=== PATIENT | male | born 1955 | race Caucasian/White ===

== ENCOUNTER 2018-03-13 19:36 | Inpatient (IN) | payer BC ==
--- OUTSIDE RECORDS SUMMARY | 2018-03-13 19:39 | XMS REPORT | Clinical Summary ---
:1955 Author Organization [facility] Address [address] [place] [address] Phone Care Team Providers Name Role Phone Unavailable Primary Care Provider Unavailable Allergies No Known Allergies Current Medications Prescription Sig. Disp. Refills Start Date End Date Status allopurinol Take 100 mg by 05/02/2013 Active (ZYLOPRIM) 100 MG mouth 2 (two) tablet times daily. blood-glucose meter Glucometer;Ttest 400 each 3 05/10/2017 Active kit strips to use 4 8 a day # 400 refills x 3; Lancets to use 4 a day # 400 refills x 3. insulin lispro To use via 45 mL 3 05/10/2017 Active (HUMALOG KWIKPEN) sliding scale 100 unit/mL InPn from 10 to 25 units three times a day. insulin pen needles Use as directed. 500 each 3 05/10/2017 Active (BD ULTRA-FINE Dispense as AMBROSE) 4 mm x 32 G written, do not substitute. Brand medically necessary.to use 5 a day. acetaminophen-codei Take 1 tablet by 30 tablet 1 05/11/2017 Active ne (TYLENOL #3) mouth every 4 300-30 mg per (four) hours as tablet needed. Max Daily Amount: 6 tablets atorvastatin Take 1 tablet 30 tablet 1 05/11/2017 Active (LIPITOR) 80 MG (80 mg total) by 8 tablet mouth nightly. aspirin 325 MG Take 1 tablet 30 tablet 0 06/12/2017 Active tablet (325 mg total) 8 by mouth daily. insulin detemir To use 45 units 45 mL 3 06/28/2017 Active (LEVEMIR FLEXTOUCH) in am and 35 100 unit/mL (3 mL) units in pm. InPn injection amiodarone Take 1 tablet 60 tablet 0 06/28/2017 Active (PACERONE) 200 MG (200 mg total) 8 tablet by mouth daily. metoprolol Take 1 tablet 30 tablet 1 06/28/2017 Active (TOPROL-XL) 25 MG (25 mg total) by 8 24 hr tablet mouth nightly. bumetanide (BUMEX) Take 1 tablet (1 30 tablet 1 06/28/2017 Active 1 MG tablet mg total) by 8 mouth daily. potassium chloride Take 1 tablet 30 tablet 1 06/28/2017 Active SA (K-DUR,KLOR-CON) (10 mEq total) 8 10 MEQ tablet by mouth daily. insulin detemir To use 60 units 45 mL 3 05/10/2017 Discontinued (LEVEMIR FLEXTOUCH) twice a day. 7 100 unit/mL (3 mL) InPn injection amiodarone Take 1 tablet 30 tablet 1 05/12/2017 Discontinued (PACERONE) 200 MG (200 mg total) 7 tablet by mouth daily. aspirin 81 MG EC Take 1 tablet 0 05/12/2017 Discontinued tablet (81 mg total) by 7 mouth daily. carvedilol (COREG) Take 1 tablet 60 tablet 1 05/11/2017 Discontinued 3.125 MG tablet (3.125 mg total) 7 by mouth 2 (two) times daily. losartan (COZAAR) Take 1 tablet 30 tablet 1 05/12/2017 Discontinued 25 MG tablet (25 mg total) by 7 mouth daily. Continue current Per Parenteral 1 each 0 06/11/2017 Discontinued parenteral nutrition 7 nutrition IV formulation. infusion amiodarone Take 1 tablet 60 tablet 0 06/11/2017 Discontinued (PACERONE) 200 MG (200 mg total) 7 tablet by mouth 2 (two) times daily. clotrimazole-betame Apply topically 45 g 0 06/11/2017 Discontinued thasone (LOTRISONE) 3 (three) times 7 1-0.05 % cream daily. medium chain Take 15 mLs by 946 mL 0 06/11/2017 Discontinued triglycerides (MCT mouth 3 (three) 7 OIL) 7.7 kcal/mL times daily. oil potassium chloride Take 1 tablet 60 tablet 0 06/11/2017 Discontinued SA (K-DUR,KLOR-CON) (20 mEq total) 7 20 MEQ tablet by mouth 2 (two) times daily. bumetanide (BUMEX) Take 1 tablet (2 60 tablet 0 06/11/2017 Discontinued 2 MG tablet mg total) by 7 mouth 2 (two) times daily. 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 Acute pulmonary insufficiency following thoracic surgery ([facility]) 05/28/2017 Pericardial tamponade 05/24/2017 Pericardial effusion 05/23/2017 Chronic gout 05/04/2017 Type 2 diabetes mellitus without complication ([facility]) 05/04/2017 CAD (coronary artery disease) 05/03/2017 SRIRAM (obstructive sleep apnea) 05/03/2017 NSVT (nonsustained ventricular tachycardia) ([facility]) 05/02/2017 Encounters Date Type Specialty Care Team Description 06/17/2017 - Hospital Encounter Cardiology Radha Mccormick 06/28/2017 MD Va Negro Alyssa Hyunna, MD 05/27/2017 Ancillary Orders Lab Noris Villanueva MD 05/27/2017 Anesthesia Event Xavier Deal MD 05/27/2017 Procedure Pass 05/27/2017 Noris Dillon THORACOSCOPY MD Karan (VATS),DECORTICATION 05/24/2017 Anesthesia Event Giancarlo Kingsley AA 05/24/2017 Procedure Pass 05/24/2017 Noris Dillon CREATION,PERICARDIAL MD Karan WINDOW 05/22/2017 - Hospital Encounter Cardiology Radha Mccormick Pericardial effusion 06/11/2017 MD Parker Negro Jamuna V., MD 05/05/2017 Orders Only General Internal Medicine 05/04/2017 Procedure Pass 05/04/2017 Noris Dillon,AORTO MD Karan CORONARY APARNA/SVG 05/03/2017 Anesthesia Event Giancarlo Kingsley AA 05/03/2017 Orders Only Zac Mercedes MD 05/02/2017 - Hospital Encounter Cardiology Radha Mccormick NSVT (nonsustained 05/11/2017 MD Sruthi ventricular Ruby, tachycardia) ([facility]) MD Samson (Primary Dx);Coronary artery disease involving [place] coronary artery of [place] shoshone heart with unstable angina pectoris ([facility]);SRIRAM (obstructive sleep apnea) 05/02/2017 Procedure Pass 05/02/2017 Surgery Radha Mccormick CATH & PCI MD Sruthi 05/02/2017 Orders Only General Internal Medicine after 03/12/2017 Social History Tobacco Use Types Packs/Day Years Used Date Former Smoker Cigarettes 1 25 Quit: 05/02/2002 Smokeless Tobacco: Never Used Alcohol Use Drinks/Week oz/Week Comments No Sex Assigned at Date Recorded Not on file Last Filed Vital Signs Vital Sign Reading Time Taken Blood Pressure 116/66 06/28/2017 11:57 AM [facility] Pulse 62 06/28/2017 11:57 AM [facility] Temperature 35.6 C (96.1 F) 06/28/2017 11:57 AM [facility] Respiratory Rate 20 06/28/2017 11:57 AM [facility] Oxygen Saturation 97% 06/28/2017 11:57 AM [facility] Inhaled Oxygen Concentration - - Weight 127.5 kg (281 lb) 06/28/2017 4:07 AM [facility] Height 180.3 cm (5' 11") 06/18/2017 2:00 PM [facility] Body Mass Index 39.19 06/28/2017 4:07 AM [facility]IL[facility] Plan of Treatment Not on file Implants Implanted Type Area Sausage Maker Device Expiration Model / Identifier Date Serial / Lot Sut Surg Stl 7 18g 18in Mls Mp M655g - [id number] Pass Christian/Arthroscop N/A: J &J :ETHICON 01/29/2022 [id number] / Implanted: Qty: 6 on 05/04/2017 by Noris Villanueva MD y Sternum / [id number] [id number] - Sx Cardiovascular N/A: SYNTHES: SYNTHE 03/01/2022 [id number] / Implanted: Qty: 2 on 05/04/2017 by Noris Villanueva MD Sternum S [facility] X / [id number] Procedures Procedure Name Priority Date/Time Associated Diagnosis Comments THORACOSCOPY 05/27/2017 9:00 AM CAD (VATS),DECORTICATION CDT CREATION,PERICARDIAL 05/24/2017 8:00 AM PERICARDIAL EFFUSION WINDOW CDT ENDOSCOPIC HARVEST,VEIN 05/04/2017 7:30 AM CAOD CDT BYPASS,AORTO CORONARY 05/04/2017 7:30 AM CAOD APARNA/SVG CDT R CATH 05/02/2017 2:20 PM CAD CDT L CATH & PCI 05/02/2017 2:20 PM CAD CDT after 03/12/2017 Results EKG-SCANNED (08/05/2017 1:10 PM)Only the most recent of3 resultswithin the time period is included.RHYTHM STRIP - SCAN (06/30/2017 8:54 AM)Only the most recent of8 resultswithin the time period is included.POC-Glucose meter (2016 7:02 AM)Only the most recent of207 resultswithin the time period is included. Component Value Ref Range POC-Glucose Meter 133 (H)Comment: TESTED AT [address] 70 - 110 mg/[place] [address] Specimen Performing Laboratory Blood [address] [address] CBC (Hemogram only) (06/28/2017 4:43 AM)Only the most recent of5 resultswithin the time period is included. Component Value Ref Range WBC 5.2 3.5 - 10.5 K/L RBC 4.15 (L) 4.63 - 6.08 M/L Hemoglobin 10.8 (L) 13.7 - 17.5 GM/DL Hematocrit 34.2 (L) 40.1 - 51.0 % MCV 82.4 79.0 - 92.2 fL MCH 26.0 25.7 - 32.2 pg MCHC 31.6 (L) 32.3 - 36.5 GM/DL RDW 14.2 11.6 - 14.4 % Platelets 182 150 - 450 K/CU MM MPV 11.0 9.4 - 12.4 fL nRBC 0 0 - 0 /100 WBC Specimen Performing Laboratory Blood [address] [address] Phosphorus (06/28/2017 4:43 AM)Only the most recent of22 resultswithin the time period is included. Component Value Ref Range Phosphorus 4.5 2.3 - 4.7 mg/dL Specimen Performing Laboratory Blood [facility] [address] Magnesium (06/28/2017 4:43 AM)Only the most recent of46 resultswithin the time period is included. Component Value Ref Range Magnesium 1.7 1.6 - 2.6 mg/dL Specimen Performing Laboratory Blood [address] [address] Basic Metabolic Panel (06/28/2017 4:43 AM)Only the most recent of44 resultswithin the time period is included. Component Value Ref Range Sodium 140 136 - 145 meq/L Potassium 4.3 3.5 - 5.1 meq/L Chloride 108 (H) 98 - 107 meq/L CO2 22 22 - 29 meq/L BUN 13 7 - 21 mg/dL Creatinine 0.69 0.57 - 1.25 mg/dL Glucose 123 (H) 70 - 105 mg/dL Calcium 8.1 (L) 8.4 - 10.2 mg/dL EGFR 117Comment: ESTIMATED GFR IS NOT ACCURATE mL/min/1.73 sq m CREATININE CLEARANCE IN PREDICTING GLOMERULAR FILTRATION RATE. ESTIMATED GFR IS NOT APPLICABLE FOR DIALYSIS PATIENTS. Specimen Performing Laboratory Blood [address] [address] ECHOCARDIOGRAM REPORT - SCAN (06/25/2017 12:20 PM)Only the most recent of5 resultswithin the time period is included.CT chest without IV contrast (2016 11:48 AM)Only the most recent of4 resultswithin the time period is included. Specimen Performing Laboratory [place] Narrative FINAL REPORT CT of the Chest dated 06/25/2017 COMPARISON: June 18, 2017 CLINICAL INFORMATION: Pericarditis Comment:Axial images of the chest were obtained from thoracic inlet to the upper abdomen without intravenous contrast. This exam was performed according to our departmental dose-optimization program, which includes automated exposure control, adjustment of the mA and/or kV according to patient size and/or use of interactive reconstruction technique. Heart is in the upper limits of normal in size. There is pericardial thickening. Aberrant right subclavian artery is noted. There is prior sternotomy and bypass surgery. Great vessels are unremarkable. No adenopathy in the mediastinum or perihilar region. Calcified granulomas are seen in the paratracheal and prevascular mediastinum and right perihilar region.Trachea and mainstem bronchi are patent. There is minimal irregular pleural thickening versus trace pleural effusion in the left hemithorax. Subsegmental atelectasis is seen in the left lung base. The rest of the lungs are clear. Visualized upper abdomen demonstrates no focal lesion. Impression: 1. Pericardial thickening. 2. Trace left pleural effusion and left lower lobe subsegmental atelectasis 3. Aberrant subclavian artery. Signed: Nona Chauhan MD Report Verified Date/Time:06/25/2017 12:30:00 Reading Location: [facility] B1 C013Y CT Body Reading Room Procedure Note Interface, External Ris In - 06/25/2017 12:32 PM [facility] FINAL REPORT CT of the Chest dated 06/25/2017 COMPARISON: June 18, 2017 CLINICAL INFORMATION: Pericarditis Comment: Axial images of the chest were obtained from thoracic inlet to the upper abdomen without intravenous contrast. This exam was performed according to our departmental dose-optimization program, which includes automated exposure control, adjustment of the mA and/or kV according to patient size and/or use of interactive reconstruction technique. Heart is in the upper limits of normal in size. There is pericardial thickening. Aberrant right subclavian artery is noted. There is prior sternotomy and bypass surgery. Great vessels are unremarkable. No adenopathy in the mediastinum or perihilar region. Calcified granulomas are seen in the paratracheal and prevascular mediastinum and right perihilar region. Trachea and mainstem bronchi are patent. There is minimal irregular pleural thickening versus trace pleural effusion in the left hemithorax. Subsegmental atelectasis is seen in the left lung base. The rest of the lungs are clear. Visualized upper abdomen demonstrates no focal lesion. Impression: 1. Pericardial thickening. 2. Trace left pleural effusion and left lower lobe subsegmental atelectasis 3. Aberrant subclavian artery. Signed: Nona Chauhan MD Report Verified Date/Time: 06/25/2017 12:30:00 Reading Location: [facility] B1 C013Y CT Body Reading Room Limited 2D Echocardiogram (06/25/2017 8:59 AM) Component Value Ref Range Ejection Fraction Specimen Performing Laboratory [facility] Narrative Transthoracic Echocardiography Report (TTE) Demographics Patient Name PIPO NIETO Date of Study 06/25/2017 EDGARD [id number] GenderMale Visit Number [id number] Race Unknown [id number] Number [id number] Number Date of Birth1955 Referring Physician Kayla Penn S Age62 year(s) Division Manager Darin Farmer [facility] IrenetIzolazara [place]cala InterpretingLito Andrew MD Physician Procedure Type of Study TTE procedure:LIMITED 2D ECHOCARDIOGRAM (Routine) Indications:Suspected Pericardial conditions. Clinical History NSVT, CAD HGB 11.5 HCT 36.0 % ACB 10.3.2017 Contrast Medium: Definity. Height: 71 inches Weight: 122.92 kg (271 lbs) BSA: 2.4 m^2 BMI: 37.8 kg/m^2 HR: 74 bpm BP: 122/63 mmHg Summary Limited study 2D only ( no Doppler) to evaluate for pericardial effusion (CAB done on 05-04-17). 1. Normal LV size. LV systolic function is mildly depressed. LVEF is 45%. 2. Diastology: Unable to comment due to limited study. 3. Moderate RV enlargement. Depressed RV function 4. Mild TR. 5. Trace pericardial effusion seen. No evidence of hemodynamic compromise. Previous Study When compared with the previous study, the LVEF is mildly reduced. Signature Findings Left Ventricle Mild concentric LV hypertrophy. The left ventricle is chamber size (by vol index) is normal (male - LVED vol - 34-74ml/m2). All of the LV segments have low normal contractility . Global LV systolic function is mildly reduced. LVEF by Ernandez's method of disk l (45-49%) The LVEF was measured using Ernandez's bi-plane method of disk . LV endocardium is adequately visualized with IV ultrasound enhancing agent. Left AtriumLA size is normal . Right VentricleModerate RV enlargement. Mildly reduced RV function. Right Atrium RA cavity size is mildly enlarged . Aortic Valve Mild AoV cusp thickening. Mitral Valve Mild MV leaflet thickening. Tricuspid ValveMild TV leaflet thickening. Mild tricuspid regurgitation. Pulmonic Valve Normal PV structure. AortaAortic root size (SInus of Valsalva diameter) is normal . PericardiumTrace pericardial effusion is visualized. There is no evidence of hemodynamic compromise. IVC/SVC/PA/PV/PleuralThe estimated RA pressure by IVC dynamics 5-10mmHg . Chambers/Structures Left Atrium LA Volume: 61.42 ml LA Vol. Index: 26 ml/m^2 Left Ventricle LV Septum Diastolic: 1.19 cm LV PW Diastolic: 1.22 cm LVEDV Ernandez's:154.01 ml LVESV Ernandez's:82.05 ml LVEF Ernandez's: 45 % LVEDVI: 64 ml/m^2 LVESVI: 34 ml/m^2 Right Atrium RA Length (AP4): 5.22 cm RA Vol. (Sngl Plane): 67.49 ml Aorta Ao Root S of Aurora.: 3.53 cm Doppler/Quantitative Measurements Tricuspid Valve TR Velocity: 2.62 m/s TR Gradient: 27.52 mmHg Procedure Note Interface, External Ris In - 06/25/2017 11:54 AM [facility] Transthoracic Echocardiography Report (TTE) Demographics Patient Name PIPO NIETO Date of Study 06/25/2017 EDGARD Gender Male Visit Number [id number] Race Unknown Room Number 1114 Number Date of 1955 Referring Physician Kayla Vieira Age 62 year(s) Division Manager Darin Farmer RDCS Clinical Informatics Educator He [place] Interpreting Lito Andrew MD Physician Procedure Type of Study TTE procedure:LIMITED 2D ECHOCARDIOGRAM (Routine) Indications:Suspected Pericardial conditions. Clinical History NSVT, CAD HGB 11.5 HCT 36.0 % ACB 10.3.2017 Contrast Medium: Definity. Height: 71 inches Weight: 122.92 kg (271 lbs) BSA: 2.4 m^2 BMI: 37.8 kg/m^2 HR: 74 bpm BP: 122/63 mmHg Summary Limited study 2D only ( no Doppler) to evaluate for pericardial effusion (CAB done on 05-04-17). 1. Normal LV size. LV systolic function is mildly depressed. LVEF is 45%. 2. Diastology: Unable to comment due to limited study. 3. Moderate RV enlargement. Depressed RV function 4. Mild TR. 5. Trace pericardial effusion seen. No evidence of hemodynamic compromise. Previous Study When compared with the previous study, the LVEF is mildly reduced. Signature Findings Left Ventricle Mild concentric LV hypertrophy. The left ventricle is chamber size (by vol index) is normal (male - LVED vol - 34-74ml/m2). All of the LV segments have low normal contractility . Global LV systolic function is mildly reduced. LVEF by Ernandez's method of disk l (45-49%) The LVEF was measured using Ernandez's bi-plane method of disk . LV endocardium is adequately visualized with IV ultrasound enhancing agent. Left Atrium LA size is normal . Right Ventricle Moderate RV enlargement. Mildly reduced RV function. Right Atrium RA cavity size is mildly enlarged . Aortic Valve Mild AoV cusp thickening. Mitral Valve Mild MV leaflet thickening. Tricuspid Valve Mild TV leaflet thickening. Mild tricuspid regurgitation. Pulmonic Valve Normal PV structure. Aorta Aortic root size (SInus of Valsalva diameter) is normal . Pericardium Trace pericardial effusion is visualized. There is no evidence of hemodynamic compromise. IVC/SVC/PA/PV/Pleural The estimated RA pressure by IVC dynamics 5-10mmHg . Chambers/Structures Left Atrium LA Volume: 61.42 ml LA Vol. Index: 26 ml/m^2 Left Ventricle LV Septum Diastolic: 1.19 cm LV PW Diastolic: 1.22 cm LVEDV Ernandez's:154.01 ml LVESV Ernandez's:82.05 ml LVEF Ernandez's: 45 % LVEDVI: 64 ml/m^2 LVESVI: 34 ml/m^2 Right Atrium RA Length (AP4): 5.22 cm RA Vol. (Sngl Plane): 67.49 ml Aorta Ao Root S of Aurora.: 3.53 cm Doppler/Quantitative Measurements Tricuspid Valve TR Velocity: 2.62 m/s TR Gradient: 27.52 mmHg Calcium, Ionized (06/24/2017 6:27 AM)Only the most recent of11 resultswithin the time period is included. Component Value Ref Range Calcium, Ion 1.04 (L) 1.12 - 1.27 mmol/L pH, Blood 7.41 Specimen Performing Laboratory Blood [facility] [address] [address] CBC with platelet count + automated diff (06/24/2017 6:27 AM)Only the most recent of21 resultswithin the time period is included. Component Value Ref Range WBC 7.2 3.5 - 10.5 K/L RBC 4.39 (L) 4.63 - 6.08 M/L Hemoglobin 11.5 (L) 13.7 - 17.5 GM/DL Hematocrit 36.0 (L) 40.1 - 51.0 % MCV 82.0 79.0 - 92.2 fL MCH 26.2 25.7 - 32.2 pg MCHC 31.9 (L) 32.3 - 36.5 GM/DL RDW 14.2 11.6 - 14.4 % Platelets 140 (L) 150 - 450 K/CU MM MPV 11.5 9.4 - 12.4 fL nRBC 0 0 - 0 /100 WBC % Neutros 72 % % Lymphs 11 % % Monos 6 % % Eos 11 % % Baso 1 % # Neutros 5.14 1.78 - 5.38 K/L # Lymphs 0.78 (L) 1.32 - 3.57 K/L # Monos 0.42 0.30 - 0.82 K/L # Eos 0.79 (H) 0.04 - 0.54 K/L # Baso 0.05 0.01 - 0.08 K/L Immature Granulocytes-Relative 0 0 - 1 % Specimen Performing Laboratory Blood [address] [address] CBC with platelet count + automated diff (06/24/2017 6:27 AM)Only the most recent of21 resultswithin the time period is included. Specimen Performing Laboratory Blood Narrative The following orders were created for panel order CBC with platelet count + automated diff. Procedure Abnormality Status --------- ------ CBC with platelet count ...[[id number]]AbnormalFinal result Please view results for these tests on the individual orders. Triglycerides (06/23/2017 11:01 AM)Only the most recent of3 resultswithin the time period is included. 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 Physician intra-service time was 185 minutes. Flowers Salesperson:Jim North MD. Print Shop Manager:Celi Approach: Bilateral inguinal lymph nodes, cisterna chyli Estimated blood loss:< 5 cc. Specimen: None. Fluoroscopy Time: 12.2 min. Reference Air Kerma (Ka, r): 1071 mGy. Dose modulation, iterative reconstruction, and/or weight based adjustment of the mA/kV was utilized to reduce the radiation dose to as low as reasonably achievable. Technique: Informed written consent was obtained. Discussion of risks, benefits, and alternatives were made with the patient. The patient expressed understanding and agreed to proceed.A universal timeout was performed prior to starting the procedure.All elements maximal sterile barrier technique was utilized for this procedure, including utilization of sterile scrub solution for skin prep, a large sterile sheet to cover the areas of the patient that were not prepped, and hand hygiene, mask, head covering, and sterile gown for performing radiologist and scrub technologist. Ultrasound guidance was 1st used to access a right inguinal lymph node. A 22-gauge spinal needle was advanced into the right inguinal lymph node and the tip was positioned at the cortical hilar junction of the lymph node. Ultrasound guidance was used to access a left inguinal lymph node in the same manner. Approximately 10 mL of Lipiodol contrast was administered through each of the spinal needles into the inguinal lymph nodes to perform abdominal and thoracic lymph angiography. Spot serial fluoroscopic radiographs of the abdomen and chest were then obtained over approximately the next 90 minutes. Once the cisterna chyli was opacified the patient's abdomen was prepped and draped in the usual sterile fashion. A 25 cm 22-gauge Chiba needle was advanced from a right anterior abdominal subcutaneous approach towards the cisterna chyli under biplane fluoroscopic control. Given the patient's body habitus the needle was not successfully able to be advanced into the cisterna Lili for thoracic duct embolization under fluoroscopic guidance. The decision was then made to perform the procedure under CT guidance. The patient was taken to the CT suite and placed in the prone position and a limited noncontrast CT of the upper abdomen and chest was performed which demonstrated a safe access site to the thoracic duct from a right posterior paraspinal approach. A 22-gauge Chiba needle was advanced into the thoracic duct. Once the needle tip was within the thoracic duct a fat a microwire was advanced through the needle and into the duct. Only approximately 3 cm of the wire could be advanced into the duct before resistance was met. The decision was then made to forego thoracic duct embolization as it would be nearly impossible to track a catheter over the microwire. The cisterna chyli was then macerated with repeated punctures with the 22-gauge Chiba needle. The needle was then removed and hemostasis was achieved with manual compression. The puncture sites were dressed with sterile gauze and Tegaderm. The patient tolerated the procedure well without evidence of immediate complication. Impression: Technically successful and uncomplicated cholangiogram and cisterna chyli maceration. 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 Vital signs were monitored throughout the procedure by a nurse, and remained stable. Physician intra-service time was 185 minutes. Flowers Salesperson: Jim North MD. Print Shop Manager: Celi Approach: Bilateral inguinal lymph nodes, cisterna chyli Estimated blood loss: < 5 cc. Specimen: None. Fluoroscopy Time: 12.2 min. Reference Air Kerma (Ka, r): 1071 mGy. Dose modulation, iterative reconstruction, and/or weight based adjustment of the mA/kV was utilized to reduce the radiation dose to as low as reasonably achievable. Technique: Informed written consent was obtained. Discussion of risks, benefits, and alternatives were made with the patient. The patient expressed understanding and agreed to proceed. A universal timeout was performed prior to starting the procedure. All elements maximal sterile barrier technique was utilized for this procedure, including utilization of sterile scrub solution for skin prep, a large sterile sheet to cover the areas of the patient that were not prepped, and hand hygiene, mask, head covering, and sterile gown for performing radiologist and scrub technologist. Ultrasound guidance was 1st used to access a right inguinal lymph node. A 22-gauge spinal needle was advanced into the right inguinal lymph node and the tip was positioned at the cortical hilar junction of the lymph node. Ultrasound guidance was used to access a left inguinal lymph node in the same manner. Approximately 10 mL of Lipiodol contrast was administered through each of the spinal needles into the inguinal lymph nodes to perform abdominal and thoracic lymph angiography. Spot serial fluoroscopic radiographs of the abdomen and chest were then obtained over approximately the next 90 minutes. Once the cisterna chyli was opacified the patient's abdomen was prepped and draped in the usual sterile fashion. A 25 cm 22-gauge Chiba needle was advanced from a right anterior abdominal subcutaneous approach towards the cisterna chyli under biplane fluoroscopic control. Given the patient's body habitus the needle was not successfully able to be advanced into the cisterna Lili for thoracic duct embolization under fluoroscopic guidance. The decision was then made to perform the procedure under CT guidance. The patient was taken to the CT suite and placed in the prone position and a limited noncontrast CT of the upper abdomen and chest was performed which demonstrated a safe access site to the thoracic duct from a right posterior paraspinal approach. A 22-gauge Chiba needle was advanced into the thoracic duct. Once the needle tip was within the thoracic duct a fat a microwire was advanced through the needle and into the duct. Only approximately 3 cm of the wire could be advanced into the duct before resistance was met. The decision was then made to forego thoracic duct embolization as it would be nearly impossible to track a catheter over the microwire. The cisterna chyli was then macerated with repeated punctures with the 22-gauge Chiba needle. The needle was then removed and hemostasis was achieved with manual compression. The puncture sites were dressed with sterile gauze and Tegaderm. The patient tolerated the procedure well without evidence of immediate complication. Impression: Technically successful and uncomplicated cholangiogram and cisterna chyli maceration. Signed: Jim North MD Report Verified Date/Time: 07/07/2017 15:48:26 Reading Location: [address] Radiology Reading Room /aPTT (06/21/2017 1:30 PM)Only the most recent of4 resultswithin the time period is included. Component Value Ref Range Protime 17.2 (H) 11.7 - 14.7 seconds INR 1.4 <=5.9 PTT 37.4 (H) 22.5 - 36.0 seconds Specimen Performing Laboratory Blood - Arm, Left [address] [address] Narrative RECOMMENDED COUMADIN/WARFARIN INR THERAPY RANGES STANDARD DOSE: 2.0 - 3.0 Includes: PROPHYLAXIS for venous thrombosis, systemic embolization; TREATMENT for venous thrombosis and/or pulmonary embolus. HIGH RISK: Target INR is 2.5-3.5 for patients with mechanical heart valves. Prothrombin time/INR (06/21/2017 1:30 PM)Only the most recent of6 resultswithin the time period is included. Component Value Ref Range Protime 17.2 (H) 11.7 - 14.7 seconds INR 1.4 <=5.9 Specimen Performing Laboratory Blood - Arm, [address] [address] Narrative RECOMMENDED COUMADIN/WARFARIN INR THERAPY RANGES STANDARD DOSE: 2.0 - 3.0 Includes: PROPHYLAXIS for venous thrombosis, systemic embolization; TREATMENT for venous thrombosis and/or pulmonary embolus. HIGH RISK: Target INR is 2.5-3.5 for patients with mechanical heart valves. Fibrinogen (06/21/2017 1:30 PM)Only the most recent of3 resultswithin the time period is included. Component Value Ref Range Fibrinogen 421 225 - 434 mg/dl Specimen Performing Laboratory Blood - Arm, [address] [address] XR chest 1 view portable / bedside (06/20/2017 6:17 AM)Only the most recent of28 resultswithin the time period is included. Specimen Performing Laboratory GE RIS Narrative FINAL REPORT CLINICAL HISTORY: pl effusion TECHNIQUE: 1 view of the chest. COMPARISON: 06/09/2017 IMPRESSION: The left PICC line is unchanged. There are no infiltrates or significant effusions. The cardiomediastinal silhouette is magnified by technique with sternotomy wires. Signed: Meagan Santacruz MD Report Verified Date/Time:06/20/2017 08:12:30 Reading Location: [address] Neuro Reading Room Procedure Note Interface, External Ris In - 06/20/2017 8:14 AM [facility] FINAL REPORT CLINICAL HISTORY: pl effusion TECHNIQUE: 1 view of the chest. COMPARISON: 06/09/2017 IMPRESSION: The left PICC line is unchanged. There are no infiltrates or significant effusions. The cardiomediastinal silhouette is magnified by technique with sternotomy wires. Signed: Meagan Santacruz MD Report Verified Date/Time: 06/20/2017 08:12:30 Reading Location: [facility] C013V Neuro Reading Room Clostridium difficile Toxin PCR (06/19/2017 4:33 PM) Component Value Ref Range C.Diff Toxin, PCR Not Detected Not Detected Specimen Performing Laboratory Stool [facility] [address] This qualitative real-time polymerase chain reaction assay detects the tcdB gene, encoded on the C.difficile pathogenicity locus (PaLoc).The product of tcdB , toxin B, is a cytotoxin essential for causing C.difficile-associated disease (CDAD) and is found in virtually all toxigenic C.difficile. This assay is performed for patients suspected of having either community- acquired or nosocomial CDAD.Accordingly, only symptomatic patients should be tested and formed stools will be rejected unless ileus is present (i.e., specified when ordering).Patients may be colonized with toxigenic C.difficile strains not causing active disease; therefore, clinical correlation is needed when deciding how to manage patients with a positive test result. The assay has not been validated as a test of cure as amplifiable nucleic acid may persist after effective treatment; therefore, follow-up testing of a positive result is not recommended. 2D Echo W/Doppler(CW/PW/Color) (06/18/2017 2:28 PM)Only the most recent of4 resultswithin the time period is included. Component Value Ref Range Ejection Fraction Specimen Performing Laboratory [facility] Narrative Transthoracic Echocardiography Report (TTE) Demographics Patient Name PIPO NIETO Date of Study 06/18/2017 EDGARD [id number] GenderMale Visit Number [id number] Race Unknown [id number] Number [id number] Number Date of Birth1955 Referring Physician Jace Mejia Age62 year(s) Division Manager Ambreen Paulino [facility] AnalysJanny Najera,Christopher Mcfarland MD [facility] Physician Procedure Type of Study TTE procedure:2DECHO W DOPPLER(CW/PW/COLOR) (Routine) Indications:Suspected Pericardial conditions. Clinical History HX:CAD;SRIRAM HGB 13.5 HCT 43.3 % Contrast Medium: Definity. Height: 71 inches Weight: 122.92 kg (271 lbs) BSA: 2.4 m^2 BMI: 37.8 kg/m^2 HR: 63 bpm BP: 118/69 mmHg Summary LV endocardium is adequately visualized with IV ultrasound enhancing agent. The left ventricle is chamber size (by vol index) is normal (male - LVED vol - 34-74ml/m2). No evidence of LV hypertrophy. The following segment(s) appear hypokinetic: apex . The other segments contract normally. Global LV systolic function normal . LVEF by Ernandez's method of disk assessment is normal (55-60%) . The LVEF was measured using Ernandez's bi-plane method of disk . Grade 1 diastolic dysfunction (impaired relaxation and low-normal LA pressure). RV chamber size appears normal by limited views . Global RV systolic function is normal . Unable to estimate peak systolic PA pressure; inadequate TR velocity signal. The estimated RA pressure by IVC dynamics 0-5mmHg . No pericardial effusion is visualized Previous Study In comparison with the prior exam 05/23/2017 the following changes are noted: LV EF is normal and there is no pericardial effusion. Signature Findings Technical Quality: Technically adequate exam. Rhythm/BPRegular sinus rhythm during the exam. Left Ventricle LV endocardium is adequately visualized with IV ultrasound enhancing agent. The left ventricle is chamber size (by vol index) is normal (male - LVED vol - 34-74ml/m2). No evidence of LV hypertrophy. The following segment(s) appear hypokinetic: apex . The other segments contract normally. Global LV systolic function normal . LVEF by Ernandez's method of disk assessment is normal ( 55-60%) . The LVEF was measured using Ernandez's bi -plane method of disk . Grade 1 diastolic dysfunction (impaired relaxation and low-normal LA pressure). Left AtriumLA is adequately visualized. LA size is normal (16-34 ml/m2 ) . Right VentricleRV chamber size appears normal by limited views . Global RV systolic function is normal . Right Atrium RA cavity size is normal . The RA is well visualized. Aortic Valve Mild AoV cusp thickening. No evidence of aortic regurgitation. Mitral Valve Mild MV leaflet thickening. No evidence of mitral regurgitation. Tricuspid ValveTV structure is normal. A trace of tricuspid regurgitation. Unable to estimate peak systolic PA pressure; inadequate TR velocity signal. Pulmonic Valve Normal PV structure and function by limited views and Doppler. AortaAortic root size (SInus of Valsalva diameter) is normal . PericardiumNo pericardial effusion is visualized. IVC/SVC/PA/PV/PleuralThe inferior vena cava is adequately visualized. The inferior vena cava size is normal . The estimated RA pressure by IVC dynamics 0-5mmHg . Chambers/Structures Left Atrium LA Volume: 57.26 ml LA Area: 21.04 cm^ 2 LA Vol. Index: 24 ml/m^2 Left Ventricle LVIDd: 5.4 cm LV Septum Diastolic: 1 cm LV PW Diastolic: 1.17 cm LVEDV Ernandez's:166.75 ml LVESV Ernandez's:66.69 ml LVEF Ernandez's: 60 %LVEDVI: 69 ml/m^2 LVESVI: 28 ml/m^2 LVOT Diameter: 2.57 cm Aorta Ao Root S of Aurora.: 3.23 cm Doppler/Quantitative Measurements Mitral Valve MV Peak E-Wave: 0.66 m/sMV Peak A-Wave: 0.67 m/s E/ A Ratio: 0.98 Peak Gradient: 1.73 mmHg Deceleration Time: 190 msec MV Bill. Peak: Tissue Doppler E' Lateral Velocity: 0.17 m/s A' Lateral Velocity: 0.11 m/s E/ E': 3.89 Aortic Valve Peak Velocity: 1.53 m/sMean Velocity: 1.03 m/s Peak Gradient: 9.31 mmHg Mean Gradient: 4.88 mmHg AV Area (continuity): 3.28 cm^2 AV VTI: 26.98 cm AV DVI: 0.63 LVOT Peak Velocity: 0.9 m/sPeak Gradient: 3.27 mmHg Mean Velocity: 0.57 m/s Mean Gradient: 1.62 mmHg LVOT Diameter: 2.57 cmLVOT VTI: 17.05 cm LVOT Area: 5.19 cm^2LVOT SV:88.4 ml LVOT CO: 5.57 l/min LVOT CI: 2.32 l/min/m^2 Procedure Note Interface, External Ris In - 06/18/2017 4:48 PM [facility] Transthoracic Echocardiography Report (TTE) Demographics Patient Name PIPO NIETO Date of Study 06/18/2017 EDGARD Gender Male Visit Number [id number] Race Unknown Room Number 1114 Number Date of 1955 Referring Physician Jace Mejia Age 62 year(s) Division Manager Ambreen Paulino [facility] Clinical Informatics Educator Loyda Najera, Interpreting Xavier Mcfarland MD [facility] Physician Procedure Type of Study TTE procedure:2DECHO W DOPPLER(CW/PW/COLOR) (Routine) Indications:Suspected Pericardial conditions. Clinical History HX:CAD;SRIRAM HGB 13.5 HCT 43.3 % Contrast Medium: Definity. Height: 71 inches Weight: 122.92 kg (271 lbs) BSA: 2.4 m^2 BMI: 37.8 kg/m^2 HR: 63 bpm BP: 118/69 mmHg Summary LV endocardium is adequately visualized with IV ultrasound enhancing agent. The left ventricle is chamber size (by vol index) is normal (male - LVED vol - 34-74ml/m2). No evidence of LV hypertrophy. The following segment(s) appear hypokinetic: apex . The other segments contract normally. Global LV systolic function normal . LVEF by Ernandez's method of disk assessment is normal (55-60%) . The LVEF was measured using Ernandez's bi-plane method of disk . Grade 1 diastolic dysfunction (impaired relaxation and low-normal LA pressure). RV chamber size appears normal by limited views . Global RV systolic function is normal . Unable to estimate peak systolic PA pressure; inadequate TR velocity signal. The estimated RA pressure by IVC dynamics 0-5mmHg . No pericardial effusion is visualized Previous Study In comparison with the prior exam 05/23/2017 the following changes are noted: LV EF is normal and there is no pericardial effusion. Signature Findings Technical Quality: Technically adequate exam. Rhythm/BP Regular sinus rhythm during the exam. Left Ventricle LV endocardium is adequately visualized with IV ultrasound enhancing agent. The left ventricle is chamber size (by vol index) is normal (male - LVED vol - 34-74ml/m2). No evidence of LV hypertrophy. The following segment(s) appear hypokinetic: apex . The other segments contract normally. Global LV systolic function normal . LVEF by Ernandez's method of disk assessment is normal (55-60%) . The LVEF was measured using Ernandez's bi-plane method of disk . Grade 1 diastolic dysfunction (impaired relaxation and low-normal LA pressure). Left Atrium LA is adequately visualized. LA size is normal (16-34 ml/m2) . Right Ventricle RV chamber size appears normal by limited views . Global RV systolic function is normal . Right Atrium RA cavity size is normal . The RA is well visualized. Aortic Valve Mild AoV cusp thickening. No evidence of aortic regurgitation. Mitral Valve Mild MV leaflet thickening. No evidence of mitral regurgitation. Tricuspid Valve TV structure is normal. A trace of tricuspid regurgitation. Unable to estimate peak systolic PA pressure; inadequate TR velocity signal. Pulmonic Valve Normal PV structure and function by limited views and Doppler. Aorta Aortic root size (SInus of Valsalva diameter) is normal . Pericardium No pericardial effusion is visualized. IVC/SVC/PA/PV/Pleural The inferior vena cava is adequately visualized. The inferior vena cava size is normal . The estimated RA pressure by IVC dynamics 0-5mmHg . Chambers/Structures Left Atrium LA Volume: 57.26 ml LA Area: 21.04 cm^2 LA Vol. Index: 24 ml/m^2 Left Ventricle LVIDd: 5.4 cm LV Septum Diastolic: 1 cm LV PW Diastolic: 1.17 cm LVEDV Ernandez's:166.75 ml LVESV Ernandez's:66.69 ml LVEF Ernandez's: 60 % LVEDVI: 69 ml/m^2 LVESVI: 28 ml/m^2 LVOT Diameter: 2.57 cm Aorta Ao Root S of Aurora.: 3.23 cm Doppler/Quantitative Measurements Mitral Valve MV Peak E-Wave: 0.66 m/s MV Peak A-Wave: 0.67 m/s E/A Ratio: 0.98 Peak Gradient: 1.73 mmHg Deceleration Time: 190 msec MV Bill. Peak: Tissue Doppler E' Lateral Velocity: 0.17 m/s A' Lateral Velocity: 0.11 m/s E/E': 3.89 Aortic Valve Peak Velocity: 1.53 m/s Mean Velocity: 1.03 m/s Peak Gradient: 9.31 mmHg Mean Gradient: 4.88 mmHg AV Area (continuity): 3.28 cm^2 AV VTI: 26.98 cm AV DVI: 0.63 LVOT Peak Velocity: 0.9 m/s Peak Gradient: 3.27 mmHg Mean Velocity: 0.57 m/s Mean Gradient: 1.62 mmHg LVOT Diameter: 2.57 cm LVOT VTI: 17.05 cm LVOT Area: 5.19 cm^2 LVOT SV:88.4 ml LVOT CO: 5.57 l/min LVOT CI: 2.32 l/min/m^2 Comprehensive metabolic panel (06/18/2017 6:13 AM) Component Value Ref Range Protein, Total 6.6 6.0 - 8.3 gm/dL Albumin 3.3 (L) 3.5 - 5.0 g/dL Alkaline Phosphatase 70 40 - 150 U/L Total Bilirubin 0.5 0.2 - 1.2 mg/dL Sodium 138 136 - 145 meq/L Potassium 3.6 3.5 - 5.1 meq/L Chloride 107 98 - 107 meq/L CO2 21 (L) 22 - 29 meq/L BUN 26 (H) 7 - 21 mg/dL Creatinine 0.97 0.57 - 1.25 mg/dL Glucose 118 (H) 70 - 105 mg/dL Calcium 8.7 8.4 - 10.2 mg/dL AST 46 (H) 5 - 34 U/L ALT 38 6 - 55 U/L EGFR 79Comment: ESTIMATED GFR IS NOT ACCURATE mL/min/1.73 sq m CREATININE CLEARANCE IN PREDICTING GLOMERULAR FILTRATION RATE. ESTIMATED GFR IS NOT APPLICABLE FOR DIALYSIS PATIENTS. Specimen Performing Laboratory Blood [facility] [address] [address] UROLOGY REPORT - SCAN (06/14/2017 11:01 AM)CT chest with IV contrast (2016 5:04 PM) Specimen Performing Laboratory [place] Narrative FINAL REPORT CT of the chest, with contrast, 06/10/2017. History: History of pleural effusion. Comparison: 05/26/2017. Technique: Multidetector CT scanning of the chest was performed from the level of the thoracic inlet to the upper abdomen after intravenous administrationof non-ionic contrast.This exam was performed according to our departmental dose-optimization program which includes automated exposure control, adjustment of the mA and/or kV according to patient size and/or use of iterative reconstruction technique. Discussion: The atria, ventricles, aorta, and pulmonary vessels are normal in size. 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 There is no evidence of axillary or mediastinal adenopathy. A 2.1 cm hypodense lesion is present posteriorly within the left lobe of the thyroid. Median sternotomy wires and mediastinal surgical clips are again noted. Anterior mediastinal fluid, likely postsurgical, is unchanged. Left upper extremity PICC terminates near the cavoatrial junction. A pericardial drain is seen coursing inferior to the heart. No significant pericardial fluid is seen posteriorly. Linear opacities are present at the lung bases. There is no evidence of consolidation or pleural effusion. Median sternotomy wires and recent median sternotomy are present. Mild degenerative changes are present within the thoracic spine. Limited evaluation of the upper abdomen shows normal adrenal glands. IMPRESSION: Interval resolution of bilateral pleural effusions and bibasilar atelectasis. Postoperative changes are again noted. Left thyroid nodule may be further evaluated with ultrasound. Signed: Costa Perez MD Report Verified Date/Time:06/10/2017 17:41:51 Reading Location: [facility] C013 Consult Reading Room Procedure Note Interface, External Ris In - 06/10/2017 5:44 PM [facility]ILDR[facility] FINAL REPORT CT of the chest, with contrast, 06/10/2017. History: History of pleural effusion. Comparison: 05/26/2017. Technique: Multidetector CT scanning of the chest was performed from the level of the thoracic inlet to the upper abdomen after intravenous administration of non-ionic contrast. This exam was performed according to our departmental dose-optimization program which includes automated exposure control, adjustment of the mA and/or kV according to patient size and/or use of iterative reconstruction technique. Discussion: The atria, ventricles, aorta, and pulmonary vessels are normal in size. 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 There is no evidence of axillary or mediastinal adenopathy. A 2.1 cm hypodense lesion is present posteriorly within the left lobe of the thyroid. Median sternotomy wires and mediastinal surgical clips are again noted. Anterior mediastinal fluid, likely postsurgical, is unchanged. Left upper extremity PICC terminates near the cavoatrial junction. A pericardial drain is seen coursing inferior to the heart. No significant pericardial fluid is seen posteriorly. Linear opacities are present at the lung bases. There is no evidence of consolidation or pleural effusion. Median sternotomy wires and recent median sternotomy are present. Mild degenerative changes are present within the thoracic spine. Limited evaluation of the upper abdomen shows normal adrenal glands. IMPRESSION: Interval resolution of bilateral pleural effusions and bibasilar atelectasis. Postoperative changes are again noted. Left thyroid nodule may be further evaluated with ultrasound. Signed: Costa Perez MD Report Verified Date/Time: 06/10/2017 17:41:51 Reading Location: [facility] B1 C013W Consult Reading Room Hepatic function panel (06/09/2017 5:26 AM)Only the most recent of2 resultswithin the time period is included. Component Value Ref Range Protein, Total 6.6 6.0 - 8.3 gm/dL Albumin 3.3 (L) 3.5 - 5.0 g/dL Total Bilirubin 0.7 0.2 - 1.2 mg/dL Bilirubin, Direct 0.3 0.1 - 0.5 mg/dL Alkaline Phosphatase 57 40 - 150 U/L AST 25 5 - 34 U/L ALT 12 6 - 55 U/L Specimen Performing Laboratory Blood [address] [address] Urinalysis w/Microscopic (06/04/2017 11:41 AM) Component Value Ref Range Color, UA Yellow Clarity, UA Clear Specific Donnellson, UA 1.012 1.001 - 1.035 pH, UA 6.5 5.0 - 8.0 Protein, UA Negative Negative Glucose, UA Negative Negative Ketones, UA Negative Negative Bilirubin, UA Negative Negative Blood, UA Negative Negative Nitrite, UA Negative Negative Leukocytes, UA Large (A) Negative Urobilinogen, UA 2.0 (H) 0.2 - 1.0 mg/dL RBC, UA <1 /HPF WBC, UA 9 /HPF Bacteria, UA Moderate Mucus Rare Squam Epithel, UA 1 /HPF Hyaline Casts, UA 2 /LPF Specimen Source Urine, Clean Catch Specimen Performing Laboratory Urine - Urine, Clean Catch [address] [address] Urine culture (06/04/2017 11:41 AM) Component Value Ref Range Result Result 80-89,000 col/mL Serratia marcescens (A) Specimen Performing Laboratory Urine - Urine, Clean Catch [address] [address] Narrative >100,000 col/mL skin steff Organism Antibiotic Method Susceptibility Serratia marcescens Amikacin <=2: Susceptible Serratia marcescens Aztreonam <=1: Susceptible Serratia marcescens Cefepime <=1: Susceptible Serratia marcescens Cefoxitin 16: Resistant Serratia marcescens Ceftazidime <=1: Susceptible Serratia marcescens Ceftriaxone <=1: Susceptible Serratia marcescens Ertapenem <=0.5: Susceptible Serratia marcescens Gentamicin <=1: Susceptible Serratia marcescens Levofloxacin <=0.12: Susceptible Serratia marcescens Meropenem <=0.25: Susceptible Serratia marcescens Nitrofurantoin 128: Resistant Serratia marcescens Tetracycline 4: Susceptible Serratia marcescens Tobramycin <=1: Susceptible Serratia marcescens Trimethoprim + Sulfamethoxazole <=20: Susceptible Albumin (06/04/2017 4:21 AM)Only the most recent of4 resultswithin the time period is included. Component Value Ref Range Albumin 3.2 (L) 3.5 - 5.0 g/dL Specimen Performing Laboratory Blood [address] [address] Lipid panel (06/02/2017 5:46 AM) Component Value Ref Range Triglycerides 106 mg/dL Cholesterol 103 mg/dL HDL 29 mg/dL LDL Calculated 53 mg/dL Specimen Performing Laboratory Blood - Central Venous Line [address] [address] Narrative Triglyceride Reference Range: Low Risk <150 [id number] High Risk 200-499 Very High Risk>=500 Cholesterol Reference Range: Low Risk <200 [id number] High Risk>240 HDL Cholesterol Reference Range: Low Risk >=60 High Risk <40 LDL Cholesterol Reference Range: Optimal<100 Near [id number] Very High >=190 TRANSFUSION SERVICE REPORT - SCAN (05/28/2017 5:43 PM)Only the most recent of5 resultswithin the time period is included.Oxygen saturation, measured (2016 3:43 AM)Only the most recent of6 resultswithin the time period is included. Component Value Ref Range O2 Saturation (Measured) 74.3 % Specimen Performing Laboratory Blood [address] [address] Lactic acid, arterial, whole blood (05/28/2017 3:43 AM)Only the most recent of7 resultswithin the time period is included. Component Value Ref Range Lactate, Art 0.7 0.5 - 2.2 mmol/L Specimen Performing Laboratory Blood, Arterial [address] [address] Narrative Effective 12/04/2015: Units/Reference Range Change New: 0.5-2.2 mmol/LPrevious: 5-20 mg/dL Blood gas, arterial (05/27/2017 4:59 PM)Only the most recent of14 resultswithin the time period is included. Component Value Ref Range pH, Arterial 7.44 7.35 - 7.45 pCO2, Arterial 33 (L) 35 - 45 mmHg pO2, Arterial 127 (H) 80 - 90 mmHg O2 Sat, Arterial 98.7 (H) 96.0 - 97.0 % HCO3, Arterial 22 21 - 29 mmol/L Base Excess, Arterial -1.7 -2.0 - 3.0 mmol/L Patient Temperature 37.0 C FIO2 60.0 % Specimen Performing Laboratory Blood - Line, Arterial [address] [address] Narrative PRN if O2 saturation less than 90% PRN 30 minutes after each ventilator change Body fluid culture + gram stain (05/27/2017 2:00 PM)Only the most recent of2 resultswithin the time period is included. Component Value Ref Range Result No growth Gram Stain Result 1+ WBCs Gram Stain Result No organisms seen Specimen Performing Laboratory Body Fluid - Pleural, Left [address] [address] Potassium-Stat Lab (05/27/2017 1:49 PM)Only the most recent of10 resultswithin the time period is included. Component Value Ref Range Potassium 3.5 (L) 3.6 - 5.5 meq/L Specimen Performing Laboratory Blood, Arterial - Line, Arterial [address] [address] Sodium Na-Stat Lab (05/27/2017 1:49 PM)Only the most recent of8 resultswithin the time period is included. Component Value Ref Range Sodium 135 135 - 148 meq/L Specimen Performing Laboratory Blood, Arterial - Line, Arterial [address] [address] Glucose-Stat Lab (05/27/2017 1:49 PM)Only the most recent of11 resultswithin the time period is included. Component Value Ref Range Glucose 88 70 - 110 mg/dL Specimen Performing Laboratory Blood, Arterial - Line, Arterial [address] [address] HGB/HCT (H&H)-Stat Lab (05/27/2017 1:49 PM)Only the most recent of8 resultswithin the time period is included. Component Value Ref Range Hemoglobin 13.1 13.0 - 16.8 g/dL Hematocrit 39.0 (L) 40.0 - 50.0 % Specimen Performing Laboratory Blood, Arterial - Line, Arterial [address] [address] AFB culture + smear (05/27/2017 1:09 PM)Only the most recent of2 resultswithin the time period is included. Component Value Ref Range Result No acid-fast bacilli isolated in 42 days AFB Smear No acid fast bacilli seen Specimen Performing Laboratory Body Fluid - Pleural, Left [address] [address] Anaerobic culture (05/27/2017 1:09 PM)Only the most recent of2 resultswithin the time period is included. Component Value Ref Range Result No anaerobes isolated Specimen Performing Laboratory Body Fluid - Pleural, Left [address] [address] Mycoplasma culture (05/27/2017 1:09 PM) Component Value Ref Range SOURCE-BODY SITE PLEURAL Status FINAL Cult-Mycoplasma NOT ISOLATEDComment: REFERENCE RANGE: NOT ISOLATED Specimen Performing Laboratory Body Fluid - Pleural, Left [facility] [id number] [place] [address] Narrative Performing Lab *[facility] [address] [place] [id number] H Kayley Cyr MD Legionella culture (05/27/2017 1:09 PM) Component Value Ref Range Result No Legionella species isolated Specimen Performing Laboratory Body Fluid - Pleural, Left [address] [address] Fungus culture + smear (05/27/2017 1:09 PM)Only the most recent of2 resultswithin the time period is included. Component Value Ref Range Result No fungus isolated in 28 days Fungus Smear No fungi seen Specimen Performing Laboratory Body Fluid - Pleural, Left [address] [address] Triglycerides, body fluid (05/27/2017 1:09 PM)Only the most recent of2 resultswithin the time period is included. Component Value Ref Range Triglycerides, Fluid 344 mg/dL Specimen Performing Laboratory Body Fluid - Pleural, [place] [address] Narrative Reference Range:No Normals Assay performance has not been validated for this type of specimen. Platelet Aggregation: Function Screen (05/27/2017 8:22 AM)Only the most recent of2 resultswithin the time period is included. Component Value Ref Range Weak ADP 86 60 - 91 % Plt. Function Screen Interpretation 60-100% indicates normal platelet function Pathologist: Dory Melchor MD (electronic signature) Platelets 371 150 - 450 K/CU MM Specimen Performing [place] [address] Narrative for patients on clopidogrel in past two weeks Type and screen, automated (05/27/2017 8:22 AM)Only the most recent of4 resultswithin the time period is included. Component Value Ref Range ABO/RH AUTOMATED (BEAKER) A POSITIVE Ab Scrn NEGATIVE Specimen [place] [address] US thoracentesis (05/26/2017 3:30 PM) Specimen Performing Laboratory GE [facility] Narrative FINAL REPORT Thoracentesis: Performing M.D.: Rebecca Hu M.D. Print Shop Manager: angel Preprocedure diagnosis: pleural effusion Postprocedure Diagnosis: same Specimen removed: As requested Estimated Blood Loss: less than 10 cc Complications: No complications Modality: sonography Conscious Sedation: none Anesthesia:Two percent Lidocaine injected subcutaneously at the insertion site. Graft or Implants: none Approach: Left posterior intercostal space Technique:After informed written consent was obtained, the patient was prepped and draped in the usual sterile manner.Access was obtained using sonographic guidance.The fluid pocket was identified and images were sent to PACS.The leftposterior intercostal space was selectively catheterized.A small bore catheter was advanced into the pleural space.The patient tolerated the procedure well.A chest radiograph is pending to exclude a pneumothorax. Impression: Successful, uncomplicated ultrasound guided thoracentesis of a left pleuraleffusion.100 cc of cloudy yellow fluid was removed.A chest CT is pending.The referring surgeon was notified. Signed: Rebecca Hu MD Report Verified Date/Time:05/26/2017 17:30:24 Reading Location: [address] Ultrasound Reading Room Procedure Note Interface, External Ris In - 05/26/2017 5:32 PM CDT FINAL REPORT Thoracentesis: Performing M.D.: Rebecca Hu M.D. Print Shop Manager: none Preprocedure diagnosis: pleural effusion Postprocedure Diagnosis: same Specimen removed: As requested Estimated Blood Loss: less than 10 cc Complications: No complications Modality: sonography Conscious Sedation: none Anesthesia: Two percent Lidocaine injected subcutaneously at the insertion site. Graft or Implants: none Approach: Left posterior intercostal space Technique: After informed written consent was obtained, the patient was prepped and draped in the usual sterile manner. Access was obtained using sonographic guidance. The fluid pocket was identified and images were sent to PACS. The left posterior intercostal space was selectively catheterized. A small bore catheter was advanced into the pleural space. The patient tolerated the procedure well. A chest radiograph is pending to exclude a pneumothorax. Impression: Successful, uncomplicated ultrasound guided thoracentesis of a left pleural effusion. 100 cc of cloudy yellow fluid was removed. A chest CT is pending. The referring surgeon was notified. Signed: Rebecca Hu MD Report Verified Date/Time: 05/26/2017 17:30:24 Reading Location: [place] [id number] Ultrasound Reading Room Glucose, body fluid (05/26/2017 3:30 PM) Component Value Ref Range Glucose, Body Fluid 191 (H) 70 - 110 mg/dL Specimen Performing Laboratory Body Fluid - Pleural, [place] [address] Narrative Absence of reference range indicates that normals have not been defined. Assay performance has not been validated for this type of specimen. Body fluid cell count with differential (05/26/2017 3:30 PM) Component Value Ref Range Appearance Turbid (A) Clear Color [place] (A) Colorless, Straw RBCs [address] (H) <=1 /cu mm Adjusted WBC Count 1051 (H) <=5 /cu mm Lining Cells 126 (H) <=1 /cu mm % Segs 10 % % Lymphs 83 % % Monos 6 % % Eos 1 % % Baso 0 % Container Body Fluid EDTA Tube Specimen Performing Laboratory Body Fluid - Pleural, [address] [address] Protein, body fluid (05/26/2017 3:30 PM) Component Value Ref Range Protein, Fluid 4.0 Light's criteria identifies effusions if one or more are present: Pleural to serum protein ratio of more than 0.5; Pleural to Serum LDH of more than 0.6; Pleural LDH of more than two third of upper serum reference limit g/dL Specimen Performing Laboratory Body Fluid - Pleural, [address] [address] Narrative Absence of reference range indicates that normals have not been defined. Assay performance has not been validated for this type of specimen. Lactate dehydrogenase (LDH), body fluid (05/26/2017 3:30 PM) Component Value Ref Range LDH, Fluid 174 Light's criteria identifies effusions if one or more are present: Pleural to serum protein ratio of more than 0.5; Pleural to serum LDH ratio of more than 0.6; Pleural LDH more than two third of upper serum reference limit U/L Specimen Performing Laboratory Body Fluid - Pleural, [address] [address] Narrative Absence of reference range indicates that normals have not been defined. Assay performance has not been validated for this type of specimen. Amylase, body fluid (05/26/2017 3:30 PM) Component Value Ref Range Amylase, Fluid 14 (L) 30 - 110 U/L Specimen Performing Laboratory Body Fluid - Pleural, [address] [address] Narrative Absence of reference range indicates that normals have not been defined. Assay performance has not been validated for this type of specimen. US chest (05/25/2017 10:45 AM) Specimen Performing Laboratory [place] Narrative FINAL REPORT INDICATION: Left pleural effusion Limited left chest ultrasound. IMPRESSION: Ultrasound examination of the left chest was performed in preparation for left thoracentesis. However, only a small amount of fluid is seen in the left pleural space, not amenable for safe placement of a chest tube. Signed: Yung Rivera MD Report Verified Date/Time:05/27/2017 12:22:11 Reading Location: [facility] B1 C013X Ortho Consult Reading Room Procedure Note Interface, External Ris In - 05/27/2017 12:24 PM CDT FINAL REPORT INDICATION: Left pleural effusion Limited left chest ultrasound. IMPRESSION: Ultrasound examination of the left chest was performed in preparation for left thoracentesis. However, only a small amount of fluid is seen in the left pleural space, not amenable for safe placement of a chest tube. Signed: Yung Rivera MD Report Verified Date/Time: 05/27/2017 12:22:11 Reading Location: [facility] B1 C013X Ortho Consult Reading Room Potassium (05/25/2017 8:49 AM)Only the most recent of2 resultswithin the time period is included. Component Value Ref Range Potassium 3.9 3.5 - 5.1 meq/L Specimen Performing Laboratory Blood - Line, Arterial [address] [address] Narrative Check Serum Potassium level 2 hours after oral potassium replacement completed or 30 min after intravenous potassium replacement. Lactate dehydrogenase (LDH) (05/25/2017 8:48 AM) Component Value Ref Range LDH 219 125 - 220 U/L Specimen Performing Laboratory Blood - Line, Arterial [address] [address] C-Reactive Protein (05/24/2017 7:57 PM) Component Value Ref Range CRP 1.10 (H) 0.00 - 0.50 mg/dL Specimen Performing Laboratory Blood [address] [address] Sedimentation rate (05/24/2017 7:57 PM) Component Value Ref Range Sed Rate 38 (H) 0 - 20 mm/HR Specimen Performing Laboratory [address] [address] May use line for infusions (05/24/2017 7:30 PM) Davin Gil V. 05/24/20171:00 PM PICC Line Insertion Procedure Note Procedure: Insertion of #5 Fr55 cm PICC on the left basilic vein Indications:Poor Access Procedure Details Informed consent was obtained for the procedure, including sedation.Risks of lung perforation, hemorrhage, and adverse drug reaction were discussed. Maximum sterile technique was used including antiseptics, cap, gloves, gown, hand hygiene, mask and sheet. #5 Fr 55 cmPICC inserted to the L Basilic vein per hospital protocol. Blood return:yes Findings: Catheter inserted to 54 cm, with 1 cm. Exposed. There were no changes to vital signs. Catheter was flushed with 30 cc NS. Patient did tolerate procedure well. Recommendations: CXR ordered to verify placement and confirmed positioning with no immediate complications. Dr Pollard was scrubbed in and assisted with the procedure. Davin Vega MD BCM Fellow, Critical Care Medicine 05/24/2017 1:00 PM Prepare RBC (05/24/2017 1:08 PM) Component Value Ref Range CROSSMATCH COMPATIBLE Unit ABO A Pos UNIT NUMBER [id number] Status RETURNED FROM ISSUE Blood Bank Product RED BLOOD CELLS PRODUCT CODE N7213N60 CROSSMATCH COMPATIBLE Unit ABO A Pos UNIT NUMBER [id number] Status RETURNED FROM ISSUE Blood Bank Product RED BLOOD CELLS PRODUCT CODE T5751U19 Specimen Performing Laboratory [facility] [place] [facility] LABS (ABG,NA,K,H&H,GLUCOSE) (05/24/2017 10:42 AM)Only the most recent of6 resultswithin the time period is included. Specimen Performing Laboratory Blood, Arterial Narrative The following orders were created for panel order [facility] CRITICAL LABS (ABG,NA,K,H&H,GLUCOSE). Procedure Abnormality Status --------- ------ Blood gas, arterial[[id number]]AbnormalFinal result Sodium Na-Stat Lab[[id number]] NormalFinal result Potassium-Stat Lab[[id number]] AbnormalFinal result Glucose-Stat Lab[[id number]] NormalFinal result HGB/HCT (H&H)-Stat Lab[[id number]] Abnormal Final result Please view results for these tests on the individual orders. aPTT (05/24/2017 10:02 AM)Only the most recent of5 resultswithin the time period is included. Component Value Ref Range PTT 33.1 22.5 - 36.0 seconds Specimen Performing Laboratory Blood [address] [address] Cytology (05/24/2017 8:54 AM) Component Value Ref Range Cytology See Separate Report Specimen Performing Laboratory Body Fluid - Pericardial [address] [address] Cytology (05/24/2017 8:54 AM) Component Value Ref Range Case Report Medical Cytology Report Case: [id number] Authorizing Provider:Noris Villanueva MDCollected: 05/24/2017 0854 Ordering Location: [facility] CV Recovery Room 2 Received: 05/25/201721 Pathologist: Janel Garcia MD Specimen:Pericardial DIAGNOSIS PERICARDIAL FLUID (CYTOSPINS): - NO MALIGNANT CELLS IDENTIFIED (SEE COMMENT) Signing Pathologist Direct Phone Line: [phone] COMMENT Cytospins show scattered mesothelial cells with reactive changes, macrophages in a background of many small mature lymphocytes. No diagnostic features of epithelial malignancy are identified. Clinical correlation is recommended. CPT Code(s) 14889 CLINICAL DATA Pericardial effusion SPECIMEN SOURCE PERICARDIAL FLUID GROSS DESCRIPTION 750 mls bloody; 4 cytospins Collected: [id number] Received: [id number] STATEMENT OF ADEQUACY Satisfactory Technical component was performed at [facility], Department of Pathology, [address] [place] [address], Professional component was performed [facility], at Department of Pathology, [address] [place] [address], Specimen Performing Laboratory Body Fluid - Pericardial [address] [address] ANESTHESIA TR (05/24/2017 8:51 AM)Only the most recent of2 resultswithin the time period is included. Narrative Xavier Deal MD 05/24/20178:51 AM TR Date: 05/24/2017 8:37 AM Sex: Male Location: OR Requesting Physician: NORIS VILLANUEVA Examiner: XAVIER DEAL Indication: pericardial effusionIntubatedSedated Patient screened for esoph disease: Yes Insertion: easy Probe Type: multiplane Modalities: 2D, CFM, CWD and PWD Inotrope: none Aorta Size Dissection Plaque Thick Plaque Mobile Ascending Ao normal NoNo Ao Arch normal NoNo Descending Ao normal NoNo Valves Annulus Stenosis Area (cm3) Gradient Regurgitation Leaflet Morphology Leaflet Motion Not Visualized Aortic valve normal none none normal normal Mitral valve normal none trivial (1+) normal normal Tricuspid normal none trivial (1+) normal normal Interatrial Septum: Morphology: normal ASD: Shunt: Interventricular Septum: Morphology: normal Defect: Shunt: Ventricles Cavity size Dimension Hypertrophy Thrombus Global FXN EF Right ventricle normal Left ventricle normal Pre Intervention Summary: 62 yo male with pericardial effusion here for window LV: LVEF mildy reduced globally, large circumferential pericardial effusion visualized, abnormal IVS motion seen during diastole LA: normal chamber size, KAITLIN velocity .40cm/s AV: trileaflet morphology and motion, no stenosis or AI seen MV: normal morphology, mild MR seen IAS: No evidence of PFO with CFD RV: normal function and chamber size, no RV collapse RA: normal chamber size Ao: no dissection or aneurysm Left pleural effusion noted Post Intervention Summary:S/p pericardial window LV: pericardial effusion removed with some residual effusion in lateral area (surgeon informed), no new RWMA, EF improved to 45-50% by qualitative analysis. There is a moderate LEFT pleural effusion present. All other aspects unchanged Findings discussed with surgeon Procedure Note Xavier Deal MD - 05/24/2017 8:37 AM CDT Formatting of this note may be different from the original. TR Date: 05/24/2017 8:37 AM Sex: Male Location: OR Requesting Physician: NORIS VILLANUEVA Examiner: XAVIER DEAL Indication: pericardial effusion Intubated Sedated Patient screened for esoph disease: Yes Insertion: easy Probe Type: multiplane Modalities: 2D, CFM, CWD and PWD Inotrope: none Aorta Size Dissection Plaque Thick Plaque Mobile Ascending Ao normal No No Ao Arch normal No No Descending Ao normal No No Valves Annulus Stenosis Area (cm3) Gradient Regurgitation Leaflet Morphology Leaflet Motion Not Visualized Aortic valve normal none none normal normal Mitral valve normal none trivial (1+) normal normal Tricuspid normal none trivial (1+) normal normal Interatrial Septum: Morphology: normal ASD: Shunt: Interventricular Septum: Morphology: normal Defect: Shunt: Ventricles Cavity size Dimension Hypertrophy Thrombus Global FXN EF Right ventricle normal Left ventricle normal Pre Intervention Summary: 62 yo male with pericardial effusion here for window LV: LVEF mildy reduced globally, large circumferential pericardial effusion visualized, abnormal IVS motion seen during diastole LA: normal chamber size, KAITLIN velocity .40cm/s AV: trileaflet morphology and motion, no stenosis or AI seen MV: normal morphology, mild MR seen IAS: No evidence of PFO with CFD RV: normal function and chamber size, no RV collapse RA: normal chamber size Ao: no dissection or aneurysm Left pleural effusion noted Post Intervention Summary: S/p pericardial window LV: pericardial effusion removed with some residual effusion in lateral area ( surgeon informed), no new RWMA, EF improved to 45-50% by qualitative analysis. There is a moderate LEFT pleural effusion present. All other aspects unchanged Findings discussed with surgeon Surgically obtained culture + gram stain (05/24/2017 8:47 AM) Component Value Ref Range Result No growth Gram Stain Result No WBCs Gram Stain Result No organisms seen Specimen Performing Laboratory Other - Pericardial [address] [address] B-type Natriuretic Factor (BNP) (05/22/2017 11:56 PM)Only the most recent of2 resultswithin the time period is included. Component Value Ref Range BNP 177 (H) 0 - 100 pg/mL Specimen Performing Laboratory Blood - Arm, Right [address] [address] ECG 12 lead (05/22/2017 11:43 PM)Only the most recent of3 resultswithin the time period is included. Specimen Performing Laboratory GE [facility]USE Narrative Ventricular Rate 88 BPM Atrial Rate 78 BPM P-R Interval 172 ms QRS Duration 156 ms Q-T Interval 512 ms QTC Calculation(Bazett) 619 ms P [place] 23 degrees R [place] 18 degrees T [place] 84 degrees Sinus rhythm with frequent and consecutive Premature ventricular complexes Right bundle branch block Abnormal ECG When compared with ECG of 05-MAY-2017 15:59, Significant changes have occurred Confirmed by MD COMBS MAJID ([id number]) on 05/23/2017 11:33:53 AM Procedure Note Interface, External Ris In - 05/23/2017 11:34 AM CDT Ventricular Rate 88 BPM Atrial Rate 78 BPM P-R Interval 172 ms QRS Duration 156 ms Q-T Interval 512 ms QTC Calculation(Bazett) 619 ms P [place] 23 degrees R [place] 18 degrees T [place] 84 degrees Sinus rhythm with frequent and consecutive Premature ventricular complexes Right bundle branch block Abnormal ECG When compared with ECG of 05-MAY-2017 15:59, Significant changes have occurred Confirmed by MD COMBS MAJID ([id number]) on 05/23/2017 11:33:53 AM VASCULAR DIAGRAM -SCAN (05/14/2017 11:02 AM)Only the most recent of2 resultswithin the time period is included.Lidocaine level (05/06/2017 5:26 AM) Component Value Ref Range Lidocaine Lvl 2.3 1.5 - 5.0 ug/mL Specimen Performing Laboratory [facility] LABORATORY [address] [place] [address] Hemoglobin and hematocrit (05/04/2017 5:34 PM) Component Value Ref Range Hemoglobin 15.2 13.7 - 17.5 GM/DL Hematocrit 45.0 40.1 - 51.0 % Specimen Performing Laboratory [address] [address] Thromboelastograph (TEG) (05/04/2017 10:09 AM) Component Value Ref Range TEG Activated Clotting Time 5.8 4.0 - 7.0 minutes TEG Fibrinogen Activity 67.5 61.0 - 73.0 degrees TEG Platelet Aggregation 48.4 (L) 55.0 - 65.0 MM TEG-H Activated Clotting Time 6.0 4.0 - 7.0 minutes TEG-H Fibrinogen Activity 61.5 61.0 - 73.0 degrees TEG-H Platelet Aggregation 39.6 (L) 55.0 - 65.0 MM Specimen Performing Laboratory [address] [address] POC ACTIVATED CLOTTING TIME (05/04/2017 10:09 AM)Only the most recent of3 resultswithin the time period is included. Component Value Ref Range Activated Clotting Time 109Comment: TESTED AT [address] [place] [id number] Specimen Performing Laboratory [address] [address] Platelet count (05/04/2017 10:09 AM) Component Value Ref Range Platelets 146 (L) 150 - 450 K/CU MM Specimen Performing Laboratory [address] [address] CARDIAC CATH REPORT - SCAN (05/03/2017 11:31 PM)Hemoglobin A1c (05/03/2017 2: 49 AM) Component Value Ref Range Hemoglobin A1C 16.9 (H) 4.3 - 6.1 % Specimen Performing Laboratory Blood [address] [address] Troponin I (05/02/2017 9:21 AM)Only the most recent of2 resultswithin the time period is included. Component Value Ref Range Troponin I 0.01 0.00 - 0.03 ng/mL Specimen Performing Laboratory [address] [address] Narrative Troponin I (TnI) levels must be interpreted in the context of the presenting symptoms and the clinical findings. Elevated TnI levels indicate myocardial damage, but are not specific for ischemic heart disease. Elevated TnI levels are seen in patients with other cardiac conditions (including myocarditis and congestive heart failure), and slight TnI elevations occur in patients with other conditions, including sepsis, renal failure, acidosis, acute neurological disease, and persistent tachyarrhythmia. Creatine Kinase (CK), Total and MB (05/02/2017 9:21 AM)Only the most recent of2 resultswithin the time period is included. Component Value Ref Range Total CK 61 29 - 200 U/L CK-MB 1.5 0.0 - 6.6 ng/mL MB Relative Index 2.5 % Specimen Performing Laboratory [address] [address] Narrative CK-MB Reference Range: <6.7Normal 6.7-10.0Borderline >10.0 Abnormal TSH/Free T4 If Indicated (05/02/2017 4:26 AM) Component Value Ref Range TSH 3.13 0.35 - 4.94 uIU/mL Specimen Performing Laboratory [address] [address] after 03/12/2017
--- OUTSIDE RECORDS SUMMARY | 2018-03-13 19:44 | XMS REPORT ---
:1955 Author Organization [facility] Address [address] [place] [address] Care Team Providers Name Role Phone KHARI NIEVES Unavailable Unavailable Problems This patient has no known problems. Allergies, Adverse Reactions, Alerts This patient has no known allergies or adverse reactions. Medications This patient has no known medications. 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 Vital signs were monitored throughout the procedure by a nurse, and remained stable. Physician intra-service time was 185 minutes. Concession Manager: Jim North MD. Solid Waste Collection Worker: Celi Approach: Bilateral inguinal lymph nodes, cisterna chyli Estimated blood loss: < 5 cc. Specimen: None. Fluoroscopy Time: 12.2 min.Reference Air Kerma (Ka, r): 1071mGy. Dose modulation , iterative reconstruction, and/or weight based adjustment of the mA/kV was utilized to reduce the radiation dose to as low as reasonably achievable. Technique: Informed written consent was obtained. Discussion of risks, benefits , and alternatives were made with the patient. [...] thoracic duct from a right posterior paraspinal approach.A 22-gauge Chiba needle was advanced into the [...] with repeated punctures with the 22-gauge Chiba needle.The needle was then removed and hemostasis was achieved with manual compression. The puncture sites were dressed with sterile gauze and Tegaderm. The patient tolerated the procedure well without evidence of immediate complication. Impression: Technically successful and uncomplicated cholangiogram and cisterna chyli maceration. 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 Vital signs were monitored throughout the procedure by a nurse, and remained stable. Physician intra-service time was 185 minutes. Concession Manager: Jim North MD. Solid Waste Collection Worker: Celi Approach: Bilateral inguinal lymph nodes, cisterna chyli Estimated blood loss: < 5 cc. Specimen: None. Fluoroscopy Time: 12.2 min.Reference Air Kerma (Ka, r): 1071mGy. Dose modulation, iterative reconstruction, and/or weight based [...] thoracic duct from a right posterior paraspinal approach.A 22-gauge Chiba needle was advanced into the [...] with repeated punctures with the 22-gauge Chiba needle.The needle was then removed and hemostasis was achieved with manual compression. The puncture sites were dressed with sterile gauze and Tegaderm. The patient tolerated the procedure well without evidence of immediate complication. Impression: Technically successful and uncomplicated cholangiogram and cisterna chyli maceration. Signed: Jim North MDReport Verified Date/Time: 2016 15:48:26 Reading Location: [address] Radiology Reading Room AFB CULTURE + [id number] 10:48:00 Test Item Value Reference Range Comments CULTURE (BEAKER) (test No acid-fast bacilli isolated ruaj=4866) in 42 days AFB SMEAR (BEAKER) (test No acid fast bacilli seen wufn=557) [id number] 07:58:00 Test Item Value Reference Range Comments PHOSPHORUS (BEAKER) (test lqlm=781) 4.5 mg/dL 2.3-4.7 [id number] 07:58:00 Test Item Value Reference Range Comments MAGNESIUM (BEAKER) (test jwua=634) 1.7 mg/dL 1.6-2.6 BASIC METABOLIC [id number] 07:58:00 Test Item Value Reference Range Comments SODIUM (BEAKER) (test 140 meq/L 136-145 bken=622) POTASSIUM (BEAKER) (test 4.3 meq/L 3.5-5.1 zjlh=582) CHLORIDE (BEAKER) (test 108 meq/L 98-107 ejla=862) CO2 (BEAKER) (test 22 meq/L 22-29 rixu=592) BLOOD UREA NITROGEN 13 mg/dL 7-21 (BEAKER) (test tbzi=884) CREATININE (BEAKER) (test 0.69 mg/dL 0.57-1.25 irte=917) GLUCOSE RANDOM (BEAKER) 123 mg/dL 70-105 (test wruw=882) CALCIUM (BEAKER) (test 8.1 mg/dL 8.4-10.2 lvsm=716) EGFR (BEAKER) (test 117 mL/min/1.73 sq m ESTIMATED GFR IS NOT pzde=2052) ACCURATE CREATININE CLEARANCE IN PREDICTING GLOMERULAR FILTRATION RATE. ESTIMATED GFR IS NOT APPLICABLE FOR DIALYSIS PATIENTS. POCT-GLUCOSE [id number] 07:45:00 Test Item Value Reference Range Comments POC-GLUCOSE METER (BEAKER) 133 mg/dL 70-110 TESTED AT [facility] [address] [facility] (test jqkl=4752) [facility] [address] CBC (HEMOGRAM ONLY)2017-06-28 06:06:00 Test Item Value Reference Range Comments WHITE BLOOD CELL COUNT (BEAKER) (test kbmi=645) 5.2 K/ L 3.5-10.5 RED BLOOD CELL COUNT (BEAKER) (test zbly=804) 4.15 M/ L 4.63-6.08 HEMOGLOBIN (BEAKER) (test fogc=150) 10.8 GM/DL 13.7-17.5 HEMATOCRIT (BEAKER) (test pxvo=212) 34.2 % 40.1-51.0 MEAN CORPUSCULAR VOLUME (BEAKER) (test ceev=605) 82.4 fL 79.0-92.2 MEAN CORPUSCULAR HEMOGLOBIN (BEAKER) (test 26.0 pg 25.7-32.2 ofwg=209) MEAN CORPUSCULAR HEMOGLOBIN CONC (BEAKER) (test 31.6 GM/DL 32.3-36.5 iyqz=761) RED CELL DISTRIBUTION WIDTH (BEAKER) (test 14.2 % 11.6-14.4 cfnr=763) PLATELET COUNT (BEAKER) (test olzk=933) 182 K/CU MM 150-450 MEAN PLATELET VOLUME (BEAKER) (test elao=358) 11.0 fL 9.4-12.4 NUCLEATED RED BLOOD CELLS (BEAKER) (test 0 /100 WBC 0-0 alfz=188) POCT-GLUCOSE [id number] 04:14:00 Test Item Value Reference Range Comments POC-GLUCOSE METER (BEAKER) 134 mg/dL 70-110 TESTED AT [address] (test szsz=0978) [facility] [address] POCT-GLUCOSE [id number] 00:16:00 Test Item Value Reference Range Comments POC-GLUCOSE METER (BEAKER) 168 mg/dL 70-110 TESTED AT [address] (test zouu=3390) [facility] [address] POCT-GLUCOSE [id number] 21:16:00 Test Item Value Reference Range Comments POC-GLUCOSE METER (BEAKER) 192 mg/dL 70-110 TESTED AT [address] (test inki=1781) [place] [id number] POCT-GLUCOSE [id number] 17:46:00 Test Item Value Reference Range Comments POC-GLUCOSE METER (BEAKER) 152 mg/dL 70-110 TESTED AT [address] (test ygur=7066) [place] [id number] POCT-GLUCOSE [id number] 12:08:00 Test Item Value Reference Range Comments POC-GLUCOSE METER (BEAKER) 146 mg/dL 70-110 TESTED AT [address] (test sgsw=3391) [place] [address] POCT-GLUCOSE [id number] 08:58:00 Test Item Value Reference Range Comments POC-GLUCOSE METER (BEAKER) 91 mg/dL 70-110 TESTED AT [address] (test ekno=5186) [facility] [address] [id number] 07:10:00 Test Item Value Reference Range Comments PHOSPHORUS (BEAKER) (test ukhm=103) 5.4 mg/dL 2.3-4.7 [id number] 07:10:00 Test Item Value Reference Range Comments MAGNESIUM (BEAKER) (test tqlz=307) 1.7 mg/dL 1.6-2.6 BASIC METABOLIC [id number] 07:10:00 Test Item Value Reference Range Comments SODIUM (BEAKER) (test 136 meq/L 136-145 hvwm=372) POTASSIUM (BEAKER) (test 3.5 meq/L 3.5-5.1 kdwj=195) CHLORIDE (BEAKER) (test 105 meq/L 98-107 bmxh=361) CO2 (BEAKER) (test 22 meq/L 22-29 qssn=890) BLOOD UREA NITROGEN 15 mg/dL 7-21 (BEAKER) (test gzyw=020) CREATININE (BEAKER) (test 0.71 mg/dL 0.57-1.25 csgt=188) GLUCOSE RANDOM (BEAKER) 77 mg/dL 70-105 (test wmgt=522) CALCIUM (BEAKER) (test 8.1 mg/dL 8.4-10.2 brrn=469) EGFR (BEAKER) (test 113 mL/min/1.73 sq m ESTIMATED GFR IS NOT jciu=7608) ACCURATE CREATININE CLEARANCE IN PREDICTING GLOMERULAR FILTRATION RATE. ESTIMATED GFR IS NOT APPLICABLE FOR DIALYSIS PATIENTS. POCT-GLUCOSE [id number] 21:26:00 Test Item Value Reference Range Comments POC-GLUCOSE METER (BEAKER) 139 mg/dL 70-110 TESTED AT [address] (test dhmx=5322) [facility] [address] POCT-GLUCOSE [id number] 16:47:00 Test Item Value Reference Range Comments POC-GLUCOSE METER (BEAKER) 105 mg/dL 70-110 TESTED AT [address] (test fbbw=5385) [facility] [address] POCT-GLUCOSE [id number] 12:35:00 Test Item Value Reference Range Comments POC-GLUCOSE METER (BEAKER) 99 mg/dL 70-110 TESTED AT [address] (test ydfb=0795) [place] [address] POCT-GLUCOSE [id number] 09:16:00 Test Item Value Reference Range Comments POC-GLUCOSE METER (BEAKER) 120 mg/dL 70-110 TESTED AT [address] (test psqf=9266) [place] [address] [id number] 07:55:00 Test Item Value Reference Range Comments PHOSPHORUS (BEAKER) (test syrv=650) 4.5 mg/dL 2.3-4.7 [id number] 07:55:00 Test Item Value Reference Range Comments MAGNESIUM (BEAKER) (test oleq=897) 1.6 mg/dL 1.6-2.6 BASIC METABOLIC [id number] 07:55:00 Test Item Value Reference Range Comments SODIUM (BEAKER) (test 135 meq/L 136-145 lnri=692) POTASSIUM (BEAKER) (test 3.6 meq/L 3.5-5.1 clgw=284) CHLORIDE (BEAKER) (test 103 meq/L 98-107 frfd=421) CO2 (BEAKER) (test 26 meq/L 22-29 esef=777) BLOOD UREA NITROGEN 15 mg/dL 7-21 (BEAKER) (test acsc=379) CREATININE (BEAKER) (test 0.71 mg/dL 0.57-1.25 uwoj=118) GLUCOSE RANDOM (BEAKER) 116 mg/dL 70-105 (test vlmt=337) CALCIUM (BEAKER) (test 8.2 mg/dL 8.4-10.2 biee=867) EGFR (BEAKER) (test 113 mL/min/1.73 sq m ESTIMATED GFR IS NOT kwep=6142) ACCURATE CREATININE CLEARANCE IN PREDICTING GLOMERULAR FILTRATION RATE. ESTIMATED GFR IS NOT APPLICABLE FOR DIALYSIS PATIENTS. POCT-GLUCOSE [id number] 20:20:00 Test Item Value Reference Range Comments POC-GLUCOSE METER (BEAKER) 166 mg/dL 70-110 TESTED AT [address] (test dasz=9980) [place] [address] POCT-GLUCOSE [id number] 17:58:00 Test Item Value Reference Range Comments POC-GLUCOSE METER (BEAKER) 156 mg/dL 70-110 TESTED AT [address] (test atrz=4423) [place] [address] POCT-GLUCOSE [id number] 14:33:00 Test Item Value Reference Range Comments POC-GLUCOSE METER (BEAKER) 153 mg/dL 70-110 TESTED AT [address] (test hpxc=2103) [place] [address] CT, CHEST, WITHOUT [id number] 12:30:00FINAL REPORT CT of the Chest dated 06/25/2017 [...] use of interactive reconstruction technique. Heart is inthe upper limits of normal in size. There [...] demonstrates no focal lesion. Impression: 1. Pericardial thickening.2. Trace left pleural effusion and left lower lobe subsegmental atelectasis3. Aberrant subclavian artery. Signed: Nona Chauhan Verified Date/Time: 06/25/2017 12:30:00 Reading Location: [facility] C013Y CT Body Reading Room POCT-GLUCOSE [id number] 08:01:00 Test Item Value Reference Range Comments POC-GLUCOSE METER (BEAKER) 188 mg/dL 70-110 TESTED AT [facility] [address] [facility] (test sbzn=5626) [facility] [address] [id number] 07:26:00 Test Item Value Reference Range Comments PHOSPHORUS (BEAKER) (test crng=971) 2.7 mg/dL 2.3-4.7 [id number] 07:26:00 Test Item Value Reference Range Comments MAGNESIUM (BEAKER) (test qtel=674) 1.5 mg/dL 1.6-2.6 BASIC METABOLIC [id number] 07:26:00 Test Item Value Reference Range Comments SODIUM (BEAKER) (test 136 meq/L 136-145 bbqq=808) POTASSIUM (BEAKER) (test 3.8 meq/L 3.5-5.1 arfz=590) CHLORIDE (BEAKER) (test 104 meq/L 98-107 tyvy=064) CO2 (BEAKER) (test 26 meq/L 22-29 ovmm=888) BLOOD UREA NITROGEN 17 mg/dL 7-21 (BEAKER) (test eiyo=548) CREATININE (BEAKER) (test 0.67 mg/dL 0.57-1.25 dpjk=396) GLUCOSE RANDOM (BEAKER) 166 mg/dL 70-105 (test faqc=082) CALCIUM (BEAKER) (test 8.0 mg/dL 8.4-10.2 bqwo=768) EGFR (BEAKER) (test 121 mL/min/1.73 sq m ESTIMATED GFR IS NOT wqzv=5446) ACCURATE CREATININE CLEARANCE IN PREDICTING GLOMERULAR FILTRATION RATE. ESTIMATED GFR IS NOT APPLICABLE FOR DIALYSIS PATIENTS. POCT-GLUCOSE [id number] 05:10:00 Test Item Value Reference Range Comments POC-GLUCOSE METER (BEAKER) 181 mg/dL 70-110 TESTED AT [address] (test sqgo=6867) [place] [address] POCT-GLUCOSE [id number] 21:27:00 Test Item Value Reference Range Comments POC-GLUCOSE METER (BEAKER) 99 mg/dL 70-110 TESTED AT [address] (test wadj=9317) [place] [address] POCT-GLUCOSE [id number] 16:37:00 Test Item Value Reference Range Comments POC-GLUCOSE METER (BEAKER) 117 mg/dL 70-110 TESTED AT [address] (test mkfo=2780) [place] [address] POCT-GLUCOSE [id number] 12:47:00 Test Item Value Reference Range Comments POC-GLUCOSE METER (BEAKER) 175 mg/dL 70-110 TESTED AT [address] (test rlno=3089) [place] [address] POCT-GLUCOSE [id number] 12:24:00 Test Item Value Reference Range Comments POC-GLUCOSE METER (BEAKER) 156 mg/dL 70-110 TESTED AT [address] (test oacw=0459) [place] [address] POCT-GLUCOSE [id number] 09:10:00 Test Item Value Reference Range Comments POC-GLUCOSE METER (BEAKER) 213 mg/dL 70-110 TESTED AT [facility] [address] [facility] (test qprj=4396) [place] [address] [id number] 07:24:00 Test Item Value Reference Range Comments PHOSPHORUS (BEAKER) (test kfnl=253) 2.6 mg/dL 2.3-4.7 [id number] 07:24:00 Test Item Value Reference Range Comments MAGNESIUM (BEAKER) (test tapc=421) 1.6 mg/dL 1.6-2.6 BASIC METABOLIC [id number] 07:24:00 Test Item Value Reference Range Comments SODIUM (BEAKER) (test 137 meq/L 136-145 pquh=652) POTASSIUM (BEAKER) (test 3.7 meq/L 3.5-5.1 gklv=932) CHLORIDE (BEAKER) (test 105 meq/L 98-107 ilcb=745) CO2 (BEAKER) (test 28 meq/L 22-29 kzmv=573) BLOOD UREA NITROGEN 16 mg/dL 7-21 (BEAKER) (test tffy=864) CREATININE (BEAKER) (test 0.64 mg/dL 0.57-1.25 ruhj=297) GLUCOSE RANDOM (BEAKER) 168 mg/dL 70-105 (test ttic=556) CALCIUM (BEAKER) (test 8.2 mg/dL 8.4-10.2 elfe=335) EGFR (BEAKER) (test 128 mL/min/1.73 sq m ESTIMATED GFR IS NOT ogoo=0109) ACCURATE CREATININE CLEARANCE IN PREDICTING GLOMERULAR FILTRATION RATE. ESTIMATED GFR IS NOT APPLICABLE FOR DIALYSIS PATIENTS. CALCIUM, [id number] 07:12:00 Test Item Value Reference Range Comments CALCIUM IONIZED (BEAKER) (test stkx=140) 1.04 mmol/L 1.12-1.27 PH, BLOOD (BEAKER) (test cfla=7600) 7.41 CBC W/PLT COUNT & AUTO [id number] 07:12:00 Test Item Value Reference Range Comments WHITE BLOOD CELL COUNT (BEAKER) (test niqj=503) 7.2 K/ L 3.5-10.5 RED BLOOD CELL COUNT (BEAKER) (test tqwh=016) 4.39 M/ L 4.63-6.08 HEMOGLOBIN (BEAKER) (test ttet=271) 11.5 GM/DL 13.7-17.5 HEMATOCRIT (BEAKER) (test nsip=736) 36.0 % 40.1-51.0 MEAN CORPUSCULAR VOLUME (BEAKER) (test fibn=325) 82.0 fL 79.0-92.2 MEAN CORPUSCULAR HEMOGLOBIN (BEAKER) (test 26.2 pg 25.7-32.2 tukk=550) MEAN CORPUSCULAR HEMOGLOBIN CONC (BEAKER) (test 31.9 GM/DL 32.3-36.5 slwh=471) RED CELL DISTRIBUTION WIDTH (BEAKER) (test 14.2 % 11.6-14.4 oilf=832) PLATELET COUNT (BEAKER) (test djte=998) 140 K/CU MM 150-450 MEAN PLATELET VOLUME (BEAKER) (test ttma=449) 11.5 fL 9.4-12.4 NUCLEATED RED BLOOD CELLS (BEAKER) (test 0 /100 WBC 0-0 qxhz=576) NEUTROPHILS RELATIVE PERCENT (BEAKER) (test 72 % ipit=509) LYMPHOCYTES RELATIVE PERCENT (BEAKER) (test 11 % clxe=666) MONOCYTES RELATIVE PERCENT (BEAKER) (test 6 % viby=077) EOSINOPHILS RELATIVE PERCENT (BEAKER) (test 11 % zqkv=139) BASOPHILS RELATIVE PERCENT (BEAKER) (test 1 % mogi=996) NEUTROPHILS ABSOLUTE COUNT (BEAKER) (test 5.14 K/ L 1.78-5.38 bvpb=653) LYMPHOCYTES ABSOLUTE COUNT (BEAKER) (test 0.78 K/ L 1.32-3.57 brpy=918) MONOCYTES ABSOLUTE COUNT (BEAKER) (test 0.42 K/ L 0.30-0.82 gohu=316) EOSINOPHILS ABSOLUTE COUNT (BEAKER) (test 0.79 K/ L 0.04-0.54 qttg=615) BASOPHILS ABSOLUTE COUNT (BEAKER) (test 0.05 K/ L 0.01-0.08 etug=178) IMMATURE GRANULOCYTES-RELATIVE PERCENT (BEAKER) 0 % 0-1 (test cmwu=5727) POCT-GLUCOSE [id number] 03:06:00 Test Item Value Reference Range Comments POC-GLUCOSE METER (BEAKER) 129 mg/dL 70-110 TESTED AT [address] (test dtbu=8145) [place] [address] POCT-GLUCOSE [id number] 21:32:00 Test Item Value Reference Range Comments POC-GLUCOSE METER (BEAKER) 126 mg/dL 70-110 TESTED AT [address] (test qjld=5099) [place] [address] FUNGUS CULTURE + [id number] 18:17:00 Test Item Value Reference Range Comments CULTURE (BEAKER) (test No fungus isolated in 28 days gyoq=8620) FUNGUS SMEAR (BEAKER) (test No fungi seen rwug=1660) FUNGUS CULTURE + [id number] 17:52:00 Test Item Value Reference Range Comments CULTURE (BEAKER) (test No fungus isolated in 28 days skmm=9330) FUNGUS SMEAR (BEAKER) (test No fungi seen pfrv=9034) POCT-GLUCOSE [id number] 17:19:00 Test Item Value Reference Range Comments POC-GLUCOSE METER (BEAKER) 129 mg/dL 70-110 TESTED AT [address] (test hyvh=6015) [place] [address] POCT-GLUCOSE [id number] 12:34:00 Test Item Value Reference Range Comments POC-GLUCOSE METER (BEAKER) 142 mg/dL 70-110 TESTED AT [address] (test uwfk=9294) [place] [address] [id number] 12:07:00 Test Item Value Reference Range Comments TRIGLYCERIDES (BEAKER) (test onxd=542) 61 mg/dL TRIGLYCERIDE REFERENCE RANGELow Risk <150Borderline Risk 150-199High Risk 200-499Very High Risk>=500Please draw weekly while on [id number] 12:07:00 Test Item Value Reference Range Comments MAGNESIUM (BEAKER) (test pwcb=598) 1.8 mg/dL 1.6-2.6 Please draw weekly while on [id number] 12:07:00 Test Item Value Reference Range Comments PHOSPHORUS (BEAKER) (test kbzr=744) 2.5 mg/dL 2.3-4.7 Please draw weekly while on TPNBASIC METABOLIC [id number] 12:07:00 Test Item Value Reference Range Comments SODIUM (BEAKER) (test 137 meq/L 136-145 qfpa=027) POTASSIUM (BEAKER) (test 4.0 meq/L 3.5-5.1 rxqj=464) CHLORIDE (BEAKER) (test 104 meq/L 98-107 nlja=226) CO2 (BEAKER) (test 25 meq/L 22-29 tiub=400) BLOOD UREA NITROGEN 19 mg/dL 7-21 (BEAKER) (test eayu=002) CREATININE (BEAKER) (test 0.76 mg/dL 0.57-1.25 zzyx=317) GLUCOSE RANDOM (BEAKER) 181 mg/dL 70-105 (test iqmu=121) CALCIUM (BEAKER) (test 8.6 mg/dL 8.4-10.2 iqfx=720) EGFR (BEAKER) (test 105 mL/min/1.73 sq m ESTIMATED GFR IS NOT hyhh=1116) ACCURATE CREATININE CLEARANCE IN PREDICTING GLOMERULAR FILTRATION RATE. ESTIMATED GFR IS NOT APPLICABLE FOR DIALYSIS PATIENTS. Please draw weekly while on TPNPOCT-GLUCOSE [id number] 06:00:00 Test Item Value Reference Range Comments POC-GLUCOSE METER (BEAKER) 144 mg/dL 70-110 TESTED AT [address] (test kgbr=4198) [facility] [address] POCT-GLUCOSE [id number] 22:54:00 Test Item Value Reference Range Comments POC-GLUCOSE METER (BEAKER) 101 mg/dL 70-110 TESTED AT [address] (test ekoc=0237) [facility] [address] POCT-GLUCOSE [id number] 16:54:00 Test Item Value Reference Range Comments POC-GLUCOSE METER (BEAKER) 193 mg/dL 70-110 TESTED AT [address] (test bsrt=4864) [facility] [address] POCT-GLUCOSE [id number] 08:09:00 Test Item Value Reference Range Comments POC-GLUCOSE METER (BEAKER) 148 mg/dL 70-110 TESTED AT [address] (test qiuw=2974) [facility] [address] POCT-GLUCOSE [id number] 07:38:00 Test Item Value Reference Range Comments POC-GLUCOSE METER (BEAKER) 153 mg/dL 70-110 TESTED AT [address] (test duyb=3780) [facility] [address] [id number] 06:24:00 Test Item Value Reference Range Comments PHOSPHORUS (BEAKER) (test ekxs=366) 3.2 mg/dL 2.3-4.7 [id number] 06:24:00 Test Item Value Reference Range Comments MAGNESIUM (BEAKER) (test rdoj=536) 1.7 mg/dL 1.6-2.6 BASIC METABOLIC [id number] 06:24:00 Test Item Value Reference Range Comments SODIUM (BEAKER) (test 138 meq/L 136-145 ihth=978) POTASSIUM (BEAKER) (test 3.5 meq/L 3.5-5.1 lqcm=049) CHLORIDE (BEAKER) (test 107 meq/L 98-107 uqfe=790) CO2 (BEAKER) (test 24 meq/L 22-29 scfe=145) BLOOD UREA NITROGEN 22 mg/dL 7-21 (BEAKER) (test zbth=730) CREATININE (BEAKER) (test 0.71 mg/dL 0.57-1.25 opgv=720) GLUCOSE RANDOM (BEAKER) 134 mg/dL 70-105 (test ohpw=074) CALCIUM (BEAKER) (test 8.3 mg/dL 8.4-10.2 rksh=631) EGFR (BEAKER) (test 113 mL/min/1.73 sq m ESTIMATED GFR IS NOT htta=2800) ACCURATE CREATININE CLEARANCE IN PREDICTING GLOMERULAR FILTRATION RATE. ESTIMATED GFR IS NOT APPLICABLE FOR DIALYSIS PATIENTS. CBC W/PLT COUNT & AUTO [id number] 05:52:00 Test Item Value Reference Range Comments WHITE BLOOD CELL COUNT 7.1 K/ L 3.5-10.5 (BEAKER) (test wspc=036) RED BLOOD CELL COUNT (BEAKER) 4.55 M/ L 4.63-6.08 (test siar=473) HEMOGLOBIN (BEAKER) (test 12.0 GM/DL 13.7-17.5 jmag=528) HEMATOCRIT (BEAKER) (test 37.1 % 40.1-51.0 nteh=031) MEAN CORPUSCULAR VOLUME 81.5 fL 79.0-92.2 Discordant from previous (BEAKER) (test nvbe=799) results. Clinical correlation suggested. MEAN CORPUSCULAR HEMOGLOBIN 26.4 pg 25.7-32.2 (BEAKER) (test ouad=695) MEAN CORPUSCULAR HEMOGLOBIN 32.3 GM/DL 32.3-36.5 CONC (BEAKER) (test zwaz=093) RED CELL DISTRIBUTION WIDTH 14.4 % 11.6-14.4 (BEAKER) (test yueg=658) PLATELET COUNT (BEAKER) (test 184 K/CU MM 150-450 jnjh=762) MEAN PLATELET VOLUME (BEAKER) 11.4 fL 9.4-12.4 (test vzsq=518) NUCLEATED RED BLOOD CELLS 0 /100 WBC 0-0 (BEAKER) (test tfvj=844) NEUTROPHILS RELATIVE PERCENT 64 % (BEAKER) (test laei=732) LYMPHOCYTES RELATIVE PERCENT 22 % (BEAKER) (test zeez=689) MONOCYTES RELATIVE PERCENT 8 % (BEAKER) (test nzaw=765) EOSINOPHILS RELATIVE PERCENT 6 % (BEAKER) (test mfus=997) BASOPHILS RELATIVE PERCENT 1 % (BEAKER) (test vsqo=549) NEUTROPHILS ABSOLUTE COUNT 4.50 K/ L 1.78-5.38 (BEAKER) (test xlrv=442) LYMPHOCYTES ABSOLUTE COUNT 1.55 K/ L 1.32-3.57 (BEAKER) (test bkhf=417) MONOCYTES ABSOLUTE COUNT 0.53 K/ L 0.30-0.82 (BEAKER) (test wwtr=700) EOSINOPHILS ABSOLUTE COUNT 0.44 K/ L 0.04-0.54 (BEAKER) (test wuqm=495) BASOPHILS ABSOLUTE COUNT 0.05 K/ L 0.01-0.08 (BEAKER) (test farv=164) IMMATURE 0 % 0-1 GRANULOCYTES-RELATIVE PERCENT (BEAKER) (test ierd=6786) POCT-GLUCOSE [id number] 00:32:00 Test Item Value Reference Range Comments POC-GLUCOSE METER (BEAKER) 132 mg/dL 70-110 TESTED AT [address] (test vida=9223) [facility] [id number] POCT-GLUCOSE [id number] 20:43:00 Test Item Value Reference Range Comments POC-GLUCOSE METER (BEAKER) 128 mg/dL 70-110 TESTED AT [address] (test copj=7631) [facility] [address] POCT-GLUCOSE [id number] 16:57:00 Test Item Value Reference Range Comments POC-GLUCOSE METER (BEAKER) 162 mg/dL 70-110 TESTED AT [facility] [address] (test ylua=4299) [facility] [address] [id number] 14:05:00 Test Item Value Reference Range Comments FIBRINOGEN LEVEL (BEAKER) (test gndi=198) 421 mg/dl 225-434 [id number] 14:05:00 Test Item Value Reference Range Comments PROTIME (BEAKER) (test ilwl=140) 17.2 seconds 11.7-14.7 INR (BEAKER) (test pznc=384) 1.4 <=5.9 PARTIAL THROMBOPLASTIN TIME (BEAKER) (test 37.4 seconds 22.5-36.0 yzof=037) RECOMMENDED COUMADIN/WARFARIN INR THERAPY RANGESSTANDARD DOSE: 2.0 - 3.0 Includes: PROPHYLAXIS forvenous thrombosis, systemic embolization; TREATMENT for venous thrombosis and/or pulmonary embolus.HIGH RISK: Target INR is 2.5-3.5 for patients with mechanical heart valves.PROTHROMBIN [id number] 14:04: 00 Test Item Value Reference Range Comments PROTIME (BEAKER) (test wlik=427) 17.2 seconds 11.7-14.7 INR (BEAKER) (test wvzg=859) 1.4 <=5.9 RECOMMENDED COUMADIN/WARFARIN INR THERAPY RANGESSTANDARD DOSE: 2.0 - 3.0 Includes: PROPHYLAXIS forvenous thrombosis, systemic embolization; TREATMENT for venous thrombosis and/or pulmonary embolus.HIGH RISK: Target INR is 2.5-3.5 for patients with mechanical heart valves.CBC (HEMOGRAM ONLY)2017-06-21 14:00:00 Test Item Value Reference Range Comments WHITE BLOOD CELL COUNT (BEAKER) (test lqsn=316) 8.6 K/ L 3.5-10.5 RED BLOOD CELL COUNT (BEAKER) (test qdda=686) 4.47 M/ L 4.63-6.08 HEMOGLOBIN (BEAKER) (test kcku=247) 11.9 GM/DL 13.7-17.5 HEMATOCRIT (BEAKER) (test lkps=549) 38.2 % 40.1-51.0 MEAN CORPUSCULAR VOLUME (BEAKER) (test myhx=788) 85.5 fL 79.0-92.2 MEAN CORPUSCULAR HEMOGLOBIN (BEAKER) (test 26.6 pg 25.7-32.2 xfbg=359) MEAN CORPUSCULAR HEMOGLOBIN CONC (BEAKER) (test 31.2 GM/DL 32.3-36.5 ahbt=006) RED CELL DISTRIBUTION WIDTH (BEAKER) (test 14.5 % 11.6-14.4 iyxr=125) PLATELET COUNT (BEAKER) (test aozk=898) 196 K/CU MM 150-450 MEAN PLATELET VOLUME (BEAKER) (test pfol=181) 11.7 fL 9.4-12.4 NUCLEATED RED BLOOD CELLS (BEAKER) (test 0 /100 WBC 0-0 khon=950) POCT-GLUCOSE [id number] 12:37:00 Test Item Value Reference Range Comments POC-GLUCOSE METER (BEAKER) 191 mg/dL 70-110 TESTED AT [address] (test tcxx=4489) [place] [address] CLOSTRIDIUM DIFFICILE TOXIN [id number] 11:35:00 Test Item Value Reference Range Comments CLOSTRIDIUM DIFFICILE TOXIN, PCR (BEAKER) (test Not Detected Not Detected ebkp=6529) This qualitative real-time polymerase chain reaction assay detects the tcdB gene , encoded on the C.difficile pathogenicity locus (PaLoc). The product of tcdB, toxin B, is a cytotoxin essential for causing C.difficile-associated disease ( CDAD) and is found in virtually all toxigenic C.difficile.This assay is performed for patients suspected of having either community-acquired or nosocomial CDAD. Accordingly, only symptomatic patients should be tested and formed stools will be rejected unless ileus is present (i.e., specified when ordering). Patients may be colonized with toxigenic C.difficile strains not causing active disease; therefore, clinical correlation is needed when deciding how to manage patients with a positive test result.The assay has not been validated as a test of cure as amplifiable nucleic acid may persist after effective treatment; therefore, follow-up testing of a positive result is not recommended.POCT-GLUCOSE [id number] 08:51:00 Test Item Value Reference Range Comments POC-GLUCOSE METER (BEAKER) 159 mg/dL 70-110 TESTED AT [address] (test iuic=1562) [place] [address] [id number] 07:19:00 Test Item Value Reference Range Comments PHOSPHORUS (BEAKER) (test lomj=951) 3.4 mg/dL 2.3-4.7 [id number] 07:19:00 Test Item Value Reference Range Comments MAGNESIUM (BEAKER) (test uipm=439) 1.8 mg/dL 1.6-2.6 BASIC METABOLIC [id number] 07:19:00 Test Item Value Reference Range Comments SODIUM (BEAKER) (test 137 meq/L 136-145 rltv=560) POTASSIUM (BEAKER) (test 3.6 meq/L 3.5-5.1 zqgq=291) CHLORIDE (BEAKER) (test 106 meq/L 98-107 ixtx=815) CO2 (BEAKER) (test 22 meq/L 22-29 rxjy=962) BLOOD UREA NITROGEN 25 mg/dL 7-21 (BEAKER) (test jati=385) CREATININE (BEAKER) (test 0.73 mg/dL 0.57-1.25 rdon=752) GLUCOSE RANDOM (BEAKER) 168 mg/dL 70-105 (test jlax=527) CALCIUM (BEAKER) (test 8.2 mg/dL 8.4-10.2 mftv=431) EGFR (BEAKER) (test 110 mL/min/1.73 sq m ESTIMATED GFR IS NOT coss=7897) ACCURATE CREATININE CLEARANCE IN PREDICTING GLOMERULAR FILTRATION RATE. ESTIMATED GFR IS NOT APPLICABLE FOR DIALYSIS PATIENTS. POCT-GLUCOSE [id number] 04:59:00 Test Item Value Reference Range Comments POC-GLUCOSE METER (BEAKER) 175 mg/dL 70-110 TESTED AT [address] (test dyov=4565) [facility] [address] POCT-GLUCOSE [id number] 00:21:00 Test Item Value Reference Range Comments POC-GLUCOSE METER (BEAKER) 108 mg/dL 70-110 TESTED AT [address] (test wzpm=1414) [facility] [address] POCT-GLUCOSE [id number] 21:56:00 Test Item Value Reference Range Comments POC-GLUCOSE METER (BEAKER) 74 mg/dL 70-110 TESTED AT [address] (test mogp=9764) [place] [id number] POCT-GLUCOSE [id number] 17:33:00 Test Item Value Reference Range Comments POC-GLUCOSE METER (BEAKER) 81 mg/dL 70-110 TESTED AT [address] (test czny=6287) [facility] [address] POCT-GLUCOSE [id number] 11:45:00 Test Item Value Reference Range Comments POC-GLUCOSE METER (BEAKER) 193 mg/dL 70-110 TESTED AT [address] (test vtem=0997) [facility] [address] POCT-GLUCOSE [id number] 08:58:00 Test Item Value Reference Range Comments POC-GLUCOSE METER (BEAKER) 164 mg/dL 70-110 TESTED AT [address] (test vvon=6120) [place] [id number] POCT-GLUCOSE [id number] 08:42:00 Test Item Value Reference Range Comments POC-GLUCOSE METER (BEAKER) 191 mg/dL 70-110 TESTED AT [address] (test felj=8001) [place] [address] RAD, CHEST, 1 VIEW, NON [id number] 08:12:00Reason for exam:->pl effusionShould this be performed at the bedside?->YesFINAL REPORT CLINICAL HISTORY: pl effusion TECHNIQUE: 1 view of the chest. COMPARISON: 06/09/2017 IMPRESSION: The left PICC line is unchanged. There are no infiltrates or significant effusions. The cardiomediastinal silhouette is magnified by technique with sternotomy wires. Signed: Meagan Santacruz MDReport Verified Date/Time: 06/20/2017 08:12:30 Reading Location: [facility] C013V Neuro Reading Room [id number] 07:25:00 Test Item Value Reference Range Comments PHOSPHORUS (BEAKER) (test uoaw=053) 3.5 mg/dL 2.3-4.7 [id number] 07:25:00 Test Item Value Reference Range Comments MAGNESIUM (BEAKER) (test pele=061) 1.7 mg/dL 1.6-2.6 BASIC METABOLIC [id number] 07:25:00 Test Item Value Reference Range Comments SODIUM (BEAKER) (test 139 meq/L 136-145 juzg=301) POTASSIUM (BEAKER) (test 3.3 meq/L 3.5-5.1 remr=176) CHLORIDE (BEAKER) (test 106 meq/L 98-107 rrsw=211) CO2 (BEAKER) (test 26 meq/L 22-29 lkyi=265) BLOOD UREA NITROGEN 26 mg/dL 7-21 (BEAKER) (test kvmu=033) CREATININE (BEAKER) (test 0.79 mg/dL 0.57-1.25 smaw=619) GLUCOSE RANDOM (BEAKER) 195 mg/dL 70-105 (test zlfd=185) CALCIUM (BEAKER) (test 8.4 mg/dL 8.4-10.2 ijic=362) EGFR (BEAKER) (test 100 mL/min/1.73 sq m ESTIMATED GFR IS NOT iwue=7862) ACCURATE CREATININE CLEARANCE IN PREDICTING GLOMERULAR FILTRATION RATE. ESTIMATED GFR IS NOT APPLICABLE FOR DIALYSIS PATIENTS. POCT-GLUCOSE [id number] 23:25:00 Test Item Value Reference Range Comments POC-GLUCOSE METER (BEAKER) 101 mg/dL 70-110 TESTED AT [address] (test rhpt=9723) [place] [address] POCT-GLUCOSE [id number] 16:33:00 Test Item Value Reference Range Comments POC-GLUCOSE METER (BEAKER) 133 mg/dL 70-110 TESTED AT [address] (test pjkg=1445) [place] [address] POCT-GLUCOSE [id number] 12:30:00 Test Item Value Reference Range Comments POC-GLUCOSE METER (BEAKER) 178 mg/dL 70-110 TESTED AT [address] (test dbul=7908) [place] [address] POCT-GLUCOSE [id number] 08:55:00 Test Item Value Reference Range Comments POC-GLUCOSE METER (BEAKER) 189 mg/dL 70-110 TESTED AT [address] (test hxjw=4705) [place] [address] [id number] 06:37:00 Test Item Value Reference Range Comments PHOSPHORUS (BEAKER) (test sbtc=240) 4.4 mg/dL 2.3-4.7 [id number] 06:37:00 Test Item Value Reference Range Comments MAGNESIUM (BEAKER) (test uvem=219) 1.8 mg/dL 1.6-2.6 BASIC METABOLIC [id number] 06:37:00 Test Item Value Reference Range Comments SODIUM (BEAKER) (test 138 meq/L 136-145 denv=599) POTASSIUM (BEAKER) (test 3.1 meq/L 3.5-5.1 nqxv=029) CHLORIDE (BEAKER) (test 105 meq/L 98-107 njxr=478) CO2 (BEAKER) (test 24 meq/L 22-29 fteu=767) BLOOD UREA NITROGEN 26 mg/dL 7-21 (BEAKER) (test fqrq=309) CREATININE (BEAKER) (test 0.85 mg/dL 0.57-1.25 rgas=625) GLUCOSE RANDOM (BEAKER) 168 mg/dL 70-105 (test irtq=713) CALCIUM (BEAKER) (test 8.3 mg/dL 8.4-10.2 qtsa=083) EGFR (BEAKER) (test 92 mL/min/1.73 sq m ESTIMATED GFR IS NOT fxdz=0829) ACCURATE CREATININE CLEARANCE IN PREDICTING GLOMERULAR FILTRATION RATE. ESTIMATED GFR IS NOT APPLICABLE FOR DIALYSIS PATIENTS. POCT-GLUCOSE [id number] 03:57:00 Test Item Value Reference Range Comments POC-GLUCOSE METER (BEAKER) 173 mg/dL 70-110 TESTED AT [address] (test cckn=1768) [place] [address] POCT-GLUCOSE [id number] 00:27:00 Test Item Value Reference Range Comments POC-GLUCOSE METER (BEAKER) 163 mg/dL 70-110 TESTED AT [address] (test pfmq=1387) [place] [address] POCT-GLUCOSE [id number] 22:05:00 Test Item Value Reference Range Comments POC-GLUCOSE METER (BEAKER) 156 mg/dL 70-110 TESTED AT [address] (test ulhs=5848) [place] [address] CT, CHEST, WITHOUT [id number] 20:31:00FINAL REPORT CT, CHEST, WITHOUT CONTRAST INDICATION: evaluate for recurrence of pleural and/or pericardial effusion COMPARISON: June 10, 2017 TECHNIQUE: Noncontrast axially oriented images were obtained from the thoracic inlet through the lung bases. Coronal and sagittal reformats were provided. DOSE REDUCTION: Dose modulation, iterative reconstruction, and/or weight- basedadjustment of the mA/kV was utilized to reduce the radiation dose to as low as reasonably achievable. FINDINGS: Lungs and Pleura: No discrete airspace disease. No effusion or pneumothorax.Central airways: Patent.Mediastinum: No adenopathy.Heart and pericardium: Normal cardiac size. Trace pericardial effusion.Great vessels: Normal calibers. Included upper abdomen: No acute abnormalities.Regional skeletal structures: Intact. Additional findings: None. IMPRESSION: No recurrence of pleural effusion. Trace pericardial effusion. Signed: JR Hansen Robert MDReport Verified Date/Time: 06/18/2017 20:31: 30 Reading Location: [address] Reading Room POCT-GLUCOSE [id number] 16:52:00 Test Item Value Reference Range Comments POC-GLUCOSE METER (BEAKER) 190 mg/dL 70-110 TESTED AT [address] (test rcyx=3203) [facility] [address] POCT-GLUCOSE [id number] 12:30:00 Test Item Value Reference Range Comments POC-GLUCOSE METER (BEAKER) 139 mg/dL 70-110 TESTED AT [address] (test npbv=6278) [facility] [address] POCT-GLUCOSE [id number] 12:02:00 Test Item Value Reference Range Comments POC-GLUCOSE METER (BEAKER) 114 mg/dL 70-110 TESTED AT [address] (test anjq=8774) [facility] [address] [id number] 07:18:00 Test Item Value Reference Range Comments PHOSPHORUS (BEAKER) (test cxqy=712) 4.8 mg/dL 2.3-4.7 [id number] 07:18:00 Test Item Value Reference Range Comments MAGNESIUM (BEAKER) (test vame=622) 1.4 mg/dL 1.6-2.6 COMPREHENSIVE METABOLIC [id number] 07:18:00 Test Item Value Reference Range Comments TOTAL PROTEIN (BEAKER) 6.6 gm/dL 6.0-8.3 (test sfbq=910) ALBUMIN (BEAKER) (test 3.3 g/dL 3.5-5.0 lklm=6278) ALKALINE PHOSPHATASE 70 U/L 40-150 (BEAKER) (test wwen=931) BILIRUBIN TOTAL (BEAKER) 0.5 mg/dL 0.2-1.2 (test tidi=194) SODIUM (BEAKER) (test 138 meq/L 136-145 rart=868) POTASSIUM (BEAKER) (test 3.6 meq/L 3.5-5.1 eaik=415) CHLORIDE (BEAKER) (test 107 meq/L 98-107 byzz=926) CO2 (BEAKER) (test 21 meq/L 22-29 pqgw=693) BLOOD UREA NITROGEN 26 mg/dL 7-21 (BEAKER) (test ajmc=531) CREATININE (BEAKER) (test 0.97 mg/dL 0.57-1.25 iqcn=257) GLUCOSE RANDOM (BEAKER) 118 mg/dL 70-105 (test thxp=645) CALCIUM (BEAKER) (test 8.7 mg/dL 8.4-10.2 rbtm=200) AST (SGOT) (BEAKER) (test 46 U/L 5-34 ojvm=878) ALT (SGPT) (BEAKER) (test 38 U/L 6-55 tywa=501) EGFR (BEAKER) (test 79 mL/min/1.73 sq m ESTIMATED GFR IS NOT vdsw=5276) ACCURATE CREATININE CLEARANCE IN PREDICTING GLOMERULAR FILTRATION RATE. ESTIMATED GFR IS NOT APPLICABLE FOR DIALYSIS PATIENTS. POCT-GLUCOSE [id number] 13:03:00 Test Item Value Reference Range Comments POC-GLUCOSE METER (BEAKER) 172 mg/dL 70-110 TESTED AT [address] (test ifee=4770) [place] [id number] POCT-GLUCOSE [id number] 09:06:00 Test Item Value Reference Range Comments POC-GLUCOSE METER (BEAKER) 172 mg/dL 70-110 TESTED AT [address] (test weju=4073) [place] [address] POCT-GLUCOSE [id number] 08:59:00 Test Item Value Reference Range Comments POC-GLUCOSE METER (BEAKER) 151 mg/dL 70-110 TESTED AT [address] (test ahme=1773) [place] [address] [id number] 06:38:00 Test Item Value Reference Range Comments MAGNESIUM (BEAKER) (test wuqc=562) 1.8 mg/dL 1.6-2.6 BASIC METABOLIC [id number] 06:38:00 Test Item Value Reference Range Comments SODIUM (BEAKER) (test 139 meq/L 136-145 ztqv=545) POTASSIUM (BEAKER) (test 3.3 meq/L 3.5-5.1 ztiw=731) CHLORIDE (BEAKER) (test 106 meq/L 98-107 zefw=868) CO2 (BEAKER) (test 24 meq/L 22-29 jdcq=085) BLOOD UREA NITROGEN 37 mg/dL 7-21 (BEAKER) (test dmad=290) CREATININE (BEAKER) (test 1.04 mg/dL 0.57-1.25 onvm=376) GLUCOSE RANDOM (BEAKER) 154 mg/dL 70-105 (test jonw=897) CALCIUM (BEAKER) (test 8.4 mg/dL 8.4-10.2 bvta=067) EGFR (BEAKER) (test 73 mL/min/1.73 sq m ESTIMATED GFR IS NOT zuqy=2228) ACCURATE CREATININE CLEARANCE IN PREDICTING GLOMERULAR FILTRATION RATE. ESTIMATED GFR IS NOT APPLICABLE FOR DIALYSIS PATIENTS. CBC (HEMOGRAM ONLY)2017-06-11 06:23:00 Test Item Value Reference Range Comments WHITE BLOOD CELL COUNT (BEAKER) (test dsgr=624) 6.8 K/ L 3.5-10.5 RED BLOOD CELL COUNT (BEAKER) (test xmjb=023) 5.19 M/ L 4.63-6.08 HEMOGLOBIN (BEAKER) (test mnet=162) 13.5 GM/DL 13.7-17.5 HEMATOCRIT (BEAKER) (test ayff=753) 43.3 % 40.1-51.0 MEAN CORPUSCULAR VOLUME (BEAKER) (test kfxv=652) 83.4 fL 79.0-92.2 MEAN CORPUSCULAR HEMOGLOBIN (BEAKER) (test 26.0 pg 25.7-32.2 rxyj=910) MEAN CORPUSCULAR HEMOGLOBIN CONC (BEAKER) (test 31.2 GM/DL 32.3-36.5 foub=352) RED CELL DISTRIBUTION WIDTH (BEAKER) (test 13.9 % 11.6-14.4 yqgi=732) PLATELET COUNT (BEAKER) (test ciex=369) 295 K/CU MM 150-450 MEAN PLATELET VOLUME (BEAKER) (test wuci=885) 10.8 fL 9.4-12.4 NUCLEATED RED BLOOD CELLS (BEAKER) (test 0 /100 WBC 0-0 fqrv=716) POCT-GLUCOSE [id number] 01:31:00 Test Item Value Reference Range Comments POC-GLUCOSE METER (BEAKER) 153 mg/dL 70-110 TESTED AT [address] (test qsas=0325) [place] [address] POCT-GLUCOSE [id number] 00:08:00 Test Item Value Reference Range Comments POC-GLUCOSE METER (BEAKER) 126 mg/dL 70-110 TESTED AT [address] (test izne=1438) [place] [address] POCT-GLUCOSE [id number] 21:25:00 Test Item Value Reference Range Comments POC-GLUCOSE METER (BEAKER) 138 mg/dL 70-110 TESTED AT [address] (test kkxu=7577) [place] [address] CT, CHEST, WITH [id number] 17:41:00Embolization of thoracic ductReason for exam:->chylothoraxWhat is the patient's sedation requirement?->No SedationFINAL REPORT CT of the chest, with contrast, 06/10/2017. History: History of pleural effusion. Comparison: 05/26/2017. Technique: Multidetector CT scanning of the chest was performed from the level of the thoracic inlet to the upper abdomen after intravenous administrationof non-ionic contrast. This exam was performed according to our departmental dose- optimization program which includes automated exposure control, adjustment of the mA and/or kV according to patient size and/or use of iterative reconstruction technique. Discussion: The atria, ventricles, aorta , and pulmonary vessels are normal in size. 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 There is no evidence of axillary or mediastinal adenopathy. A 2.1 cm hypodense lesion is present posteriorly within the left lobe of the thyroid. Median sternotomy wires and mediastinal surgical clips are again noted. Anterior mediastinal fluid, likely postsurgical, is unchanged. Left upperextremity PICC terminates near the cavoatrial junction. A [...] the upper abdomen shows normal adrenal glands. IMPRESSION:Interval resolution of bilateral pleural effusions and bibasilar atelectasis. Postoperative changes are again noted. Left thyroid nodule may be further evaluated with ultrasound. Signed: Costa Perez MDReport Verified Date/Time: 06/10/2017 17:41:51 Reading Location: [facility] C013W Consult Reading Room POCT-GLUCOSE [id number] 16:44:00 Test Item Value Reference Range Comments POC-GLUCOSE METER (BEAKER) 109 mg/dL 70-110 TESTED AT [address] (test zmze=7645) [facility] [address] POCT-GLUCOSE [id number] 12:02:00 Test Item Value Reference Range Comments POC-GLUCOSE METER (BEAKER) 173 mg/dL 70-110 TESTED AT [address] (test ispk=6280) [facility] [address] [id number] 06:25:00 Test Item Value Reference Range Comments MAGNESIUM (BEAKER) (test egav=376) 1.8 mg/dL 1.6-2.6 BASIC METABOLIC [id number] 06:25:00 Test Item Value Reference Range Comments SODIUM (BEAKER) (test 141 meq/L 136-145 uhlp=223) POTASSIUM (BEAKER) (test 3.8 meq/L 3.5-5.1 mogz=739) CHLORIDE (BEAKER) (test 107 meq/L 98-107 glck=419) CO2 (BEAKER) (test 26 meq/L 22-29 vehs=568) BLOOD UREA NITROGEN 38 mg/dL 7-21 (BEAKER) (test fqmp=332) CREATININE (BEAKER) (test 1.16 mg/dL 0.57-1.25 cktd=508) GLUCOSE RANDOM (BEAKER) 105 mg/dL 70-105 (test wdxu=746) CALCIUM (BEAKER) (test 8.8 mg/dL 8.4-10.2 ykau=670) EGFR (BEAKER) (test 64 mL/min/1.73 sq m ESTIMATED GFR IS NOT gwqh=7886) ACCURATE CREATININE CLEARANCE IN PREDICTING GLOMERULAR FILTRATION RATE. ESTIMATED GFR IS NOT APPLICABLE FOR DIALYSIS PATIENTS. POCT-GLUCOSE [id number] 05:14:00 Test Item Value Reference Range Comments POC-GLUCOSE METER (BEAKER) 130 mg/dL 70-110 TESTED AT [address] (test sqrc=3858) [place] [id number] POCT-GLUCOSE [id number] 01:09:00 Test Item Value Reference Range Comments POC-GLUCOSE METER (BEAKER) 139 mg/dL 70-110 TESTED AT [address] (test cjpf=5219) [place] [address] POCT-GLUCOSE [id number] 22:20:00 Test Item Value Reference Range Comments POC-GLUCOSE METER (BEAKER) 146 mg/dL 70-110 TESTED AT [address] (test feki=9754) [place] [address] POCT-GLUCOSE [id number] 18:30:00 Test Item Value Reference Range Comments POC-GLUCOSE METER (BEAKER) 127 mg/dL 70-110 TESTED AT [address] (test pjkl=4453) [place] [address] POCT-GLUCOSE [id number] 13:21:00 Test Item Value Reference Range Comments POC-GLUCOSE METER (BEAKER) 138 mg/dL 70-110 TESTED AT [address] (test enjm=2414) [facility] [address] POCT-GLUCOSE [id number] 09:55:00 Test Item Value Reference Range Comments POC-GLUCOSE METER (BEAKER) 178 mg/dL 70-110 TESTED AT [address] (test mham=4739) [place] [address] POCT-GLUCOSE [id number] 08:57:00 Test Item Value Reference Range Comments POC-GLUCOSE METER (BEAKER) 152 mg/dL 70-110 TESTED AT [address] (test xqnb=4334) [place] [address] RAD, CHEST, 1 VIEW, NON [id number] 08:46:00Reason for exam:->pl effusionShould this be performed at the bedside?->YesFINAL REPORT HISTORY : pl effusion. Comparison: 06/08/2017 Comment: Single portable view of the chest was obtained. The cardiac silhouette size is enlarged. There is a tortuous/ectatic thoracic aorta. There is some patchy bibasilar airspace disease. Stable left-sided PICC line catheter is seen. No pneumothorax or pleural effusion is seen. Signed: Jean Pierre Renteriaeport Verified Date/Time: 06/09/2017 08:46:02 Reading Location: [facility] Diagnostic Imaging Reading Room - [place] [address] [id number] 06:21:00 Test Item Value Reference Range Comments TRIGLYCERIDES (BEAKER) (test imfw=410) 103 mg/dL TRIGLYCERIDE REFERENCE RANGELow Risk <150Borderline Risk 150-199High Risk 200-499Very High Risk>=[id number] 06:21:00 Test Item Value Reference Range Comments MAGNESIUM (BEAKER) (test xybq=495) 1.6 mg/dL 1.6-2.6 [id number] 06:21:00 Test Item Value Reference Range Comments PHOSPHORUS (BEAKER) (test xfty=567) 4.2 mg/dL 2.3-4.7 BASIC METABOLIC [id number] 06:21:00 Test Item Value Reference Range Comments SODIUM (BEAKER) (test 141 meq/L 136-145 egly=291) POTASSIUM (BEAKER) (test 3.8 meq/L 3.5-5.1 oarv=254) CHLORIDE (BEAKER) (test 107 meq/L 98-107 txkt=058) CO2 (BEAKER) (test 25 meq/L 22-29 crsn=939) BLOOD UREA NITROGEN 30 mg/dL 7-21 (BEAKER) (test nhlg=159) CREATININE (BEAKER) (test 1.09 mg/dL 0.57-1.25 dgue=755) GLUCOSE RANDOM (BEAKER) 152 mg/dL 70-105 (test anfg=765) CALCIUM (BEAKER) (test 8.5 mg/dL 8.4-10.2 apvl=998) EGFR (BEAKER) (test 69 mL/min/1.73 sq m ESTIMATED GFR IS NOT vdug=3691) ACCURATE CREATININE CLEARANCE IN PREDICTING GLOMERULAR FILTRATION RATE. ESTIMATED GFR IS NOT APPLICABLE FOR DIALYSIS PATIENTS. HEPATIC FUNCTION [id number] 06:21:00 Test Item Value Reference Range Comments TOTAL PROTEIN (BEAKER) (test ugfo=219) 6.6 gm/dL 6.0-8.3 ALBUMIN (BEAKER) (test tkzp=4904) 3.3 g/dL 3.5-5.0 BILIRUBIN TOTAL (BEAKER) (test nyjg=389) 0.7 mg/dL 0.2-1.2 BILIRUBIN DIRECT (BEAKER) (test ebki=504) 0.3 mg/dL 0.1-0.5 ALKALINE PHOSPHATASE (BEAKER) (test vley=405) 57 U/L 40-150 AST (SGOT) (BEAKER) (test xymv=715) 25 U/L 5-34 ALT (SGPT) (BEAKER) (test bvrm=242) 12 U/L 6-55 CBC (HEMOGRAM ONLY)2017-06-09 06:01:00 Test Item Value Reference Range Comments WHITE BLOOD CELL COUNT (BEAKER) (test hzgc=425) 7.6 K/ L 3.5-10.5 RED BLOOD CELL COUNT (BEAKER) (test pxyg=741) 4.97 M/ L 4.63-6.08 HEMOGLOBIN (BEAKER) (test oaby=952) 13.1 GM/DL 13.7-17.5 HEMATOCRIT (BEAKER) (test psou=477) 42.0 % 40.1-51.0 MEAN CORPUSCULAR VOLUME (BEAKER) (test atyq=460) 84.5 fL 79.0-92.2 MEAN CORPUSCULAR HEMOGLOBIN (BEAKER) (test 26.4 pg 25.7-32.2 srac=248) MEAN CORPUSCULAR HEMOGLOBIN CONC (BEAKER) (test 31.2 GM/DL 32.3-36.5 lqtr=490) RED CELL DISTRIBUTION WIDTH (BEAKER) (test 13.8 % 11.6-14.4 mumr=586) PLATELET COUNT (BEAKER) (test eilz=072) 300 K/CU MM 150-450 MEAN PLATELET VOLUME (BEAKER) (test awpw=167) 10.2 fL 9.4-12.4 NUCLEATED RED BLOOD CELLS (BEAKER) (test 0 /100 WBC 0-0 nbvi=249) POCT-GLUCOSE [id number] 01:17:00 Test Item Value Reference Range Comments POC-GLUCOSE METER (BEAKER) 138 mg/dL 70-110 TESTED AT [address] (test tzbd=2709) [facility] [address] POCT-GLUCOSE [id number] 21:42:00 Test Item Value Reference Range Comments POC-GLUCOSE METER (BEAKER) 105 mg/dL 70-110 TESTED AT [address] (test zkmi=8219) [facility] [address] POCT-GLUCOSE [id number] 17:08:00 Test Item Value Reference Range Comments POC-GLUCOSE METER (BEAKER) 90 mg/dL 70-110 TESTED AT [address] (test bgik=6834) [facility] [address] POCT-GLUCOSE [id number] 13:27:00 Test Item Value Reference Range Comments POC-GLUCOSE METER (BEAKER) 140 mg/dL 70-110 TESTED AT [address] (test lqst=7165) [facility] [address] POCT-GLUCOSE [id number] 12:58:00 Test Item Value Reference Range Comments POC-GLUCOSE METER (BEAKER) 139 mg/dL 70-110 TESTED AT [address] (test dhix=5838) [facility] [address] POCT-GLUCOSE [id number] 06:10:00 Test Item Value Reference Range Comments POC-GLUCOSE METER (BEAKER) 120 mg/dL 70-110 TESTED AT [address] (test lgct=3153) [facility] [id number] RAD, CHEST, 1 VIEW, NON [id number] 05:48:00Reason for exam:->pl effusionShould this be performed at the bedside?->YesFINAL REPORT RAD, CHEST, 1 VIEW, NON DEPT INDICATION: pl effusion COMPARISON: Prior day's exam TECHNIQUE: Portable frontal view of the chest. IMPRESSION: Lines and tubes stable.Cardiomediastinal silhouette stable.No overt consolidative or congestive change.No large pleural effusion on this limited exam.No acute osseous abnormality. Signed: Nate Rivera MDReport Verified Date/Time: 06/08/2017 05:48:32 Reading Location: [facility] [id number] Ortho Consult Reading Room 05: 48 AMBASIC METABOLIC [id number] 05:28:00 Test Item Value Reference Range Comments SODIUM (BEAKER) (test 141 meq/L 136-145 dubk=807) POTASSIUM (BEAKER) (test 3.4 meq/L 3.5-5.1 dyrz=306) CHLORIDE (BEAKER) (test 106 meq/L 98-107 zlrt=112) CO2 (BEAKER) (test 27 meq/L 22-29 tasa=446) BLOOD UREA NITROGEN 27 mg/dL 7-21 (BEAKER) (test yyqs=466) CREATININE (BEAKER) (test 0.84 mg/dL 0.57-1.25 wmoq=632) GLUCOSE RANDOM (BEAKER) 99 mg/dL 70-105 (test xkft=201) CALCIUM (BEAKER) (test 8.2 mg/dL 8.4-10.2 user=759) EGFR (BEAKER) (test 93 mL/min/1.73 sq m ESTIMATED GFR IS NOT xjfa=1207) ACCURATE CREATININE CLEARANCE IN PREDICTING GLOMERULAR FILTRATION RATE. ESTIMATED GFR IS NOT APPLICABLE FOR DIALYSIS PATIENTS. [id number] 05:27:00 Test Item Value Reference Range Comments MAGNESIUM (BEAKER) (test lrkx=068) 1.7 mg/dL 1.6-2.6 POCT-GLUCOSE [id number] 01:00:00 Test Item Value Reference Range Comments POC-GLUCOSE METER (BEAKER) 112 mg/dL 70-110 TESTED AT [address] (test kyus=6999) [facility] [address] POCT-GLUCOSE [id number] 21:31:00 Test Item Value Reference Range Comments POC-GLUCOSE METER (BEAKER) 132 mg/dL 70-110 TESTED AT [address] (test wpdr=1495) [facility] [address] POCT-GLUCOSE [id number] 17:12:00 Test Item Value Reference Range Comments POC-GLUCOSE METER (BEAKER) 114 mg/dL 70-110 TESTED AT [address] (test mzdm=9068) [facility] [address] LEGIONELLA [id number] 15:07:00 Test Item Value Reference Range Comments CULTURE (BEAKER) (test No Legionella species isolated qvec=6239) POCT-GLUCOSE [id number] 13:19:00 Test Item Value Reference Range Comments POC-GLUCOSE METER (BEAKER) 146 mg/dL 70-110 TESTED AT [address] (test huiq=0111) [place] [address] POCT-GLUCOSE [id number] 09:22:00 Test Item Value Reference Range Comments POC-GLUCOSE METER (BEAKER) 126 mg/dL 70-110 TESTED AT [address] (test sdhd=9080) [place] [address] [id number] 06:19:00 Test Item Value Reference Range Comments MAGNESIUM (BEAKER) (test ilie=128) 2.0 mg/dL 1.6-2.6 BASIC METABOLIC [id number] 06:19:00 Test Item Value Reference Range Comments SODIUM (BEAKER) (test 143 meq/L 136-145 ilng=826) POTASSIUM (BEAKER) (test 3.2 meq/L 3.5-5.1 ceir=902) CHLORIDE (BEAKER) (test 105 meq/L 98-107 xxff=457) CO2 (BEAKER) (test 30 meq/L 22-29 xtxg=042) BLOOD UREA NITROGEN 24 mg/dL 7-21 (BEAKER) (test godh=528) CREATININE (BEAKER) (test 0.79 mg/dL 0.57-1.25 yisg=084) GLUCOSE RANDOM (BEAKER) 92 mg/dL 70-105 (test kkzz=912) CALCIUM (BEAKER) (test 8.4 mg/dL 8.4-10.2 wgpw=549) EGFR (BEAKER) (test 100 mL/min/1.73 sq m ESTIMATED GFR IS NOT eyzk=5282) ACCURATE CREATININE CLEARANCE IN PREDICTING GLOMERULAR FILTRATION RATE. ESTIMATED GFR IS NOT APPLICABLE FOR DIALYSIS PATIENTS. RAD, CHEST, 1 VIEW, NON [id number] 05:53:00Reason for exam:->pl effusionShould this be performed at the bedside?->YesFINAL REPORT Comparison exam: 06/05/2017 No pneumothorax, focal pulmonary consolidation, or significant pleural effusion. Stable cardiomediastinal contours. Appropriate position of the support hardware. Signed: Mango Rodas Verified Date/Time: 06/07/2017 05:53:31 Reading Location: [facility] B1 C013X Ortho Consult Reading Room POCT-GLUCOSE [id number] 05:45:00 Test Item Value Reference Range Comments POC-GLUCOSE METER (BEAKER) 99 mg/dL 70-110 TESTED AT [address] (test bfuz=1574) [place] [id number] POCT-GLUCOSE [id number] 01:04:00 Test Item Value Reference Range Comments POC-GLUCOSE METER (BEAKER) 129 mg/dL 70-110 TESTED AT [address] (test bcwf=5543) [place] [address] POCT-GLUCOSE [id number] 21:23:00 Test Item Value Reference Range Comments POC-GLUCOSE METER (BEAKER) 145 mg/dL 70-110 TESTED AT [address] (test xgvv=8559) [place] [id number] POCT-GLUCOSE [id number] 17:23:00 Test Item Value Reference Range Comments POC-GLUCOSE METER (BEAKER) 120 mg/dL 70-110 TESTED AT [address] (test cxdx=1509) [place] [address] URINE [id number] 14:37:00 Test Item Value Reference Range Comments CULTURE (BEAKER) (test lxlu=4326) Amikacin (test code=1) Aztreonam (test code=32) Cefepime (test code=51) Cefoxitin (test code=68) Ceftazidime (test code=27) Ceftriaxone (test code=52) Ertapenem (test code=38) Gentamicin (test code=18) Levofloxacin (test code=22) Meropenem (test code=34) Nitrofurantoin (test code=23) Tetracycline (test code=2) Tobramycin (test code=25) Trimethoprim + Sulfamethoxazole (test code=47) CULTURE (BEAKER) (test jpud=6587) 80-89,000 col/mL Serratia marcescens >100,000 col/mL skin floraPOCT-GLUCOSE [id number] 13:07:00 Test Item Value Reference Range Comments POC-GLUCOSE METER (BEAKER) 169 mg/dL 70-110 TESTED AT [address] (test jofw=3336) [place] [address] BASIC METABOLIC [id number] 12:56:00 Test Item Value Reference Range Comments SODIUM (BEAKER) (test 138 meq/L 136-145 gxbz=167) POTASSIUM (BEAKER) (test 3.6 meq/L 3.5-5.1 yrnm=182) CHLORIDE (BEAKER) (test 100 meq/L 98-107 opqx=647) CO2 (BEAKER) (test 29 meq/L 22-29 rrch=902) BLOOD UREA NITROGEN 24 mg/dL 7-21 (BEAKER) (test imvp=950) CREATININE (BEAKER) (test 0.85 mg/dL 0.57-1.25 rfkg=797) GLUCOSE RANDOM (BEAKER) 141 mg/dL 70-105 (test blxp=643) CALCIUM (BEAKER) (test 8.4 mg/dL 8.4-10.2 ddic=508) EGFR (BEAKER) (test 92 mL/min/1.73 sq m ESTIMATED GFR IS NOT rwbr=6931) ACCURATE CREATININE CLEARANCE IN PREDICTING GLOMERULAR FILTRATION RATE. ESTIMATED GFR IS NOT APPLICABLE FOR DIALYSIS PATIENTS. POCT-GLUCOSE [id number] 09:27:00 Test Item Value Reference Range Comments POC-GLUCOSE METER (BEAKER) 148 mg/dL 70-110 TESTED AT [address] (test swfo=2696) [place] [address] [id number] 07:57:00 Test Item Value Reference Range Comments MAGNESIUM (BEAKER) (test ihby=831) 2.9 mg/dL 1.6-2.6 POCT-GLUCOSE [id number] 07:49:00 Test Item Value Reference Range Comments POC-GLUCOSE METER (BEAKER) 117 mg/dL 70-110 TESTED AT [address] (test ysjr=2913) [place] [address] POCT-GLUCOSE [id number] 05:12:00 Test Item Value Reference Range Comments POC-GLUCOSE METER (BEAKER) 125 mg/dL 70-110 TESTED AT [address] (test veih=7847) [facility] [address] POCT-GLUCOSE [id number] 03:50:00 Test Item Value Reference Range Comments POC-GLUCOSE METER (BEAKER) 139 mg/dL 70-110 TESTED AT [address] (test ogtq=4437) [facility] [address] POCT-GLUCOSE [id number] 21:30:00 Test Item Value Reference Range Comments POC-GLUCOSE METER (BEAKER) 117 mg/dL 70-110 TESTED AT [address] (test mowy=6642) [facility] [address] POCT-GLUCOSE [id number] 18:07:00 Test Item Value Reference Range Comments POC-GLUCOSE METER (BEAKER) 120 mg/dL 70-110 TESTED AT [address] (test npoi=1176) [place] [address] POCT-GLUCOSE [id number] 13:41:00 Test Item Value Reference Range Comments POC-GLUCOSE METER (BEAKER) 160 mg/dL 70-110 TESTED AT [address] (test rhpc=8212) [place] [address] POCT-GLUCOSE [id number] 10:40:00 Test Item Value Reference Range Comments POC-GLUCOSE METER (BEAKER) 163 mg/dL 70-110 TESTED AT [address] (test kyjt=3166) [facility] [address] RAD, CHEST, 1 VIEW, NON [id number] 08:02:00Reason for exam:->s/p pericardial window, and decorticationShould this be performed at the bedside?-& gt;YesFINAL REPORT TECHNIQUE: Frontal view of the chest. INDICATION: 62-year-old man after pericardial window and decortication. COMPARISON: Chest radiograph 06/04/2017. FINDINGS: LINES/TUBES: New tube/drain projects over the left hemithorax. Unchanged left upper extremity PICC. LUNGS: Mild bibasilar atelectasis. No evidence of pneumonia or pulmonary edema. PLEURA : No pneumothorax orsignificant pleural effusion. HEART AND MEDIASTINUM: The enlarged cardiomediastinal silhouette is unchanged. SOFT TISSUES AND BONES: Unchanged median sternotomy wires. IMPRESSION:No significant changesince 2016. Signed: Rashida Bell MDReport Verified Date/Time: 06/05/2017 08:02:15 Reading Location: [facility] B1 C013Y CT Body Reading Room BASIC METABOLIC [id number] 07:13:00 Test Item Value Reference Range Comments SODIUM (BEAKER) (test 140 meq/L 136-145 ijfi=689) POTASSIUM (BEAKER) (test 3.6 meq/L 3.5-5.1 qgsg=249) CHLORIDE (BEAKER) (test 101 meq/L 98-107 kyzx=436) CO2 (BEAKER) (test 32 meq/L 22-29 hcqv=322) BLOOD UREA NITROGEN 16 mg/dL 7-21 (BEAKER) (test odwh=066) CREATININE (BEAKER) (test 0.82 mg/dL 0.57-1.25 cbmu=661) GLUCOSE RANDOM (BEAKER) 165 mg/dL 70-105 (test zkax=090) CALCIUM (BEAKER) (test 7.8 mg/dL 8.4-10.2 jylu=760) EGFR (BEAKER) (test 96 mL/min/1.73 sq m ESTIMATED GFR IS NOT vtys=7500) ACCURATE CREATININE CLEARANCE IN PREDICTING GLOMERULAR FILTRATION RATE. ESTIMATED GFR IS NOT APPLICABLE FOR DIALYSIS PATIENTS. [id number] 07:10:00 Test Item Value Reference Range Comments MAGNESIUM (BEAKER) (test slkf=046) 2.0 mg/dL 1.6-2.6 POCT-GLUCOSE [id number] 03:09:00 Test Item Value Reference Range Comments POC-GLUCOSE METER (BEAKER) 153 mg/dL 70-110 TESTED AT [address] (test mjzm=5308) [facility] [address] POCT-GLUCOSE [id number] 00:22:00 Test Item Value Reference Range Comments POC-GLUCOSE METER (BEAKER) 185 mg/dL 70-110 TESTED AT [address] (test rblt=8838) [facility] [address] POCT-GLUCOSE [id number] 20:57:00 Test Item Value Reference Range Comments POC-GLUCOSE METER (BEAKER) 168 mg/dL 70-110 TESTED AT [address] (test jrci=5172) [facility] [address] POCT-GLUCOSE [id number] 17:04:00 Test Item Value Reference Range Comments POC-GLUCOSE METER (BEAKER) 120 mg/dL 70-110 TESTED AT [address] (test jvwl=6425) [facility] [address] URINALYSIS W/ [id number] 15:02:00 Test Item Value Reference Range Comments COLOR (BEAKER) (test pnev=800) Yellow CLARITY (BEAKER) (test uqcw=059) Clear SPECIFIC GRAVITY UA (BEAKER) (test 1.012 1.001-1.035 yuiw=288) PH UA (BEAKER) (test boko=632) 6.5 5.0-8.0 PROTEIN UA (BEAKER) (test qqqr=512) Negative Negative GLUCOSE UA (BEAKER) (test ervw=184) Negative Negative KETONES UA (BEAKER) (test txcv=407) Negative Negative BILIRUBIN UA (BEAKER) (test vmyl=535) Negative Negative BLOOD UA (BEAKER) (test sdql=986) Negative Negative NITRITE UA (BEAKER) (test gmyn=314) Negative Negative LEUKOCYTE ESTERASE UA (BEAKER) (test Large Negative qquc=362) UROBILINOGEN UA (BEAKER) (test yymi=664) 2.0 mg/dL 0.2-1.0 RBC UA (BEAKER) (test ulal=255) < /HPF WBC UA (BEAKER) (test avbu=538) 9 /HPF BACTERIA (BEAKER) (test jpfm=577) Moderate MUCUS (BEAKER) (test myxb=5691) Rare SQUAMOUS EPITHELIAL (BEAKER) (test 1 /HPF bxoy=888) HYALINE CASTS (BEAKER) (test oqav=566) 2 /LPF SOURCE(BEAKER) (test jkax=8975) Urine, Clean Catch POCT-GLUCOSE [id number] 12:48:00 Test Item Value Reference Range Comments POC-GLUCOSE METER (BEAKER) 143 mg/dL 70-110 TESTED AT [address] (test hmsz=3179) [facility] [address] POCT-GLUCOSE [id number] 08:30:00 Test Item Value Reference Range Comments POC-GLUCOSE METER (BEAKER) 116 mg/dL 70-110 TESTED AT [address] (test danl=7481) [facility] [address] [id number] 06:56:00 Test Item Value Reference Range Comments MAGNESIUM (BEAKER) (test llzu=640) 2.0 mg/dL 1.6-2.6 BASIC METABOLIC [id number] 06:56:00 Test Item Value Reference Range Comments SODIUM (BEAKER) (test 141 meq/L 136-145 gyxo=190) POTASSIUM (BEAKER) (test 3.4 meq/L 3.5-5.1 otdp=410) CHLORIDE (BEAKER) (test 99 meq/L 98-107 hzvx=292) CO2 (BEAKER) (test 33 meq/L 22-29 wufq=022) BLOOD UREA NITROGEN 14 mg/dL 7-21 (BEAKER) (test yxtq=144) CREATININE (BEAKER) (test 0.82 mg/dL 0.57-1.25 rlye=181) GLUCOSE RANDOM (BEAKER) 75 mg/dL 70-105 (test wxgz=442) CALCIUM (BEAKER) (test 8.0 mg/dL 8.4-10.2 fysy=117) EGFR (BEAKER) (test 96 mL/min/1.73 sq m ESTIMATED GFR IS NOT ojaf=5423) ACCURATE CREATININE CLEARANCE IN PREDICTING GLOMERULAR FILTRATION RATE. ESTIMATED GFR IS NOT APPLICABLE FOR DIALYSIS PATIENTS. [id number] 06:56:00 Test Item Value Reference Range Comments ALBUMIN (BEAKER) (test vlrn=4130) 3.2 g/dL 3.5-5.0 RAD, CHEST, 1 VIEW, NON [id number] 05:08:00Reason for exam:->s/p pericardial window, and decorticationShould this be performed at the bedside?-& gt;YesFINAL REPORT Comparison exam: 06/03/2017 No pneumothorax, focal pulmonary consolidation, or significant pleural effusion. Stable cardiomediastinal contours. Left PICC line terminates in the proximal right atrium. Signed: Mango Rodaseport Verified Date/Time: 06/04/2017 05:08:40 Reading Location: [address] Consult Reading Room Electronically signedby: MANGO RODAS M.D. on 06/04/2017 05:08 AMPOCT- GLUCOSE [id number] 00:06:00 Test Item Value Reference Range Comments POC-GLUCOSE METER (BEAKER) 126 mg/dL 70-110 TESTED AT [address] (test lznj=1508) [facility] [address] POCT-GLUCOSE [id number] 21:09:00 Test Item Value Reference Range Comments POC-GLUCOSE METER (BEAKER) 148 mg/dL 70-110 TESTED AT [address] (test yndw=5609) [facility] [address] POCT-GLUCOSE [id number] 17:29:00 Test Item Value Reference Range Comments POC-GLUCOSE METER (BEAKER) 148 mg/dL 70-110 TESTED AT [address] (test sjjw=7427) [place] [address] POCT-GLUCOSE [id number] 12:57:00 Test Item Value Reference Range Comments POC-GLUCOSE METER (BEAKER) 228 mg/dL 70-110 TESTED AT [address] (test gfiz=4203) [place] [address] POCT-GLUCOSE [id number] 08:44:00 Test Item Value Reference Range Comments POC-GLUCOSE METER (BEAKER) 106 mg/dL 70-110 TESTED AT [address] (test fyxx=7797) [facility] [address] RAD, CHEST, 1 VIEW, NON [id number] 07:25:00Reason for exam:->s/p pericardial window, and decorticationShould this be performed at the bedside?-& gt;YesFINAL REPORT AP view of the chest dated 06/03/2017 COMPARISON: June 02, 2017 CLINICAL INFORMATION: s/p pericardial window, and decortication Comment: Heart is normal in size.Pulmonary vasculature is unremarkable. There is a small bilateral pleural effusion with bibasilar subsegmental atelectasis. The rest of lungs are clear. Left PICC line remains in place. IMPRESSION: No interval change Signed: Nona Chauhan Verified Date/Time: 06/03/2017 07:25:21 Reading Location: [facility] Diagnostic Imaging Reading Room - [place] [address] POCT-GLUCOSE [id number] 03:44:00 Test Item Value Reference Range Comments POC-GLUCOSE METER (BEAKER) 96 mg/dL 70-110 TESTED AT [address] (test hfzi=4690) [facility] [address] [id number] 03:42:00 Test Item Value Reference Range Comments MAGNESIUM (BEAKER) (test wwnp=671) 2.0 mg/dL 1.6-2.6 BASIC METABOLIC [id number] 03:42:00 Test Item Value Reference Range Comments SODIUM (BEAKER) (test 142 meq/L 136-145 wwaz=211) POTASSIUM (BEAKER) (test 3.4 meq/L 3.5-5.1 grkm=339) CHLORIDE (BEAKER) (test 99 meq/L 98-107 nfpm=373) CO2 (BEAKER) (test 35 meq/L 22-29 qijy=863) BLOOD UREA NITROGEN 15 mg/dL 7-21 (BEAKER) (test yabx=620) CREATININE (BEAKER) (test 0.83 mg/dL 0.57-1.25 lyui=818) GLUCOSE RANDOM (BEAKER) 44 mg/dL 70-105 (test ybil=453) CALCIUM (BEAKER) (test 8.0 mg/dL 8.4-10.2 axhq=724) EGFR (BEAKER) (test 95 mL/min/1.73 sq m ESTIMATED GFR IS NOT jllu=6766) ACCURATE CREATININE CLEARANCE IN PREDICTING GLOMERULAR FILTRATION RATE. ESTIMATED GFR IS NOT APPLICABLE FOR DIALYSIS PATIENTS. [id number] 03:42:00 Test Item Value Reference Range Comments ALBUMIN (BEAKER) (test rebz=0240) 3.2 g/dL 3.5-5.0 POCT-GLUCOSE [id number] 02:58:00 Test Item Value Reference Range Comments POC-GLUCOSE METER (BEAKER) 46 mg/dL 70-110 TESTED AT [address] (test djwk=1476) [facility] [address] POCT-GLUCOSE [id number] 21:25:00 Test Item Value Reference Range Comments POC-GLUCOSE METER (BEAKER) 78 mg/dL 70-110 TESTED AT [address] (test fbir=6441) [facility] [address] POCT-GLUCOSE [id number] 17:02:00 Test Item Value Reference Range Comments POC-GLUCOSE METER (BEAKER) 79 mg/dL 70-110 TESTED AT [address] (test hqfq=1257) [place] [address] POCT-GLUCOSE [id number] 16:58:00 Test Item Value Reference Range Comments POC-GLUCOSE METER (BEAKER) 298 mg/dL 70-110 TESTED AT [address] (test ddnt=7185) [place] [address] POCT-GLUCOSE [id number] 16:54:00 Test Item Value Reference Range Comments POC-GLUCOSE METER (BEAKER) 147 mg/dL 70-110 TESTED AT [address] (test zciu=0604) [place] [address] LIPID [id number] 10:05:00 Test Item Value Reference Range Comments TRIGLYCERIDES (BEAKER) (test wwdt=506) 106 mg/dL CHOLESTEROL (BEAKER) (test tpab=935) 103 mg/dL HDL CHOLESTEROL (BEAKER) (test uxra=015) 29 mg/dL LDL CHOLESTEROL CALCULATED (BEAKER) (test 53 mg/dL atvt=679) Triglyceride Reference Range: Low Risk <150 Borderline 150- 199 High Risk 200-499 Very High Risk >=500Cholesterol Reference Range: Low Risk <200 Borderline 200-239 High Risk > 240HDL Cholesterol Reference Range: Low Risk >=60 High Risk <40LDL Cholesterol Reference Range: Optimal <100 Near Optimal 100-129 Borderline 130-159 High 160-189 Very High >=190POCT-GLUCOSE [id number] 07:59:00 Test Item Value Reference Range Comments POC-GLUCOSE METER (BEAKER) 129 mg/dL 70-110 TESTED AT [address] (test kcck=3457) [place] [address] POCT-GLUCOSE [id number] 07:59:00 Test Item Value Reference Range Comments POC-GLUCOSE METER (BEAKER) 53 mg/dL 70-110 TESTED AT [address] (test onsu=2410) [place] [address] POCT-GLUCOSE [id number] 07:03:00 Test Item Value Reference Range Comments POC-GLUCOSE METER (BEAKER) 173 mg/dL 70-110 TESTED AT [address] (test ghsu=3657) [place] [address] BASIC METABOLIC [id number] 06:35:00 Test Item Value Reference Range Comments SODIUM (BEAKER) (test 140 meq/L 136-145 dyle=673) POTASSIUM (BEAKER) (test 3.5 meq/L 3.5-5.1 ujpv=569) CHLORIDE (BEAKER) (test 100 meq/L 98-107 mggg=861) CO2 (BEAKER) (test 31 meq/L 22-29 huhp=154) BLOOD UREA NITROGEN 14 mg/dL 7-21 (BEAKER) (test pelg=710) CREATININE (BEAKER) (test 0.82 mg/dL 0.57-1.25 ssbt=877) GLUCOSE RANDOM (BEAKER) 65 mg/dL 70-105 (test vgrq=246) CALCIUM (BEAKER) (test 7.8 mg/dL 8.4-10.2 alnr=198) EGFR (BEAKER) (test 96 mL/min/1.73 sq m ESTIMATED GFR IS NOT zmcr=1464) ACCURATE CREATININE CLEARANCE IN PREDICTING GLOMERULAR FILTRATION RATE. ESTIMATED GFR IS NOT APPLICABLE FOR DIALYSIS PATIENTS. [id number] 06:31:00 Test Item Value Reference Range Comments MAGNESIUM (BEAKER) (test dtga=650) 1.8 mg/dL 1.6-2.6 [id number] 06:31:00 Test Item Value Reference Range Comments ALBUMIN (BEAKER) (test kyjw=8882) 3.1 g/dL 3.5-5.0 RAD, CHEST, 1 VIEW, NON [id number] 06:15:00Reason for exam:->s/p pericardial window, and decorticationShould this be performed at the bedside?-& gt;YesFINAL REPORT Comparison exam: 06/01/2017 No pneumothorax, focal pulmonary consolidation, or significant pleural effusion. Normal cardiomediastinal contours. Appropriate position of the support hardware. Signed: Mango Rodas Verified Date/Time: 06/02/2017 06 :15:59 Reading Location: [address] Ortho Consult Reading Room POCT-GLUCOSE [id number] 23:55:00 Test Item Value Reference Range Comments POC-GLUCOSE METER (BEAKER) 115 mg/dL 70-110 TESTED AT [address] (test dzvd=9907) [place] [address] POCT-GLUCOSE [id number] 21:05:00 Test Item Value Reference Range Comments POC-GLUCOSE METER (BEAKER) 90 mg/dL 70-110 TESTED AT [address] (test heoy=8308) [place] [address] POCT-GLUCOSE [id number] 17:10:00 Test Item Value Reference Range Comments POC-GLUCOSE METER (BEAKER) 102 mg/dL 70-110 TESTED AT [address] (test dcwp=7891) [place] [address] ANAEROBIC [id number] 13:41:00 Test Item Value Reference Range Comments CULTURE (BEAKER) (test sari=0586) No anaerobes isolated POCT-GLUCOSE [id number] 12:25:00 Test Item Value Reference Range Comments POC-GLUCOSE METER (BEAKER) 220 mg/dL 70-110 TESTED AT [address] (test wngh=5821) [place] [address] [id number] 11:23:00 Test Item Value Reference Range Comments MAGNESIUM (BEAKER) (test adzt=346) 1.8 mg/dL 1.6-2.6 BASIC METABOLIC [id number] 11:23:00 Test Item Value Reference Range Comments SODIUM (BEAKER) (test 140 meq/L 136-145 abcr=574) POTASSIUM (BEAKER) (test 4.2 meq/L 3.5-5.1 yjdv=902) CHLORIDE (BEAKER) (test 100 meq/L 98-107 urvv=948) CO2 (BEAKER) (test 31 meq/L 22-29 jybi=094) BLOOD UREA NITROGEN 15 mg/dL 7-21 (BEAKER) (test yjtf=773) CREATININE (BEAKER) (test 0.86 mg/dL 0.57-1.25 uizz=931) GLUCOSE RANDOM (BEAKER) 256 mg/dL 70-105 (test eclt=955) CALCIUM (BEAKER) (test 8.0 mg/dL 8.4-10.2 ohuh=883) EGFR (BEAKER) (test 91 mL/min/1.73 sq m ESTIMATED GFR IS NOT peqm=7954) ACCURATE CREATININE CLEARANCE IN PREDICTING GLOMERULAR FILTRATION RATE. ESTIMATED GFR IS NOT APPLICABLE FOR DIALYSIS PATIENTS. RAD, CHEST, 1 VIEW, NON [id number] 10:11:00Reason for exam:->s/p pericardial window, and decorticationShould this be performed at the bedside?-& gt;YesFINAL REPORT Chest one view. Clinical history: s/ p pericardial window, and decortication Comparison: 05/31/2017 Discussion: A frontal chest is provided. Lines and tubes are in stable position. Unchanged cardiac mediastinal contours. No new consolidation. No pneumothorax or large effusion. Left basilar atelectasis appears slightly improved. Signed: Mac Williameport Verified Date/Time: 06/01/2017 10:11:34 Reading Location: [facility] Radiology Reading Room POCT-GLUCOSE [id number] 07:28:00 Test Item Value Reference Range Comments POC-GLUCOSE METER (BEAKER) 103 mg/dL 70-110 TESTED AT [address] (test xiex=5612) [facility] [address] POCT-GLUCOSE [id number] 05:35:00 Test Item Value Reference Range Comments POC-GLUCOSE METER (BEAKER) 128 mg/dL 70-110 TESTED AT [address] (test wngd=1759) [facility] [address] POCT-GLUCOSE [id number] 23:44:00 Test Item Value Reference Range Comments POC-GLUCOSE METER (BEAKER) 46 mg/dL 70-110 TESTED AT [address] (test mdkm=7090) [facility] [address] POCT-GLUCOSE [id number] 17:33:00 Test Item Value Reference Range Comments POC-GLUCOSE METER (BEAKER) 71 mg/dL 70-110 TESTED AT [address] (test htoz=2230) [facility] [address] POCT-GLUCOSE [id number] 11:37:00 Test Item Value Reference Range Comments POC-GLUCOSE METER (BEAKER) 214 mg/dL 70-110 TESTED AT [address] (test zdtl=4463) [facility] [address] POCT-GLUCOSE [id number] 07:59:00 Test Item Value Reference Range Comments POC-GLUCOSE METER (BEAKER) 113 mg/dL 70-110 TESTED AT [facility] [address] [facility] (test pjxx=8247) [facility] [address] POCT-GLUCOSE [id number] 07:06:00 Test Item Value Reference Range Comments POC-GLUCOSE METER (BEAKER) 58 mg/dL 70-110 TESTED AT [place] [id number] [facility] (test kduz=5472) [place] [id number] BASIC METABOLIC [id number] 05:32:00 Test Item Value Reference Range Comments SODIUM (BEAKER) (test 141 meq/L 136-145 oohv=892) POTASSIUM (BEAKER) (test 3.0 meq/L 3.5-5.1 dpal=742) CHLORIDE (BEAKER) (test 100 meq/L 98-107 xkve=423) CO2 (BEAKER) (test 34 meq/L 22-29 nsuc=538) BLOOD UREA NITROGEN 20 mg/dL 7-21 (BEAKER) (test qoiu=626) CREATININE (BEAKER) (test 0.76 mg/dL 0.57-1.25 ytzw=277) GLUCOSE RANDOM (BEAKER) 59 mg/dL 70-105 (test ylvs=866) CALCIUM (BEAKER) (test 7.4 mg/dL 8.4-10.2 gtqj=839) EGFR (BEAKER) (test 105 mL/min/1.73 sq m ESTIMATED GFR IS NOT xtxj=9908) ACCURATE CREATININE CLEARANCE IN PREDICTING GLOMERULAR FILTRATION RATE. ESTIMATED GFR IS NOT APPLICABLE FOR DIALYSIS PATIENTS. [id number] 05:28:00 Test Item Value Reference Range Comments MAGNESIUM (BEAKER) (test qyhf=181) 1.7 mg/dL 1.6-2.6 RAD, CHEST, 1 VIEW, NON [id number] 05:18:00Reason for exam:->s/p vats, chest tubes, pleural effusionsShould this be performed at the bedside?-> YesFINAL REPORT Comparison exam: 05/30/2017 Mild left basilar atelectasis, unchanged. No pneumothorax. Stable cardiomediastinal contours. Appropriate position of the support hardware. Signed: Mango [place] Verified Date/Time: 05/31/2017 05:18:39 Reading Location: [facility] C013X Ortho Consult Reading Room POCT-GLUCOSE [id number] 00:46:00 Test Item Value Reference Range Comments POC-GLUCOSE METER (BEAKER) 135 mg/dL 70-110 TESTED AT [address] (test kllz=7249) [place] [address] RAD, CHEST, 1 VIEW, NON [id number] 23:39:00Reason for exam:->chest tue removal.. pnuemothoraxShould this be performed at the bedside?->YesFINAL REPORT Comparison exam: 05/30/2017 time 9:02 AM Interval removal of one of the two left chest tubes. No pneumothorax. Small right effusion and bibasilar atelectasis. Stable cardiomediastinal contours. Appropriate position of the support hardware. Signed: Mango Rodas MDReport Verified Date/Time: 05/30/2017 23:39:18 Reading Location: [facility] C013X Ortho Consult Reading Room POCT-GLUCOSE [id number] 21:21:00 Test Item Value Reference Range Comments POC-GLUCOSE METER (BEAKER) 99 mg/dL 70-110 TESTED AT [address] (test vink=7908) [place] [address] POCT-GLUCOSE [id number] 16:54:00 Test Item Value Reference Range Comments POC-GLUCOSE METER (BEAKER) 154 mg/dL 70-110 TESTED AT [address] (test aarx=6320) [place] [address] BODY FLUID CULTURE + GRAM [id number] 12:41:00 Test Item Value Reference Range Comments CULTURE (BEAKER) (test epms=9982) No growth GRAM STAIN RESULT (BEAKER) (test 1+ WBCs tetk=8185) GRAM STAIN RESULT (BEAKER) (test No organisms seen dope=64666) POCT-GLUCOSE [id number] 12:33:00 Test Item Value Reference Range Comments POC-GLUCOSE METER (BEAKER) 119 mg/dL 70-110 TESTED AT [facility] [address] [facility] (test orbx=3279) [facility] [address] POCT-GLUCOSE [id number] 09:32:00 Test Item Value Reference Range Comments POC-GLUCOSE METER (BEAKER) 227 mg/dL 70-110 TESTED AT [address] (test vzyq=9603) [facility] [address] RAD, CHEST, 1 VIEW, NON [id number] 09:21:00Reason for exam:->s/p vats, chest tubes, pleural effusionsShould this be performed at the bedside?-> YesFINAL REPORT Chest, one view. HISTORY: Postop COMPARISON: 05/29/2017 IMPRESSION: No significant interval change. Supporting hardware unchanged in position. No identifiable pneumothorax. Trace bilateral pleural effusions. Unchanged enlargement of the cardiomediastinal silhouette. Minimal left lower lung atelectasis. No new focal consolidation. Signed: Jim Luzeplinda Verified Date/Time: 05/30/2017 09:21:16 Reading Location: [facility] B1 C013Y CT Body Reading Room POCT-GLUCOSE [id number] 06:48:00 Test Item Value Reference Range Comments POC-GLUCOSE METER (BEAKER) 129 mg/dL 70-110 TESTED AT [place] [id number] [facility] (test casv=8749) [facility] [address] BASIC METABOLIC [id number] 06:37:00 Test Item Value Reference Range Comments SODIUM (BEAKER) (test 140 meq/L 136-145 akge=425) POTASSIUM (BEAKER) (test 3.3 meq/L 3.5-5.1 xqre=160) CHLORIDE (BEAKER) (test 98 meq/L 98-107 rtar=615) CO2 (BEAKER) (test 34 meq/L 22-29 mdfj=929) BLOOD UREA NITROGEN 21 mg/dL 7-21 (BEAKER) (test zsbt=498) CREATININE (BEAKER) (test 0.80 mg/dL 0.57-1.25 wnsd=820) GLUCOSE RANDOM (BEAKER) 51 mg/dL 70-105 (test invo=260) CALCIUM (BEAKER) (test 7.3 mg/dL 8.4-10.2 xzpr=034) EGFR (BEAKER) (test 99 mL/min/1.73 sq m ESTIMATED GFR IS NOT jaqt=1073) ACCURATE CREATININE CLEARANCE IN PREDICTING GLOMERULAR FILTRATION RATE. ESTIMATED GFR IS NOT APPLICABLE FOR DIALYSIS PATIENTS. [id number] 06:36:00 Test Item Value Reference Range Comments PHOSPHORUS (BEAKER) (test lzkw=427) 4.0 mg/dL 2.3-4.7 [id number] 06:36:00 Test Item Value Reference Range Comments MAGNESIUM (BEAKER) (test rqlc=175) 1.9 mg/dL 1.6-2.6 CBC W/PLT COUNT & AUTO [id number] 06:25:00 Test Item Value Reference Range Comments WHITE BLOOD CELL COUNT (BEAKER) (test vucl=725) 10.2 K/ L 3.5-10.5 RED BLOOD CELL COUNT (BEAKER) (test xuik=987) 4.38 M/ L 4.63-6.08 HEMOGLOBIN (BEAKER) (test mzwx=635) 11.4 GM/DL 13.7-17.5 HEMATOCRIT (BEAKER) (test ocji=823) 36.9 % 40.1-51.0 MEAN CORPUSCULAR VOLUME (BEAKER) (test bezq=391) 84.2 fL 79.0-92.2 MEAN CORPUSCULAR HEMOGLOBIN (BEAKER) (test 26.0 pg 25.7-32.2 qdpr=909) MEAN CORPUSCULAR HEMOGLOBIN CONC (BEAKER) (test 30.9 GM/DL 32.3-36.5 newl=445) RED CELL DISTRIBUTION WIDTH (BEAKER) (test 13.5 % 11.6-14.4 gfde=164) PLATELET COUNT (BEAKER) (test ezin=184) 324 K/CU MM 150-450 MEAN PLATELET VOLUME (BEAKER) (test oryr=261) 9.9 fL 9.4-12.4 NUCLEATED RED BLOOD CELLS (BEAKER) (test 0 /100 WBC 0-0 teog=602) NEUTROPHILS RELATIVE PERCENT (BEAKER) (test 69 % vkta=580) LYMPHOCYTES RELATIVE PERCENT (BEAKER) (test 19 % qmho=799) MONOCYTES RELATIVE PERCENT (BEAKER) (test 7 % rtrc=730) EOSINOPHILS RELATIVE PERCENT (BEAKER) (test 4 % qbpt=592) BASOPHILS RELATIVE PERCENT (BEAKER) (test 1 % ddnz=041) NEUTROPHILS ABSOLUTE COUNT (BEAKER) (test 7.05 K/ L 1.78-5.38 uhlj=273) LYMPHOCYTES ABSOLUTE COUNT (BEAKER) (test 1.94 K/ L 1.32-3.57 hvyw=010) MONOCYTES ABSOLUTE COUNT (BEAKER) (test 0.71 K/ L 0.30-0.82 hoqb=370) EOSINOPHILS ABSOLUTE COUNT (BEAKER) (test 0.38 K/ L 0.04-0.54 kerq=381) BASOPHILS ABSOLUTE COUNT (BEAKER) (test 0.08 K/ L 0.01-0.08 aytu=074) IMMATURE GRANULOCYTES-RELATIVE PERCENT (BEAKER) 0 % 0-1 (test uijd=6699) POCT-GLUCOSE [id number] 05:47:00 Test Item Value Reference Range Comments POC-GLUCOSE METER (BEAKER) 49 mg/dL 70-110 TESTED AT [address] (test rtvz=6210) [place] [address] POCT-GLUCOSE [id number] 20:23:00 Test Item Value Reference Range Comments POC-GLUCOSE METER (BEAKER) 142 mg/dL 70-110 TESTED AT [address] (test xnqz=0140) [place] [address] POCT-GLUCOSE [id number] 17:07:00 Test Item Value Reference Range Comments POC-GLUCOSE METER (BEAKER) 81 mg/dL 70-110 TESTED AT [address] (test lljr=2987) [place] [address] ANAEROBIC [id number] 14:35:00 Test Item Value Reference Range Comments CULTURE (BEAKER) (test wzle=6269) No anaerobes isolated POCT-GLUCOSE [id number] 13:24:00 Test Item Value Reference Range Comments POC-GLUCOSE METER (BEAKER) 219 mg/dL 70-110 TESTED AT [address] (test vgln=1225) [place] [address] POCT-GLUCOSE [id number] 12:37:00 Test Item Value Reference Range Comments POC-GLUCOSE METER (BEAKER) 229 mg/dL 70-110 TESTED AT [address] (test zrgc=6661) [facility] [address] BODY FLUID CULTURE + GRAM [id number] 08:43:00 Test Item Value Reference Range Comments CULTURE (BEAKER) (test qrew=0526) No growth GRAM STAIN RESULT (BEAKER) (test 2+ WBCs ovhz=4940) GRAM STAIN RESULT (BEAKER) (test No organisms seen eeds=97606) RAD, CHEST, 1 VIEW, NON [id number] 07:32:00Reason for exam:->s/p vats, chest tubes, pleural effusionsShould this be performed at the bedside?-> YesFINAL REPORT HISTORY : s/p vats, chest tubes, pleural effusions. Comparison: 05/28/2017 Comment: Single portable view of the chest was obtained. The cardiac silhouette size is enlarged. There is widening of the mediastinum. The patient is status post sternotomy. There has been interval removal of the right-sided internal jugular venous catheter. The remainder of the support lines and tubes are otherwise unchanged. No pneumothorax is seen. There are findings of pulmonary venous congestion. There are small bilateral pleural effusions with adjacent areas of airspace disease. Signed: Jean Pierre Renteria MDReport Verified Date/Time: 05/29/2017 07:32:28 Reading Location: [address] Transitional Reading Room BASIC METABOLIC [id number] 06:57:00 Test Item Value Reference Range Comments SODIUM (BEAKER) (test 137 meq/L 136-145 qcbp=905) POTASSIUM (BEAKER) (test 3.6 meq/L 3.5-5.1 ecgo=828) CHLORIDE (BEAKER) (test 98 meq/L 98-107 vtsr=777) CO2 (BEAKER) (test 31 meq/L 22-29 vtkf=473) BLOOD UREA NITROGEN 18 mg/dL 7-21 (BEAKER) (test sszg=601) CREATININE (BEAKER) (test 0.82 mg/dL 0.57-1.25 qzwv=639) GLUCOSE RANDOM (BEAKER) 169 mg/dL 70-105 (test ihbl=645) CALCIUM (BEAKER) (test 7.5 mg/dL 8.4-10.2 xljn=232) EGFR (BEAKER) (test 96 mL/min/1.73 sq m ESTIMATED GFR IS NOT bibn=5149) ACCURATE CREATININE CLEARANCE IN PREDICTING GLOMERULAR FILTRATION RATE. ESTIMATED GFR IS NOT APPLICABLE FOR DIALYSIS PATIENTS. [id number] 06:42:00 Test Item Value Reference Range Comments PHOSPHORUS (BEAKER) (test isrh=625) 3.1 mg/dL 2.3-4.7 [id number] 06:42:00 Test Item Value Reference Range Comments MAGNESIUM (BEAKER) (test asgn=433) 1.8 mg/dL 1.6-2.6 POCT-GLUCOSE [id number] 05:54:00 Test Item Value Reference Range Comments POC-GLUCOSE METER (BEAKER) 149 mg/dL 70-110 TESTED AT [facility] [address] [facility] (test fatg=9402) [facility] [address] CBC W/PLT COUNT & AUTO [id number] 04:54:00 Test Item Value Reference Range Comments WHITE BLOOD CELL COUNT (BEAKER) (test dqxo=884) 10.6 K/ L 3.5-10.5 RED BLOOD CELL COUNT (BEAKER) (test ntuq=012) 4.41 M/ L 4.63-6.08 HEMOGLOBIN (BEAKER) (test usgy=840) 11.5 GM/DL 13.7-17.5 HEMATOCRIT (BEAKER) (test rboe=590) 37.1 % 40.1-51.0 MEAN CORPUSCULAR VOLUME (BEAKER) (test eosz=749) 84.1 fL 79.0-92.2 MEAN CORPUSCULAR HEMOGLOBIN (BEAKER) (test 26.1 pg 25.7-32.2 sqds=095) MEAN CORPUSCULAR HEMOGLOBIN CONC (BEAKER) (test 31.0 GM/DL 32.3-36.5 kruf=727) RED CELL DISTRIBUTION WIDTH (BEAKER) (test 13.6 % 11.6-14.4 dsyr=816) PLATELET COUNT (BEAKER) (test rxzd=717) 292 K/CU MM 150-450 MEAN PLATELET VOLUME (BEAKER) (test kpir=333) 9.5 fL 9.4-12.4 NUCLEATED RED BLOOD CELLS (BEAKER) (test 0 /100 WBC 0-0 dobq=847) NEUTROPHILS RELATIVE PERCENT (BEAKER) (test 73 % mlxy=190) LYMPHOCYTES RELATIVE PERCENT (BEAKER) (test 15 % tqwe=088) MONOCYTES RELATIVE PERCENT (BEAKER) (test 7 % otmr=390) EOSINOPHILS RELATIVE PERCENT (BEAKER) (test 4 % ztbo=035) BASOPHILS RELATIVE PERCENT (BEAKER) (test 1 % vsqr=524) NEUTROPHILS ABSOLUTE COUNT (BEAKER) (test 7.72 K/ L 1.78-5.38 yilv=294) LYMPHOCYTES ABSOLUTE COUNT (BEAKER) (test 1.60 K/ L 1.32-3.57 mitu=025) MONOCYTES ABSOLUTE COUNT (BEAKER) (test 0.75 K/ L 0.30-0.82 znjn=320) EOSINOPHILS ABSOLUTE COUNT (BEAKER) (test 0.41 K/ L 0.04-0.54 ywem=094) BASOPHILS ABSOLUTE COUNT (BEAKER) (test 0.07 K/ L 0.01-0.08 gcnj=924) IMMATURE GRANULOCYTES-RELATIVE PERCENT (BEAKER) 0 % 0-1 (test wctw=0051) POCT-GLUCOSE [id number] 01:10:00 Test Item Value Reference Range Comments POC-GLUCOSE METER (BEAKER) 174 mg/dL 70-110 TESTED AT [address] (test awkw=9594) [place] [id number] POCT-GLUCOSE [id number] 22:30:00 Test Item Value Reference Range Comments POC-GLUCOSE METER (BEAKER) 165 mg/dL 70-110 TESTED AT [address] (test zhuk=8293) [place] [address] POCT-GLUCOSE [id number] 21:56:00 Test Item Value Reference Range Comments POC-GLUCOSE METER (BEAKER) 234 mg/dL 70-110 TESTED AT [address] (test xehp=6173) [place] [address] POCT-GLUCOSE [id number] 12:28:00 Test Item Value Reference Range Comments POC-GLUCOSE METER (BEAKER) 221 mg/dL 70-110 TESTED AT [address] (test thkg=1456) [place] [address] CALCIUM, [id number] 04:27:00 Test Item Value Reference Range Comments CALCIUM IONIZED (BEAKER) (test hzkb=992) 0.98 mmol/L 1.12-1.27 PH, BLOOD (BEAKER) (test bkss=4681) 7.41 RAD, CHEST, 1 VIEW, NON [id number] 04:20:00Reason for exam:->pleural effusionShould this be performed at the bedside?->YesFINAL REPORT EXAMINATION: AP PORTABLE CHEST RADIOGRAPH CLINICAL INDICATION: Pleural effusion IMPRESSION: Compared with 05/27/2017. The endotracheal and nasogastric tubes have been removed. Support tube and catheter positions are otherwise unchanged. Cardiac and mediastinal contours are stable. Opacities persist in the perihilar regions and lung bases. The superimposed pleuraleffusions are grossly stable. No evidence of a pneumothorax. In summary, constellation of findings worrisome for fluid overload/heart failure. Signed: Car Castro Verified Date/Time: 05/28/2017 04:20:11 Reading Location : [address] Reading Room CBC W/PLT COUNT & AUTO [id number] 04:19:00 Test Item Value Reference Range Comments WHITE BLOOD CELL COUNT (BEAKER) (test emmg=738) 7.5 K/ L 3.5-10.5 RED BLOOD CELL COUNT (BEAKER) (test lvhk=578) 4.32 M/ L 4.63-6.08 HEMOGLOBIN (BEAKER) (test tnvz=533) 11.2 GM/DL 13.7-17.5 HEMATOCRIT (BEAKER) (test rkvw=054) 36.9 % 40.1-51.0 MEAN CORPUSCULAR VOLUME (BEAKER) (test qfvu=590) 85.4 fL 79.0-92.2 MEAN CORPUSCULAR HEMOGLOBIN (BEAKER) (test 25.9 pg 25.7-32.2 nujk=838) MEAN CORPUSCULAR HEMOGLOBIN CONC (BEAKER) (test 30.4 GM/DL 32.3-36.5 jykn=265) RED CELL DISTRIBUTION WIDTH (BEAKER) (test 13.9 % 11.6-14.4 fzfa=096) PLATELET COUNT (BEAKER) (test twdj=336) 290 K/CU MM 150-450 MEAN PLATELET VOLUME (BEAKER) (test idkl=101) 9.1 fL 9.4-12.4 NUCLEATED RED BLOOD CELLS (BEAKER) (test 0 /100 WBC 0-0 mnke=628) NEUTROPHILS RELATIVE PERCENT (BEAKER) (test 70 % imnl=744) LYMPHOCYTES RELATIVE PERCENT (BEAKER) (test 21 % nnmu=570) MONOCYTES RELATIVE PERCENT (BEAKER) (test 7 % qvtr=628) EOSINOPHILS RELATIVE PERCENT (BEAKER) (test 2 % zloz=349) BASOPHILS RELATIVE PERCENT (BEAKER) (test 1 % olsu=728) NEUTROPHILS ABSOLUTE COUNT (BEAKER) (test 5.25 K/ L 1.78-5.38 qsxt=291) LYMPHOCYTES ABSOLUTE COUNT (BEAKER) (test 1.55 K/ L 1.32-3.57 yliq=344) MONOCYTES ABSOLUTE COUNT (BEAKER) (test 0.53 K/ L 0.30-0.82 ntql=436) EOSINOPHILS ABSOLUTE COUNT (BEAKER) (test 0.14 K/ L 0.04-0.54 zpdy=900) BASOPHILS ABSOLUTE COUNT (BEAKER) (test 0.06 K/ L 0.01-0.08 ibuu=409) IMMATURE GRANULOCYTES-RELATIVE PERCENT (BEAKER) 0 % 0-1 (test dull=6718) BASIC METABOLIC [id number] 04:19:00 Test Item Value Reference Range Comments SODIUM (BEAKER) (test 138 meq/L 136-145 yvhm=674) POTASSIUM (BEAKER) (test 4.2 meq/L 3.5-5.1 jxtg=309) CHLORIDE (BEAKER) (test 101 meq/L 98-107 cfwx=364) CO2 (BEAKER) (test 29 meq/L 22-29 wnxb=941) BLOOD UREA NITROGEN 15 mg/dL 7-21 (BEAKER) (test xrua=203) CREATININE (BEAKER) (test 0.79 mg/dL 0.57-1.25 wpmm=635) GLUCOSE RANDOM (BEAKER) 152 mg/dL 70-105 (test yggr=634) CALCIUM (BEAKER) (test 7.5 mg/dL 8.4-10.2 gxlj=635) EGFR (BEAKER) (test 100 mL/min/1.73 sq m ESTIMATED GFR IS NOT hcij=1611) ACCURATE CREATININE CLEARANCE IN PREDICTING GLOMERULAR FILTRATION RATE. ESTIMATED GFR IS NOT APPLICABLE FOR DIALYSIS PATIENTS. [id number] 04:15:00 Test Item Value Reference Range Comments PHOSPHORUS (BEAKER) (test vjxh=033) 5.0 mg/dL 2.3-4.7 [id number] 04:15:00 Test Item Value Reference Range Comments MAGNESIUM (BEAKER) (test xjgz=165) 1.7 mg/dL 1.6-2.6 OXYGEN SATURATION, [id number] 04:12:00 Test Item Value Reference Range Comments O2 SATURATION (MEASURED) (BEAKER) (test emov=8573) 74.3 % LACTIC ACID, ARTERIAL, WHOLE [id number] 04:08:00 Test Item Value Reference Range Comments LACTATE BLOOD ARTERIAL (2) (BEAKER) (test 0.7 mmol/L 0.5-2.2 inxz=3779) Effective 12/04/2015: Units/Reference Range ChangeNew: 0.5-2.2 mmol/L Previous: 5 -20 mg/dLPOCT-GLUCOSE [id number] 00:25:00 Test Item Value Reference Range Comments POC-GLUCOSE METER (BEAKER) 169 mg/dL 70-110 TESTED AT [facility] [address] [facility] (test zpct=7521) [facility] [address] BLOOD GAS, [id number] 17:04:00 Test Item Value Reference Range Comments PH ARTERIAL (BEAKER) (test tyvx=281) 7.44 7.35-7.45 PCO2 ARTERIAL (BEAKER) (test nhmt=752) 33 mmHg 35-45 PO2 ARTERIAL (BEAKER) (test xlrx=686) 127 mmHg 80-90 O2 SATURATION ARTERIAL (BEAKER) (test wqhp=600) 98.7 % 96.0-97.0 HCO3 ARTERIAL (BEAKER) (test zrbx=501) 22 mmol/L 21-29 BASE EXCESS ARTERIAL (BEAKER) (test jnvz=966) -1.7 mmol/L -2.0-3.0 PATIENT TEMPERATURE (BEAKER) (test rerx=1865) 37.0 C FIO2 (BEAKER) (test wnpm=0494) 60.0 % PRN if O2 saturation less than 90%PRN 30 minutes after each ventilator changeRAD , CHEST, 1 VIEW, NON [id number] 16:11:00Reason for exam:->s/p VATs/ pleurodesis; intubatedFINAL REPORT INDICATION: s/p VATs/ pleurodesis; intubated COMPARISON: May 27, 2017 at 5:20 AM TECHNIQUE: Chest radiograph, single view, portable technique. FINDINGS / IMPRESSION: There is a layering right pleural effusion. There is a right infrahilar opacity, for which atelectasis and aspiration are considered. There is a left retrocardiac opacity , probably representing pleural fluid and related atelectasis. Endotracheal tube terminates in the high trachea; recommend advancing the tube 2 cm. Right internal jugular line terminates at the cavoatrial junction. Left PICC line,as before terminates in the low SVC. There is a new left apical chest tube. No pulmonary edema or pneumothorax is demonstrated. Median sternotomy wires are intact. Signed: Melvin Garza MDReport Verified Date/Time: 05/27/2017 16:11: 25 Reading Location: [facility] Diagnostic Imaging Reading Room - [place] [address] BLOOD GAS, [id number] 15:35:00 Test Item Value Reference Range Comments PH ARTERIAL (BEAKER) (test alwg=373) 7.48 7.35-7.45 PCO2 ARTERIAL (BEAKER) (test hboy=591) 40 mmHg 35-45 PO2 ARTERIAL (BEAKER) (test mvca=390) 67 mmHg 80-90 O2 SATURATION ARTERIAL (BEAKER) (test vodg=116) 94.7 % 96.0-97.0 HCO3 ARTERIAL (BEAKER) (test yndc=026) 29 mmol/L 21-29 BASE EXCESS ARTERIAL (BEAKER) (test lvog=423) 5.3 mmol/L -2.0-3.0 PATIENT TEMPERATURE (BEAKER) (test mlen=8905) 36.9 C FIO2 (BEAKER) (test uxfo=2120) 60.0 % PRN if O2 saturation less than 90%PRN 30 minutes after each ventilator changePLATELET AGGREGATION: FUNCTION [id number] 15:15:00 Test Item Value Reference Range Comments WEAK ADP RESULT(BEAKER) (test 86 % 60-91 bwzv=9700) PLATELET FUNCTION SCREEN 60-100% indicates normal INTERP (BEAKER) (test platelet function jvrs=6147) [id number] (BEAKER) Dory Melchor MD (electronic (test cuhw=4373) signature) PLATELET COUNT AGG (BEAKER) 371 K/CU MM 150-450 (test uqjw=3456) for patients on clopidogrel in past two weeksTRIGLYCERIDES, BODY [id number] 15:13:00 Test Item Value Reference Range Comments TRIGLYCERIDES FLUID (BEAKER) (test aigb=431) 344 mg/dL Reference Range: No Normals Assay performance has not been validated for this type of specimen.BASIC METABOLIC [id number] 14:55:00 Test Item Value Reference Range Comments SODIUM (BEAKER) (test 139 meq/L 136-145 irqe=151) POTASSIUM (BEAKER) (test 3.8 meq/L 3.5-5.1 Specimen slightly qpuj=376) hemolyzed CHLORIDE (BEAKER) (test 101 meq/L 98-107 nrfk=958) CO2 (BEAKER) (test 27 meq/L 22-29 kljw=390) BLOOD UREA NITROGEN 21 mg/dL 7-21 (BEAKER) (test pkkf=602) CREATININE (BEAKER) (test 0.86 mg/dL 0.57-1.25 Specimen slightly nzgi=843) hemolyzed GLUCOSE RANDOM (BEAKER) 90 mg/dL 70-105 (test lxhv=090) CALCIUM (BEAKER) (test 7.6 mg/dL 8.4-10.2 ojek=473) EGFR (BEAKER) (test 91 mL/min/1.73 sq m ESTIMATED GFR IS NOT jmgy=5025) ACCURATE CREATININE CLEARANCE IN PREDICTING GLOMERULAR FILTRATION RATE. ESTIMATED GFR IS NOT APPLICABLE FOR DIALYSIS PATIENTS. LACTIC ACID, ARTERIAL, WHOLE [id number] 14:27:00 Test Item Value Reference Range Comments LACTATE BLOOD ARTERIAL (2) (BEAKER) (test 1.3 mmol/L 0.5-2.2 cxcc=3727) Effective 12/04/2015: Units/Reference Range ChangeNew: 0.5-2.2 mmol/L Previous: 5 -20 mg/dLHGB/HCT (H&H) - STAT [id number] 14:15:00 Test Item Value Reference Range Comments HEMOGLOBIN (BEAKER) (test oizf=013) 13.1 g/dL 13.0-16.8 HEMATOCRIT (BEAKER) (test vgjx=283) 39.0 % 40.0-50.0 CALCIUM, [id number] 14:15:00 Test Item Value Reference Range Comments CALCIUM IONIZED (BEAKER) (test wmnd=331) 0.95 mmol/L 1.12-1.27 PH, BLOOD (BEAKER) (test fgux=8255) 7.49 BLOOD GAS, [id number] 14:14:00 Test Item Value Reference Range Comments PH ARTERIAL (BEAKER) (test tztm=626) 7.49 7.35-7.45 PCO2 ARTERIAL (BEAKER) (test rmrx=980) 39 mmHg 35-45 PO2 ARTERIAL (BEAKER) (test kbze=801) 73 mmHg 80-90 O2 SATURATION ARTERIAL (BEAKER) (test tzdj=444) 96.0 % 96.0-97.0 HCO3 ARTERIAL (BEAKER) (test spgd=653) 30 mmol/L 21-29 BASE EXCESS ARTERIAL (BEAKER) (test msbm=146) 5.8 mmol/L -2.0-3.0 PATIENT TEMPERATURE (BEAKER) (test eqlx=8976) 36.5 C FIO2 (BEAKER) (test lzgh=8043) 60.0 % GLUCOSE-STAT [id number] 14:13:00 Test Item Value Reference Range Comments GLUCOSE RANDOM (BEAKER) (test kodv=136) 88 mg/dL 70-110 SODIUM NA-STAT [id number] 14:13:00 Test Item Value Reference Range Comments SODIUM (BEAKER) (test qvzh=639) 135 meq/L 135-148 POTASSIUM-STAT [id number] 14:13:00 Test Item Value Reference Range Comments POTASSIUM (BEAKER) (test yrge=238) 3.5 meq/L 3.6-5.5 CBC W/PLT COUNT & AUTO [id number] 14:06:00 Test Item Value Reference Range Comments WHITE BLOOD CELL COUNT (BEAKER) (test eoso=655) 8.9 K/ L 3.5-10.5 RED BLOOD CELL COUNT (BEAKER) (test esde=845) 4.74 M/ L 4.63-6.08 HEMOGLOBIN (BEAKER) (test ktxg=092) 12.4 GM/DL 13.7-17.5 HEMATOCRIT (BEAKER) (test vgcr=413) 39.6 % 40.1-51.0 MEAN CORPUSCULAR VOLUME (BEAKER) (test zkiz=756) 83.5 fL 79.0-92.2 MEAN CORPUSCULAR HEMOGLOBIN (BEAKER) (test 26.2 pg 25.7-32.2 wupr=536) MEAN CORPUSCULAR HEMOGLOBIN CONC (BEAKER) (test 31.3 GM/DL 32.3-36.5 lxwl=595) RED CELL DISTRIBUTION WIDTH (BEAKER) (test 13.8 % 11.6-14.4 semc=654) PLATELET COUNT (BEAKER) (test aquu=770) 379 K/CU MM 150-450 MEAN PLATELET VOLUME (BEAKER) (test aojl=716) 9.6 fL 9.4-12.4 NUCLEATED RED BLOOD CELLS (BEAKER) (test 0 /100 WBC 0-0 qnzi=300) NEUTROPHILS RELATIVE PERCENT (BEAKER) (test 77 % cnxe=555) LYMPHOCYTES RELATIVE PERCENT (BEAKER) (test 13 % ahar=926) MONOCYTES RELATIVE PERCENT (BEAKER) (test 6 % sibq=134) EOSINOPHILS RELATIVE PERCENT (BEAKER) (test 3 % tvgs=218) BASOPHILS RELATIVE PERCENT (BEAKER) (test 1 % uovv=854) NEUTROPHILS ABSOLUTE COUNT (BEAKER) (test 6.85 K/ L 1.78-5.38 mlkx=810) LYMPHOCYTES ABSOLUTE COUNT (BEAKER) (test 1.13 K/ L 1.32-3.57 lpea=606) MONOCYTES ABSOLUTE COUNT (BEAKER) (test 0.54 K/ L 0.30-0.82 fcpc=401) EOSINOPHILS ABSOLUTE COUNT (BEAKER) (test 0.24 K/ L 0.04-0.54 krza=051) BASOPHILS ABSOLUTE COUNT (BEAKER) (test 0.06 K/ L 0.01-0.08 vtxv=013) IMMATURE GRANULOCYTES-RELATIVE PERCENT (BEAKER) 0 % 0-1 (test bvqu=4756) U/S, [id number] 12:22:00Reason for exam:->Left pleural effusion please leave pigtail in placeFINAL REPORT INDICATION: Left pleural effusion Limited left chest ultrasound.IMPRESSION: Ultrasound examination of the left chest was performed in preparation for left thoracentesis. However, only a small amount of fluid is seen in the left pleural space, not amenable for safe placement of a chest tube. Signed: Yung Rivera Verified Date/Time: 05/27/2017 12:22:11 Reading Location: [facility] C013X Ortho Consult Reading Room [id number] 08:59:00 Test Item Value Reference Range Comments PROTIME (BEAKER) (test ypua=024) 15.3 seconds 11.7-14.7 INR (BEAKER) (test qhna=867) 1.2 <=5.9 PARTIAL THROMBOPLASTIN TIME (BEAKER) (test 28.4 seconds 22.5-36.0 tazt=665) RECOMMENDED COUMADIN/WARFARIN INR THERAPY RANGESSTANDARD DOSE: 2.0 - 3.0 Includes: PROPHYLAXIS forvenous thrombosis, systemic embolization; TREATMENT for venous thrombosis and/or pulmonary embolus.HIGH RISK: Target INR is 2.5-3.5 for patients with mechanical heart valves.POCT-GLUCOSE [id number] 08:04:00 Test Item Value Reference Range Comments POC-GLUCOSE METER (BEAKER) 83 mg/dL 70-110 TESTED AT [address] (test vovu=6769) [facility] [address] SURGICALLY OBTAINED CULTURE + GRAM [id number] 07:44:00 Test Item Value Reference Range Comments CULTURE (BEAKER) (test tees=5274) No growth GRAM STAIN RESULT (BEAKER) (test No WBCs sjex=3452) GRAM STAIN RESULT (BEAKER) (test No organisms seen qcbd=38112) RAD, CHEST, 1 VIEW, NON [id number] 06:27:00Reason for exam:->pleural effusionShould this be performed at the bedside?->YesFINAL REPORT Comparison exam: 05/26/2017 Small bilateral pleural effusions unchanged. Stable cardiomediastinal contours. Left PICC line terminates in the superior vena cava. Signed: Mango Rodasort Verified Date/Time: 05/27/2017 06:27:53 Reading Location: [facility] C013X Ortho Consult Reading Room BASIC METABOLIC [id number] 06:13:00 Test Item Value Reference Range Comments SODIUM (BEAKER) (test 141 meq/L 136-145 lalf=764) POTASSIUM (BEAKER) (test 3.6 meq/L 3.5-5.1 yhtf=423) CHLORIDE (BEAKER) (test 100 meq/L 98-107 vlnq=493) CO2 (BEAKER) (test 31 meq/L 22-29 rlne=678) BLOOD UREA NITROGEN 18 mg/dL 7-21 (BEAKER) (test qsvg=880) CREATININE (BEAKER) (test 0.84 mg/dL 0.57-1.25 rlwx=650) GLUCOSE RANDOM (BEAKER) 59 mg/dL 70-105 (test ynpd=861) CALCIUM (BEAKER) (test 7.9 mg/dL 8.4-10.2 uxuk=925) EGFR (BEAKER) (test 93 mL/min/1.73 sq m ESTIMATED GFR IS NOT wyud=7766) ACCURATE CREATININE CLEARANCE IN PREDICTING GLOMERULAR FILTRATION RATE. ESTIMATED GFR IS NOT APPLICABLE FOR DIALYSIS PATIENTS. [id number] 06:12:00 Test Item Value Reference Range Comments ALBUMIN (BEAKER) (test qibt=1387) 3.1 g/dL 3.5-5.0 CBC (HEMOGRAM ONLY)2017-05-27 05:50:00 Test Item Value Reference Range Comments WHITE BLOOD CELL COUNT (BEAKER) (test aqqs=777) 9.4 K/ L 3.5-10.5 RED BLOOD CELL COUNT (BEAKER) (test ndpp=126) 4.82 M/ L 4.63-6.08 HEMOGLOBIN (BEAKER) (test ceve=690) 12.8 GM/DL 13.7-17.5 HEMATOCRIT (BEAKER) (test oaps=968) 41.0 % 40.1-51.0 MEAN CORPUSCULAR VOLUME (BEAKER) (test zpyw=526) 85.1 fL 79.0-92.2 MEAN CORPUSCULAR HEMOGLOBIN (BEAKER) (test 26.6 pg 25.7-32.2 wbhp=948) MEAN CORPUSCULAR HEMOGLOBIN CONC (BEAKER) (test 31.2 GM/DL 32.3-36.5 efqp=281) RED CELL DISTRIBUTION WIDTH (BEAKER) (test 13.8 % 11.6-14.4 xzgo=733) PLATELET COUNT (BEAKER) (test nbmo=070) 377 K/CU MM 150-450 MEAN PLATELET VOLUME (BEAKER) (test lrch=790) 9.5 fL 9.4-12.4 NUCLEATED RED BLOOD CELLS (BEAKER) (test 0 /100 WBC 0-0 hxum=391) BODY FLUID CELL COUNT WITH [id number] 22:11:00 Test Item Value Reference Range Comments APPEARANCE FLUID (BEAKER) (test uupn=334) Turbid Clear COLOR FLUID (BEAKER) (test ikru=750) Ackerman Colorless, Straw RBC FLUID (BEAKER) (test hfle=716) 59001 /cu mm <=1 ADJUSTED WBC FLUID (BEAKER) (test vspe=2301) 1051 /cu mm <=5 LINING CELLS (BEAKER) (test sspi=6043) 126 /cu mm <=1 NEUTROPHILS FLUID (BEAKER) (test nshk=6072) 10 % LYMPHS FLUID (BEAKER) (test uxfv=596) 83 % MONO/MACROPHAGE FLUID (BEAKER) (test ikff=882) 6 % EOSINOPHILS FLUID (BEAKER) (test coee=446) 1 % BASO FLUID (BEAKER) (test kcyz=617) 0 % CONTAINER BODY FLUID (BEAKER) (test hmzw=8945) EDTA Tube POCT-GLUCOSE [id number] 21:11:00 Test Item Value Reference Range Comments POC-GLUCOSE METER (BEAKER) 198 mg/dL 70-110 TESTED AT [address] (test ecjd=6179) [facility] [address] TRIGLYCERIDES, BODY [id number] 19:52:00 Test Item Value Reference Range Comments TRIGLYCERIDES FLUID (BEAKER) (test jljy=372) 244 mg/dL Reference Range: No Normals Assay performance has not been validated for this type of specimen.AMYLASE, BODY [id number] 19:10:00 Test Item Value Reference Range Comments AMYLASE FLUID (BEAKER) (test udfy=113) 14 U/L 30-110 Absence of reference range indicates that normals have not been defined.Assay performance has not been validated for this type of specimen.LACTATE DEHYDROGENASE (LDH), BODY [id number] 19:10:00 Test Item Value Reference Range Comments LACTATE DEHYDROGENASE FLUID (BEAKER) 174 U/L Light's criteria identifies (test bkth=616) effusions if one or more are pre Absence of reference range indicates that normals have not been defined.Assay performance has not been validated for this type of specimen.PROTEIN, BODY [id number] 19:10:00 Test Item Value Reference Range Comments PROTEIN FLUID (BEAKER) (test 4.0 g/dL Light's criteria identifies zimu=597) effusions if one or more are pre Absence of reference range indicates that normals have not been defined.Assay performance has not been validated for this type of specimen.GLUCOSE, BODY [id number] 19:10:00 Test Item Value Reference Range Comments GLUCOSE, BODY FLUID (BEAKER) (test bnnc=5694) 191 mg/dL 70-110 Absence of reference range indicates that normals have not been defined.Assay performance has not been validated for this type of specimen.POCT-GLUCOSE [id number] 18:26:00 Test Item Value Reference Range Comments POC-GLUCOSE METER (BEAKER) 142 mg/dL 70-110 TESTED AT [facility] [address] [place] [address] (test mlqz=5614) [facility] [address] U/S, [id number] 17:30:00Reason for exam:->left effusionFINAL REPORT Thoracentesis: Performing M.D.: Rebecca Hu M.D. Solid Waste Collection Worker: nonePreprocedure diagnosis: pleural effusionPostprocedure Diagnosis: sameSpecimen removed: As requestedEstimated Blood Loss: less than 10 ccComplications: No complicationsModality: sonographyConscious Sedation: noneAnesthesia: Two percent Lidocaine injected subcutaneously at the insertion site.Graft or Implants: noneApproach: Left posterior intercostal space Technique: After informed [...] A chest radiograph is pending to exclude apneumothorax. Impression:Successful, uncomplicated ultrasound guided thoracentesis of a left pleural effusion. 100 cc of cloudy yellow fluid was removed. A chest CT is pending. The referring surgeon was notified. Signed: Rebecca Hueport Verified Date/Time: 05/26/2017 17:30:24 Reading Location: [address] Ultrasound Reading Room Electronically signed by: REBECCA HU M.D. on 05:30 PMCT, CHEST, WITHOUT [id number] 16:52:00Reason for exam:-& gt;chylous pericardial effusion, questionable chylothoraxWhat is the patient's sedation requirement?->No SedationFINAL REPORT HISTORY : chylous pericardial effusion, questionable chylothoraxchylous pericardial effusion, questionable chylothorax COMPARISON : None Technique : Multiple axial images of the chest were performed from the lung apices to the lung bases without the administration ofIV contrast. Images were presented in both the lung and soft tissue windows. This exam was performedaccording to our departmental dose optimization program which includes automated exposure control , adjustment of the mA and/or kV according to patient size and/or use of iterative reconstructive technique. Comment: In the left thyroid lobe, there is a 2.0 cm nodule/cyst. There is no hilar, mediastinalor axillary lymphadenopathy. There is mild cardiomegaly. There is a pericardial drain in place. There is some pneumopericardium as well as a small amount of pericardial fluid/effusion. The visualized portions of the liver, spleen, adrenal glands, pancreas, and kidneys are within normal limits. The osseous structures as well as the subcutaneous soft tissues are without any abnormalities. No pneumothorax is seen. There are bilateral pleural effusions, left greater than right, with some adjacent consolidations more likely representing atelectasis. Pneumonitis or aspiration cannot be entirely excluded.There is partial atelectasis/collapse of the bilateral lower lobes. Impression: 1. Small-moderate left-sided and small right-sided pleural effusions, left greater than right, with adjacent consolidation/airspace disease. 2. Pericardial drain in place. There is pneumopericardium as well as a small amount of pericardial fluid/effusion posteriorly. 3. Left sided thyroid nodule/cyst. Signed: Nita RenteriaReport Verified Date/Time: 05/26/2017 16:52:34 Reading Location: [facility] B1 C013Y CT Body Reading Room 04: 52 PMRAD, CHEST, 1 VIEW, NON [id number] 13:35:00Reason for exam:-> pleural effusionShould this be performed at the bedside?->YesFINAL REPORT AP chest HISTORY: Pleural effusion COMPARISON: 2016 IMPRESSION:Moderate layering pleural effusions are not significantly changed from previous study. Bibasilarairspace disease suggests atelectasis. Mild pulmonary vascular congestion. Cardiomegaly. No pneumothorax. Signed: Blu Meyer MDReport Verified Date/Time: 05/26/2017 13:35:45 Reading Location: [facility] Mammo Reading Room POCT-GLUCOSE [id number] 12:40:00 Test Item Value Reference Range Comments POC-GLUCOSE METER (BEAKER) 178 mg/dL 70-110 TESTED AT [address] (test mejp=5531) [place] [address] [id number] 12:16:00 Test Item Value Reference Range Comments PROTIME (BEAKER) (test smpu=959) 15.3 seconds 11.7-14.7 INR (BEAKER) (test gvhl=610) 1.2 <=5.9 PARTIAL THROMBOPLASTIN TIME (BEAKER) (test 33.9 seconds 22.5-36.0 bpen=646) RECOMMENDED COUMADIN/WARFARIN INR THERAPY RANGESSTANDARD DOSE: 2.0 - 3.0 Includes: PROPHYLAXIS forvenous thrombosis, systemic embolization; TREATMENT for venous thrombosis and/or pulmonary embolus.HIGH RISK: Target INR is 2.5-3.5 for patients with mechanical heart valves.POCT-GLUCOSE [id number] 08:03:00 Test Item Value Reference Range Comments POC-GLUCOSE METER (BEAKER) 211 mg/dL 70-110 TESTED AT [facility] [address] [facility] (test cjbt=6962) [place] [id number] BASIC METABOLIC [id number] 07:15:00 Test Item Value Reference Range Comments SODIUM (BEAKER) (test 139 meq/L 136-145 notq=388) POTASSIUM (BEAKER) (test 3.6 meq/L 3.5-5.1 xpbo=176) CHLORIDE (BEAKER) (test 99 meq/L 98-107 xbjv=065) CO2 (BEAKER) (test 32 meq/L 22-29 mszx=183) BLOOD UREA NITROGEN 22 mg/dL 7-21 (BEAKER) (test well=701) CREATININE (BEAKER) (test 0.97 mg/dL 0.57-1.25 rksb=632) GLUCOSE RANDOM (BEAKER) 191 mg/dL 70-105 (test gamt=973) CALCIUM (BEAKER) (test 7.9 mg/dL 8.4-10.2 cavh=404) EGFR (BEAKER) (test 79 mL/min/1.73 sq m ESTIMATED GFR IS NOT cghq=8992) ACCURATE CREATININE CLEARANCE IN PREDICTING GLOMERULAR FILTRATION RATE. ESTIMATED GFR IS NOT APPLICABLE FOR DIALYSIS PATIENTS. [id number] 07:14:00 Test Item Value Reference Range Comments MAGNESIUM (BEAKER) (test tyjl=527) 1.8 mg/dL 1.6-2.6 CBC W/PLT COUNT & AUTO [id number] 06:32:00 Test Item Value Reference Range Comments WHITE BLOOD CELL COUNT (BEAKER) (test ykzh=397) 9.1 K/ L 3.5-10.5 RED BLOOD CELL COUNT (BEAKER) (test pzys=308) 4.60 M/ L 4.63-6.08 HEMOGLOBIN (BEAKER) (test pdww=897) 12.2 GM/DL 13.7-17.5 HEMATOCRIT (BEAKER) (test rffq=440) 39.6 % 40.1-51.0 MEAN CORPUSCULAR VOLUME (BEAKER) (test pvsk=166) 86.1 fL 79.0-92.2 MEAN CORPUSCULAR HEMOGLOBIN (BEAKER) (test 26.5 pg 25.7-32.2 wdan=479) MEAN CORPUSCULAR HEMOGLOBIN CONC (BEAKER) (test 30.8 GM/DL 32.3-36.5 diwo=202) RED CELL DISTRIBUTION WIDTH (BEAKER) (test 14.2 % 11.6-14.4 rfek=052) PLATELET COUNT (BEAKER) (test biqo=468) 337 K/CU MM 150-450 MEAN PLATELET VOLUME (BEAKER) (test lmwo=082) 9.7 fL 9.4-12.4 NUCLEATED RED BLOOD CELLS (BEAKER) (test 0 /100 WBC 0-0 sqcs=578) NEUTROPHILS RELATIVE PERCENT (BEAKER) (test 66 % tpkh=527) LYMPHOCYTES RELATIVE PERCENT (BEAKER) (test 21 % yjwp=370) MONOCYTES RELATIVE PERCENT (BEAKER) (test 9 % cley=776) EOSINOPHILS RELATIVE PERCENT (BEAKER) (test 4 % cdkt=285) BASOPHILS RELATIVE PERCENT (BEAKER) (test 1 % jfgr=793) NEUTROPHILS ABSOLUTE COUNT (BEAKER) (test 6.00 K/ L 1.78-5.38 ydyz=356) LYMPHOCYTES ABSOLUTE COUNT (BEAKER) (test 1.88 K/ L 1.32-3.57 soxb=871) MONOCYTES ABSOLUTE COUNT (BEAKER) (test 0.83 K/ L 0.30-0.82 mlgw=107) EOSINOPHILS ABSOLUTE COUNT (BEAKER) (test 0.32 K/ L 0.04-0.54 wzkr=430) BASOPHILS ABSOLUTE COUNT (BEAKER) (test 0.09 K/ L 0.01-0.08 lqlo=720) IMMATURE GRANULOCYTES-RELATIVE PERCENT (BEAKER) 0 % 0-1 (test dobn=6498) BASIC METABOLIC [id number] 22:17:00 Test Item Value Reference Range Comments SODIUM (BEAKER) (test 138 meq/L 136-145 gczl=896) POTASSIUM (BEAKER) (test 3.8 meq/L 3.5-5.1 iume=836) CHLORIDE (BEAKER) (test 98 meq/L 98-107 muhs=548) CO2 (BEAKER) (test 30 meq/L 22-29 htwo=930) BLOOD UREA NITROGEN 18 mg/dL 7-21 (BEAKER) (test rmyr=391) CREATININE (BEAKER) (test 1.10 mg/dL 0.57-1.25 ozvx=808) GLUCOSE RANDOM (BEAKER) 239 mg/dL 70-105 (test npfi=736) CALCIUM (BEAKER) (test 8.2 mg/dL 8.4-10.2 hdqu=817) EGFR (BEAKER) (test 68 mL/min/1.73 sq m ESTIMATED GFR IS NOT libq=5603) ACCURATE CREATININE CLEARANCE IN PREDICTING GLOMERULAR FILTRATION RATE. ESTIMATED GFR IS NOT APPLICABLE FOR DIALYSIS PATIENTS. POCT-GLUCOSE [id number] 20:59:00 Test Item Value Reference Range Comments POC-GLUCOSE METER (BEAKER) 215 mg/dL 70-110 TESTED AT [address] (test gvtp=6404) [place] [address] POCT-GLUCOSE [id number] 17:08:00 Test Item Value Reference Range Comments POC-GLUCOSE METER (BEAKER) 214 mg/dL 70-110 TESTED AT [address] (test sbui=3690) [place] [address] POCT-GLUCOSE [id number] 13:13:00 Test Item Value Reference Range Comments POC-GLUCOSE METER (BEAKER) 138 mg/dL 70-110 TESTED AT [address] (test jrvp=5919) [place] [address] [id number] 13:01:00Medical Cytology Report Case: [id number] Authorizing Provider: Nba Villanueva MD Collected: 05/24/2017 0854 Ordering Location: [facility] CV Recovery Room 2 Received: 05/25/2017 0921 Pathologist: Janel Garcia MD Specimen: Pericardial PERICARDIAL FLUID (CYTOSPINS): - NO MALIGNANT CELLS IDENTIFIED (SEE COMMENT) Signing Pathologist Direct Phone Line: [phone] signed by Janel Garcia MD on 05/25/2017 at 1:01 PMCytospins show scattered mesothelial cells with reactive changes, macrophages in a background of many small mature lymphocytes. No diagnostic features of epithelial malignancy are identified. Clinical correlation is recommended. 15319Mekxqtomivq effusionPERICARDIAL RUYMG106 mls bloody; 4 cytospinsCollected: [id number]: [id number]a County [facility] Center, Department of Pathology, [address] [place] [address], [facility], Department of Pathology, [address] [place] [address], AUPEYVHA [id number] 11 :00:00 Test Item Value Reference Range Comments CYTOLOGY RESULT POINTER (VAL) (test See Separate Report vvgm=1081) [id number] 09:24:00 Test Item Value Reference Range Comments TRIGLYCERIDES (BEAKER) (test yzbt=085) 74 mg/dL TRIGLYCERIDE REFERENCE RANGELow Risk <150Borderline Risk 150-199High Risk 200-499Very High Risk>=500LACTATE DEHYDROGENASE (LDH)2017-05-25 09:24:00 Test Item Value Reference Range Comments LACTATE DEHYDROGENASE (BEAKER) (test yrhg=593) 219 U/L 125-220 [id number] 09:21:00 Test Item Value Reference Range Comments POTASSIUM (BEAKER) (test wnuq=308) 3.9 meq/L 3.5-5.1 Check Serum Potassium level 2 hours after oral potassium replacement completed or 30 min after intravenous potassium replacement.[id number] 09:21:00 Test Item Value Reference Range Comments MAGNESIUM (BEAKER) (test zfyu=698) 1.9 mg/dL 1.6-2.6 Check Serum Potassium level 2 hours after oral potassium replacement completed or 30 min after intravenous potassium replacement.GLUCOSE-STAT [id number] 09: 03:00 Test Item Value Reference Range Comments GLUCOSE RANDOM (BEAKER) (test meea=285) 130 mg/dL 70-110 RAD, CHEST, 1 VIEW, NON [id number] 04:40:00Reason for exam:->s/p pericardial windowShould this be performed at the bedside?->YesFINAL REPORT EXAMINATION: AP PORTABLE CHEST RADIOGRAPH CLINICAL INDICATION:Pericardial window IMPRESSION: Compared with 05/24/2017. The endotracheal and nasogastric tubes havebeen removed. The tip of the left upper extremity central line projects over the right atrium. The enlarged heart, bilateral pleural effusions and basilar lung opacities are similar to the prior study. The more confluent lung consolidation at the lung bases likely reflects associated passive atelectasis. An underlying pneumonia cannot be excluded. No definite evidence of new lung consolidation or pneumothorax. In summary, constellation of findings worrisome for fluid overload/heart failure. Signed: Car Castroeport Verified Date/Time: 05/25/2017 04:40:56 Reading Location : [address] Reading Room [id number] 03:56:00 Test Item Value Reference Range Comments MAGNESIUM (BEAKER) (test wwgy=546) 2.0 mg/dL 1.6-2.6 BASIC METABOLIC [id number] 03:56:00 Test Item Value Reference Range Comments SODIUM (BEAKER) (test 142 meq/L 136-145 lbls=245) POTASSIUM (BEAKER) (test 3.7 meq/L 3.5-5.1 oalk=695) CHLORIDE (BEAKER) (test 101 meq/L 98-107 oqgd=159) CO2 (BEAKER) (test 33 meq/L 22-29 iltf=510) BLOOD UREA NITROGEN 11 mg/dL 7-21 (BEAKER) (test wmgn=628) CREATININE (BEAKER) (test 0.78 mg/dL 0.57-1.25 cwua=672) GLUCOSE RANDOM (BEAKER) 105 mg/dL 70-105 (test igys=423) CALCIUM (BEAKER) (test 8.6 mg/dL 8.4-10.2 ivyc=886) EGFR (BEAKER) (test 102 mL/min/1.73 sq m ESTIMATED GFR IS NOT nyvn=3862) ACCURATE CREATININE CLEARANCE IN PREDICTING GLOMERULAR FILTRATION RATE. ESTIMATED GFR IS NOT APPLICABLE FOR DIALYSIS PATIENTS. CBC W/PLT COUNT & AUTO [id number] 03:26:00 Test Item Value Reference Range Comments WHITE BLOOD CELL COUNT (BEAKER) (test qlfe=863) 8.2 K/ L 3.5-10.5 RED BLOOD CELL COUNT (BEAKER) (test tdoj=626) 4.66 M/ L 4.63-6.08 HEMOGLOBIN (BEAKER) (test psmc=089) 12.2 GM/DL 13.7-17.5 HEMATOCRIT (BEAKER) (test zpmd=318) 39.6 % 40.1-51.0 MEAN CORPUSCULAR VOLUME (BEAKER) (test fztp=826) 85.0 fL 79.0-92.2 MEAN CORPUSCULAR HEMOGLOBIN (BEAKER) (test 26.2 pg 25.7-32.2 xoht=330) MEAN CORPUSCULAR HEMOGLOBIN CONC (BEAKER) (test 30.8 GM/DL 32.3-36.5 tnpi=102) RED CELL DISTRIBUTION WIDTH (BEAKER) (test 14.0 % 11.6-14.4 vues=794) PLATELET COUNT (BEAKER) (test itnl=633) 348 K/CU MM 150-450 MEAN PLATELET VOLUME (BEAKER) (test djfh=156) 9.2 fL 9.4-12.4 NUCLEATED RED BLOOD CELLS (BEAKER) (test 0 /100 WBC 0-0 pxni=695) NEUTROPHILS RELATIVE PERCENT (BEAKER) (test 73 % crtu=531) LYMPHOCYTES RELATIVE PERCENT (BEAKER) (test 16 % mzta=490) MONOCYTES RELATIVE PERCENT (BEAKER) (test 8 % shwy=874) EOSINOPHILS RELATIVE PERCENT (BEAKER) (test 2 % zfal=271) BASOPHILS RELATIVE PERCENT (BEAKER) (test 1 % tyjb=448) NEUTROPHILS ABSOLUTE COUNT (BEAKER) (test 5.98 K/ L 1.78-5.38 ller=250) LYMPHOCYTES ABSOLUTE COUNT (BEAKER) (test 1.34 K/ L 1.32-3.57 lpsv=077) MONOCYTES ABSOLUTE COUNT (BEAKER) (test 0.64 K/ L 0.30-0.82 gwig=459) EOSINOPHILS ABSOLUTE COUNT (BEAKER) (test 0.19 K/ L 0.04-0.54 fwhl=027) BASOPHILS ABSOLUTE COUNT (BEAKER) (test 0.06 K/ L 0.01-0.08 hrlp=203) IMMATURE GRANULOCYTES-RELATIVE PERCENT (BEAKER) 0 % 0-1 (test xadg=3061) POCT-GLUCOSE [id number] 03:24:00 Test Item Value Reference Range Comments POC-GLUCOSE METER (BEAKER) 102 mg/dL 70-110 TESTED AT [facility] [address] [facility] (test emkf=0603) [place] [address] SEDIMENTATION [id number] 20:42:00 Test Item Value Reference Range Comments SEDIMENTATION RATE, ERYTHROCYTE (BEAKER) (test 38 mm/HR 0-20 ommn=008) [id number] 20:29:00 Test Item Value Reference Range Comments MAGNESIUM (BEAKER) (test prbq=470) 1.9 mg/dL 1.6-2.6 C-REACTIVE [id number] 20:29:00 Test Item Value Reference Range Comments C-REACTIVE PROTEIN (BEAKER) (test crns=093) 1.10 mg/dL 0.00-0.50 POCT-GLUCOSE [id number] 20:11:00 Test Item Value Reference Range Comments POC-GLUCOSE METER (BEAKER) 139 mg/dL 70-110 TESTED AT [address] (test knuf=6515) [place] [address] POTASSIUM-STAT [id number] 20:06:00 Test Item Value Reference Range Comments POTASSIUM (BEAKER) (test essi=121) 4.1 meq/L 3.6-5.5 CALCIUM, [id number] 20:06:00 Test Item Value Reference Range Comments CALCIUM IONIZED (BEAKER) (test jytn=425) 1.10 mmol/L 1.12-1.27 PH, BLOOD (BEAKER) (test plnn=9080) 7.37 GLUCOSE-STAT [id number] 20:06:00 Test Item Value Reference Range Comments GLUCOSE RANDOM (BEAKER) (test zkku=053) 134 mg/dL 70-110 POCT-GLUCOSE [id number] 17:55:00 Test Item Value Reference Range Comments POC-GLUCOSE METER (BEAKER) 64 mg/dL 70-110 TESTED AT [address] (test tjzd=6048) [place] [address] GLUCOSE-STAT [id number] 16:29:00 Test Item Value Reference Range Comments GLUCOSE RANDOM (BEAKER) (test sufa=671) 70 mg/dL 70-110 POTASSIUM-STAT [id number] 16:29:00 Test Item Value Reference Range Comments POTASSIUM (BEAKER) (test eoru=860) 3.8 meq/L 3.6-5.5 POCT-GLUCOSE [id number] 14:24:00 Test Item Value Reference Range Comments POC-GLUCOSE METER (BEAKER) 72 mg/dL 70-110 TESTED AT [address] (test gegs=0907) [facility] [address] BLOOD GAS, [id number] 14:22:00 Test Item Value Reference Range Comments PH ARTERIAL (BEAKER) (test kdxj=483) 7.45 7.35-7.45 PCO2 ARTERIAL (BEAKER) (test tbre=012) 42 mmHg 35-45 PO2 ARTERIAL (BEAKER) (test amyj=449) 192 mmHg 80-90 O2 SATURATION ARTERIAL (BEAKER) (test sbia=309) 99.4 % 96.0-97.0 HCO3 ARTERIAL (BEAKER) (test brwv=653) 28 mmol/L 21-29 BASE EXCESS ARTERIAL (BEAKER) (test ixby=234) 4.0 mmol/L -2.0-3.0 PATIENT TEMPERATURE (BEAKER) (test rdcm=7627) 37.0 C FIO2 (BEAKER) (test imgo=4664) 100.0 % RAD, CHEST, 1 VIEW, NON [id number] 12:43:00Reason for exam:->picc line placementFINAL REPORT Chest one view INDICATION: PICC line placement COMPARISON: 05/24/2017 IMPRESSION: A left PICC line extends to the right atrium. Advise retraction 2-3 cm. The remaining support devices are stable with median sternotomy changes. No pneumothorax is seen. Dependent pleural effusions have likely redistributed with greater apical opacities. The remainder of the study is grossly unchanged since 1008 hours. Please see that report for additional details. Signed: Cindi Ortega MDReport Verified Date/Time: 05/24/2017 12:43:57 Reading Location: [address] Consult Reading Room CBC W/PLT COUNT & AUTO [id number] 11:13:00 Test Item Value Reference Range Comments WHITE BLOOD CELL COUNT (BEAKER) (test rgms=491) 6.2 K/ L 3.5-10.5 RED BLOOD CELL COUNT (BEAKER) (test xoig=954) 3.93 M/ L 4.63-6.08 HEMOGLOBIN (BEAKER) (test krbg=653) 10.2 GM/DL 13.7-17.5 HEMATOCRIT (BEAKER) (test jscq=070) 33.5 % 40.1-51.0 MEAN CORPUSCULAR VOLUME (BEAKER) (test pjlg=505) 85.2 fL 79.0-92.2 MEAN CORPUSCULAR HEMOGLOBIN (BEAKER) (test 26.0 pg 25.7-32.2 kajp=365) MEAN CORPUSCULAR HEMOGLOBIN CONC (BEAKER) (test 30.4 GM/DL 32.3-36.5 bnct=129) RED CELL DISTRIBUTION WIDTH (BEAKER) (test 13.5 % 11.6-14.4 qsby=383) PLATELET COUNT (BEAKER) (test qbxu=210) 333 K/CU MM 150-450 MEAN PLATELET VOLUME (BEAKER) (test dtwf=911) 9.7 fL 9.4-12.4 NUCLEATED RED BLOOD CELLS (BEAKER) (test 0 /100 WBC 0-0 zynd=748) NEUTROPHILS RELATIVE PERCENT (BEAKER) (test 70 % oigl=586) LYMPHOCYTES RELATIVE PERCENT (BEAKER) (test 21 % wfup=509) MONOCYTES RELATIVE PERCENT (BEAKER) (test 7 % sarn=933) EOSINOPHILS RELATIVE PERCENT (BEAKER) (test 2 % sibs=994) BASOPHILS RELATIVE PERCENT (BEAKER) (test 1 % xypo=586) NEUTROPHILS ABSOLUTE COUNT (BEAKER) (test 4.31 K/ L 1.78-5.38 kodh=829) LYMPHOCYTES ABSOLUTE COUNT (BEAKER) (test 1.28 K/ L 1.32-3.57 nitu=794) MONOCYTES ABSOLUTE COUNT (BEAKER) (test 0.41 K/ L 0.30-0.82 nvdh=606) EOSINOPHILS ABSOLUTE COUNT (BEAKER) (test 0.13 K/ L 0.04-0.54 wrvj=242) BASOPHILS ABSOLUTE COUNT (BEAKER) (test 0.05 K/ L 0.01-0.08 evbv=695) IMMATURE GRANULOCYTES-RELATIVE PERCENT (BEAKER) 0 % 0-1 (test uizm=1130) BASIC METABOLIC [id number] 11:02:00 Test Item Value Reference Range Comments SODIUM (BEAKER) (test 141 meq/L 136-145 zmmw=748) POTASSIUM (BEAKER) (test 3.3 meq/L 3.5-5.1 jxjj=615) CHLORIDE (BEAKER) (test 105 meq/L 98-107 jpbo=510) CO2 (BEAKER) (test 30 meq/L 22-29 aifb=116) BLOOD UREA NITROGEN 16 mg/dL 7-21 (BEAKER) (test xdzh=274) CREATININE (BEAKER) (test 0.73 mg/dL 0.57-1.25 jdbe=360) GLUCOSE RANDOM (BEAKER) 103 mg/dL 70-105 (test qfuf=560) CALCIUM (BEAKER) (test 7.9 mg/dL 8.4-10.2 rnlh=007) EGFR (BEAKER) (test 110 mL/min/1.73 sq m ESTIMATED GFR IS NOT ivzg=8596) ACCURATE CREATININE CLEARANCE IN PREDICTING GLOMERULAR FILTRATION RATE. ESTIMATED GFR IS NOT APPLICABLE FOR DIALYSIS PATIENTS. [id number] 11:01:00 Test Item Value Reference Range Comments MAGNESIUM (BEAKER) (test cgwv=404) 1.5 mg/dL 1.6-2.6 [id number] 11:01:00 Test Item Value Reference Range Comments FIBRINOGEN LEVEL (BEAKER) (test qmkx=710) 418 mg/dl 225-434 [id number] 11:01:00 Test Item Value Reference Range Comments PARTIAL THROMBOPLASTIN TIME (BEAKER) (test 33.1 seconds 22.5-36.0 egcl=517) PROTHROMBIN TIME/[id number] 11:00:00 Test Item Value Reference Range Comments PROTIME (BEAKER) (test favm=118) 17.6 seconds 11.7-14.7 INR (BEAKER) (test ejvi=576) 1.5 <=5.9 RECOMMENDED COUMADIN/WARFARIN INR THERAPY RANGESSTANDARD DOSE: 2.0 - 3.0 Includes: PROPHYLAXIS forvenous thrombosis, systemic embolization; TREATMENT for venous thrombosis and/or pulmonary embolus.HIGH RISK: Target INR is 2.5-3.5 for patients with mechanical heart valves.LACTIC ACID, ARTERIAL, WHOLE [id number] 10:57:00 Test Item Value Reference Range Comments LACTATE BLOOD ARTERIAL (2) (BEAKER) (test 0.6 mmol/L 0.5-2.2 rsch=9798) Effective 12/04/2015: Units/Reference Range ChangeNew: 0.5-2.2 mmol/L Previous: 5 -20 mg/dLBLOOD GAS, [id number] 10:42:00 Test Item Value Reference Range Comments PH ARTERIAL (BEAKER) (test kfdq=439) 7.42 7.35-7.45 PCO2 ARTERIAL (BEAKER) (test lnfb=356) 43 mmHg 35-45 PO2 ARTERIAL (BEAKER) (test swnk=325) 83 mmHg 80-90 O2 SATURATION ARTERIAL (BEAKER) (test hkhh=152) 97.1 % 96.0-97.0 HCO3 ARTERIAL (BEAKER) (test xvyb=583) 28 mmol/L 21-29 BASE EXCESS ARTERIAL (BEAKER) (test drra=957) 2.0 mmol/L -2.0-3.0 PATIENT TEMPERATURE (BEAKER) (test nlxv=2919) 34.7 C FIO2 (BEAKER) (test quke=4848) 60.0 % SODIUM NA-STAT [id number] 10:42:00 Test Item Value Reference Range Comments SODIUM (BEAKER) (test pilj=172) 138 meq/L 135-148 POTASSIUM-STAT [id number] 10:42:00 Test Item Value Reference Range Comments POTASSIUM (BEAKER) (test tpzf=717) 3.1 meq/L 3.6-5.5 GLUCOSE-STAT [id number] 10:42:00 Test Item Value Reference Range Comments GLUCOSE RANDOM (BEAKER) (test gvyi=149) 105 mg/dL 70-110 HGB/HCT (H&H) - STAT [id number] 10:42:00 Test Item Value Reference Range Comments HEMOGLOBIN (BEAKER) (test xcnw=579) 11.3 g/dL 13.0-16.8 HEMATOCRIT (BEAKER) (test qdgm=488) 33.0 % 40.0-50.0 CALCIUM, [id number] 10:41:00 Test Item Value Reference Range Comments CALCIUM IONIZED (BEAKER) (test rrbt=211) 1.06 mmol/L 1.12-1.27 PH, BLOOD (BEAKER) (test ovyo=6008) 7.39 RAD, CHEST, 1 VIEW, NON [id number] 10:34:00Reason for exam:->sp pericadial windowFINAL REPORT Chest one view INDICATION: Pericardial window COMPARISON: 05/22/2017 IMPRESSION: Two frontal images of the chest were provided. A surgical drain overlies the inferior heart shadow, presumably a pericardial drain. Median sternotomy changes are noted. ET tube terminates 5.5 cm above the martinez. NG tube extends below the diaphragm with tip off image. The enlarged cardiac silhouette is partially obscured. Mediastinal prominence is stable. There is moderate pulmonary edema with dependent pleural effusions and left retrocardiac consolidation or atelectasis. No pneumothorax is seen. Signed: Cindi Ortega MDReport Verified Date/ Time: 05/24/2017 10:34:21 Reading Location: [facility] Radiology Reading Room SODIUM NA-STAT [id number] 09:32:00 Test Item Value Reference Range Comments SODIUM (BEAKER) (test lplh=137) 141 meq/L 135-148 BLOOD GAS, [id number] 09:32:00 Test Item Value Reference Range Comments PH ARTERIAL (BEAKER) (test fupq=595) 7.28 7.35-7.45 PCO2 ARTERIAL (BEAKER) (test qidb=715) 65 mmHg 35-45 PO2 ARTERIAL (BEAKER) (test rlxh=561) 67 mmHg 80-90 O2 SATURATION ARTERIAL (BEAKER) (test mnbs=074) 91.6 % 96.0-97.0 HCO3 ARTERIAL (BEAKER) (test glum=609) 30 mmol/L 21-29 BASE EXCESS ARTERIAL (BEAKER) (test qljx=943) 2.0 mmol/L -2.0-3.0 PATIENT TEMPERATURE (BEAKER) (test ypte=1792) 36.0 C FIO2 (BEAKER) (test xesu=5215) 100.0 % POTASSIUM-STAT [id number] 09:32:00 Test Item Value Reference Range Comments POTASSIUM (BEAKER) (test lrpa=277) 3.4 meq/L 3.6-5.5 GLUCOSE-STAT [id number] 09:32:00 Test Item Value Reference Range Comments GLUCOSE RANDOM (BEAKER) (test iuef=156) 125 mg/dL 70-110 HGB/HCT (H&H) - STAT [id number] 09:32:00 Test Item Value Reference Range Comments HEMOGLOBIN (BEAKER) (test rgro=329) 11.9 g/dL 13.0-16.8 HEMATOCRIT (BEAKER) (test usww=817) 35.0 % 40.0-50.0 BLOOD GAS, [id number] 08:34:00 Test Item Value Reference Range Comments PH ARTERIAL (BEAKER) (test squs=057) 7.38 7.35-7.45 PCO2 ARTERIAL (BEAKER) (test cvxr=179) 52 mmHg 35-45 PO2 ARTERIAL (BEAKER) (test xxlp=488) 175 mmHg 80-90 O2 SATURATION ARTERIAL (BEAKER) (test xfer=885) 99.1 % 96.0-97.0 HCO3 ARTERIAL (BEAKER) (test yjex=681) 30 mmol/L 21-29 BASE EXCESS ARTERIAL (BEAKER) (test pqti=051) 4.1 mmol/L -2.0-3.0 PATIENT TEMPERATURE (BEAKER) (test vxqd=3514) 37.0 C FIO2 (BEAKER) (test euoq=8425) 100.0 % GLUCOSE-STAT [id number] 08:34:00 Test Item Value Reference Range Comments GLUCOSE RANDOM (BEAKER) (test xcij=817) 121 mg/dL 70-110 HGB/HCT (H&H) - STAT [id number] 08:34:00 Test Item Value Reference Range Comments HEMOGLOBIN (BEAKER) (test dqmf=103) 11.3 g/dL 13.0-16.8 HEMATOCRIT (BEAKER) (test iahg=340) 33.0 % 40.0-50.0 SODIUM NA-STAT [id number] 08:33:00 Test Item Value Reference Range Comments SODIUM (BEAKER) (test vtcv=448) 139 meq/L 135-148 POTASSIUM-STAT [id number] 08:33:00 Test Item Value Reference Range Comments POTASSIUM (BEAKER) (test vzah=530) 3.5 meq/L 3.6-5.5 [id number] 06:30:00 Test Item Value Reference Range Comments MAGNESIUM (BEAKER) (test hkxz=271) 1.9 mg/dL 1.6-2.6 BASIC METABOLIC [id number] 06:30:00 Test Item Value Reference Range Comments SODIUM (BEAKER) (test 142 meq/L 136-145 xpck=209) POTASSIUM (BEAKER) (test 4.1 meq/L 3.5-5.1 wiux=585) CHLORIDE (BEAKER) (test 103 meq/L 98-107 aanp=154) CO2 (BEAKER) (test 28 meq/L 22-29 hxcv=277) BLOOD UREA NITROGEN 15 mg/dL 7-21 (BEAKER) (test ycsq=530) CREATININE (BEAKER) (test 0.81 mg/dL 0.57-1.25 orbe=876) GLUCOSE RANDOM (BEAKER) 143 mg/dL 70-105 (test dhnd=366) CALCIUM (BEAKER) (test 9.3 mg/dL 8.4-10.2 zfrb=763) EGFR (BEAKER) (test 97 mL/min/1.73 sq m ESTIMATED GFR IS NOT shsd=0223) ACCURATE CREATININE CLEARANCE IN PREDICTING GLOMERULAR FILTRATION RATE. ESTIMATED GFR IS NOT APPLICABLE FOR DIALYSIS PATIENTS. CBC W/PLT COUNT & AUTO [id number] 05:53:00 Test Item Value Reference Range Comments WHITE BLOOD CELL COUNT (BEAKER) (test icsd=250) 10.2 K/ L 3.5-10.5 RED BLOOD CELL COUNT (BEAKER) (test hbet=416) 4.71 M/ L 4.63-6.08 HEMOGLOBIN (BEAKER) (test rrau=121) 12.2 GM/DL 13.7-17.5 HEMATOCRIT (BEAKER) (test suwp=968) 40.9 % 40.1-51.0 MEAN CORPUSCULAR VOLUME (BEAKER) (test aqos=203) 86.8 fL 79.0-92.2 MEAN CORPUSCULAR HEMOGLOBIN (BEAKER) (test 25.9 pg 25.7-32.2 meed=987) MEAN CORPUSCULAR HEMOGLOBIN CONC (BEAKER) (test 29.8 GM/DL 32.3-36.5 romj=108) RED CELL DISTRIBUTION WIDTH (BEAKER) (test 13.6 % 11.6-14.4 cqwb=177) PLATELET COUNT (BEAKER) (test lgko=653) 436 K/CU MM 150-450 MEAN PLATELET VOLUME (BEAKER) (test rokt=614) 10.3 fL 9.4-12.4 NUCLEATED RED BLOOD CELLS (BEAKER) (test 0 /100 WBC 0-0 glyx=841) NEUTROPHILS RELATIVE PERCENT (BEAKER) (test 70 % aqyx=091) LYMPHOCYTES RELATIVE PERCENT (BEAKER) (test 20 % ceyy=033) MONOCYTES RELATIVE PERCENT (BEAKER) (test 7 % jtiw=244) EOSINOPHILS RELATIVE PERCENT (BEAKER) (test 2 % awkh=255) BASOPHILS RELATIVE PERCENT (BEAKER) (test 1 % ekaa=393) NEUTROPHILS ABSOLUTE COUNT (BEAKER) (test 7.09 K/ L 1.78-5.38 lsuz=111) LYMPHOCYTES ABSOLUTE COUNT (BEAKER) (test 2.04 K/ L 1.32-3.57 qhup=411) MONOCYTES ABSOLUTE COUNT (BEAKER) (test 0.69 K/ L 0.30-0.82 vjlt=385) EOSINOPHILS ABSOLUTE COUNT (BEAKER) (test 0.20 K/ L 0.04-0.54 shcy=103) BASOPHILS ABSOLUTE COUNT (BEAKER) (test 0.10 K/ L 0.01-0.08 wplx=352) IMMATURE GRANULOCYTES-RELATIVE PERCENT (BEAKER) 1 % 0-1 (test vbpf=0939) POCT-GLUCOSE [id number] 05:52:00 Test Item Value Reference Range Comments POC-GLUCOSE METER (BEAKER) 153 mg/dL 70-110 TESTED AT [address] (test qryb=6375) [place] [id number] POCT-GLUCOSE [id number] 21:22:00 Test Item Value Reference Range Comments POC-GLUCOSE METER (BEAKER) 212 mg/dL 70-110 TESTED AT [address] (test crot=1807) [place] [address] [id number] 17:56:00 Test Item Value Reference Range Comments PARTIAL THROMBOPLASTIN TIME (BEAKER) (test 34.4 seconds 22.5-36.0 mlmf=832) PROTHROMBIN TIME/[id number] 17:55:00 Test Item Value Reference Range Comments PROTIME (BEAKER) (test hxxh=603) 16.4 seconds 11.7-14.7 INR (BEAKER) (test rfzg=092) 1.3 <=5.9 RECOMMENDED COUMADIN/WARFARIN INR THERAPY RANGESSTANDARD DOSE: 2.0 - 3.0 Includes: PROPHYLAXIS forvenous thrombosis, systemic embolization; TREATMENT for venous thrombosis and/or pulmonary embolus.HIGH RISK: Target INR is 2.5-3.5 for patients with mechanical heart valves.POCT-GLUCOSE [id number] 17:33:00 Test Item Value Reference Range Comments POC-GLUCOSE METER (BEAKER) 233 mg/dL 70-110 TESTED AT [address] (test vocy=3123) [facility] [address] POCT-GLUCOSE [id number] 12:51:00 Test Item Value Reference Range Comments POC-GLUCOSE METER (BEAKER) 149 mg/dL 70-110 TESTED AT [address] (test bmih=7939) [facility] [address] POCT-GLUCOSE [id number] 07:34:00 Test Item Value Reference Range Comments POC-GLUCOSE METER (BEAKER) 104 mg/dL 70-110 TESTED AT [address] (test kiwz=0819) [facility] [address] B-TYPE NATRIURETIC FACTOR (BNP)2017-05-23 00:50:00 Test Item Value Reference Range Comments B-TYPE NATRIURETIC PEPTIDE (BEAKER) (test 177 pg/mL 0-100 laiu=547) [id number] 00:47:00 Test Item Value Reference Range Comments MAGNESIUM (BEAKER) (test zzxh=624) 1.8 mg/dL 1.6-2.6 BASIC METABOLIC [id number] 00:47:00 Test Item Value Reference Range Comments SODIUM (BEAKER) (test 141 meq/L 136-145 tdbr=320) POTASSIUM (BEAKER) (test 3.9 meq/L 3.5-5.1 qsnp=223) CHLORIDE (BEAKER) (test 103 meq/L 98-107 tnkh=996) CO2 (BEAKER) (test 29 meq/L 22-29 tevi=784) BLOOD UREA NITROGEN 18 mg/dL 7-21 (BEAKER) (test klll=867) CREATININE (BEAKER) (test 0.83 mg/dL 0.57-1.25 tpkh=837) GLUCOSE RANDOM (BEAKER) 135 mg/dL 70-105 (test hfrf=169) CALCIUM (BEAKER) (test 8.8 mg/dL 8.4-10.2 wwyg=484) EGFR (BEAKER) (test 95 mL/min/1.73 sq m ESTIMATED GFR IS NOT vadj=1018) ACCURATE CREATININE CLEARANCE IN PREDICTING GLOMERULAR FILTRATION RATE. ESTIMATED GFR IS NOT APPLICABLE FOR DIALYSIS PATIENTS. HEPATIC FUNCTION [id number] 00:47:00 Test Item Value Reference Range Comments TOTAL PROTEIN (BEAKER) (test vypb=772) 7.2 gm/dL 6.0-8.3 ALBUMIN (BEAKER) (test xbzs=2731) 3.6 g/dL 3.5-5.0 BILIRUBIN TOTAL (BEAKER) (test fbip=942) 0.5 mg/dL 0.2-1.2 BILIRUBIN DIRECT (BEAKER) (test auco=608) 0.2 mg/dL 0.1-0.5 ALKALINE PHOSPHATASE (BEAKER) (test meud=402) 90 U/L 40-150 AST (SGOT) (BEAKER) (test mvlu=730) 24 U/L 5-34 ALT (SGPT) (BEAKER) (test ubym=793) 34 U/L 6-55 CBC W/PLT COUNT & AUTO [id number] 00:08:00 Test Item Value Reference Range Comments WHITE BLOOD CELL COUNT (BEAKER) (test sqbl=625) 10.7 K/ L 3.5-10.5 RED BLOOD CELL COUNT (BEAKER) (test leqh=552) 4.49 M/ L 4.63-6.08 HEMOGLOBIN (BEAKER) (test lqyw=126) 12.1 GM/DL 13.7-17.5 HEMATOCRIT (BEAKER) (test dowx=357) 38.8 % 40.1-51.0 MEAN CORPUSCULAR VOLUME (BEAKER) (test fdia=449) 86.4 fL 79.0-92.2 MEAN CORPUSCULAR HEMOGLOBIN (BEAKER) (test 26.9 pg 25.7-32.2 lajk=525) MEAN CORPUSCULAR HEMOGLOBIN CONC (BEAKER) (test 31.2 GM/DL 32.3-36.5 rcoz=205) RED CELL DISTRIBUTION WIDTH (BEAKER) (test 13.5 % 11.6-14.4 nbvj=349) PLATELET COUNT (BEAKER) (test vrhe=681) 418 K/CU MM 150-450 MEAN PLATELET VOLUME (BEAKER) (test cxqw=487) 9.7 fL 9.4-12.4 NUCLEATED RED BLOOD CELLS (BEAKER) (test 0 /100 WBC 0-0 eyby=103) NEUTROPHILS RELATIVE PERCENT (BEAKER) (test 66 % erck=837) LYMPHOCYTES RELATIVE PERCENT (BEAKER) (test 23 % hxka=683) MONOCYTES RELATIVE PERCENT (BEAKER) (test 7 % vkow=919) EOSINOPHILS RELATIVE PERCENT (BEAKER) (test 3 % sarq=184) BASOPHILS RELATIVE PERCENT (BEAKER) (test 1 % xcgq=539) NEUTROPHILS ABSOLUTE COUNT (BEAKER) (test 7.05 K/ L 1.78-5.38 tcxi=675) LYMPHOCYTES ABSOLUTE COUNT (BEAKER) (test 2.50 K/ L 1.32-3.57 jkqf=846) MONOCYTES ABSOLUTE COUNT (BEAKER) (test 0.76 K/ L 0.30-0.82 oqgk=814) EOSINOPHILS ABSOLUTE COUNT (BEAKER) (test 0.29 K/ L 0.04-0.54 uzeu=462) BASOPHILS ABSOLUTE COUNT (BEAKER) (test 0.11 K/ L 0.01-0.08 jeea=949) IMMATURE GRANULOCYTES-RELATIVE PERCENT (BEAKER) 0 % 0-1 (test yxkw=9176) RAD, CHEST, 1 VIEW, NON [id number] 23:49:00Reason for exam:-> dyspneaShould this be performed at the bedside?->YesFINAL REPORT RAD, CHEST, 1 VIEW, NON DEPT INDICATION: dyspnea COMPARISON: May 09, 2017 FINDINGS: Portable frontal view of the chest. IMPRESSION: Support Lines: None. Lungs and pleura: Linear subsegmental atelectasis and developing left retrocardiac opacity concerning for infectious consolidation. Small bilateral effusions are noted. No pneumothorax.Heart and mediastinum: Stable enlargement of the cardiac silhouette. Sternotomy wires are intact.Additional findings: None. Signed: JR Hansen Robert MDReport Verified Date/Time: 05/22/2017 23:49:06 Reading Location: [facility] C013Y CT Body Reading Room POCT-GLUCOSE [id number] 23:16:00 Test Item Value Reference Range Comments POC-GLUCOSE METER (BEAKER) 177 mg/dL 70-110 TESTED AT [address] (test dwqg=9172) [facility] [address] POCT-GLUCOSE [id number] 12:20:00 Test Item Value Reference Range Comments POC-GLUCOSE METER (BEAKER) 122 mg/dL 70-110 TESTED AT [address] (test clsj=1130) [facility] [address] POCT-GLUCOSE [id number] 08:30:00 Test Item Value Reference Range Comments POC-GLUCOSE METER (BEAKER) 80 mg/dL 70-110 TESTED AT [address] (test pper=6745) [facility] [address] [id number] 07:36:00 Test Item Value Reference Range Comments PHOSPHORUS (BEAKER) (test vqoj=827) 4.6 mg/dL 2.3-4.7 [id number] 07:36:00 Test Item Value Reference Range Comments MAGNESIUM (BEAKER) (test yaup=376) 1.8 mg/dL 1.6-2.6 BASIC METABOLIC [id number] 07:36:00 Test Item Value Reference Range Comments SODIUM (BEAKER) (test 144 meq/L 136-145 hwml=641) POTASSIUM (BEAKER) (test 4.6 meq/L 3.5-5.1 tytf=877) CHLORIDE (BEAKER) (test 109 meq/L 98-107 typk=333) CO2 (BEAKER) (test 28 meq/L 22-29 drfp=477) BLOOD UREA NITROGEN 10 mg/dL 7-21 (BEAKER) (test nvxh=465) CREATININE (BEAKER) (test 0.79 mg/dL 0.57-1.25 mndi=512) GLUCOSE RANDOM (BEAKER) 98 mg/dL 70-105 (test ifzn=975) CALCIUM (BEAKER) (test 8.4 mg/dL 8.4-10.2 ydji=586) EGFR (BEAKER) (test 100 mL/min/1.73 sq m ESTIMATED GFR IS NOT tauf=1296) ACCURATE CREATININE CLEARANCE IN PREDICTING GLOMERULAR FILTRATION RATE. ESTIMATED GFR IS NOT APPLICABLE FOR DIALYSIS PATIENTS. POCT-GLUCOSE [id number] 02:18:00 Test Item Value Reference Range Comments POC-GLUCOSE METER (BEAKER) 160 mg/dL 70-110 TESTED AT [address] (test wjua=9600) [facility] [address] POCT-GLUCOSE [id number] 21:04:00 Test Item Value Reference Range Comments POC-GLUCOSE METER (BEAKER) 243 mg/dL 70-110 TESTED AT [address] (test vdav=3066) [facility] [address] POCT-GLUCOSE [id number] 17:49:00 Test Item Value Reference Range Comments POC-GLUCOSE METER (BEAKER) 186 mg/dL 70-110 TESTED AT [address] (test clxk=7035) [facility] [address] POCT-GLUCOSE [id number] 17:49:00 Test Item Value Reference Range Comments POC-GLUCOSE METER (BEAKER) 107 mg/dL 70-110 TESTED AT [address] (test psvs=5287) [facility] [address] POCT-GLUCOSE [id number] 10:40:00 Test Item Value Reference Range Comments POC-GLUCOSE METER (BEAKER) 160 mg/dL 70-110 TESTED AT [address] (test gzts=9810) [facility] [address] POCT-GLUCOSE [id number] 08:36:00 Test Item Value Reference Range Comments POC-GLUCOSE METER (BEAKER) 71 mg/dL 70-110 TESTED AT [address] (test xhla=3031) [place] [id number] POCT-GLUCOSE [id number] 08:36:00 Test Item Value Reference Range Comments POC-GLUCOSE METER (BEAKER) 67 mg/dL 70-110 Notified LAURA PARRA/TESTED AT [facility] (test vjfy=1856) [address] [place] [address] [id number] 05:51:00 Test Item Value Reference Range Comments PHOSPHORUS (BEAKER) (test kmfh=882) 5.0 mg/dL 2.3-4.7 [id number] 05:51:00 Test Item Value Reference Range Comments MAGNESIUM (BEAKER) (test zwwc=488) 1.8 mg/dL 1.6-2.6 BASIC METABOLIC [id number] 05:51:00 Test Item Value Reference Range Comments SODIUM (BEAKER) (test 142 meq/L 136-145 ptvk=895) POTASSIUM (BEAKER) (test 3.8 meq/L 3.5-5.1 tdlx=620) CHLORIDE (BEAKER) (test 109 meq/L 98-107 hiqw=490) CO2 (BEAKER) (test 26 meq/L 22-29 uity=694) BLOOD UREA NITROGEN 11 mg/dL 7-21 (BEAKER) (test srky=825) CREATININE (BEAKER) (test 0.75 mg/dL 0.57-1.25 jqcg=416) GLUCOSE RANDOM (BEAKER) 63 mg/dL 70-105 (test vdbt=376) CALCIUM (BEAKER) (test 8.2 mg/dL 8.4-10.2 frhv=226) EGFR (BEAKER) (test 107 mL/min/1.73 sq m ESTIMATED GFR IS NOT kpyp=2884) ACCURATE CREATININE CLEARANCE IN PREDICTING GLOMERULAR FILTRATION RATE. ESTIMATED GFR IS NOT APPLICABLE FOR DIALYSIS PATIENTS. CBC W/PLT COUNT & AUTO [id number] 05:29:00 Test Item Value Reference Range Comments WHITE BLOOD CELL COUNT (BEAKER) (test bypu=817) 7.0 K/ L 3.5-10.5 RED BLOOD CELL COUNT (BEAKER) (test glen=110) 3.86 M/ L 4.63-6.08 HEMOGLOBIN (BEAKER) (test wxgg=784) 10.5 GM/DL 13.7-17.5 HEMATOCRIT (BEAKER) (test opeh=329) 33.6 % 40.1-51.0 MEAN CORPUSCULAR VOLUME (BEAKER) (test qfzr=484) 87.0 fL 79.0-92.2 MEAN CORPUSCULAR HEMOGLOBIN (BEAKER) (test 27.2 pg 25.7-32.2 wtab=179) MEAN CORPUSCULAR HEMOGLOBIN CONC (BEAKER) (test 31.3 GM/DL 32.3-36.5 kion=477) RED CELL DISTRIBUTION WIDTH (BEAKER) (test 13.7 % 11.6-14.4 sqyw=587) PLATELET COUNT (BEAKER) (test blfn=779) 253 K/CU MM 150-450 MEAN PLATELET VOLUME (BEAKER) (test mfqv=412) 10.4 fL 9.4-12.4 NUCLEATED RED BLOOD CELLS (BEAKER) (test 0 /100 WBC 0-0 wfcg=283) NEUTROPHILS RELATIVE PERCENT (BEAKER) (test 58 % yhia=153) LYMPHOCYTES RELATIVE PERCENT (BEAKER) (test 29 % bmxh=631) MONOCYTES RELATIVE PERCENT (BEAKER) (test 9 % vtnv=530) EOSINOPHILS RELATIVE PERCENT (BEAKER) (test 3 % oepu=930) BASOPHILS RELATIVE PERCENT (BEAKER) (test 1 % pmff=704) NEUTROPHILS ABSOLUTE COUNT (BEAKER) (test 4.12 K/ L 1.78-5.38 qxfo=028) LYMPHOCYTES ABSOLUTE COUNT (BEAKER) (test 2.02 K/ L 1.32-3.57 nlxi=683) MONOCYTES ABSOLUTE COUNT (BEAKER) (test 0.64 K/ L 0.30-0.82 vzto=688) EOSINOPHILS ABSOLUTE COUNT (BEAKER) (test 0.18 K/ L 0.04-0.54 qwmy=934) BASOPHILS ABSOLUTE COUNT (BEAKER) (test 0.06 K/ L 0.01-0.08 yksn=087) IMMATURE GRANULOCYTES-RELATIVE PERCENT (BEAKER) 0 % 0-1 (test uwis=3010) POCT-GLUCOSE [id number] 23:05:00 Test Item Value Reference Range Comments POC-GLUCOSE METER (BEAKER) 147 mg/dL 70-110 TESTED AT [address] (test ojsa=8261) [place] [id number] POCT-GLUCOSE [id number] 17:06:00 Test Item Value Reference Range Comments POC-GLUCOSE METER (BEAKER) 123 mg/dL 70-110 TESTED AT [address] (test jvdj=8650) [place] [id number] POCT-GLUCOSE [id number] 12:10:00 Test Item Value Reference Range Comments POC-GLUCOSE METER (BEAKER) 232 mg/dL 70-110 TESTED AT [address] (test jqcu=7986) [place] [id number] RAD, CHEST, 1 VIEW, NON [id number] 08:02:00Reason for exam:->s/p cardiac surgeryFINAL REPORT Chest one view AP 05/09/2017 8:02 AM CLINICAL INDICATION: s/p cardiac surgery COMPARISON: 05/08/2017 IMPRESSION: Cardiomediastinal contours are stable. The central pulmonary vasculature is not engorged. The lungs are well aerated. Sternotomy wires remain midline. Signed: Walter Correia Verified Date/Time: 05/09/2017 08:02:26 Reading Location: [facility] C013V Neuro Reading Room POCT-GLUCOSE [id number] 07:42:00 Test Item Value Reference Range Comments POC-GLUCOSE METER (BEAKER) 100 mg/dL 70-110 TESTED AT [facility] [address] (test pehf=4335) [facility] [address] [id number] 06:26:00 Test Item Value Reference Range Comments PHOSPHORUS (BEAKER) (test wkzk=331) 4.7 mg/dL 2.3-4.7 [id number] 06:26:00 Test Item Value Reference Range Comments MAGNESIUM (BEAKER) (test xmxi=226) 1.9 mg/dL 1.6-2.6 BASIC METABOLIC [id number] 06:26:00 Test Item Value Reference Range Comments SODIUM (BEAKER) (test 141 meq/L 136-145 haqx=027) POTASSIUM (BEAKER) (test 3.6 meq/L 3.5-5.1 juhw=808) CHLORIDE (BEAKER) (test 107 meq/L 98-107 hosd=544) CO2 (BEAKER) (test 26 meq/L 22-29 ahxw=867) BLOOD UREA NITROGEN 13 mg/dL 7-21 (BEAKER) (test darq=031) CREATININE (BEAKER) (test 0.78 mg/dL 0.57-1.25 rtub=267) GLUCOSE RANDOM (BEAKER) 75 mg/dL 70-105 (test xdxf=980) CALCIUM (BEAKER) (test 8.4 mg/dL 8.4-10.2 okcn=043) EGFR (BEAKER) (test 102 mL/min/1.73 sq m ESTIMATED GFR IS NOT vszy=1569) ACCURATE CREATININE CLEARANCE IN PREDICTING GLOMERULAR FILTRATION RATE. ESTIMATED GFR IS NOT APPLICABLE FOR DIALYSIS PATIENTS. CBC W/PLT COUNT & AUTO [id number] 05:47:00 Test Item Value Reference Range Comments WHITE BLOOD CELL COUNT (BEAKER) (test hrec=635) 7.6 K/ L 3.5-10.5 RED BLOOD CELL COUNT (BEAKER) (test dgkt=394) 4.11 M/ L 4.63-6.08 HEMOGLOBIN (BEAKER) (test viqh=484) 10.8 GM/DL 13.7-17.5 HEMATOCRIT (BEAKER) (test vmof=760) 35.6 % 40.1-51.0 MEAN CORPUSCULAR VOLUME (BEAKER) (test xkfe=665) 86.6 fL 79.0-92.2 MEAN CORPUSCULAR HEMOGLOBIN (BEAKER) (test 26.3 pg 25.7-32.2 ltir=367) MEAN CORPUSCULAR HEMOGLOBIN CONC (BEAKER) (test 30.3 GM/DL 32.3-36.5 qwkq=849) RED CELL DISTRIBUTION WIDTH (BEAKER) (test 13.6 % 11.6-14.4 llxz=029) PLATELET COUNT (BEAKER) (test cexr=024) 238 K/CU MM 150-450 MEAN PLATELET VOLUME (BEAKER) (test uhfv=609) 10.5 fL 9.4-12.4 NUCLEATED RED BLOOD CELLS (BEAKER) (test 0 /100 WBC 0-0 xpyw=529) NEUTROPHILS RELATIVE PERCENT (BEAKER) (test 59 % vvqz=932) LYMPHOCYTES RELATIVE PERCENT (BEAKER) (test 27 % acql=856) MONOCYTES RELATIVE PERCENT (BEAKER) (test 10 % xguz=660) EOSINOPHILS RELATIVE PERCENT (BEAKER) (test 3 % owcd=706) BASOPHILS RELATIVE PERCENT (BEAKER) (test 1 % enat=773) NEUTROPHILS ABSOLUTE COUNT (BEAKER) (test 4.48 K/ L 1.78-5.38 hznj=457) LYMPHOCYTES ABSOLUTE COUNT (BEAKER) (test 2.00 K/ L 1.32-3.57 nanj=060) MONOCYTES ABSOLUTE COUNT (BEAKER) (test 0.78 K/ L 0.30-0.82 iecg=111) EOSINOPHILS ABSOLUTE COUNT (BEAKER) (test 0.20 K/ L 0.04-0.54 vtfd=818) BASOPHILS ABSOLUTE COUNT (BEAKER) (test 0.07 K/ L 0.01-0.08 kuyo=402) IMMATURE GRANULOCYTES-RELATIVE PERCENT (BEAKER) 0 % 0-1 (test fpmb=4756) POCT-GLUCOSE [id number] 20:48:00 Test Item Value Reference Range Comments POC-GLUCOSE METER (BEAKER) 197 mg/dL 70-110 TESTED AT [address] (test kchs=5231) [facility] [address] POCT-GLUCOSE [id number] 17:09:00 Test Item Value Reference Range Comments POC-GLUCOSE METER (BEAKER) 131 mg/dL 70-110 TESTED AT [address] (test eiwb=2974) [facility] [address] POCT-GLUCOSE [id number] 16:10:00 Test Item Value Reference Range Comments POC-GLUCOSE METER (BEAKER) 78 mg/dL 70-110 TESTED AT [place] [id number] (test qkmx=2361) [facility] [address] POCT-GLUCOSE [id number] 12:03:00 Test Item Value Reference Range Comments POC-GLUCOSE METER (BEAKER) 150 mg/dL 70-110 TESTED AT [address] (test ewjh=5645) [place] [address] RAD, CHEST, 1 VIEW, NON [id number] 08:59:00Reason for exam:->s/p cardiac surgeryFINAL REPORT Portable chest History: Status post cardiac surgery Comparison study: May 07, 2017 FINDINGS: The cardiac silhouette is enlarged. The patient is status post sternotomy. Atelectatic changes are seen in the left midlung field. No pleural effusion or pneumothorax is noted. Degenerative changes are seen. IMPRESSION: No significant change. Signed: Chay Sch[facility] Verified Date/Time: 05/08/2017 08:59:34 Reading Location: [facility] [id number] Ortho Consult Reading Room POCT-GLUCOSE [id number] 07:58:00 Test Item Value Reference Range Comments POC-GLUCOSE METER (BEAKER) 96 mg/dL 70-110 TESTED AT [address] (test ggiw=6579) [place] [address] [id number] 07:02:00 Test Item Value Reference Range Comments PHOSPHORUS (BEAKER) (test vzfg=899) 4.3 mg/dL 2.3-4.7 [id number] 07:02:00 Test Item Value Reference Range Comments MAGNESIUM (BEAKER) (test ehdi=305) 2.0 mg/dL 1.6-2.6 BASIC METABOLIC [id number] 07:02:00 Test Item Value Reference Range Comments SODIUM (BEAKER) (test 140 meq/L 136-145 kwcu=194) POTASSIUM (BEAKER) (test 3.6 meq/L 3.5-5.1 msso=492) CHLORIDE (BEAKER) (test 104 meq/L 98-107 cmyc=562) CO2 (BEAKER) (test 29 meq/L 22-29 szyn=977) BLOOD UREA NITROGEN 17 mg/dL 7-21 (BEAKER) (test tbgx=003) CREATININE (BEAKER) (test 0.79 mg/dL 0.57-1.25 jbce=593) GLUCOSE RANDOM (BEAKER) 117 mg/dL 70-105 (test zvmd=135) CALCIUM (BEAKER) (test 8.2 mg/dL 8.4-10.2 cwim=065) EGFR (BEAKER) (test 100 mL/min/1.73 sq m ESTIMATED GFR IS NOT kxxs=5843) ACCURATE CREATININE CLEARANCE IN PREDICTING GLOMERULAR FILTRATION RATE. ESTIMATED GFR IS NOT APPLICABLE FOR DIALYSIS PATIENTS. CBC W/PLT COUNT & AUTO [id number] 06:27:00 Test Item Value Reference Range Comments WHITE BLOOD CELL COUNT (BEAKER) (test skyi=529) 7.9 K/ L 3.5-10.5 RED BLOOD CELL COUNT (BEAKER) (test ahfk=206) 4.28 M/ L 4.63-6.08 HEMOGLOBIN (BEAKER) (test zpsr=053) 11.6 GM/DL 13.7-17.5 HEMATOCRIT (BEAKER) (test qzfs=599) 37.2 % 40.1-51.0 MEAN CORPUSCULAR VOLUME (BEAKER) (test zmkz=589) 86.9 fL 79.0-92.2 MEAN CORPUSCULAR HEMOGLOBIN (BEAKER) (test 27.1 pg 25.7-32.2 cyjq=087) MEAN CORPUSCULAR HEMOGLOBIN CONC (BEAKER) (test 31.2 GM/DL 32.3-36.5 vzav=676) RED CELL DISTRIBUTION WIDTH (BEAKER) (test 13.7 % 11.6-14.4 aqip=444) PLATELET COUNT (BEAKER) (test qfxj=756) 194 K/CU MM 150-450 MEAN PLATELET VOLUME (BEAKER) (test qbfv=161) 10.7 fL 9.4-12.4 NUCLEATED RED BLOOD CELLS (BEAKER) (test 0 /100 WBC 0-0 ybob=359) NEUTROPHILS RELATIVE PERCENT (BEAKER) (test 64 % evdc=490) LYMPHOCYTES RELATIVE PERCENT (BEAKER) (test 23 % kije=847) MONOCYTES RELATIVE PERCENT (BEAKER) (test 10 % qjml=052) EOSINOPHILS RELATIVE PERCENT (BEAKER) (test 2 % snzm=871) BASOPHILS RELATIVE PERCENT (BEAKER) (test 1 % oduh=645) NEUTROPHILS ABSOLUTE COUNT (BEAKER) (test 5.04 K/ L 1.78-5.38 tppe=447) LYMPHOCYTES ABSOLUTE COUNT (BEAKER) (test 1.84 K/ L 1.32-3.57 zotf=020) MONOCYTES ABSOLUTE COUNT (BEAKER) (test 0.82 K/ L 0.30-0.82 ddzh=262) EOSINOPHILS ABSOLUTE COUNT (BEAKER) (test 0.16 K/ L 0.04-0.54 eeom=028) BASOPHILS ABSOLUTE COUNT (BEAKER) (test 0.05 K/ L 0.01-0.08 ysfv=258) IMMATURE GRANULOCYTES-RELATIVE PERCENT (BEAKER) 0 % 0-1 (test xaai=1120) POCT-GLUCOSE [id number] 21:49:00 Test Item Value Reference Range Comments POC-GLUCOSE METER (BEAKER) 130 mg/dL 70-110 TESTED AT [address] (test wjpo=8035) [place] [address] POCT-GLUCOSE [id number] 16:43:00 Test Item Value Reference Range Comments POC-GLUCOSE METER (BEAKER) 202 mg/dL 70-110 TESTED AT [address] (test jkuh=7246) [place] [address] [id number] 13:47:00 Test Item Value Reference Range Comments MAGNESIUM (BEAKER) (test cfcs=707) 1.7 mg/dL 1.6-2.6 Check Serum Magnesium level 2 hours after IV magnesium replacement.POCT-GLUCOSE [id number] 12:11:00 Test Item Value Reference Range Comments POC-GLUCOSE METER (BEAKER) 259 mg/dL 70-110 TESTED AT [address] (test bxdr=7625) [place] [address] POCT-GLUCOSE [id number] 08:06:00 Test Item Value Reference Range Comments POC-GLUCOSE METER (BEAKER) 236 mg/dL 70-110 TESTED AT [address] (test dfzo=9938) [place] [address] RAD, CHEST, 1 VIEW, NON [id number] 04:56:00Reason for exam:->s/p cardiac surgeryFINAL REPORT RAD, CHEST, 1 VIEW, NON DEPT INDICATION: s/p cardiac surgery COMPARISON: Prior day's exam TECHNIQUE: Portable frontal view of the chest. IMPRESSION: Stable right IJline.Removal of a left-sided chest tube.Stable cardiomegaly.No active pulmonary edema.No pneumothorax.Patchy left retrocardiac opacity, likely reflecting atelectasis.No acute osseous abnormality. Signed: Nate Rivera MDReport Verified Date/Time: 05/07/2017 04:56:05 Reading Location: [facility] C013X Ortho Consult Reading Room CBC W/ PLT COUNT & AUTO [id number] 04:22:00 Test Item Value Reference Range Comments WHITE BLOOD CELL COUNT (BEAKER) (test owue=904) 10.0 K/ L 3.5-10.5 RED BLOOD CELL COUNT (BEAKER) (test vtth=692) 4.23 M/ L 4.63-6.08 HEMOGLOBIN (BEAKER) (test ahqq=480) 11.5 GM/DL 13.7-17.5 HEMATOCRIT (BEAKER) (test rpnt=785) 36.3 % 40.1-51.0 MEAN CORPUSCULAR VOLUME (BEAKER) (test mxlb=215) 85.8 fL 79.0-92.2 MEAN CORPUSCULAR HEMOGLOBIN (BEAKER) (test 27.2 pg 25.7-32.2 zcaa=102) MEAN CORPUSCULAR HEMOGLOBIN CONC (BEAKER) (test 31.7 GM/DL 32.3-36.5 ldnm=615) RED CELL DISTRIBUTION WIDTH (BEAKER) (test 13.7 % 11.6-14.4 bpcz=827) PLATELET COUNT (BEAKER) (test lssu=370) 148 K/CU MM 150-450 MEAN PLATELET VOLUME (BEAKER) (test bzks=435) 10.9 fL 9.4-12.4 NUCLEATED RED BLOOD CELLS (BEAKER) (test 0 /100 WBC 0-0 csap=668) NEUTROPHILS RELATIVE PERCENT (BEAKER) (test 71 % txsw=262) LYMPHOCYTES RELATIVE PERCENT (BEAKER) (test 17 % zrsa=120) MONOCYTES RELATIVE PERCENT (BEAKER) (test 10 % hbto=658) EOSINOPHILS RELATIVE PERCENT (BEAKER) (test 1 % nina=456) BASOPHILS RELATIVE PERCENT (BEAKER) (test 0 % jrse=390) NEUTROPHILS ABSOLUTE COUNT (BEAKER) (test 7.08 K/ L 1.78-5.38 wloo=316) LYMPHOCYTES ABSOLUTE COUNT (BEAKER) (test 1.69 K/ L 1.32-3.57 ejnb=087) MONOCYTES ABSOLUTE COUNT (BEAKER) (test 1.03 K/ L 0.30-0.82 cbdc=747) EOSINOPHILS ABSOLUTE COUNT (BEAKER) (test 0.14 K/ L 0.04-0.54 tmxv=633) BASOPHILS ABSOLUTE COUNT (BEAKER) (test 0.04 K/ L 0.01-0.08 eilb=727) IMMATURE GRANULOCYTES-RELATIVE PERCENT (BEAKER) 0 % 0-1 (test qgbc=5659) BASIC METABOLIC [id number] 04:13:00 Test Item Value Reference Range Comments SODIUM (BEAKER) (test 137 meq/L 136-145 moee=676) POTASSIUM (BEAKER) (test 3.9 meq/L 3.5-5.1 dinh=840) CHLORIDE (BEAKER) (test 105 meq/L 98-107 qkdb=428) CO2 (BEAKER) (test 27 meq/L 22-29 oqit=104) BLOOD UREA NITROGEN 14 mg/dL 7-21 (BEAKER) (test xcqc=791) CREATININE (BEAKER) (test 0.70 mg/dL 0.57-1.25 esfd=852) GLUCOSE RANDOM (BEAKER) 164 mg/dL 70-105 (test isjt=499) CALCIUM (BEAKER) (test 7.9 mg/dL 8.4-10.2 hfxl=732) EGFR (BEAKER) (test 115 mL/min/1.73 sq m ESTIMATED GFR IS NOT evha=2466) ACCURATE CREATININE CLEARANCE IN PREDICTING GLOMERULAR FILTRATION RATE. ESTIMATED GFR IS NOT APPLICABLE FOR DIALYSIS PATIENTS. [id number] 04:04:00 Test Item Value Reference Range Comments PHOSPHORUS (BEAKER) (test wnjw=969) 3.1 mg/dL 2.3-4.7 [id number] 04:04:00 Test Item Value Reference Range Comments MAGNESIUM (BEAKER) (test vyrv=846) 1.6 mg/dL 1.6-2.6 LACTIC ACID, ARTERIAL, WHOLE [id number] 03:59:00 Test Item Value Reference Range Comments LACTATE BLOOD ARTERIAL (2) (BEAKER) (test 0.8 mmol/L 0.5-2.2 ukzq=1618) Effective 12/04/2015: Units/Reference Range ChangeNew: 0.5-2.2 mmol/L Previous: 5 -20 mg/dLOXYGEN SATURATION, [id number] 03:37:00 Test Item Value Reference Range Comments O2 SATURATION (MEASURED) (BEAKER) (test mddu=0870) 67.4 % CALCIUM, [id number] 03:37:00 Test Item Value Reference Range Comments CALCIUM IONIZED (BEAKER) (test bzxj=437) 1.13 mmol/L 1.12-1.27 PH, BLOOD (BEAKER) (test ukfw=1244) 7.40 POCT-GLUCOSE [id number] 22:22:00 Test Item Value Reference Range Comments POC-GLUCOSE METER (BEAKER) 223 mg/dL 70-110 TESTED AT [address] (test wmfw=2661) [facility] [address] POCT-GLUCOSE [id number] 22:14:00 Test Item Value Reference Range Comments POC-GLUCOSE METER (BEAKER) 201 mg/dL 70-110 TESTED AT [address] (test ulfg=0225) [facility] [address] POCT-GLUCOSE [id number] 16:51:00 Test Item Value Reference Range Comments POC-GLUCOSE METER (BEAKER) 256 mg/dL 70-110 TESTED AT [address] (test vmwa=8463) [facility] [address] CALCIUM, [id number] 12:39:00 Test Item Value Reference Range Comments CALCIUM IONIZED (BEAKER) (test ucbm=670) 1.21 mmol/L 1.12-1.27 PH, BLOOD (BEAKER) (test bwey=5714) 7.44 POCT-GLUCOSE [id number] 12:29:00 Test Item Value Reference Range Comments POC-GLUCOSE METER (BEAKER) 286 mg/dL 70-110 TESTED AT [address] (test wxvn=7128) [facility] [address] POCT-GLUCOSE [id number] 11:35:00 Test Item Value Reference Range Comments POC-GLUCOSE METER (BEAKER) 242 mg/dL 70-110 TESTED AT [facility] [address] [facility] (test gbmp=7354) [facility] [address] BASIC METABOLIC [id number] 06:26:00 Test Item Value Reference Range Comments SODIUM (BEAKER) (test 133 meq/L 136-145 uogd=637) POTASSIUM (BEAKER) (test 4.3 meq/L 3.5-5.1 jqtm=295) CHLORIDE (BEAKER) (test 104 meq/L 98-107 gvdq=045) CO2 (BEAKER) (test 23 meq/L 22-29 npco=261) BLOOD UREA NITROGEN 13 mg/dL 7-21 (BEAKER) (test amua=222) CREATININE (BEAKER) (test 0.68 mg/dL 0.57-1.25 triq=633) GLUCOSE RANDOM (BEAKER) 261 mg/dL 70-105 (test plla=731) CALCIUM (BEAKER) (test 7.9 mg/dL 8.4-10.2 bqrt=334) EGFR (BEAKER) (test 119 mL/min/1.73 sq m ESTIMATED GFR IS NOT mruv=1015) ACCURATE CREATININE CLEARANCE IN PREDICTING GLOMERULAR FILTRATION RATE. ESTIMATED GFR IS NOT APPLICABLE FOR DIALYSIS PATIENTS. [id number] 06:25:00 Test Item Value Reference Range Comments PHOSPHORUS (BEAKER) (test qhal=230) 3.2 mg/dL 2.3-4.7 [id number] 06:25:00 Test Item Value Reference Range Comments MAGNESIUM (BEAKER) (test bhap=059) 1.7 mg/dL 1.6-2.6 CBC W/PLT COUNT & AUTO [id number] 06:00:00 Test Item Value Reference Range Comments WHITE BLOOD CELL COUNT (BEAKER) (test yrac=443) 11.1 K/ L 3.5-10.5 RED BLOOD CELL COUNT (BEAKER) (test gpjz=538) 4.61 M/ L 4.63-6.08 HEMOGLOBIN (BEAKER) (test vurw=614) 12.6 GM/DL 13.7-17.5 HEMATOCRIT (BEAKER) (test kerr=576) 39.6 % 40.1-51.0 MEAN CORPUSCULAR VOLUME (BEAKER) (test rhlc=552) 85.9 fL 79.0-92.2 MEAN CORPUSCULAR HEMOGLOBIN (BEAKER) (test 27.3 pg 25.7-32.2 afpm=210) MEAN CORPUSCULAR HEMOGLOBIN CONC (BEAKER) (test 31.8 GM/DL 32.3-36.5 mpno=193) RED CELL DISTRIBUTION WIDTH (BEAKER) (test 13.8 % 11.6-14.4 ioyq=633) PLATELET COUNT (BEAKER) (test ogql=941) 157 K/CU MM 150-450 MEAN PLATELET VOLUME (BEAKER) (test awmz=910) 10.5 fL 9.4-12.4 NUCLEATED RED BLOOD CELLS (BEAKER) (test 0 /100 WBC 0-0 wwxy=387) NEUTROPHILS RELATIVE PERCENT (BEAKER) (test 74 % sads=932) LYMPHOCYTES RELATIVE PERCENT (BEAKER) (test 15 % yweq=014) MONOCYTES RELATIVE PERCENT (BEAKER) (test 9 % vddd=016) EOSINOPHILS RELATIVE PERCENT (BEAKER) (test 1 % hcyn=418) BASOPHILS RELATIVE PERCENT (BEAKER) (test 0 % hxbl=264) NEUTROPHILS ABSOLUTE COUNT (BEAKER) (test 8.24 K/ L 1.78-5.38 cuai=243) LYMPHOCYTES ABSOLUTE COUNT (BEAKER) (test 1.68 K/ L 1.32-3.57 syyv=705) MONOCYTES ABSOLUTE COUNT (BEAKER) (test 0.98 K/ L 0.30-0.82 grhn=955) EOSINOPHILS ABSOLUTE COUNT (BEAKER) (test 0.07 K/ L 0.04-0.54 sseq=719) BASOPHILS ABSOLUTE COUNT (BEAKER) (test 0.04 K/ L 0.01-0.08 plnm=649) IMMATURE GRANULOCYTES-RELATIVE PERCENT (BEAKER) 1 % 0-1 (test dyln=4462) OXYGEN SATURATION, [id number] 05:52:00 Test Item Value Reference Range Comments O2 SATURATION (MEASURED) (BEAKER) (test rldb=1164) 94.9 % CALCIUM, [id number] 05:52:00 Test Item Value Reference Range Comments CALCIUM IONIZED (BEAKER) (test nzfw=405) 1.05 mmol/L 1.12-1.27 PH, BLOOD (BEAKER) (test fbek=3667) 7.37 RAD, CHEST, 1 VIEW, NON [id number] 05:01:00while patient is intubated or has chest tubes.Reason for exam:->s/p sternotomyShould this be performed at the bedside?->YesFINAL REPORT RAD, CHEST, 1 VIEW, NON DEPT INDICATION: s/p sternotomy COMPARISON: Prior day's exam TECHNIQUE: Portable frontal view of the chest. IMPRESSION: Lines and tubes stable.Cardiomediastinal silhouette stable.No large focal airspace opacity or acute pulmonary edema.No acute osseous abnormality. Signed: Nate Riveraeport Verified Date/Time: 05/06/2017 05:01:31 Reading Location: [facility] C013X Ortho Consult Reading Room POCT-GLUCOSE [id number] 23:53:00 Test Item Value Reference Range Comments POC-GLUCOSE METER (BEAKER) 238 mg/dL 70-110 TESTED AT [address] (test xjqi=5843) [facility] [address] POCT-GLUCOSE [id number] 17:09:00 Test Item Value Reference Range Comments POC-GLUCOSE METER (BEAKER) 260 mg/dL 70-110 TESTED AT [address] (test rsrv=4496) [facility] [address] POCT-GLUCOSE [id number] 09:11:00 Test Item Value Reference Range Comments POC-GLUCOSE METER (BEAKER) 133 mg/dL 70-110 TESTED AT [address] (test syvt=9238) [facility] [address] RAD, CHEST, 1 VIEW, NON [id number] 07:57:00while patient is intubated or has chest tubes.Reason for exam:->s/p sternotomyShould this be performed at the bedside?->YesFINAL REPORT Chest, one view. HISTORY : Sternotomy COMPARISON: 05/04/2017 IMPRESSION: Interval extubation. Right- sided vascular neck sheath remains. Left-sided chest tube unchanged in position. No identifiable pneumothorax. Unchanged mild interstitial edema and enlargement of thecardiomediastinal silhouette. Signed: Jim Luz MDReport Verified Date/Time: 05/05/2017 07:57:10Reading Location: [facility] Diagnostic Imaging Reading Room - [place] [id number] POCT-GLUCOSE [id number] 06:24:00 Test Item Value Reference Range Comments POC-GLUCOSE METER (BEAKER) 137 mg/dL 70-110 TESTED AT [place] [id number] [facility] (test vmpy=0827) [facility] [address] POCT-GLUCOSE [id number] 06:24:00 Test Item Value Reference Range Comments POC-GLUCOSE METER (BEAKER) 129 mg/dL 70-110 TESTED AT [address] (test zpsk=5251) [facility] [address] CBC W/PLT COUNT & AUTO [id number] 05:17:00 Test Item Value Reference Range Comments WHITE BLOOD CELL COUNT (BEAKER) (test qhxq=052) 10.5 K/ L 3.5-10.5 RED BLOOD CELL COUNT (BEAKER) (test byka=464) 5.40 M/ L 4.63-6.08 HEMOGLOBIN (BEAKER) (test ntix=275) 14.5 GM/DL 13.7-17.5 HEMATOCRIT (BEAKER) (test fuoc=214) 45.4 % 40.1-51.0 MEAN CORPUSCULAR VOLUME (BEAKER) (test abor=962) 84.1 fL 79.0-92.2 MEAN CORPUSCULAR HEMOGLOBIN (BEAKER) (test 26.9 pg 25.7-32.2 ebub=178) MEAN CORPUSCULAR HEMOGLOBIN CONC (BEAKER) (test 31.9 GM/DL 32.3-36.5 dpmx=146) RED CELL DISTRIBUTION WIDTH (BEAKER) (test 13.8 % 11.6-14.4 soou=883) PLATELET COUNT (BEAKER) (test udjx=218) 180 K/CU MM 150-450 MEAN PLATELET VOLUME (BEAKER) (test snxe=739) 10.4 fL 9.4-12.4 NUCLEATED RED BLOOD CELLS (BEAKER) (test 0 /100 WBC 0-0 qcuk=303) NEUTROPHILS RELATIVE PERCENT (BEAKER) (test 77 % cszq=411) LYMPHOCYTES RELATIVE PERCENT (BEAKER) (test 14 % rrey=982) MONOCYTES RELATIVE PERCENT (BEAKER) (test 9 % hcjc=657) EOSINOPHILS RELATIVE PERCENT (BEAKER) (test 0 % sjab=707) BASOPHILS RELATIVE PERCENT (BEAKER) (test 0 % uxtd=421) NEUTROPHILS ABSOLUTE COUNT (BEAKER) (test 8.05 K/ L 1.78-5.38 ktch=289) LYMPHOCYTES ABSOLUTE COUNT (BEAKER) (test 1.47 K/ L 1.32-3.57 ixti=482) MONOCYTES ABSOLUTE COUNT (BEAKER) (test 0.90 K/ L 0.30-0.82 cgps=380) EOSINOPHILS ABSOLUTE COUNT (BEAKER) (test 0.03 K/ L 0.04-0.54 rrwy=933) BASOPHILS ABSOLUTE COUNT (BEAKER) (test 0.03 K/ L 0.01-0.08 qbsx=072) IMMATURE GRANULOCYTES-RELATIVE PERCENT (BEAKER) 0 % 0-1 (test gsjf=6623) [id number] 04:45:00 Test Item Value Reference Range Comments PHOSPHORUS (BEAKER) (test usvf=489) 4.3 mg/dL 2.3-4.7 [id number] 04:45:00 Test Item Value Reference Range Comments MAGNESIUM (BEAKER) (test jbdb=750) 2.2 mg/dL 1.6-2.6 BASIC METABOLIC [id number] 04:45:00 Test Item Value Reference Range Comments SODIUM (BEAKER) (test 139 meq/L 136-145 lkra=525) POTASSIUM (BEAKER) (test 3.9 meq/L 3.5-5.1 mtxu=224) CHLORIDE (BEAKER) (test 108 meq/L 98-107 mkrw=200) CO2 (BEAKER) (test 25 meq/L 22-29 xohn=180) BLOOD UREA NITROGEN 14 mg/dL 7-21 (BEAKER) (test udrz=306) CREATININE (BEAKER) (test 0.77 mg/dL 0.57-1.25 ckyl=013) GLUCOSE RANDOM (BEAKER) 146 mg/dL 70-105 (test ypkr=077) CALCIUM (BEAKER) (test 8.6 mg/dL 8.4-10.2 cutw=240) EGFR (BEAKER) (test 103 mL/min/1.73 sq m ESTIMATED GFR IS NOT cpwc=4414) ACCURATE CREATININE CLEARANCE IN PREDICTING GLOMERULAR FILTRATION RATE. ESTIMATED GFR IS NOT APPLICABLE FOR DIALYSIS PATIENTS. POCT-GLUCOSE [id number] 04:42:00 Test Item Value Reference Range Comments POC-GLUCOSE METER (BEAKER) 143 mg/dL 70-110 TESTED AT [address] (test ppgg=8424) [facility] [address] LACTIC ACID, ARTERIAL, WHOLE [id number] 04:41:00 Test Item Value Reference Range Comments LACTATE BLOOD ARTERIAL (2) (BEAKER) (test 0.8 mmol/L 0.5-2.2 plli=8381) Effective 12/04/2015: Units/Reference Range ChangeNew: 0.5-2.2 mmol/L Previous: 5 -20 mg/dLBLOOD GAS, [id number] 04:31:00 Test Item Value Reference Range Comments PH ARTERIAL (BEAKER) (test wkca=023) 7.41 7.35-7.45 PCO2 ARTERIAL (BEAKER) (test vshe=594) 40 mmHg 35-45 PO2 ARTERIAL (BEAKER) (test akkv=618) 86 mmHg 80-90 O2 SATURATION ARTERIAL (BEAKER) (test wjgp=794) 96.7 % 96.0-97.0 HCO3 ARTERIAL (BEAKER) (test pffz=117) 25 mmol/L 21-29 BASE EXCESS ARTERIAL (BEAKER) (test rvji=898) 0.2 mmol/L -2.0-3.0 PATIENT TEMPERATURE (BEAKER) (test lwhp=7621) 36.9 C FIO2 (BEAKER) (test seal=8673) 40.0 % POCT-GLUCOSE [id number] 02:23:00 Test Item Value Reference Range Comments POC-GLUCOSE METER (BEAKER) 162 mg/dL 70-110 TESTED AT [address] (test raxt=4116) [facility] [address] POCT-GLUCOSE [id number] 02:23:00 Test Item Value Reference Range Comments POC-GLUCOSE METER (BEAKER) 188 mg/dL 70-110 TESTED AT [address] (test yqdu=1996) [facility] [address] POCT-GLUCOSE [id number] 02:23:00 Test Item Value Reference Range Comments POC-GLUCOSE METER (BEAKER) 198 mg/dL 70-110 TESTED AT [address] (test vqch=8688) [place] [id number] POCT-GLUCOSE [id number] 02:10:00 Test Item Value Reference Range Comments POC-GLUCOSE METER (BEAKER) 222 mg/dL 70-110 TESTED AT [address] (test xruw=8014) [place] [address] POCT-GLUCOSE [id number] 02:10:00 Test Item Value Reference Range Comments POC-GLUCOSE METER (BEAKER) 283 mg/dL 70-110 TESTED AT [address] (test ahwx=8409) [place] [address] [id number] 01:45:00 Test Item Value Reference Range Comments MAGNESIUM (BEAKER) (test 2.8 mg/dL 1.6-2.6 Specimen moderately hemolyzed kfpy=217) POCT-GLUCOSE [id number] 22:40:00 Test Item Value Reference Range Comments POC-GLUCOSE METER (BEAKER) 221 mg/dL 70-110 TESTED AT [address] (test vxfl=8174) [place] [address] POCT-GLUCOSE [id number] 22:40:00 Test Item Value Reference Range Comments POC-GLUCOSE METER (BEAKER) 225 mg/dL 70-110 TESTED AT [address] (test fgcu=0931) [place] [address] [id number] 22:20:00 Test Item Value Reference Range Comments POTASSIUM (BEAKER) (test eymm=901) 4.5 meq/L 3.5-5.1 [id number] 22:20:00 Test Item Value Reference Range Comments MAGNESIUM (BEAKER) (test xbym=491) 1.9 mg/dL 1.6-2.6 CALCIUM, [id number] 21:52:00 Test Item Value Reference Range Comments CALCIUM IONIZED (BEAKER) (test lpka=314) 1.11 mmol/L 1.12-1.27 PH, BLOOD (BEAKER) (test ddea=2261) 7.38 OXYGEN SATURATION, [id number] 21:51:00 Test Item Value Reference Range Comments O2 SATURATION (MEASURED) (BEAKER) (test egqp=0507) 69.8 % LACTIC ACID, ARTERIAL, WHOLE [id number] 18:10:00 Test Item Value Reference Range Comments LACTATE BLOOD ARTERIAL (2) 1.0 mmol/L 0.5-2.2 Specimen slightly hemolyzed (BEAKER) (test fisl=4878) Effective 12/04/2015: Units/Reference Range ChangeNew: 0.5-2.2 mmol/L Previous: 5 -20 mg/dLHEMOGLOBIN AND [id number] 17:39:00 Test Item Value Reference Range Comments HEMOGLOBIN (BEAKER) (test xpgu=890) 15.2 GM/DL 13.7-17.5 HEMATOCRIT (BEAKER) (test ofyk=557) 45.0 % 40.1-51.0 BLOOD GAS, [id number] 17:39:00 Test Item Value Reference Range Comments PH ARTERIAL (BEAKER) (test aala=627) 7.38 7.35-7.45 PCO2 ARTERIAL (BEAKER) (test dtsx=537) 42 mmHg 35-45 PO2 ARTERIAL (BEAKER) (test fxqp=491) 92 mmHg 80-90 O2 SATURATION ARTERIAL (BEAKER) (test hfux=078) 96.7 % 96.0-97.0 HCO3 ARTERIAL (BEAKER) (test qvbm=526) 24 mmol/L 21-29 BASE EXCESS ARTERIAL (BEAKER) (test jkyr=303) -0.9 mmol/L -2.0-3.0 PATIENT TEMPERATURE (BEAKER) (test ywng=1575) 37.6 C FIO2 (BEAKER) (test pmle=2438) 99.0 % OXYGEN SATURATION, [id number] 17:38:00 Test Item Value Reference Range Comments O2 SATURATION (MEASURED) (BEAKER) (test zajn=2253) 66.6 % HEMOGLOBIN [id number] 16:50:00 Test Item Value Reference Range Comments HEMOGLOBIN A1C (BEAKER) (test pbft=464) 16.9 % 4.3-6.1 BLOOD GAS, [id number] 14:48:00 Test Item Value Reference Range Comments PH ARTERIAL (BEAKER) (test gbqu=808) 7.34 7.35-7.45 PCO2 ARTERIAL (BEAKER) (test yokq=143) 43 mmHg 35-45 PO2 ARTERIAL (BEAKER) (test obin=630) 92 mmHg 80-90 O2 SATURATION ARTERIAL (BEAKER) (test maam=018) 96.6 % 96.0-97.0 HCO3 ARTERIAL (BEAKER) (test qyau=078) 23 mmol/L 21-29 BASE EXCESS ARTERIAL (BEAKER) (test belc=394) -2.7 mmol/L -2.0-3.0 PATIENT TEMPERATURE (BEAKER) (test yxtd=5580) 37.0 C FIO2 (BEAKER) (test uknz=1957) 40.0 % POCT-GLUCOSE [id number] 14:20:00 Test Item Value Reference Range Comments POC-GLUCOSE METER (BEAKER) 282 mg/dL 70-110 TESTED AT [facility] [address] [facility] (test eqki=4546) [facility] [address] BASIC METABOLIC [id number] 13:21:00 Test Item Value Reference Range Comments SODIUM (BEAKER) (test 137 meq/L 136-145 vsrs=315) POTASSIUM (BEAKER) (test 4.8 meq/L 3.5-5.1 Specimen slightly bllt=431) hemolyzed CHLORIDE (BEAKER) (test 107 meq/L 98-107 cbkv=147) CO2 (BEAKER) (test 24 meq/L 22-29 snbx=896) BLOOD UREA NITROGEN 14 mg/dL 7-21 (BEAKER) (test vbzq=825) CREATININE (BEAKER) (test 0.75 mg/dL 0.57-1.25 Specimen slightly yqez=480) hemolyzed GLUCOSE RANDOM (BEAKER) 329 mg/dL 70-105 (test ljky=953) CALCIUM (BEAKER) (test 7.6 mg/dL 8.4-10.2 ffbf=838) EGFR (BEAKER) (test 107 mL/min/1.73 sq m ESTIMATED GFR IS NOT gfol=1099) ACCURATE CREATININE CLEARANCE IN PREDICTING GLOMERULAR FILTRATION RATE. ESTIMATED GFR IS NOT APPLICABLE FOR DIALYSIS PATIENTS. CBC W/PLT COUNT & AUTO [id number] 12:53:00 Test Item Value Reference Range Comments WHITE BLOOD CELL COUNT (BEAKER) (test brkt=809) 12.7 K/ L 3.5-10.5 RED BLOOD CELL COUNT (BEAKER) (test aoau=233) 5.36 M/ L 4.63-6.08 HEMOGLOBIN (BEAKER) (test rlmd=379) 14.7 GM/DL 13.7-17.5 HEMATOCRIT (BEAKER) (test fycb=252) 45.2 % 40.1-51.0 MEAN CORPUSCULAR VOLUME (BEAKER) (test qtjx=308) 84.3 fL 79.0-92.2 MEAN CORPUSCULAR HEMOGLOBIN (BEAKER) (test 27.4 pg 25.7-32.2 oicj=355) MEAN CORPUSCULAR HEMOGLOBIN CONC (BEAKER) (test 32.5 GM/DL 32.3-36.5 fycs=566) RED CELL DISTRIBUTION WIDTH (BEAKER) (test 13.4 % 11.6-14.4 tpmp=267) PLATELET COUNT (BEAKER) (test hqsw=662) 166 K/CU MM 150-450 MEAN PLATELET VOLUME (BEAKER) (test wlec=655) 10.8 fL 9.4-12.4 NUCLEATED RED BLOOD CELLS (BEAKER) (test 0 /100 WBC 0-0 pjzp=604) NEUTROPHILS RELATIVE PERCENT (BEAKER) (test 77 % vkda=423) LYMPHOCYTES RELATIVE PERCENT (BEAKER) (test 16 % scpj=616) MONOCYTES RELATIVE PERCENT (BEAKER) (test 5 % mlbp=210) EOSINOPHILS RELATIVE PERCENT (BEAKER) (test 1 % nmzs=069) BASOPHILS RELATIVE PERCENT (BEAKER) (test 0 % dejj=244) NEUTROPHILS ABSOLUTE COUNT (BEAKER) (test 9.73 K/ L 1.78-5.38 gixj=560) LYMPHOCYTES ABSOLUTE COUNT (BEAKER) (test 2.06 K/ L 1.32-3.57 aswb=807) MONOCYTES ABSOLUTE COUNT (BEAKER) (test 0.63 K/ L 0.30-0.82 gqrw=058) EOSINOPHILS ABSOLUTE COUNT (BEAKER) (test 0.10 K/ L 0.04-0.54 fund=167) BASOPHILS ABSOLUTE COUNT (BEAKER) (test 0.05 K/ L 0.01-0.08 vpty=713) IMMATURE GRANULOCYTES-RELATIVE PERCENT (BEAKER) 1 % 0-1 (test xiug=6053) LACTIC ACID, ARTERIAL, WHOLE [id number] 12:51:00 Test Item Value Reference Range Comments LACTATE BLOOD ARTERIAL (2) 0.9 mmol/L 0.5-2.2 Specimen slightly hemolyzed (BEAKER) (test atcn=5314) Effective 12/04/2015: Units/Reference Range ChangeNew: 0.5-2.2 mmol/L Previous: 5 -20 mg/dLPT/[id number] 12:47:00 Test Item Value Reference Range Comments PROTIME (BEAKER) (test txxh=966) 15.8 seconds 11.7-14.7 INR (BEAKER) (test xccr=705) 1.3 <=5.9 PARTIAL THROMBOPLASTIN TIME (BEAKER) (test 34.9 seconds 22.5-36.0 qecf=740) RECOMMENDED COUMADIN/WARFARIN INR THERAPY RANGESSTANDARD DOSE: 2.0 - 3.0 Includes: PROPHYLAXIS forvenous thrombosis, systemic embolization; TREATMENT for venous thrombosis and/or pulmonary embolus.HIGH RISK: Target INR is 2.5-3.5 for patients with mechanical heart valves.RAD, CHEST, 1 VIEW, NON [id number] 12:36:00Reason for exam:->s/p sternotomyShould this be performed at the bedside?->YesFINAL REPORT Chest one view. Clinical history: s/p sternotomy Comparison: May 02, 2017 Discussion: A frontal chest is provided. ET is 5 cm above the martinez. A feeding tube projects below the diaphragm. A right IJ approach [place] catheter projects over the pulmonary outflow tract, there is a left-sided chest tube, and a midline catheter that likely represents a mediastinal drain. Cardiomediastinal contours are unchanged. Low lung volumes with left basilar atelectasis. Right lung is grossly clear. No pneumothorax, or large effusion. Signed: [facility] Verified Date/Time: 05/04/2017 12:36:10 Reading Location: [facility] B1 [id number] Consult Reading Room 12: 36 PMCALCIUM, [id number] 12:07:00 Test Item Value Reference Range Comments CALCIUM IONIZED (BEAKER) (test gkvx=256) 1.12 mmol/L 1.12-1.27 PH, BLOOD (BEAKER) (test dfrr=7386) 7.33 BLOOD GAS, [id number] 12:06:00 Test Item Value Reference Range Comments PH ARTERIAL (BEAKER) (test yykq=324) 7.34 7.35-7.45 PCO2 ARTERIAL (BEAKER) (test ezhe=082) 48 mmHg 35-45 PO2 ARTERIAL (BEAKER) (test rzqu=387) 95 mmHg 80-90 O2 SATURATION ARTERIAL (BEAKER) (test cwom=832) 97.0 % 96.0-97.0 HCO3 ARTERIAL (BEAKER) (test eowq=791) 25 mmol/L 21-29 BASE EXCESS ARTERIAL (BEAKER) (test edzd=598) -1.2 mmol/L -2.0-3.0 PATIENT TEMPERATURE (BEAKER) (test avxb=2642) 36.3 C FIO2 (BEAKER) (test qbxr=0623) 60.0 % GLUCOSE-STAT [id number] 12:06:00 Test Item Value Reference Range Comments GLUCOSE RANDOM (BEAKER) (test gvgn=210) 296 mg/dL 70-110 SODIUM NA-STAT [id number] 12:06:00 Test Item Value Reference Range Comments SODIUM (BEAKER) (test pqxq=800) 134 meq/L 135-148 POTASSIUM-STAT [id number] 12:05:00 Test Item Value Reference Range Comments POTASSIUM (BEAKER) (test halp=507) 4.7 meq/L 3.6-5.5 HGB/HCT (H&H) - STAT [id number] 12:05:00 Test Item Value Reference Range Comments HEMOGLOBIN (BEAKER) (test lfis=577) 14.7 g/dL 13.0-16.8 HEMATOCRIT (BEAKER) (test ktat=441) 43.0 % 40.0-50.0 OXYGEN SATURATION, [id number] 12:05:00 Test Item Value Reference Range Comments O2 SATURATION (MEASURED) (BEAKER) (test iisj=9153) 63.8 % For occult [id number] 11:01:00 Test Item Value Reference Range Comments ACTIVATED CLOTTING TIME 109 sec TESTED AT [place] [id number] [facility] (BEAKER) (test tjvx=846) [place] [address] [id number] 11:01:00 Test Item Value Reference Range Comments ACTIVATED CLOTTING TIME 428 sec TESTED AT [place] [id number] [facility] (BE[facility]ER[facility] (test yamh=158) [place] [address] [id number] 11:01:00 Test Item Value Reference Range Comments ACTIVATED CLOTTING TIME 456 sec TESTED AT [facility] [address] (BEAKER) (test eyiy=615) [facility] [address] THROMBOELASTOGRAPH (TEG)2017-05-04 10:48:00 Test Item Value Reference Range Comments TEG ACTIVATED CLOTTING TIME (BEAKER) (test 5.8 minutes 4.0-7.0 olxj=5939) TEG FIBRINOGEN ACTIVITY (BEAKER) (test 67.5 degrees 61.0-73.0 nxoj=4897) TEG PLT. AGGREGATION (BEAKER) (test xfgx=1232) 48.4 MM 55.0-65.0 TGH ACTIVATED CLOTTING TIME (BEAKER) (test 6.0 minutes 4.0-7.0 mgnq=2700) TGH FIBRINOGEN ACTIVITY (BEAKER) (test 61.5 degrees 61.0-73.0 rpmi=7966) TGH PLT. AGGREGATION (BEAKER) (test rfda=7306) 39.6 MM 55.0-65.0 PLATELET [id number] 10:39:00 Test Item Value Reference Range Comments PLATELET COUNT (BEAKER) (test nrvf=781) 146 K/CU MM 150-450 [id number] 10:28:00 Test Item Value Reference Range Comments PARTIAL THROMBOPLASTIN TIME (BEAKER) (test 35.6 seconds 22.5-36.0 zzuj=116) PROTHROMBIN [id number] 10:27:00 Test Item Value Reference Range Comments PROTIME (BEAKER) (test wbxd=134) 18.1 seconds 11.7-14.7 INR (BEAKER) (test wpkz=315) 1.5 <=5.9 RECOMMENDED COUMADIN/WARFARIN INR THERAPY RANGESSTANDARD DOSE: 2.0 - 3.0 Includes: PROPHYLAXIS forvenous thrombosis, systemic embolization; TREATMENT for venous thrombosis and/or pulmonary embolus.HIGH RISK: Target INR is 2.5-3.5 for patients with mechanical heart valves.[id number] 10:27:00 Test Item Value Reference Range Comments FIBRINOGEN LEVEL (BEAKER) (test llnk=503) 327 mg/dl 225-434 POTASSIUM-STAT [id number] 10:18:00 Test Item Value Reference Range Comments POTASSIUM (BEAKER) (test pays=468) 4.7 meq/L 3.6-5.5 BLOOD GAS, [id number] 10:18:00 Test Item Value Reference Range Comments PH ARTERIAL (BEAKER) (test momn=953) 7.35 7.35-7.45 PCO2 ARTERIAL (BEAKER) (test obsw=103) 47 mmHg 35-45 PO2 ARTERIAL (BEAKER) (test ncam=582) 340 mmHg 80-90 O2 SATURATION ARTERIAL (BEAKER) (test qatl=793) 99.7 % 96.0-97.0 HCO3 ARTERIAL (BEAKER) (test iifu=607) 26 mmol/L 21-29 BASE EXCESS ARTERIAL (BEAKER) (test stbd=945) -0.4 mmol/L -2.0-3.0 PATIENT TEMPERATURE (BEAKER) (test yjzz=6932) 36.2 C FIO2 (BEAKER) (test wjgp=6501) 92.0 % SODIUM NA-STAT [id number] 10:18:00 Test Item Value Reference Range Comments SODIUM (BEAKER) (test uotk=675) 134 meq/L 135-148 GLUCOSE-STAT [id number] 10:18:00 Test Item Value Reference Range Comments GLUCOSE RANDOM (BEAKER) (test pbsy=363) 260 mg/dL 70-110 HGB/HCT (H&H) - STAT [id number] 10:18:00 Test Item Value Reference Range Comments HEMOGLOBIN (BEAKER) (test ntya=014) 12.7 g/dL 13.0-16.8 HEMATOCRIT (BEAKER) (test bkpq=582) 37.0 % 40.0-50.0 CALCIUM, [id number] 10:16:00 Test Item Value Reference Range Comments CALCIUM IONIZED (BEAKER) (test kmaz=946) 1.15 mmol/L 1.12-1.27 PH, BLOOD (BEAKER) (test tyen=7613) 7.34 POTASSIUM-STAT [id number] 09:32:00 Test Item Value Reference Range Comments POTASSIUM (BEAKER) (test ztjf=112) 3.8 meq/L 3.6-5.5 BLOOD GAS, [id number] 09:32:00 Test Item Value Reference Range Comments PH ARTERIAL (BEAKER) (test hzih=340) 7.35 7.35-7.45 PCO2 ARTERIAL (BEAKER) (test bpvc=064) 46 mmHg 35-45 PO2 ARTERIAL (BEAKER) (test feyn=736) 279 mmHg 80-90 O2 SATURATION ARTERIAL (BEAKER) (test dwei=018) 99.6 % 96.0-97.0 HCO3 ARTERIAL (BEAKER) (test phvq=171) 27 mmol/L 21-29 BASE EXCESS ARTERIAL (BEAKER) (test zudp=825) -1.4 mmol/L -2.0-3.0 PATIENT TEMPERATURE (BEAKER) (test fmgz=6863) 30.8 C FIO2 (BEAKER) (test wwnr=7919) 65.0 % GLUCOSE-STAT [id number] 09:32:00 Test Item Value Reference Range Comments GLUCOSE RANDOM (BEAKER) (test ruxv=073) 230 mg/dL 70-110 HGB/HCT (H&H) - STAT [id number] 09:32:00 Test Item Value Reference Range Comments HEMOGLOBIN (BEAKER) (test skmq=207) 11.6 g/dL 13.0-16.8 HEMATOCRIT (BEAKER) (test dxqm=128) 34.0 % 40.0-50.0 SODIUM NA-STAT [id number] 09:32:00 Test Item Value Reference Range Comments SODIUM (BEAKER) (test lyuv=924) 134 meq/L 135-148 BLOOD GAS, [id number] 08:13:00 Test Item Value Reference Range Comments PH ARTERIAL (BEAKER) (test mexh=416) 7.37 7.35-7.45 PCO2 ARTERIAL (BEAKER) (test jeyf=147) 48 mmHg 35-45 PO2 ARTERIAL (BEAKER) (test tlwo=431) 413 mmHg 80-90 O2 SATURATION ARTERIAL (BEAKER) (test axfx=801) 99.8 % 96.0-97.0 HCO3 ARTERIAL (BEAKER) (test egvl=786) 27 mmol/L 21-29 BASE EXCESS ARTERIAL (BEAKER) (test pkjb=241) 0.8 mmol/L -2.0-3.0 PATIENT TEMPERATURE (BEAKER) (test qqmo=3155) 37.0 C FIO2 (BEAKER) (test mmwk=3729) 97.0 % GLUCOSE-STAT [id number] 08:13:00 Test Item Value Reference Range Comments GLUCOSE RANDOM (BEAKER) (test mdpp=057) 235 mg/dL 70-110 SODIUM NA-STAT [id number] 08:12:00 Test Item Value Reference Range Comments SODIUM (BEAKER) (test ioaj=315) 138 meq/L 135-148 POTASSIUM-STAT [id number] 08:12:00 Test Item Value Reference Range Comments POTASSIUM (BEAKER) (test xdsv=144) 3.9 meq/L 3.6-5.5 HGB/HCT (H&H) - STAT [id number] 08:12:00 Test Item Value Reference Range Comments HEMOGLOBIN (BEAKER) (test mbqs=148) 15.0 g/dL 13.0-16.8 HEMATOCRIT (BEAKER) (test uvsa=530) 44.0 % 40.0-50.0 POCT-GLUCOSE [id number] 06:41:00 Test Item Value Reference Range Comments POC-GLUCOSE METER (BEAKER) 222 mg/dL 70-110 TESTED AT [address] (test zngt=6333) [facility] [address] [id number] 05:46:00 Test Item Value Reference Range Comments MAGNESIUM (BEAKER) (test xryt=284) 1.9 mg/dL 1.6-2.6 BASIC METABOLIC [id number] 05:46:00 Test Item Value Reference Range Comments SODIUM (BEAKER) (test 139 meq/L 136-145 jkmp=947) POTASSIUM (BEAKER) (test 3.7 meq/L 3.5-5.1 dyzg=986) CHLORIDE (BEAKER) (test 104 meq/L 98-107 ngud=354) CO2 (BEAKER) (test 26 meq/L 22-29 rgwd=589) BLOOD UREA NITROGEN 15 mg/dL 7-21 (BEAKER) (test oxpe=165) CREATININE (BEAKER) (test 0.79 mg/dL 0.57-1.25 rmrr=091) GLUCOSE RANDOM (BEAKER) 206 mg/dL 70-105 (test iqpo=842) CALCIUM (BEAKER) (test 8.9 mg/dL 8.4-10.2 zxsd=811) EGFR (BEAKER) (test 100 mL/min/1.73 sq m ESTIMATED GFR IS NOT wofm=5525) ACCURATE CREATININE CLEARANCE IN PREDICTING GLOMERULAR FILTRATION RATE. ESTIMATED GFR IS NOT APPLICABLE FOR DIALYSIS PATIENTS. CBC W/PLT COUNT & AUTO [id number] 05:23:00 Test Item Value Reference Range Comments WHITE BLOOD CELL COUNT (BEAKER) (test zpna=225) 6.0 K/ L 3.5-10.5 RED BLOOD CELL COUNT (BEAKER) (test srhe=200) 5.56 M/ L 4.63-6.08 HEMOGLOBIN (BEAKER) (test xnch=412) 15.0 GM/DL 13.7-17.5 HEMATOCRIT (BEAKER) (test ivzm=341) 47.1 % 40.1-51.0 MEAN CORPUSCULAR VOLUME (BEAKER) (test fwwy=436) 84.7 fL 79.0-92.2 MEAN CORPUSCULAR HEMOGLOBIN (BEAKER) (test 27.0 pg 25.7-32.2 ljee=257) MEAN CORPUSCULAR HEMOGLOBIN CONC (BEAKER) (test 31.8 GM/DL 32.3-36.5 vhzd=900) RED CELL DISTRIBUTION WIDTH (BEAKER) (test 13.4 % 11.6-14.4 phry=432) PLATELET COUNT (BEAKER) (test gnyv=193) 197 K/CU MM 150-450 MEAN PLATELET VOLUME (BEAKER) (test ittp=423) 10.8 fL 9.4-12.4 NUCLEATED RED BLOOD CELLS (BEAKER) (test 0 /100 WBC 0-0 xszc=066) NEUTROPHILS RELATIVE PERCENT (BEAKER) (test 51 % idqm=869) LYMPHOCYTES RELATIVE PERCENT (BEAKER) (test 37 % qefw=867) MONOCYTES RELATIVE PERCENT (BEAKER) (test 9 % smrr=920) EOSINOPHILS RELATIVE PERCENT (BEAKER) (test 3 % xyzm=015) BASOPHILS RELATIVE PERCENT (BEAKER) (test 1 % wtvk=315) NEUTROPHILS ABSOLUTE COUNT (BEAKER) (test 3.07 K/ L 1.78-5.38 awhm=635) LYMPHOCYTES ABSOLUTE COUNT (BEAKER) (test 2.21 K/ L 1.32-3.57 hrnr=754) MONOCYTES ABSOLUTE COUNT (BEAKER) (test 0.52 K/ L 0.30-0.82 klvk=797) EOSINOPHILS ABSOLUTE COUNT (BEAKER) (test 0.18 K/ L 0.04-0.54 tzpc=200) BASOPHILS ABSOLUTE COUNT (BEAKER) (test 0.05 K/ L 0.01-0.08 yqvd=464) IMMATURE GRANULOCYTES-RELATIVE PERCENT (BEAKER) 0 % 0-1 (test ugyy=8132) POCT-GLUCOSE [id number] 22:55:00 Test Item Value Reference Range Comments POC-GLUCOSE METER (BEAKER) 116 mg/dL 70-110 TESTED AT [facility] [address] [facility] (test bism=3399) [facility] [address] POCT-GLUCOSE [id number] 17:48:00 Test Item Value Reference Range Comments POC-GLUCOSE METER (BEAKER) 284 mg/dL 70-110 TESTED AT [address] (test bmjv=1135) [place] [id number] PLATELET AGGREGATION: FUNCTION [id number] 16:57:00 Test Item Value Reference Range Comments WEAK ADP RESULT(BEAKER) (test 69 % 60-91 vnog=1599) PLATELET FUNCTION SCREEN 60-100% indicates normal INTERP (BEAKER) (test platelet function sjzt=9129) [id number] (BEAKER) Dory Melchor MD (electronic (test fzgh=2284) signature) PLATELET COUNT AGG (BEAKER) 222 K/CU MM 150-450 (test igxl=5305) for patients on clopidogrel in past two [id number] 13:47:00 Test Item Value Reference Range Comments PARTIAL THROMBOPLASTIN TIME (BEAKER) (test 31.3 seconds 22.5-36.0 mbzr=038) PROTHROMBIN [id number] 13:46:00 Test Item Value Reference Range Comments PROTIME (BEAKER) (test mskh=878) 14.1 seconds 11.7-14.7 INR (BEAKER) (test vvoy=819) 1.1 <=5.9 RECOMMENDED COUMADIN/WARFARIN INR THERAPY RANGESSTANDARD DOSE: 2.0 - 3.0 Includes: PROPHYLAXIS forvenous thrombosis, systemic embolization; TREATMENT for venous thrombosis and/or pulmonary embolus.HIGH RISK: Target INR is 2.5-3.5 for patients with mechanical heart valves.POCT-GLUCOSE [id number] 11:24:00 Test Item Value Reference Range Comments POC-GLUCOSE METER (BEAKER) 329 mg/dL 70-110 Notified RN MD/TESTED AT [facility] (test dkwz=1843) [address] [facility] [address] POCT-GLUCOSE [id number] 09:23:00 Test Item Value Reference Range Comments POC-GLUCOSE METER (BEAKER) 328 mg/dL 70-110 Notified LAURA PARRA/TESTED AT [facility] (test yriq=7517) [address] [facility] [address] B-TYPE NATRIURETIC FACTOR (BNP)2017-05-03 03:21:00 Test Item Value Reference Range Comments B-TYPE NATRIURETIC PEPTIDE (BEAKER) (test ndbs=491) 53 pg/mL 0-100 [id number] 03:12:00 Test Item Value Reference Range Comments MAGNESIUM (BEAKER) (test 2.1 mg/dL 1.6-2.6 Specimen slightly hemolyzed ggny=019) BASIC METABOLIC [id number] 03:12:00 Test Item Value Reference Range Comments SODIUM (BEAKER) (test 137 meq/L 136-145 kxyu=468) POTASSIUM (BEAKER) (test 4.1 meq/L 3.5-5.1 Specimen slightly lahf=610) hemolyzed CHLORIDE (BEAKER) (test 103 meq/L 98-107 mvpf=457) CO2 (BEAKER) (test 25 meq/L 22-29 bpqv=229) BLOOD UREA NITROGEN 17 mg/dL 7-21 (BEAKER) (test tkyf=743) CREATININE (BEAKER) (test 0.88 mg/dL 0.57-1.25 Specimen slightly gyyj=207) hemolyzed GLUCOSE RANDOM (BEAKER) 323 mg/dL 70-105 (test psnm=994) CALCIUM (BEAKER) (test 8.7 mg/dL 8.4-10.2 ynwq=757) EGFR (BEAKER) (test 89 mL/min/1.73 sq m ESTIMATED GFR IS NOT ilnm=0578) ACCURATE CREATININE CLEARANCE IN PREDICTING GLOMERULAR FILTRATION RATE. ESTIMATED GFR IS NOT APPLICABLE FOR DIALYSIS PATIENTS. CBC W/PLT COUNT & AUTO [id number] 03:01:00 Test Item Value Reference Range Comments WHITE BLOOD CELL COUNT (BEAKER) (test sjkr=984) 6.4 K/ L 3.5-10.5 RED BLOOD CELL COUNT (BEAKER) (test qhue=149) 5.43 M/ L 4.63-6.08 HEMOGLOBIN (BEAKER) (test evlz=411) 14.3 GM/DL 13.7-17.5 HEMATOCRIT (BEAKER) (test npyv=788) 45.3 % 40.1-51.0 MEAN CORPUSCULAR VOLUME (BEAKER) (test jccj=924) 83.4 fL 79.0-92.2 MEAN CORPUSCULAR HEMOGLOBIN (BEAKER) (test 26.3 pg 25.7-32.2 kbym=377) MEAN CORPUSCULAR HEMOGLOBIN CONC (BEAKER) (test 31.6 GM/DL 32.3-36.5 ydau=386) RED CELL DISTRIBUTION WIDTH (BEAKER) (test 13.5 % 11.6-14.4 lcin=290) PLATELET COUNT (BEAKER) (test xypw=387) 189 K/CU MM 150-450 MEAN PLATELET VOLUME (BEAKER) (test jbxa=689) 10.9 fL 9.4-12.4 NUCLEATED RED BLOOD CELLS (BEAKER) (test 0 /100 WBC 0-0 jvte=851) NEUTROPHILS RELATIVE PERCENT (BEAKER) (test 56 % vdof=079) LYMPHOCYTES RELATIVE PERCENT (BEAKER) (test 32 % xnfs=643) MONOCYTES RELATIVE PERCENT (BEAKER) (test 9 % ocgj=175) EOSINOPHILS RELATIVE PERCENT (BEAKER) (test 2 % pses=060) BASOPHILS RELATIVE PERCENT (BEAKER) (test 1 % akuz=066) NEUTROPHILS ABSOLUTE COUNT (BEAKER) (test 3.57 K/ L 1.78-5.38 sjey=198) LYMPHOCYTES ABSOLUTE COUNT (BEAKER) (test 2.06 K/ L 1.32-3.57 xbwa=797) MONOCYTES ABSOLUTE COUNT (BEAKER) (test 0.54 K/ L 0.30-0.82 robo=157) EOSINOPHILS ABSOLUTE COUNT (BEAKER) (test 0.12 K/ L 0.04-0.54 kckw=229) BASOPHILS ABSOLUTE COUNT (BEAKER) (test 0.05 K/ L 0.01-0.08 usum=034) IMMATURE GRANULOCYTES-RELATIVE PERCENT (BEAKER) 0 % 0-1 (test hxom=9488) POCT-GLUCOSE [id number] 22:07:00 Test Item Value Reference Range Comments POC-GLUCOSE METER (BEAKER) 342 mg/dL 70-110 [address] (test pjgy=1683) [facility] [address] POCT-GLUCOSE [id number] 18:21:00 Test Item Value Reference Range Comments POC-GLUCOSE METER (BEAKER) 318 mg/dL 70-110 TESTED AT [facility] [address] [place] [address] (test ldfx=3484) [facility] [address] POCT-GLUCOSE [id number] 11:55:00 Test Item Value Reference Range Comments POC-GLUCOSE METER (BEAKER) 316 mg/dL 70-110 Notified LAURA PARRA/TESTED AT [facility] (test gofg=0867) [address] [place] [address] CREATINE KINASE (CK), TOTAL AND [id number] 10:04:00 Test Item Value Reference Range Comments CREATINE KINASE TOTAL (BEAKER) (test qohv=892) 61 U/L 29-200 CREATINE KINASE-MB (BEAKER) (test ouvv=599) 1.5 ng/mL 0.0-6.6 CREATINE KINASE-MB INDEX (BEAKER) (test tgbq=787) 2.5 % CK-MB Reference Range:<6.7 Normal6.7-10.0 Borderline>10.0 AbnormalTROPONIN [id number] 10:04:00 Test Item Value Reference Range Comments TROPONIN I (BEAKER) (test vnxn=009) 0.01 ng/mL 0.00-0.03 Troponin I (TnI) levels must be interpreted [...] failure, acidosis, acute neurological disease, and persistent tachyarrhythmia.RAD, CHEST, 1 VIEW, NON [id number] 06:50:00Reason for exam:->Baseline, NSVTShould this be performed at the bedside?->YesFINAL REPORT RAD, CHEST, 1 VIEW, NON DEPT INDICATION: Baseline, NSVT COMPARISON: None FINDINGS: Portable frontal view of the chest. IMPRESSION: Support Lines: Nine Lungs and pleura: Central congestive changes favored to represent under inflation. No effusion. No pneumothorax.Heart and mediastinum: Normal cardiac size. No venous engorgement.Additional findings: None. Signed: JR Jade, Isael YUENeport Verified Date/Time: 05/02/2017 06:50:16 Reading Location: [facility] B1 C013Y CT Body Reading Room BASIC METABOLIC [id number] 06:38:00 Test Item Value Reference Range Comments SODIUM (BEAKER) (test 137 meq/L 136-145 tekl=707) POTASSIUM (BEAKER) (test 4.2 meq/L 3.5-5.1 Specimen slightly urgw=741) hemolyzed CHLORIDE (BEAKER) (test 105 meq/L 98-107 wyla=747) CO2 (BEAKER) (test 20 meq/L 22-29 uhmh=264) BLOOD UREA NITROGEN 22 mg/dL 7-21 (BEAKER) (test fesx=921) CREATININE (BEAKER) (test 0.90 mg/dL 0.57-1.25 Specimen slightly omvk=786) hemolyzed GLUCOSE RANDOM (BEAKER) 477 mg/dL 70-105 (test hmmh=463) CALCIUM (BEAKER) (test 8.3 mg/dL 8.4-10.2 yghu=555) EGFR (BEAKER) (test 86 mL/min/1.73 sq m ESTIMATED GFR IS NOT krds=9397) ACCURATE CREATININE CLEARANCE IN PREDICTING GLOMERULAR FILTRATION RATE. ESTIMATED GFR IS NOT APPLICABLE FOR DIALYSIS PATIENTS. [id number] 06:35:00 Test Item Value Reference Range Comments MAGNESIUM (BEAKER) (test 2.3 mg/dL 1.6-2.6 Specimen slightly hemolyzed pexa=533) POCT-GLUCOSE [id number] 06:01:00 Test Item Value Reference Range Comments POC-GLUCOSE METER (BEAKER) 407 mg/dL 70-110 TESTED AT [facility] [address] [facility] (test vtjp=0952) [facility] [address] CREATINE KINASE (CK), TOTAL AND [id number] 05:53:00 Test Item Value Reference Range Comments CREATINE KINASE TOTAL (BEAKER) (test bhpi=731) 71 U/L 29-200 CREATINE KINASE-MB (BEAKER) (test omnn=018) 1.7 ng/mL 0.0-6.6 CREATINE KINASE-MB INDEX (BEAKER) (test oahp=057) 2.4 % CK-MB Reference Range:<6.7 Normal6.7-10.0 Borderline>10.0 AbnormalTSH/FREE T4 IF [id number] 05:48:00 Test Item Value Reference Range Comments THYROID STIMULATING HORMONE (BEAKER) (test 3.13 uIU/mL 0.35-4.94 chgl=893) TROPONIN [id number] 05:44:00 Test Item Value Reference Range Comments TROPONIN I (BEAKER) (test hzon=213) 0.01 ng/mL 0.00-0.03 Troponin I (TnI) levels must be interpreted [...] failure, acidosis, acute neurological disease, and persistent tachyarrhythmia.[id number] 04:54:00 Test Item Value Reference Range Comments PARTIAL THROMBOPLASTIN TIME (BEAKER) (test 36.2 seconds 22.5-36.0 dach=107) CBC W/PLT COUNT & AUTO [id number] 04:54:00 Test Item Value Reference Range Comments WHITE BLOOD CELL COUNT (BEAKER) (test uffi=600) 7.6 K/ L 3.5-10.5 RED BLOOD CELL COUNT (BEAKER) (test biyk=278) 5.56 M/ L 4.63-6.08 HEMOGLOBIN (BEAKER) (test vimg=074) 14.9 GM/DL 13.7-17.5 HEMATOCRIT (BEAKER) (test xlvp=178) 45.8 % 40.1-51.0 MEAN CORPUSCULAR VOLUME (BEAKER) (test mqzq=823) 82.4 fL 79.0-92.2 MEAN CORPUSCULAR HEMOGLOBIN (BEAKER) (test 26.8 pg 25.7-32.2 nnbj=596) MEAN CORPUSCULAR HEMOGLOBIN CONC (BEAKER) (test 32.5 GM/DL 32.3-36.5 rken=230) RED CELL DISTRIBUTION WIDTH (BEAKER) (test 13.2 % 11.6-14.4 dckc=721) PLATELET COUNT (BEAKER) (test onij=165) 221 K/CU MM 150-450 MEAN PLATELET VOLUME (BEAKER) (test ibtd=763) 11.2 fL 9.4-12.4 NUCLEATED RED BLOOD CELLS (BEAKER) (test 0 /100 WBC 0-0 wyuq=294) NEUTROPHILS RELATIVE PERCENT (BEAKER) (test 62 % wnun=999) LYMPHOCYTES RELATIVE PERCENT (BEAKER) (test 27 % aygx=134) MONOCYTES RELATIVE PERCENT (BEAKER) (test 8 % iktf=440) EOSINOPHILS RELATIVE PERCENT (BEAKER) (test 2 % jvhs=835) BASOPHILS RELATIVE PERCENT (BEAKER) (test 1 % mpoc=924) NEUTROPHILS ABSOLUTE COUNT (BEAKER) (test 4.68 K/ L 1.78-5.38 zcmx=944) LYMPHOCYTES ABSOLUTE COUNT (BEAKER) (test 2.06 K/ L 1.32-3.57 xrjy=335) MONOCYTES ABSOLUTE COUNT (BEAKER) (test 0.60 K/ L 0.30-0.82 cfor=187) EOSINOPHILS ABSOLUTE COUNT (BEAKER) (test 0.12 K/ L 0.04-0.54 qjzm=288) BASOPHILS ABSOLUTE COUNT (BEAKER) (test 0.07 K/ L 0.01-0.08 fsru=275) IMMATURE GRANULOCYTES-RELATIVE PERCENT (BEAKER) 0 % 0-1 (test uren=2736) PROTHROMBIN [id number] 04:53:00 Test Item Value Reference Range Comments PROTIME (BEAKER) (test cemr=039) 14.0 seconds 11.7-14.7 INR (BEAKER) (test spfk=215) 1.1 <=5.9 RECOMMENDED COUMADIN/WARFARIN INR THERAPY RANGESSTANDARD DOSE: 2.0 - 3.0 Includes: PROPHYLAXIS forvenous thrombosis, systemic embolization; TREATMENT for venous thrombosis and/or pulmonary embolus.HIGH RISK: Target INR is 2.5-3.5 for patients with mechanical heart valves.
[2018-03-13] MEDS ORDERED: KETOROLAC 30 MG/ML INJ ONE (21:26)
[2018-03-13] MEDS ORDERED: ONDANSETRON 4 MG/2 ML VIAL ONE (21:26)
[2018-03-13] MEDS ORDERED: NA CHLORIDE 0.9% 1,000 ML ONE ×2 (21:27→22:51)
[2018-03-13 21:44] LABS: Absolute Lymphocytes (CBC) 0.7 K/uL (0.7-4.9); Absolute Monocytes 0.7 K/uL (0.1-1.3); Absolute Neutrophil 16.7 K/uL (1.8-8.0); Basophils % 0.4 % (0-1.3); Hematocrit 46.9 % (39.6-49.0); Lymphocytes % 3.7 % (15.3-44.8); MCV 81.2 fL (80-100); MPV 9.8 fL (7.6-11.3); Monocytes % 3.8 % (3.3-12.3); RBC Red Blood Cell Count 5.78 M/uL (4.33-5.43)
[2018-03-13 21:57] LABS: Urine Blood TRACE (NEG); Urine Glucose 3+ (NEG); Urine Protein 1+ (NEG); Urine pH 5.5 (5.0-7.0)
[2018-03-13 22:06] LABS: Urine Bacteria NONE SEEN /HPF (NONE SEEN); Urine Culture Reflex Order NOT NEEDED; Urine RBC <5 /HPF (NONE SEEN)
[2018-03-13 22:07] LABS: Blood Morphology Comment NOT SEEN (NOT SEEN); Platelet Estimate ADEQ
[2018-03-13 22:29] LABS: Albumin 3.8 g/dL (3.4-5.0); Bilirubin Direct 0.1 mg/dL (0-0.2); Bilirubin Total 0.6 mg/dL (0.2-1.0); Potassium 3.6 mmol/L (3.5-5.1); Protein, Total 8.1 g/dL (6.4-8.2)
--- NOTE | 2018-03-13 22:45 | RAD REPORT ---
EXAM DESCRIPTION: CT - Stone Protocol - 03/13/2018 10:00 pm CLINICAL HISTORY: Abdominal pain COMPARISON: CT imaging November 2016 TECHNIQUE: Axial 5 mm thick images were obtained without oral or IV contrast. The llprz-gt-yazb span s the entirety of the system including uppermost abdomen and lung bases. All CT scans are performed using dose optimization technique as appropriate and may include automated exposure control or mA/KV adjustment according to patient size. FINDINGS: No hydronephrosis is present and no obstructing ureteral calculi. No suspicious renal mass es. Isodense masses and pyelonephritis are not excluded on a stone protocol CT scan. No urinary bladd er suspicious finding. Prostate gland and seminal vesicles are normal range. Imaged portions of the liver, spleen and pancreas show no suspicious findings on non-contrast imaging . Liver does show a diffuse fatty infiltration pattern. No significant adrenal finding. No suspicious bowel findings. Appendix is normal. No mass or bulky lymphadenopathy. Patient has a small incidental fat only umbilical hernia. No free a ir, free fluid or inflammatory stranding. No acute or destructive bone process. Since the prior examination patient has developed numerous coarse calcifications within small lymph n odes along the aorto iliac chain and bilateral inguinal canals. No history of treated lymphoma. Posti nfectious/inflammatory lymph node calcifications could have this appearance. These are not seen to be of clinical acute significance. IMPRESSION: No acute GI or process identifiable. Fatty infiltration of the liver. Numerous densely calcified small inguinal and aortoiliac chain lymph nodes presumed to be from either treated lymphoma or an infectious/inflammatory process that occurred and was treated subsequent to t he November 2016 comparison. These are not seen as acutely significant. Isodense masses and pyelonephritis are not excluded on stone protocol technique.
--- NOTE | 2018-03-13 22:45 | RAD REPORT ---
EXAM DESCRIPTION: CT - Head Brain Wo Cont - 03/13/2018 10:00 pm CLINICAL HISTORY: Headache COMPARISON: None. TECHNIQUE: Axial 5 mm thick images of the head were obtained without IV contrast. All CT scans are performed using dose optimization technique as appropriate and may include automated exposure control or mA/KV adjustment according to patient size. FINDINGS: No intracranial hemorrhage, mass, edema or shift of mid-line structures. No acute infarcti on changes seen. No significant atrophy or chronic ischemic change. Vascular and physiologic calcific ations are present. Ventricles are normal. Mastoid air cells and visualized portions of the paranasal sinuses are clear. No acute bony findings. IMPRESSION: Negative non-contrast CT head examination for acute finding. No significant change from comparison.
[2018-03-13] MEDS ORDERED: CEFTRIAXONE/SWI 1gm 1 GM/10 ML SYR ONE (22:52)
[2018-03-13] MEDS ORDERED: VANCOMYCIN 1 GM/250 ML BAG ONE (23:06)
--- NOTE | 2018-03-14 00:05 | P.HP ---
Certification for Inpatient Patient admitted to: Inpatient With expected LOS: >2 Midnights Practitioner: I am a practitioner with admitting privileges, knowledge of patient current condition, hospital course, and medical plan of care. Services: Services provided to patient in accordance with Admission requirements found in Title 42 Section 412.3 of the Code of Federal Regulations Patient History Date of Service: 03/13/18 Reason for admission: sepsis, cellulitis History of Present Illness: Mr Nieto is a 62 years old male with history of HTN, DM II, CAD s/p CABG, obesity, obstructive sleep apnea, who start this afternoon with pain in his left leg, in the internal aspect of his calf. It was also a red discoloration, rapidly expanded. He had no fever but chills at home. He was also complaining of headache associated with nausea and vomiting. He denied any cough, SOB, chest pain, dysuria or diarrhea. In ED the patient had low grade fever 99.5F, BP 117/68, HR 87 bpm, O2 sat 96% on RA. Lab work remarkable for leukocytosis, 18.1K, elevated lactate with normal procalcitonin. CT head without acute abnormalities, CT abdomen, no acute intrabdominal abnormalities, but fatty liver with multiple calcified small inguinal and aortoiliac chain lymph nodes. Allergies No Known Allergies Allergy (Verified 10/14/15 14:11) Home medications list reviewed: Yes Home Medications: Allopurinol [Zyloprim*] 300 mg PO DAILY 10/14/15 Amlodipine [Norvasc*] 10 mg PO DAILY #30 tab 10/28/15 Furosemide 80 mg PO DAILY #30 tablet 10/28/15 Glimepiride [Amaryl] 1 mg PO BIDWM #60 tablet 10/28/15 Metoprolol Tartrate [Lopressor*] 50 mg PO BID #60 tab 10/28/15 Potassium Chloride [Klor-Con 10] 10 meq PO BID #60 tablet.er 10/28/15 Sacubitril/Valsartan [Entresto 49 mg-51 mg Tablet] 1 tab PO BID #60 tab - Past Medical/Surgical History Diabetic: No -: gout -: kidney stones -: obesity -: diabetes mellitus -: CAD -: HTN -: cyst removal 30yrs ago -: CABG - Family History dad -: Heart disease - Social History Smoking Status: Former smoker Alcohol use: Yes CD- Drugs: No Caffeine use: Yes Place of Residence: Home Review of Systems 10-point ROS is otherwise unremarkable Physical Examination - Physical Exam General: Alert, In no apparent distress HEENT: Atraumatic, PERRLA, Mucous membr. moist/pink, EOMI, Sclerae nonicteric Neck: Supple, 2+ carotid pulse no bruit, No LAD, Without JVD or thyroid abnormality Respiratory: Clear to auscultation bilaterally, Normal air movement Cardiovascular: Regular rate/rhythm, Normal S1 S2 Gastrointestinal: Normal bowel sounds, No tenderness Musculoskeletal: No tenderness Integumentary: Tenderness/swelling (left leg internal aspect of calf area.), Erythema, Warmth Neurological: Normal gait, Normal speech, Normal strength at 5/5 x4 extr, Normal tone, Normal affect Lymphatics: No axilla or inguinal lymphadenopathy - Studies Laboratory Data (last 24 hrs) 03/13/18 21:31: WBC 18.1 H, Hgb 15.6, Hct 46.9, Plt Count 227 03/13/18 21:31: Sodium 135 L, Potassium 3.6, BUN 21 H, Creatinine 1.10, Glucose 336 H, Total Bilirubin 0.6, AST 33, ALT 39, Alkaline Phosphatase 61, Lipase 130 Assessment and Plan - Problems (Diagnosis) (1) Sepsis Current Visit: Yes Status: Acute Qualifiers: Sepsis type: sepsis due to unspecified organism Qualified Code(s): A41.9 - Sepsis, unspecified organism (2) Cellulitis Current Visit: Yes Status: Acute Qualifiers: Site of cellulitis: extremity Site of cellulitis of extremity: lower extremity Laterality: left Qualified Code(s): L03.116 - Cellulitis of left lower limb (3) Diabetes mellitus Current Visit: Yes Status: Acute Qualifiers: Diabetes mellitus type: type 2 Diabetes mellitus senior living insulin use: without intermediate project manager use Diabetes mellitus complication status: with unspecified complications Qualified Code(s): E11.8 - Type 2 diabetes mellitus with unspecified complications (4) HTN (hypertension) Current Visit: Yes Status: Acute Qualifiers: Hypertension type: essential hypertension Qualified Code(s): I10 - Essential (primary) hypertension (5) Morbid obesity Onset Date: 10/24/15 Current Visit: No Status: Acute - Plan The patient will be admitted to the hospital due to sepsis secondary to left leg cellulitis. He has leukocytosis, elevated lactate with low grade fever. Blood cultures in process, will start empiric antibiotic treatment with IV Vancomyn and Zosyn. Will repeat lactate in 4 Hr after proper volume replacement. - Advance Directives Does patient have a Living Will: Yes Does patient have a Durable POA for Healthcare: No - Code Status/Comfort Care Code Status Assessed: Yes Code Status: Full Code
--- NOTE | 2018-03-14 00:07 | EDPHYS ---
Physician Documentation [facility] Name: Pipo Nieto Age: 62 yrs Sex: Male : 1955 Arrival Date: 03/13/2018 Time: 19:39 Bed 15 Private MD: Merly Couch H ED Physician Gwyn Zaman HPI: 03/13 23:57 This 62 yrs old Male presents to ER via Wheelchair with complaints of gs Vomiting, Fever, Groin Pain. 23:57 Onset: The symptoms/episode began/occurred 2 day(s) ago. Modifying factors: gs Interventions used to treat fever include home remedies. Associated signs and symptoms: Pertinent positives: arthralgias, backache, Pertinent negatives: altered mental status. Severity of symptoms: At their worst the symptoms were moderate in the emergency department the symptoms are unchanged. The patient has experienced similar episodes in the past, a few times. redness pain left leg, left sided headache throbbing. Historical: - Allergies: 20:10 No Known Allergies; aj1 - Home Meds: 20:10 losartan 25 mg Oral tab 1 tab once daily [Active]; metoprolol tartrate 25 mg Oral tab 1 aj1 tab once daily [Active]; bumetanide 1 mg Oral tab 1 tab once daily [Active]; insulin detemir 60 units subcutaneous twice a day [Active]; allopurinol 100 mg Oral tab 1 tab 2 times per day [Active]; aspirin 325 mg oral tab once daily [Active]; atorvastatin 80 mg Oral tab 1 tab once daily [Active]; - PMHx: 20:10 Cardiac Tamponade; Diabetes; Fluid in Lungs; Gout; Hypertension; Kidney stones; aj1 - Immunization history:: Flu vaccine is not up to date. - Social history:: Smoking status: Patient/guardian denies using tobacco. - Ebola Screening: : No symptoms or risks identified at this time. ROS: 23:57 All other systems are negative. gs Exam: 23:57 Head/Face: Normocephalic, atraumatic. Eyes: Pupils equal round and reactive to light, gs extra-ocular motions intact. Lids and lashes normal. Conjunctiva and sclera are non-icteric and not injected. Cornea within normal limits. Periorbital areas with no swelling, redness, or edema. ENT: Nares patent. No nasal discharge, no septal abnormalities noted. Tympanic membranes are normal and external auditory canals are clear. Oropharynx with no redness, swelling, or masses, exudates, or evidence of obstruction, uvula midline. Mucous membranes moist. Neck: Trachea midline, no thyromegaly or masses palpated, and no cervical lymphadenopathy. Supple, full range of motion without nuchal rigidity, or vertebral point tenderness. No Meningismus. Chest/axilla: Normal chest wall appearance and motion. Nontender with no deformity. No lesions are appreciated. Cardiovascular: Regular rate and rhythm with a normal S1 and S2. No gallops, murmurs, or rubs. Normal PMI, no JVD. No pulse deficits. Respiratory: Lungs have equal breath sounds bilaterally, clear to auscultation and percussion. No rales, rhonchi or wheezes noted. No increased work of breathing, no retractions or nasal flaring. 23:57 Constitutional: The patient appears alert, awake, uncomfortable. 23:57 Abdomen/GI: Palpation: mild abdominal tenderness, in all quadrants, rebound tenderness. 23:57 Back: CVA tenderness, that is moderate, is noted on the right, is noted on the left. 23:57 Neuro: Awake and alert, GCS 15, oriented to person, place, time, and situation. gs Cranial nerves II-XII grossly intact. Motor strength 5/5 in all extremities. Sensory grossly intact. Cerebellar exam normal. Normal gait. 23:57 Neck: ROM/movement: Meningeal signs: are not present. 23:57 Musculoskeletal/extremity: Pulses: are normal with no appreciated deficits. 23:57 Skin: venous stasis changes both legs, cellulitis with lymphangitis left lower extremity, 2+ edema b/l. Vital Signs: 20:10 BP 156 / 84; Pulse 106; Resp 20; Temp 98.3; Pulse Ox 95% on R/A; Weight 142.88 kg (R); aj1 Height 5 ft. 11 in. (180.34 cm) (R); Pain 6/10; 20:41 BP 126 / 72; Pulse 101; Resp 16; Temp 99.5; Pulse Ox 95% on R/A; Pain 6/10; fu 22:14 BP 120 / 70; Pulse 87; Resp 18; Pulse Ox 96% on R/A; fu 23:00 BP 117 / 68; Pulse 87; Resp 18; Pulse Ox 96% ; fu 03/14 00:56 BP 118 / 63; Pulse 72; Resp 18; Temp 97.5; Pulse Ox 96% ; Pain 0/10; fu 03/13 20:10 Body Mass Index 43.93 (142.88 kg, 180.34 cm) aj1 MDM: 03/13 21:07 Patient medically screened. 23:57 Differential diagnosis: viral Infection, bacterial infection, pneumonia cellulitis. Data reviewed: vital signs, nurses notes. Response to treatment: the patient's symptoms have markedly improved after treatment, and as a result, I will admit patient. 03/13 21:12 Order name: Basic Metabolic Panel; Complete Time: 22:30 03/13 21:12 Order name: CBC with Diff; Complete Time: 22:30 03/13 21:12 Order name: Hepatic Function; Complete Time: 22:30 03/13 21:12 Order name: Lipase; Complete Time: 22:30 03/13 21:12 Order name: Urine Microscopic Only; Complete Time: 22:30 03/13 21:12 Order name: Lactate; Complete Time: 22:30 03/13 21:48 Order name: Manual Differential; Complete Time: 22:30 [facility] 03/13 21:53 Order name: Urine Dipstick--Ancillary (enter results); Complete Time: 22:30 ok 03/13 22:31 Order name: Procalcitonin; Complete Time: 23:24 03/13 23:57 Order name: Blood Culture [facility] 03/14 01:30 Order name: Lactate Sepsis 2 HR Follow-up [facility] 03/14 05:12 Order name: CBC with Automated Diff [facility] 03/14 05:23 Order name: Basic Metabolic Panel [facility] 03/14 06:04 Order name: Lactate [facility] 03/13 21:12 Order name: IV Saline Lock; Complete Time: 21:41 03/13 21:12 Order name: Labs collected and sent; Complete Time: 08:26 03/13 21:12 Order name: CT Stone Protocol; Complete Time: 23:24 03/13 21:12 Order name: CT Head Brain wo Cont; Complete Time: 23:24 03/13 22:42 Order name: XRAY CXR (1 view) 03/14 08:58 Order name: Lactate Sepsis 2 HR Follow-up EDMS Administered Medications: 21:30 Drug: NS 0.9% 1000 ml Route: IV; Rate: 1 bolus; Site: right antecubital; 03/14 07:43 Follow up: IV Status: Completed infusion cc3 03/13 21:30 Drug: TORadol 30 mg Route: IVP; Site: right antecubital; 03/14 07:42 Follow up: Response: No adverse reaction [facility] 03/13 21:30 Drug: Zofran 4 mg Route: IVP; Site: right antecubital; 03/14 07:42 Follow up: Response: No adverse reaction [facility] 03/13 22:49 Drug: Rocephin - (cefTRIAXone) 1 grams Route: IVPB; Infused Over: 30 mins; Site: right fu antecubital; 03/14 07:41 Follow up: IV Status: Completed infusion cc3 03/13 23:04 Drug: vancoMYCIN 1 grams Route: IVPB; Infused Over: 2 hrs; Site: right antecubital; 03/14 07:41 Follow up: IV Status: Completed infusion cc3 01:00 Drug: NS 0.9% 1000 ml Route: IV; Rate: 1 bolus; Site: right antecubital; 07:42 Follow up: IV Status: Completed infusion cc3 Disposition: 03/14/18 00:07 Hospitalization ordered by Madison Saavedra for Inpatient Admission. Preliminary diagnosis is Cellulitis of left lower limb. - Bed requested for Telemetry/MedSurg (Inpatient). - Status is Inpatient Admission. cc3 - Condition is Stable. - Problem is new. - Symptoms have improved. UTI on Admission? No Critical care time excluding procedures: 03/13 23:57 Critical care time: Bedside Care: 10 minutes, Consultation: 10 minutes, Family Intervention: 10 minutes. Total time: 30 minutes Signatures: Dispatcher [employer] EDMS Lolita Arnett Angela, RN RN aj1 Lewis, Kimberly, RN RN kl Gallardo, Ana ag Starr, Gregory, MD MD gs Umadhay, Felix, RN RN fu Cordel, Charlene cc3 Corrections: (The following items were deleted from the chart) 03/14 01:20 00:07 Hospitalization Ordered by Madison Saavedra MD for Inpatient Admission. Preliminary kl diagnosis is Cellulitis of left lower limb. Bed requested for Telemetry/MedSurg (Inpatient). Status is Inpatient Admission. Condition is Stable. Problem is new. Symptoms have improved. UTI on Admission? No. gs 09:07 01:20 03/14/2018 00:07 Hospitalization Ordered by Madison Saavedra MD for Inpatient ag Admission. Preliminary diagnosis is Cellulitis of left lower limb. Bed requested for [facility] ER HOLD. Status is Inpatient Admission. Condition is Stable. Problem is new. Symptoms have improved. UTI on Admission? No. kl 10:13 09:07 03/14/2018 00:07 Hospitalization Ordered by Madison Saavedra MD for Inpatient bd Admission. Preliminary diagnosis is Cellulitis of left lower limb. Bed requested for Telemetry/MedSurg (Inpatient). Status is Inpatient Admission. Condition is Stable. Problem is new. Symptoms have improved. UTI on Admission? No. ag 10:45 10:13 03/14/2018 00:07 Hospitalization Ordered by Madison Saavedra MD for Inpatient cc3 Admission. Preliminary diagnosis is Cellulitis of left lower limb. Bed requested for Telemetry/MedSurg (Inpatient). Status is Inpatient Admission. Condition is Stable. Problem is new. Symptoms have improved. UTI on Admission? No. bd
--- NOTE | 2018-03-14 00:07 | ER ---
Nurse's Notes [facility] Name: Pipo Nieto Age: 62 yrs Sex: Male : 1955 Arrival Date: 03/13/2018 Time: 19:39 Bed 15 Private MD: Merly Couch H Diagnosis: Cellulitis of left lower limb Presentation: 03/13 20:00 Presenting complaint: states: He started out with a backache that went all the way aj1 across, then the left side of his face started to hurt. His left leg is tender to the touch. He started throwing up, he's had diarrhea and low grade fever at home and chills. He hasn't been able to eat anything since 0900 this morning. Denies abdominal pain. Transition of care: patient was not received from another setting of care. Onset of symptoms was March 13, 2018 at 13:00. Risk Assessment: Do you want to hurt yourself or someone else? Patient reports no desire to harm self or others. Initial Sepsis Screen: Does the patient meet any 2 criteria? HR > 90 bpm. No. Patient's initial sepsis screen is negative. Does the patient have a suspected source of infection? Yes: Acute abdominal pain. Care prior to arrival: None. 20:00 Method Of Arrival: Wheelchair aj1 20:00 Acuity: FARAZ 3 aj1 Triage Assessment: 20:10 General: Appears in no apparent distress. uncomfortable, Behavior is calm, cooperative, aj1 appropriate for age. Pain: Complains of pain in forehead, left cheek, left jaw, left arm and left leg Pain currently is 6 out of 10 on a pain scale. Neuro: Level of Consciousness is awake, alert, obeys commands, Speech is normal, Facial symmetry appears normal. Cardiovascular: Denies chest pain, shortness of breath, Patient's skin is warm and dry. Respiratory: Airway is patent Respiratory effort is even, unlabored, Respiratory pattern is regular, symmetrical. GI: Reports diarrhea, nausea, vomiting, Patient currently denies abdominal pain. Historical: - Allergies: 20:10 No Known Allergies; aj1 - Home Meds: 20:10 losartan 25 mg Oral tab 1 tab once daily [Active]; metoprolol tartrate 25 mg Oral tab 1 aj1 tab once daily [Active]; bumetanide 1 mg Oral tab 1 tab once daily [Active]; insulin detemir 60 units subcutaneous twice a day [Active]; allopurinol 100 mg Oral tab 1 tab 2 times per day [Active]; aspirin 325 mg oral tab once daily [Active]; atorvastatin 80 mg Oral tab 1 tab once daily [Active]; - PMHx: 20:10 Cardiac Tamponade; Diabetes; Fluid in Lungs; Gout; Hypertension; Kidney stones; aj1 - Immunization history:: Flu vaccine is not up to date. - Social history:: Smoking status: Patient/guardian denies using tobacco. - Ebola Screening: : No symptoms or risks identified at this time. Screenin/13 01:27 Abuse screen: Denies threats or abuse. Nutritional screening: No deficits noted. fu Tuberculosis screening: No symptoms or risk factors identified. Fall Risk No fall in past 12 months (0 pts). IV access (20 points). Ambulatory Aid- None/Bed Rest/Nurse Assist (0 pts). Gait- Normal/Bed Rest/Wheelchair (0 pts) Mental Status- Oriented to own ability (0 pts). Assessment: 03/13 20:46 General: Appears in no apparent distress. well groomed, well developed, Behavior is fu calm, cooperative, appropriate for age, Reports low grade fever at home. Pain: Complains of pain in headache, left side of the face, left arm, back, and left leg Pain currently is 6 out of 10 on a pain scale. Pain began around 1300. Neuro: No deficits noted. Cardiovascular: Reports triple bypass surgery last May 02, 2017. Respiratory: Respiratory effort is even, unlabored, Breath sounds are clear bilaterally. GI: Reports vomiting, denies abdominal pain. Derm: flushing in the face, redness to left leg, red spots on both lower extremities, scar to the chest. 23:38 Reassessment: Patient appears in no apparent distress at this time. Reassessment: No fu changes from previously documented assessment. GI:. 03/14 01:12 Reassessment: Patient appears in no apparent distress at this time. Pain: Denies pain. fu Vital Signs: 03/13 20:10 BP 156 / 84; Pulse 106; Resp 20; Temp 98.3; Pulse Ox 95% on R/A; Weight 142.88 kg (R); aj1 Height 5 ft. 11 in. (180.34 cm) (R); Pain 6/10; 20:41 BP 126 / 72; Pulse 101; Resp 16; Temp 99.5; Pulse Ox 95% on R/A; Pain 6/10; fu 22:14 BP 120 / 70; Pulse 87; Resp 18; Pulse Ox 96% on R/A; fu 23:00 BP 117 / 68; Pulse 87; Resp 18; Pulse Ox 96% ; fu 08/ 00:56 BP 118 / 63; Pulse 72; Resp 18; Temp 97.5; Pulse Ox 96% ; Pain 0/10; fu 08/ 20:10 Body Mass Index 43.93 (142.88 kg, 180.34 cm) aj1 ED Course: 03/13 19:39 Patient arrived in ED. es 19:39 Merly Couch DO is Private Physician. es 20:06 Triage completed. aj1 20:10 Arm band placed on Patient placed in waiting room, Patient notified of wait time. aj1 20:33 Jean Marie Preston, LAURA is Primary Nurse. fu 20:40 Inserted saline lock: 20 gauge in right antecubital area, using aseptic technique. jb5 Blood collected. 20:51 Gwyn Zaman MD is Attending Physician. gs 21:07 Patient has correct armband on for positive identification. Side rails up X 1. at fu patient's room. 21:09 Dr. Zaman at room talking to the patient. fu 22:00 CT Stone Protocol In Process Unspecified. EDMS 22:00 CT Head Brain wo Cont In Process Unspecified. EDMS 22:01 CT completed. Patient moved to CT via stretcher. Patient moved back from CT. kw1 23:44 XRAY CXR (1 view) In Process Unspecified. EDMS 23:57 First set of blood cultures drawn by lab staff. fu 03/14 00:06 Madison Saavedra MD is Hospitalizing Provider. gs 00:50 Repeat lab(s) drawn. by tx, for repeat lactate. fu 01:14 No apparent distress. Awaiting bed assignment. fu 01:28 No provider procedures requiring assistance completed. fu 10:21 Patient admitted, IV remains in place. intact. cc3 Administered Medications: 03/13 21:30 Drug: NS 0.9% 1000 ml Route: IV; Rate: 1 bolus; Site: right antecubital; fu 03/14 07:43 Follow up: IV Status: Completed infusion cc3 03/13 21:30 Drug: TORadol 30 mg Route: IVP; Site: right antecubital; fu 03/14 07:42 Follow up: Response: No adverse reaction cc3 03/13 21:30 Drug: Zofran 4 mg Route: IVP; Site: right antecubital; fu 03/14 07:42 Follow up: Response: No adverse reaction cc3 03/13 22:49 Drug: Rocephin - (cefTRIAXone) 1 grams Route: IVPB; Infused Over: 30 mins; Site: right fu antecubital; 03/14 07:41 Follow up: IV Status: Completed infusion cc3 03/13 23:04 Drug: vancoMYCIN 1 grams Route: IVPB; Infused Over: 2 hrs; Site: right antecubital; fu 03/14 07:41 Follow up: IV Status: Completed infusion cc3 01:00 Drug: NS 0.9% 1000 ml Route: IV; Rate: 1 bolus; Site: right antecubital; fu 07:42 Follow up: IV Status: Completed infusion cc3 Outcome: 00:07 Decision to Hospitalize by Provider. 00:56 Instructed on the need for admit, Demonstrated understanding of instructions. fu 02:00 Admitted to ER Hold. Please see [facility] for further documentation. fu 10:21 Condition: stable cc3 10:45 Patient left the ED. cc3 Signatures: Dispatcher [employer] Regina Perera RN RN ajMarisol Mello Jennifer jb5 Gwyn Zaman MD MD Jean Marie Preston RN RN Sania Mas1 Paz Sam cc3 Corrections: (The following items were deleted from the chart) 03/13 23:41 20:46 Derm: redness to left left, red spots on both lower extremities, scar to the fu chest. fu 23:41 20:46 Derm: redness to left, red spots on both lower extremities, scar to the chest. fu fu 03/14 01:30 01:29 Instructed on the need for admit, Demonstrated understanding of instructions, fu fu 01:33 00:56 Repeat lab(s) drawn. by me, for repeat lactate fu fu
[2018-03-14] MEDS: VANCOMYCIN 2 GM in NA CHLORIDE 0.9% 500 ML IVPB ONE ×2 (01:00)
[2018-03-14] MEDS: NA CHLORIDE 0.9% 1,000 ML IV SCH ×4 (01:41→20:32)
[2018-03-14] MEDS ORDERED: ONDANSETRON 4 MG/2 ML VIAL IV PRN (01:41)
[2018-03-14] MEDS ORDERED: ACETAMINOPHEN 500 MG TAB PO PRN (01:41)
[2018-03-14] MEDS ORDERED: POTASSIUM 25 MEQ EFFERV TAB PO ONE (02:00)
[2018-03-14] MEDS ORDERED: PIPER/TAZO/NS 3.375gm 3.375 GM/100 ML BAG ONE (02:03)
[2018-03-14] MEDS ORDERED: NA CHLORIDE 0.9% 1,000 ML ONE (02:44)
[2018-03-14] MEDS ORDERED: POTASSIUM 25 MEQ EFFERV TAB ONE (02:45)
[2018-03-14] MEDS ORDERED: VANCOMYCIN 1 GM/VIAL ONE (03:10)
[2018-03-14] MEDS ORDERED: NA CHLORIDE 0.9% 0 ML ONE (03:10)
[2018-03-14] MEDS ORDERED: KETOROLAC 30 MG/ML INJ IV PRN (04:00)
[2018-03-14 05:10] LABS: Absolute Monocytes 0.7 K/uL (0.1-1.3); Basophils % 0.6 % (0-1.3); Eosinophils % 0.5 % (0-4.4); Hematocrit 41.4 % (39.6-49.0); Lymphocytes % 10.3 % (15.3-44.8); MCH 27.2 pg (27.0-35.0); MCV 82.1 fL (80-100); MPV 8.8 fL (7.6-11.3); RBC Red Blood Cell Count 5.04 M/uL (4.33-5.43)
[2018-03-14 05:23] LABS: Potassium 3.9 mmol/L (3.5-5.1)
[2018-03-14] MEDS ORDERED: POTASSIUM CL SA 10 MEQ TAB PO ONE ×2 (06:00→06:20)
[2018-03-14] MEDS ORDERED: NA CHLORIDE 0.9% 1,000 ML IV ONE (06:27)
[2018-03-14] MEDS: PIPER/TAZO/NS 3.375gm 3.375 GM/100 ML BAG IVPB SCH ×2 (07:13→17:23)
[2018-03-14] MEDS: INSULIN -REGULAR HUMAN 50 UNIT/0.5 ML ML SQ SCH ×4 (07:30→22:06)
[2018-03-14] MEDS ORDERED: INSULIN -REGULAR HUMAN 50 UNIT/0.5 ML ML ONE (07:42)
--- NOTE | 2018-03-14 07:59 | RAD REPORT ---
EXAM DESCRIPTION: Tavo Single View03/13/2018 11:44 pm CLINICAL HISTORY: Fever COMPARISON: June 2017 FINDINGS: The lungs appear clear of acute infiltrate. The heart is normal size. Postsurgical change s involve the chest IMPRESSION: No acute abnormalities displayed
[2018-03-14] MEDS ORDERED: PIPER/TAZO/NS 3.375gm 3.375 GM/100 ML BAG IVPB SCH (08:00)
[2018-03-14] MEDS ORDERED: ENOXAPARIN 40 MG/0.4 ML SQ ONE (08:09)
[2018-03-14] MEDS: ENOXAPARIN 40 MG/0.4 ML SQ SCH (08:32)
--- NOTE | 2018-03-14 13:33 | PN ---
Date of Progress Note: 03/14/2018 Subjective: The patient seen and examined. Chart reviewed and case discussed with RN. The patient states that he is having some pain in his left lower extremity along with redness that is spreading. Review of Systems: Negative except as above. Medications: List reviewed. Physical Examination: Vital Signs: Temperature 97.9, heart rate 69, blood pressure 156/89, respirations 19, O2 100% on nick m air. General: Awake, alert, oriented x3. Morbidly obese male, ill-appearing. CV: S1, S2. No murmurs. Peripheral pulses present. Respiratory: Clear to auscultation bilaterally. No wheezing. No stridor. No use of accessory musc les. Gastrointestinal: Abdomen is soft, nontender, nondistended. Positive bowel sounds. Extremities: No clubbing, cyanosis. The patient does have bilateral lower extremity edema. Skin: Left lower extremity has erythema, lymphangitis with some tenderness to palpation on the lower extremity. The patient has severely excoriated skin on bilateral feet. Neuro: Cranial nerves 2 through 12 intact grossly. No focal neurological deficit. Speech is normal . Laboratory Data: Sodium 137, potassium 3.9, chloride 101, CO2 of 29, BUN 23, creatinine 1.1, glucose 381. Lactate 2.4, calcium 7.8. WBC 9.8, H and H are 13.7 and 41.4, platelets 172, neutrophils 81%. Blood cultures pending. Assessment And Plan: 1.Sepsis. Elevated white count and lactate. Source of infection is cellulitis, improving. We will continue with IV fluids and IV antibiotics broad-spectrum. Follow up on cultures. 2.Cellulitis of the left lower extremity. Continue antibiotics. Does have some swelling, rule out deep vein thrombosis. We will obtain Doppler. The patient did have venous graft taken from that leg . 3.Diabetes mellitus type 2 with long-term use of insulin with hyperglycemia. We will continue slidi ng-scale insulin. Resume home dose. 4.Essential hypertension, stable. 5.Morbid obesity, BMI greater than 40. 6.Coronary artery disease, status post coronary artery bypass grafting. [place] artery and [place] he art without angina. 7.Gout. Plan: We will continue with current treatment. Follow up on Doppler ultrasound to rule out DVT. /PEDRO Voice ID: [id number] Report ID: [id number]
--- NOTE | 2018-03-14 14:45 | RAD REPORT ---
EXAM DESCRIPTION: VAS - Extremity Venous Uni Ltd - 03/14/2018 2:39 pm CLINICAL HISTORY: Left leg pain and swelling COMPARISON: None. TECHNIQUE: Real-time sonographic evaluation of the left lower extremity deep venous system was perfo rmed. FINDINGS: Normal compressibility, flow augmentation, phasic flow and spontaneous flow are identified in the left lower extremity common femoral, superficial femoral, popliteal and posterior tibial vein s. No intraluminal filling defects seen. IMPRESSION: No DVT in the left lower extremity.
[2018-03-14] MEDS: VANCOMYCIN 2 GM in NA CHLORIDE 0.9% 500 ML IVPB SCH (15:04)
[2018-03-14] MEDS ORDERED: HYDROCODONE/APAP 7.5/325 MG TAB PO PRN (15:41)
[2018-03-14] MEDS ORDERED: INSULIN GLARGINE 100 UNITS/ML SQ SCH ×2 (18:00→19:00)
[2018-03-14] MEDS ORDERED: GLUCAGON 1 MG/VIAL IM PRN (18:39)
[2018-03-14] MEDS ORDERED: D50W 25 GM/50 ML SYRINGE IV PRN (18:39)
[2018-03-14] MEDS: METOPROLOL XL 25 MG TAB PO SCH (20:31)
[2018-03-14] MEDS: ATORVASTATIN 80 MG TAB PO SCH (20:31)
[2018-03-15] MEDS: PIPER/TAZO/NS 3.375gm 3.375 GM/100 ML BAG IVPB SCH ×3 (00:56→18:11)
[2018-03-15] MEDS: NA CHLORIDE 0.9% 1,000 ML IV SCH ×3 (00:56→15:29)
[2018-03-15 02:17] LABS: Absolute Lymphocytes (CBC) 1.2 K/uL (0.7-4.9); Absolute Monocytes 0.6 K/uL (0.1-1.3); Absolute Neutrophil 5.7 K/uL (1.8-8.0); Basophils % 0.7 % (0-1.3); Eosinophils % 1.6 % (0-4.4); Hematocrit 45.7 % (39.6-49.0); Lymphocytes % 15.8 % (15.3-44.8); MCH 27.3 pg (27.0-35.0); MCV 81.2 fL (80-100); MPV 9.5 fL (7.6-11.3); Monocytes % 8.2 % (3.3-12.3); RBC Red Blood Cell Count 5.63 M/uL (4.33-5.43)
[2018-03-15 02:23] LABS: BUN Blood Urea Nitrogen 16 mg/dL (7-18); Bicarbonate 25 mmol/L (21-32); Glucose Level 268 mg/dL (74-106); Potassium 4.2 mmol/L (3.5-5.1); Sodium Level 138 mmol/L (136-145)
[2018-03-15] MEDS: VANCOMYCIN 2 GM in NA CHLORIDE 0.9% 500 ML IVPB SCH ×2 (03:02→15:28)
[2018-03-15] MEDS ORDERED: INSULIN GLARGINE 100 UNITS/ML SQ SCH (06:00)
[2018-03-15] MEDS: INSULIN DETEMIR 100 UNIT/1 ML INSULIN SQ SCH ×2 (08:00→17:00)
[2018-03-15] MEDS ORDERED: LOSARTAN POTASSIUM 50 MG TABLET PO SCH (09:00)
[2018-03-15] MEDS: INSULIN -REGULAR HUMAN 50 UNIT/0.5 ML ML SQ SCH ×4 (09:30→22:17)
[2018-03-15] MEDS: ENOXAPARIN 40 MG/0.4 ML SQ SCH (09:30)
[2018-03-15] MEDS: BUMETANIDE 1 MG TABLET PO SCH (09:31)
[2018-03-15] MEDS: ALLOPURINOL 100 MG TAB PO SCH ×2 (09:31→09:36)
[2018-03-15] MEDS: ASPIRIN EC 325 MG TABLET PO SCH (09:36)
--- NOTE | 2018-03-15 14:09 | P.PN ---
Subjective Date of Service: 03/15/18 Chief Complaint: sepsis, cellulitis he is doing better less erythema Physical Examination - Vital Signs Temperature: 97.9 F Blood Pressure: 166/85 Pulse: 60 Respirations: 18 Pulse Ox (%): 96 - Physical Exam General: Alert, In no apparent distress HEENT: Atraumatic, PERRLA, EOMI Neck: Supple, JVD not distended Respiratory: Clear to auscultation bilaterally, Normal air movement Cardiovascular: Regular rate/rhythm, Normal S1 S2 Gastrointestinal: Normal bowel sounds, No tenderness Musculoskeletal: No tenderness Integumentary: Rash(es) Neurological: Normal speech, Normal tone, Normal affect Lymphatics: No axilla or inguinal lymphadenopathy - Studies Microbiology Data (last 24 hrs): 03/14/18 00:15 Blood - Blood Anaerobic Blood Culture - Final 03/14/18 00:23 Blood - Blood Anaerobic Blood Culture - Final Medications List Reviewed: Yes Assessment And Plan - Current Problems (Diagnosis) (1) Cellulitis Onset Date: 03/15/18 Current Visit: Yes Status: Acute Qualifiers: Site of cellulitis: extremity Site of cellulitis of extremity: lower extremity Laterality: left Qualified Code(s): L03.116 - Cellulitis of left lower limb (2) Diabetes mellitus Onset Date: 03/15/18 Current Visit: Yes Status: Acute Qualifiers: Diabetes mellitus type: type 2 Diabetes mellitus intermediate insulin use: without longwall foreman use Diabetes mellitus complication status: with unspecified complications Qualified Code(s): E11.8 - Type 2 diabetes mellitus with unspecified complications (3) HTN (hypertension) Onset Date: 03/15/18 Current Visit: Yes Status: Acute Qualifiers: Hypertension type: essential hypertension Qualified Code(s): I10 - Essential (primary) hypertension (4) Sepsis Onset Date: 03/15/18 Current Visit: Yes Status: Acute Qualifiers: Sepsis type: sepsis due to unspecified organism Qualified Code(s): A41.9 - Sepsis, unspecified organism (5) CHF (congestive heart failure) Onset Date: 10/24/15 Current Visit: No Status: Acute (6) Morbid obesity Onset Date: 10/24/15 Current Visit: No Status: Acute - Plan cont iv abx f/u labs f/u blood cx may dc home tomorrow
[2018-03-15] MEDS: INSULIN GLARGINE 100 UNITS/ML SQ SCH (18:11)
[2018-03-15] MEDS: METOPROLOL XL 25 MG TAB PO SCH (22:17)
[2018-03-15] MEDS: ATORVASTATIN 80 MG TAB PO SCH (22:17)
[2018-03-16] MEDS: PIPER/TAZO/NS 3.375gm 3.375 GM/100 ML BAG IVPB SCH ×2 (00:41→09:00)
[2018-03-16] MEDS: HYDRALAZINE HCL 20 MG/ML VIAL IV PRN ×2 (01:17→12:21)
[2018-03-16] MEDS: VANCOMYCIN 2 GM in NA CHLORIDE 0.9% 500 ML IVPB SCH (02:37)
[2018-03-16] MEDS: NA CHLORIDE 0.9% 1,000 ML IV SCH ×2 (02:44→13:41)
[2018-03-16 06:32] LABS: Absolute Lymphocytes (CBC) 1.4 K/uL (0.7-4.9); Absolute Monocytes 0.6 K/uL (0.1-1.3); Absolute Neutrophil 4.5 K/uL (1.8-8.0); Eosinophils % 2.3 % (0-4.4); Hematocrit 42.3 % (39.6-49.0); Lymphocytes % 20.5 % (15.3-44.8); MCV 81.9 fL (80-100); MPV 8.8 fL (7.6-11.3); Monocytes % 9.3 % (3.3-12.3); RBC Red Blood Cell Count 5.17 M/uL (4.33-5.43)
[2018-03-16] MEDS: INSULIN -REGULAR HUMAN 50 UNIT/0.5 ML ML SQ SCH ×2 (07:30→11:30)
[2018-03-16] MEDS ORDERED: INSULIN GLARGINE 100 UNITS/ML SQ SCH (08:00)
[2018-03-16] MEDS: INSULIN GLARGINE 100 UNITS/ML SQ SCH (08:00)
[2018-03-16] MEDS: ENOXAPARIN 40 MG/0.4 ML SQ SCH (08:37)
[2018-03-16] MEDS: BUMETANIDE 1 MG TABLET PO SCH (08:37)
[2018-03-16] MEDS: ASPIRIN EC 325 MG TABLET PO SCH (08:38)
[2018-03-16] MEDS ORDERED: LOSARTAN POTASSIUM 50 MG TABLET PO SCH (09:00)
[2018-03-16] MEDS ORDERED: VANCOMYCIN 2.25 GM in NA CHLORIDE 0.9% 500 ML IVPB SCH (15:00)
--- NOTE | 2018-03-16 15:43 | P.DS ---
Admission Date: 03/14/18 Discharge Date: 03/16/18 Disposition: ROUTINE DISCHARGE Discharge Condition: FAIR Reason for Admission: sepsis, cellulitis - Problems (1) Cellulitis Onset Date: 03/15/18 Current Visit: Yes Status: Acute Qualifiers: Site of cellulitis: extremity Site of cellulitis of extremity: lower extremity Laterality: left Qualified Code(s): L03.116 - Cellulitis of left lower limb (2) Diabetes mellitus Onset Date: 03/15/18 Current Visit: Yes Status: Acute Qualifiers: Diabetes mellitus type: type 2 Diabetes mellitus long term care social worker insulin use: without long term care social worker use Diabetes mellitus complication status: without complication Qualified Code(s): E11.9 - Type 2 diabetes mellitus without complications (3) HTN (hypertension) Onset Date: 03/15/18 Current Visit: Yes Status: Acute Qualifiers: Hypertension type: essential hypertension Qualified Code(s): I10 - Essential (primary) hypertension (4) Sepsis Onset Date: 03/15/18 Current Visit: Yes Status: Acute Qualifiers: Sepsis type: sepsis due to unspecified organism Qualified Code(s): A41.9 - Sepsis, unspecified organism (5) CHF (congestive heart failure) Onset Date: 10/24/15 Current Visit: No Status: Acute Qualifiers: Heart failure type: diastolic Heart failure chronicity: chronic Qualified Code(s): I50.32 - Chronic diastolic (congestive) heart failure (6) Morbid obesity Onset Date: 10/24/15 Current Visit: No Status: Chronic Brief History of Present Illness: 62 y/o man was admitted for left leg cellulitis Hospital Course: All blood cx were negative. He was treated with Vanco Zosyn with improvement. He is discharged on oral abx. Bp meds are readjusted. Vital Signs/Physical Exam: Temp Pulse Resp BP Pulse Ox 97.4 F 70 20 175/81 H 96 03/16/18 08:00 03/16/18 08:00 03/16/18 08:00 03/16/18 08:00 03/16/18 08:00 General: Alert, In no apparent distress HEENT: Atraumatic, PERRLA, EOMI Neck: Supple, JVD not distended Respiratory: Clear to auscultation bilaterally, Normal air movement Cardiovascular: Regular rate/rhythm, Normal S1 S2 Gastrointestinal: Normal bowel sounds, No tenderness Musculoskeletal: No tenderness Integumentary: No rashes Neurological: Normal speech, Normal tone, Normal affect Lymphatics: No axilla or inguinal lymphadenopathy Laboratory Data at Discharge: WBC 6.7 K/uL (4.3-10.9) 03/16/18 06:08 Hgb 13.9 g/dL (13.6-17.9) 03/16/18 06:08 Hct 42.3 % (39.6-49.0) 03/16/18 06:08 Plt Count 189 K/uL (152-406) D 03/16/18 06:08 Sodium 138 mmol/L (136-145) 03/15/18 01:27 Potassium 4.2 mmol/L (3.5-5.1) 03/15/18 01:27 BUN 16 mg/dL (7-18) 03/15/18 01:27 Creatinine 0.80 mg/dL (0.55-1.3) 03/15/18 01:27 Glucose 268 mg/dL (74-106) H 03/15/18 01:27 Total Bilirubin 0.6 mg/dL (0.2-1.0) 03/13/18 21:31 AST 33 U/L (15-37) 03/13/18 21:31 ALT 39 U/L (12-78) 03/13/18 21:31 Alkaline Phosphatase 61 U/L (45-117) 03/13/18 21:31 Lipase 130 U/L (73-393) 03/13/18 21:31 Home Medications: Allopurinol [Zyloprim*] 100 mg PO DAILY 03/14/18 Aspirin [Aspirin EC 325 MG] 325 mg PO DAILY 03/14/18 Atorvastatin Calcium [Lipitor] 80 mg PO BEDTIME 03/14/18 Bumetanide 1 mg PO DAILY 03/14/18 Insulin Detemir [Levemir] 50 units SQ DAILY 6PM 03/14/18 Insulin Detemir [Levemir] 50 units SQ [id number] 03/14/18 Doxycycline Monohydrate 100 mg PO BID #28 capsule 03/16/18 Losartan Potassium [Cozaar*] 50 mg PO DAILY #30 tablet 03/16/18 Metoprolol Succinate [Toprol Xl*] 50 mg PO BEDTIME #30 tab 03/16/18 Smz./Tmp. [Bactrim Ds 800 MG/160 MG*] 1 tab PO BID #28 tab 03/16/18 New Medications: Doxycycline Monohydrate 100 mg PO BID #28 capsule Losartan Potassium [Cozaar*] 50 mg PO DAILY #30 tablet Metoprolol Succinate [Toprol Xl*] 50 mg PO BEDTIME #30 tab Smz./Tmp. [Bactrim Ds 800 MG/160 MG*] 1 tab PO BID #28 tab Diet: ADA Activity: Ad robert Followup: Merly Couch DO, DO [Primary Care Provider] - 1 Week Time spent managing pt's care (in minutes): 35
[2018-03-16] MEDS ORDERED: METOPROLOL XL 50 MG TAB PO SCH (21:00)
== END 2018-03-16 15:20 | disposition home or self-care (01) | DRG 872 ==
LOC: ER 19:36 → ERHOLD 03-14 01:19 → 2ND 03-14 10:26
PROVIDERS: ADMIT Internal Medicine; ATTEND Internal Medicine Hematology & Oncology
DX: A41.9 Sepsis, unspecified organism (principal); I50.32 Chronic diastolic (congestive) heart failure; L03.116 Cellulitis of left lower limb; Z68.41 Body mass index [BMI] 40.0-44.9, adult; I11.0 Hypertensive heart disease with heart failure; E11.65 Type 2 diabetes mellitus with hyperglycemia; G47.33 Obstructive sleep apnea (adult) (pediatric); I25.10 Atherosclerotic heart disease of native coronary artery without angina pectoris; M10.9 Gout, unspecified; E66.01 Morbid (severe) obesity due to excess calories; Z79.82 Long term (current) use of aspirin; Z79.4 Long term (current) use of insulin; Z95.1 Presence of aortocoronary bypass graft; Z87.891 Personal history of nicotine dependence
CPT/HCPCS: 36415; 70450; 71045; 74176; 76377; 80048; 80076; 80202; 81003; 81015; 82962; 83605; 83690; 84145; 85025; 87040; 93971; 96361; 96365; 96366; 96375; 99285; J0360; J0696; J1650; J2405; J2543; J3370; J7030

== ENCOUNTER 2018-11-22 19:27 | Inpatient (IN) | payer BC, OTHER ==
--- OUTSIDE RECORDS SUMMARY | 2018-11-22 19:30 | XMS REPORT | Clinical Summary ---
:1955 Author Organization [facility] Address [address] [place] [address] Care Team Providers Name Role Phone Osorio Primary Care Provider Pablo Gonzalez Unavailable Allergies No Known Allergies Medications Medication Sig Dispensed Refills Start Date End Date Status allopurinol Take 100 mg by 0 05/02/2013 Active (ZYLOPRIM) 100 MG mouth 2 (two) tablet times daily. insulin lispro To use via 45 mL 3 05/10/2017 Active (HUMALOG KWIKPEN) sliding scale 100 unit/mL InPn from 10 to 25 units three times a day. insulin pen needles Use as directed. 500 each 3 05/10/2017 Active (BD ULTRA-FINE AMBROSE) Dispense as 4 mm x 32 G written, do not substitute. Brand medically necessary.to use 5 a day. acetaminophen-codein Take 1 tablet by 30 tablet 1 05/11/2017 Active e (TYLENOL #3) mouth every 4 300-30 mg per tablet (four) hours as needed. Max Daily Amount: 6 tablets insulin detemir To use 45 units 45 mL 3 06/28/2017 Active (LEVEMIR FLEXTOUCH) in am and 35 100 unit/mL (3 mL) units in pm. InPn injection blood-glucose meter Glucometer;Ttest 400 each 3 05/10/2017 05/10/2018 kit strips to use 4 a day # 400 refills x 3; Lancets to use 4 a day # 400 refills x 3. atorvastatin Take 1 tablet (80 30 tablet 1 05/11/2017 05/11/2018 (LIPITOR) 80 MG mg total) by tablet mouth nightly. aspirin 325 MG Take 1 tablet 30 tablet 0 06/12/2017 06/12/2018 tablet (325 mg total) by mouth daily. amiodarone Take 1 tablet 60 tablet 0 06/28/2017 06/28/2018 (PACERONE) 200 MG (200 mg total) by tablet mouth daily. metoprolol Take 1 tablet (25 30 tablet 1 06/28/2017 06/28/2018 (TOPROL-XL) 25 MG 24 mg total) by hr tablet mouth nightly. bumetanide (BUMEX) 1 Take 1 tablet (1 30 tablet 1 06/28/2017 06/28/2018 MG tablet mg total) by mouth daily. potassium chloride Take 1 tablet (10 30 tablet 1 06/28/2017 06/28/2018 SA (K-DUR,KLOR-CON) mEq total) by 10 MEQ tablet mouth daily. 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 Acute pulmonary insufficiency following thoracic surgery 05/28/2017 Pericardial tamponade 05/24/2017 Pericardial effusion 05/23/2017 Chronic gout 05/04/2017 Type 2 diabetes mellitus without complication 05/04/2017 CAD (coronary artery disease) 05/03/2017 SRIRAM (obstructive sleep apnea) 05/03/2017 NSVT (nonsustained ventricular tachycardia) 05/02/2017 Social History Tobacco Use Types Packs/Day Years Used Date Former Smoker Cigarettes 1 25 Quit: 05/02/2002 Smokeless Tobacco: Never Used Alcohol Use Drinks/Week oz/Week Comments No Sex Assigned at Date Recorded Not on file Job Start Date Occupation Industry Not on file Not on file Not on file Travel History Travel Start Travel End No recent travel history available. Last Filed Vital Signs Not on file Plan of Treatment Not on file Implants Implanted Type Area Automatic Serging Machine Operator Device Shelf Model / Identifier Expiration Serial / Date Lot Sut Surg Stl 7 18g 18in Mls Mp [id number] - [id number] [employer]/Arthroscop N/A: J &J :ETHICON 01/29/2022 [id number] / Implanted: Qty: 6 on 05/04/2017 by Nba Villanueva MD y Sternum / [id number] Sternal Zipfix Ndl Strl [id number] - Sx Cardiovascular N/A: SYNTHES: SYNTHE 03/01/2022 [id number] / Implanted: Qty: 2 on 05/04/2017 by Nba Villanueva MD [facility] X / [id number] Results Not on fileafter 11/21/2017 Insurance Payer Benefit Plan / Subscriber ID Type Phone Address Group BLUE CROSS/BLUE BCBS PPO POS EPO xxxxxxxxxxxx PPO [phone] [address] [place] [address] Advance Directives For more information, please contact:[address] [phone] Code Status Date Activated Date Inactivated Comments Full Code 06/17/2017 9:11 PM 06/28/2017 3:58 PM This code status was determined by: Patient Full Code 05/27/2017 1:40 PM 06/11/2017 6:04 PM This code status was determined by: Patient Full Code 05/27/2017 7:49 AM 05/27/2017 1:40 PM This code status was determined by: Patient Full Code 05/23/2017 2:26 PM 05/27/2017 7:49 AM This code status was determined by: Patient Full Code 05/04/2017 11:39 AM 05/11/2017 5:25 PM This code status was determined by: Patient
--- OUTSIDE RECORDS SUMMARY | 2018-11-22 19:39 | XMS REPORT ---
:1955 [facility] [address] [place] [address] Care Team Providers Name Role Phone KHARI [...] Value Reference Range Comments CULTURE (BEAKER) (test oels=8713) No acid-fast bacilli isolated in 42 days AFB SMEAR (BEAKER) (test jtmc=103) No acid fast bacilli seen ANG, EMBOLIZATION, EXTENSIVE - [id number] 15:48:00Reason for exam:-> thoracic duct embolizationFINAL REPORT [...] stable. Physician intra-service time was 185 minutes. Straight Edger: Jim North MD. 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 Vital signs were monitored throughout the procedure by a nurse, and remained stable. Physician intra-service time was 185 minutes. Straight Edger: Jim North MD. Fruit Preserver: Celi Approach: Bilateral inguinal lymph nodes, cisterna [...] Verified Date/Time: 2016 15:48:26 Reading Location: [address] Radiology Reading Room AFB CULTURE + [id number] 10:48:00 Test Item Value Reference Range Comments CULTURE (BEAKER) (test No acid-fast bacilli isolated fpsq=3721) in 42 days AFB SMEAR (BEAKER) (test No acid fast bacilli seen zhuz=787) [id number] 07:58:00 Test Item Value Reference Range Comments PHOSPHORUS (BEAKER) (test hctm=604) 4.5 mg/dL 2.3-4.7 [id number] 07:58:00 Test Item Value Reference Range Comments MAGNESIUM (BEAKER) (test pone=837) 1.7 mg/dL 1.6-2.6 BASIC METABOLIC [id number] 07:58:00 Test Item Value Reference Range Comments SODIUM (BEAKER) (test 140 meq/L 136-145 ewom=591) POTASSIUM (BEAKER) (test 4.3 meq/L 3.5-5.1 inob=385) CHLORIDE (BEAKER) (test 108 meq/L 98-107 iyvr=782) CO2 (BEAKER) (test 22 meq/L 22-29 dfde=467) BLOOD UREA NITROGEN 13 mg/dL 7-21 (BEAKER) (test nqbm=658) CREATININE (BEAKER) (test 0.69 mg/dL 0.57-1.25 lifd=620) GLUCOSE RANDOM (BEAKER) 123 mg/dL 70-105 (test piiz=595) CALCIUM (BEAKER) (test 8.1 mg/dL 8.4-10.2 wmrn=700) EGFR (BEAKER) (test 117 mL/min/1.73 sq m ESTIMATED GFR IS NOT abde=5885) ACCURATE CREATININE CLEARANCE IN PREDICTING GLOMERULAR FILTRATION RATE. ESTIMATED GFR IS NOT APPLICABLE FOR DIALYSIS PATIENTS. POCT-GLUCOSE [id number] 07:45:00 Test Item Value Reference Range Comments POC-GLUCOSE METER (BEAKER) 133 mg/dL 70-110 TESTED AT [facility] [address] [facility] (test mbur=6676) [facility] [address] CBC (HEMOGRAM ONLY)2017-06-28 06:06:00 Test Item Value Reference Range Comments WHITE BLOOD CELL COUNT (BEAKER) (test nkjs=461) 5.2 K/ L 3.5-10.5 RED BLOOD CELL COUNT (BEAKER) (test stuv=356) 4.15 M/ L 4.63-6.08 HEMOGLOBIN (BEAKER) (test niip=334) 10.8 GM/DL 13.7-17.5 HEMATOCRIT (BEAKER) (test jxny=746) 34.2 % 40.1-51.0 MEAN CORPUSCULAR VOLUME (BEAKER) (test hhtl=381) 82.4 fL 79.0-92.2 MEAN CORPUSCULAR HEMOGLOBIN (BEAKER) (test 26.0 pg 25.7-32.2 iuxz=600) MEAN CORPUSCULAR HEMOGLOBIN CONC (BEAKER) (test 31.6 GM/DL 32.3-36.5 qgzr=767) RED CELL DISTRIBUTION WIDTH (BEAKER) (test 14.2 % 11.6-14.4 hqke=228) PLATELET COUNT (BEAKER) (test nadu=084) 182 K/CU MM 150-450 MEAN PLATELET VOLUME (BEAKER) (test rvoe=436) 11.0 fL 9.4-12.4 NUCLEATED RED BLOOD CELLS (BEAKER) (test 0 /100 WBC 0-0 kiba=895) POCT-GLUCOSE [id number] 04:14:00 Test Item Value Reference Range Comments POC-GLUCOSE METER (BEAKER) 134 mg/dL 70-110 TESTED AT [address] (test xvkk=5306) [facility] [address] POCT-GLUCOSE [id number] 00:16:00 Test Item Value Reference Range Comments POC-GLUCOSE METER (BEAKER) 168 mg/dL 70-110 TESTED AT [address] (test yjux=6630) [facility] [address] POCT-GLUCOSE [id number] 21:16:00 Test Item Value Reference Range Comments POC-GLUCOSE METER (BEAKER) 192 mg/dL 70-110 TESTED AT [address] (test twof=1560) [place] [address] POCT-GLUCOSE [id number] 17:46:00 Test Item Value Reference Range Comments POC-GLUCOSE METER (BEAKER) 152 mg/dL 70-110 TESTED AT [address] (test tsxk=5308) [place] [address] POCT-GLUCOSE [id number] 12:08:00 Test Item Value Reference Range Comments POC-GLUCOSE METER (BEAKER) 146 mg/dL 70-110 TESTED AT [address] (test haha=7659) [place] [address] POCT-GLUCOSE [id number] 08:58:00 Test Item Value Reference Range Comments POC-GLUCOSE METER (BEAKER) 91 mg/dL 70-110 TESTED AT [address] (test zvqp=9819) [facility] [address] [id number] 07:10:00 Test Item Value Reference Range Comments PHOSPHORUS (BEAKER) (test uien=016) 5.4 mg/dL 2.3-4.7 [id number] 07:10:00 Test Item Value Reference Range Comments MAGNESIUM (BEAKER) (test kfav=559) 1.7 mg/dL 1.6-2.6 BASIC METABOLIC [id number] 07:10:00 Test Item Value Reference Range Comments SODIUM (BEAKER) (test 136 meq/L 136-145 esog=221) POTASSIUM (BEAKER) (test 3.5 meq/L 3.5-5.1 girj=168) CHLORIDE (BEAKER) (test 105 meq/L 98-107 sjrm=517) CO2 (BEAKER) (test 22 meq/L 22-29 jzxl=122) BLOOD UREA NITROGEN 15 mg/dL 7-21 (BEAKER) (test fjwx=018) CREATININE (BEAKER) (test 0.71 mg/dL 0.57-1.25 pjka=037) GLUCOSE RANDOM (BEAKER) 77 mg/dL 70-105 (test jvrh=437) CALCIUM (BEAKER) (test 8.1 mg/dL 8.4-10.2 sdbc=899) EGFR (BEAKER) (test 113 mL/min/1.73 sq m ESTIMATED GFR IS NOT vurb=0128) ACCURATE CREATININE CLEARANCE IN PREDICTING GLOMERULAR FILTRATION RATE. ESTIMATED GFR IS NOT APPLICABLE FOR DIALYSIS PATIENTS. POCT-GLUCOSE [id number] 21:26:00 Test Item Value Reference Range Comments POC-GLUCOSE METER (BEAKER) 139 mg/dL 70-110 TESTED AT [address] (test ivmw=2963) [facility] [address] POCT-GLUCOSE [id number] 16:47:00 Test Item Value Reference Range Comments POC-GLUCOSE METER (BEAKER) 105 mg/dL 70-110 TESTED AT [address] (test stbk=5317) [facility] [address] POCT-GLUCOSE [id number] 12:35:00 Test Item Value Reference Range Comments POC-GLUCOSE METER (BEAKER) 99 mg/dL 70-110 TESTED AT [address] (test cjar=0001) [facility] [address] POCT-GLUCOSE [id number] 09:16:00 Test Item Value Reference Range Comments POC-GLUCOSE METER (BEAKER) 120 mg/dL 70-110 TESTED AT [address] (test bmbq=7695) [place] [address] [id number] 07:55:00 Test Item Value Reference Range Comments PHOSPHORUS (BEAKER) (test wxwf=093) 4.5 mg/dL 2.3-4.7 [id number] 07:55:00 Test Item Value Reference Range Comments MAGNESIUM (BEAKER) (test mqwi=026) 1.6 mg/dL 1.6-2.6 BASIC METABOLIC [id number] 07:55:00 Test Item Value Reference Range Comments SODIUM (BEAKER) (test 135 meq/L 136-145 jqfb=582) POTASSIUM (BEAKER) (test 3.6 meq/L 3.5-5.1 hali=997) CHLORIDE (BEAKER) (test 103 meq/L 98-107 wpmd=276) CO2 (BEAKER) (test 26 meq/L 22-29 ltzd=500) BLOOD UREA NITROGEN 15 mg/dL 7-21 (BEAKER) (test exhm=656) CREATININE (BEAKER) (test 0.71 mg/dL 0.57-1.25 xtam=897) GLUCOSE RANDOM (BEAKER) 116 mg/dL 70-105 (test phxn=707) CALCIUM (BEAKER) (test 8.2 mg/dL 8.4-10.2 kaye=289) EGFR (BEAKER) (test 113 mL/min/1.73 sq m ESTIMATED GFR IS NOT xclm=1746) ACCURATE CREATININE CLEARANCE IN PREDICTING GLOMERULAR FILTRATION RATE. ESTIMATED GFR IS NOT APPLICABLE FOR DIALYSIS PATIENTS. POCT-GLUCOSE [id number] 20:20:00 Test Item Value Reference Range Comments POC-GLUCOSE METER (BEAKER) 166 mg/dL 70-110 TESTED AT [address] (test zxpj=3387) [place] [address] POCT-GLUCOSE [id number] 17:58:00 Test Item Value Reference Range Comments POC-GLUCOSE METER (BEAKER) 156 mg/dL 70-110 TESTED AT [address] (test xpzh=5535) [place] [address] POCT-GLUCOSE [id number] 14:33:00 Test Item Value Reference Range Comments POC-GLUCOSE METER (BEAKER) 153 mg/dL 70-110 TESTED AT [address] (test qvin=1774) [place] [address] CT, CHEST, WITHOUT [id number] 12:30:00FINAL REPORT CT of the Chest dated [...] Chauhan Verified Date/Time: 06/25/2017 12:30:00 Reading Location: [facility] C013Y CT Body Reading Room POCT-GLUCOSE [id number] 08:01:00 Test Item Value Reference Range Comments POC-GLUCOSE METER (BEAKER) 188 mg/dL 70-110 TESTED AT [facility] [address] [facility] (test ijde=7163) [facility] [address] [id number] 07:26:00 Test Item Value Reference Range Comments PHOSPHORUS (BEAKER) (test lvls=164) 2.7 mg/dL 2.3-4.7 [id number] 07:26:00 Test Item Value Reference Range Comments MAGNESIUM (BEAKER) (test wsfh=820) 1.5 mg/dL 1.6-2.6 BASIC METABOLIC [id number] 07:26:00 Test Item Value Reference Range Comments SODIUM (BEAKER) (test 136 meq/L 136-145 hgel=605) POTASSIUM (BEAKER) (test 3.8 meq/L 3.5-5.1 cavu=617) CHLORIDE (BEAKER) (test 104 meq/L 98-107 degc=850) CO2 (BEAKER) (test 26 meq/L 22-29 eqqh=932) BLOOD UREA NITROGEN 17 mg/dL 7-21 (BEAKER) (test tzxf=985) CREATININE (BEAKER) (test 0.67 mg/dL 0.57-1.25 rraf=102) GLUCOSE RANDOM (BEAKER) 166 mg/dL 70-105 (test rkuj=942) CALCIUM (BEAKER) (test 8.0 mg/dL 8.4-10.2 xykf=015) EGFR (BEAKER) (test 121 mL/min/1.73 sq m ESTIMATED GFR IS NOT mvzf=2453) ACCURATE CREATININE CLEARANCE IN PREDICTING GLOMERULAR FILTRATION RATE. ESTIMATED GFR IS NOT APPLICABLE FOR DIALYSIS PATIENTS. POCT-GLUCOSE [id number] 05:10:00 Test Item Value Reference Range Comments POC-GLUCOSE METER (BEAKER) 181 mg/dL 70-110 TESTED AT [address] (test guqh=9785) [place] [address] POCT-GLUCOSE [id number] 21:27:00 Test Item Value Reference Range Comments POC-GLUCOSE METER (BEAKER) 99 mg/dL 70-110 TESTED AT [address] (test nvwl=8958) [place] [address] POCT-GLUCOSE [id number] 16:37:00 Test Item Value Reference Range Comments POC-GLUCOSE METER (BEAKER) 117 mg/dL 70-110 TESTED AT [address] (test pued=5760) [place] [address] POCT-GLUCOSE [id number] 12:47:00 Test Item Value Reference Range Comments POC-GLUCOSE METER (BEAKER) 175 mg/dL 70-110 TESTED AT [address] (test umpa=5463) [place] [address] POCT-GLUCOSE [id number] 12:24:00 Test Item Value Reference Range Comments POC-GLUCOSE METER (BEAKER) 156 mg/dL 70-110 TESTED AT [address] (test btwm=4235) [place] [address] POCT-GLUCOSE [id number] 09:10:00 Test Item Value Reference Range Comments POC-GLUCOSE METER (BEAKER) 213 mg/dL 70-110 TESTED AT [facility] [address] [facility] (test wwpf=0885) [facility] [address] [id number] 07:24:00 Test Item Value Reference Range Comments PHOSPHORUS (BEAKER) (test otel=336) 2.6 mg/dL 2.3-4.7 [id number] 07:24:00 Test Item Value Reference Range Comments MAGNESIUM (BEAKER) (test uoxh=069) 1.6 mg/dL 1.6-2.6 BASIC METABOLIC [id number] 07:24:00 Test Item Value Reference Range Comments SODIUM (BEAKER) (test 137 meq/L 136-145 elyn=623) POTASSIUM (BEAKER) (test 3.7 meq/L 3.5-5.1 rpdv=299) CHLORIDE (BEAKER) (test 105 meq/L 98-107 kbou=770) CO2 (BEAKER) (test 28 meq/L 22-29 jtzf=067) BLOOD UREA NITROGEN 16 mg/dL 7-21 (BEAKER) (test isdz=830) CREATININE (BEAKER) (test 0.64 mg/dL 0.57-1.25 voet=044) GLUCOSE RANDOM (BEAKER) 168 mg/dL 70-105 (test djds=374) CALCIUM (BEAKER) (test 8.2 mg/dL 8.4-10.2 vejz=947) EGFR (BEAKER) (test 128 mL/min/1.73 sq m ESTIMATED GFR IS NOT bofm=8212) ACCURATE CREATININE CLEARANCE IN PREDICTING GLOMERULAR FILTRATION RATE. ESTIMATED GFR IS NOT APPLICABLE FOR DIALYSIS PATIENTS. CALCIUM, [id number] 07:12:00 Test Item Value Reference Range Comments CALCIUM IONIZED (BEAKER) (test vbtt=382) 1.04 mmol/L 1.12-1.27 PH, BLOOD (BEAKER) (test oowx=0753) 7.41 CBC W/PLT COUNT & AUTO [id number] 07:12:00 Test Item Value Reference Range Comments WHITE BLOOD CELL COUNT (BEAKER) (test bjxk=364) 7.2 K/ L 3.5-10.5 RED BLOOD CELL COUNT (BEAKER) (test umcc=049) 4.39 M/ L 4.63-6.08 HEMOGLOBIN (BEAKER) (test dxvz=998) 11.5 GM/DL 13.7-17.5 HEMATOCRIT (BEAKER) (test hsdm=575) 36.0 % 40.1-51.0 MEAN CORPUSCULAR VOLUME (BEAKER) (test bnjx=581) 82.0 fL 79.0-92.2 MEAN CORPUSCULAR HEMOGLOBIN (BEAKER) (test 26.2 pg 25.7-32.2 iaov=334) MEAN CORPUSCULAR HEMOGLOBIN CONC (BEAKER) (test 31.9 GM/DL 32.3-36.5 aqjs=943) RED CELL DISTRIBUTION WIDTH (BEAKER) (test 14.2 % 11.6-14.4 ddud=199) PLATELET COUNT (BEAKER) (test terj=270) 140 K/CU MM 150-450 MEAN PLATELET VOLUME (BEAKER) (test ljsk=841) 11.5 fL 9.4-12.4 NUCLEATED RED BLOOD CELLS (BEAKER) (test 0 /100 WBC 0-0 txbg=113) NEUTROPHILS RELATIVE PERCENT (BEAKER) (test 72 % uawz=135) LYMPHOCYTES RELATIVE PERCENT (BEAKER) (test 11 % fowq=636) MONOCYTES RELATIVE PERCENT (BEAKER) (test 6 % zfll=065) EOSINOPHILS RELATIVE PERCENT (BEAKER) (test 11 % kpmk=391) BASOPHILS RELATIVE PERCENT (BEAKER) (test 1 % fpww=260) NEUTROPHILS ABSOLUTE COUNT (BEAKER) (test 5.14 K/ L 1.78-5.38 ffuv=962) LYMPHOCYTES ABSOLUTE COUNT (BEAKER) (test 0.78 K/ L 1.32-3.57 ilsh=275) MONOCYTES ABSOLUTE COUNT (BEAKER) (test 0.42 K/ L 0.30-0.82 iccb=440) EOSINOPHILS ABSOLUTE COUNT (BEAKER) (test 0.79 K/ L 0.04-0.54 zxmq=926) BASOPHILS ABSOLUTE COUNT (BEAKER) (test 0.05 K/ L 0.01-0.08 xrcu=072) IMMATURE GRANULOCYTES-RELATIVE PERCENT (BEAKER) 0 % 0-1 (test kcue=7286) POCT-GLUCOSE [id number] 03:06:00 Test Item Value Reference Range Comments POC-GLUCOSE METER (BEAKER) 129 mg/dL 70-110 TESTED AT [address] (test wosj=6517) [place] [address] POCT-GLUCOSE [id number] 21:32:00 Test Item Value Reference Range Comments POC-GLUCOSE METER (BEAKER) 126 mg/dL 70-110 TESTED AT [address] (test cjmw=8576) [place] [address] FUNGUS CULTURE + [id number] 18:17:00 Test Item Value Reference Range Comments CULTURE (BEAKER) (test No fungus isolated in 28 days elic=3938) FUNGUS SMEAR (BEAKER) (test No fungi seen aiwz=2338) FUNGUS CULTURE + [id number] 17:52:00 Test Item Value Reference Range Comments CULTURE (BEAKER) (test No fungus isolated in 28 days zelp=9655) FUNGUS SMEAR (BEAKER) (test No fungi seen trvc=6845) POCT-GLUCOSE [id number] 17:19:00 Test Item Value Reference Range Comments POC-GLUCOSE METER (BEAKER) 129 mg/dL 70-110 TESTED AT [address] (test xjmx=9585) [place] [address] POCT-GLUCOSE [id number] 12:34:00 Test Item Value Reference Range Comments POC-GLUCOSE METER (BEAKER) 142 mg/dL 70-110 TESTED AT [address] (test soje=9911) [place] [address] [id number] 12:07:00 Test Item Value Reference Range Comments TRIGLYCERIDES (BEAKER) (test uhbf=831) 61 mg/dL TRIGLYCERIDE REFERENCE RANGELow Risk <150Borderline Risk 150-199High Risk 200-499Very High Risk>=500Please draw weekly while on [id number] 12:07:00 Test Item Value Reference Range Comments MAGNESIUM (BEAKER) (test vygc=305) 1.8 mg/dL 1.6-2.6 Please draw weekly while on [id number] 12:07:00 Test Item Value Reference Range Comments PHOSPHORUS (BEAKER) (test nqrj=976) 2.5 mg/dL 2.3-4.7 Please draw weekly while on TPNBASIC METABOLIC [id number] 12:07:00 Test Item Value Reference Range Comments SODIUM (BEAKER) (test 137 meq/L 136-145 uxpg=143) POTASSIUM (BEAKER) (test 4.0 meq/L 3.5-5.1 dzzh=634) CHLORIDE (BEAKER) (test 104 meq/L 98-107 qqgz=580) CO2 (BEAKER) (test 25 meq/L 22-29 vmxx=745) BLOOD UREA NITROGEN 19 mg/dL 7-21 (BEAKER) (test gqbg=906) CREATININE (BEAKER) (test 0.76 mg/dL 0.57-1.25 vihj=418) GLUCOSE RANDOM (BEAKER) 181 mg/dL 70-105 (test vaui=859) CALCIUM (BEAKER) (test 8.6 mg/dL 8.4-10.2 lueb=694) EGFR (BEAKER) (test 105 mL/min/1.73 sq m ESTIMATED GFR IS NOT lylx=8865) ACCURATE CREATININE CLEARANCE IN PREDICTING GLOMERULAR FILTRATION RATE. ESTIMATED GFR IS NOT APPLICABLE FOR DIALYSIS PATIENTS. Please draw weekly while on TPNPOCT-GLUCOSE [id number] 06:00:00 Test Item Value Reference Range Comments POC-GLUCOSE METER (BEAKER) 144 mg/dL 70-110 TESTED AT [address] (test jlvu=8460) [facility] [address] POCT-GLUCOSE [id number] 22:54:00 Test Item Value Reference Range Comments POC-GLUCOSE METER (BEAKER) 101 mg/dL 70-110 TESTED AT [address] (test cuqn=7705) [facility] [address] POCT-GLUCOSE [id number] 16:54:00 Test Item Value Reference Range Comments POC-GLUCOSE METER (BEAKER) 193 mg/dL 70-110 TESTED AT [address] (test ssuw=3432) [facility] [address] POCT-GLUCOSE [id number] 08:09:00 Test Item Value Reference Range Comments POC-GLUCOSE METER (BEAKER) 148 mg/dL 70-110 TESTED AT [address] (test sdyv=3445) [facility] [address] POCT-GLUCOSE [id number] 07:38:00 Test Item Value Reference Range Comments POC-GLUCOSE METER (BEAKER) 153 mg/dL 70-110 TESTED AT [address] (test nbho=3012) [facility] [address] [id number] 06:24:00 Test Item Value Reference Range Comments PHOSPHORUS (BEAKER) (test siyk=678) 3.2 mg/dL 2.3-4.7 [id number] 06:24:00 Test Item Value Reference Range Comments MAGNESIUM (BEAKER) (test mtwz=017) 1.7 mg/dL 1.6-2.6 BASIC METABOLIC [id number] 06:24:00 Test Item Value Reference Range Comments SODIUM (BEAKER) (test 138 meq/L 136-145 itll=871) POTASSIUM (BEAKER) (test 3.5 meq/L 3.5-5.1 txkl=760) CHLORIDE (BEAKER) (test 107 meq/L 98-107 pomb=233) CO2 (BEAKER) (test 24 meq/L 22-29 etey=741) BLOOD UREA NITROGEN 22 mg/dL 7-21 (BEAKER) (test nhjc=376) CREATININE (BEAKER) (test 0.71 mg/dL 0.57-1.25 fpju=117) GLUCOSE RANDOM (BEAKER) 134 mg/dL 70-105 (test sxpi=164) CALCIUM (BEAKER) (test 8.3 mg/dL 8.4-10.2 sfpf=931) EGFR (BEAKER) (test 113 mL/min/1.73 sq m ESTIMATED GFR IS NOT sjez=6785) ACCURATE CREATININE CLEARANCE IN PREDICTING GLOMERULAR FILTRATION RATE. ESTIMATED GFR IS NOT APPLICABLE FOR DIALYSIS PATIENTS. CBC W/PLT COUNT & AUTO [id number] 05:52:00 Test Item Value Reference Range Comments WHITE BLOOD CELL COUNT 7.1 K/ L 3.5-10.5 (BEAKER) (test umdi=593) RED BLOOD CELL COUNT (BEAKER) 4.55 M/ L 4.63-6.08 (test nvkr=579) HEMOGLOBIN (BEAKER) (test 12.0 GM/DL 13.7-17.5 ajas=808) HEMATOCRIT (BEAKER) (test 37.1 % 40.1-51.0 iomk=826) MEAN CORPUSCULAR VOLUME 81.5 fL 79.0-92.2 Discordant from previous (BEAKER) (test zzcm=428) results. Clinical correlation suggested. MEAN CORPUSCULAR HEMOGLOBIN 26.4 pg 25.7-32.2 (BEAKER) (test nnet=139) MEAN CORPUSCULAR HEMOGLOBIN 32.3 GM/DL 32.3-36.5 CONC (BEAKER) (test hhuv=767) RED CELL DISTRIBUTION WIDTH 14.4 % 11.6-14.4 (BEAKER) (test mcax=237) PLATELET COUNT (BEAKER) (test 184 K/CU MM 150-450 zvhr=024) MEAN PLATELET VOLUME (BEAKER) 11.4 fL 9.4-12.4 (test pygi=809) NUCLEATED RED BLOOD CELLS 0 /100 WBC 0-0 (BEAKER) (test lacf=718) NEUTROPHILS RELATIVE PERCENT 64 % (BEAKER) (test iwiz=175) LYMPHOCYTES RELATIVE PERCENT 22 % (BEAKER) (test slzr=152) MONOCYTES RELATIVE PERCENT 8 % (BEAKER) (test qnwx=587) EOSINOPHILS RELATIVE PERCENT 6 % (BEAKER) (test lhsz=344) BASOPHILS RELATIVE PERCENT 1 % (BEAKER) (test igbg=602) NEUTROPHILS ABSOLUTE COUNT 4.50 K/ L 1.78-5.38 (BEAKER) (test saxb=699) LYMPHOCYTES ABSOLUTE COUNT 1.55 K/ L 1.32-3.57 (BEAKER) (test hjab=861) MONOCYTES ABSOLUTE COUNT 0.53 K/ L 0.30-0.82 (BEAKER) (test envi=950) EOSINOPHILS ABSOLUTE COUNT 0.44 K/ L 0.04-0.54 (BEAKER) (test wqbu=136) BASOPHILS ABSOLUTE COUNT 0.05 K/ L 0.01-0.08 (BEAKER) (test pxer=815) IMMATURE 0 % 0-1 GRANULOCYTES-RELATIVE PERCENT (BEAKER) (test zhbk=3743) POCT-GLUCOSE [id number] 00:32:00 Test Item Value Reference Range Comments POC-GLUCOSE METER (BEAKER) 132 mg/dL 70-110 TESTED AT [address] (test onse=3855) [facility] [address] POCT-GLUCOSE [id number] 20:43:00 Test Item Value Reference Range Comments POC-GLUCOSE METER (BEAKER) 128 mg/dL 70-110 TESTED AT [address] (test pkxv=8034) [facility] [address] POCT-GLUCOSE [id number] 16:57:00 Test Item Value Reference Range Comments POC-GLUCOSE METER (BEAKER) 162 mg/dL 70-110 TESTED AT [facility] [address] (test wgfi=1167) [facility] [address] [id number] 14:05:00 Test Item Value Reference Range Comments FIBRINOGEN LEVEL (BEAKER) (test ihjr=214) 421 mg/dl 225-434 [id number] 14:05:00 Test Item Value Reference Range Comments PROTIME (BEAKER) (test oqtv=107) 17.2 seconds 11.7-14.7 INR (BEAKER) (test tipq=627) 1.4 <=5.9 PARTIAL THROMBOPLASTIN TIME (BEAKER) (test 37.4 seconds 22.5-36.0 pyhn=712) RECOMMENDED COUMADIN/WARFARIN INR THERAPY RANGESSTANDARD DOSE: 2.0 - 3.0 Includes: PROPHYLAXIS forvenous thrombosis, systemic embolization; TREATMENT for venous thrombosis and/or pulmonary embolus.HIGH RISK: Target INR is 2.5-3.5 for patients with mechanical heart valves.PROTHROMBIN [id number] 14:04: 00 Test Item Value Reference Range Comments PROTIME (BEAKER) (test aiib=429) 17.2 seconds 11.7-14.7 INR (BEAKER) (test ynfa=176) 1.4 <=5.9 RECOMMENDED COUMADIN/WARFARIN INR THERAPY RANGESSTANDARD DOSE: 2.0 - 3.0 Includes: PROPHYLAXIS forvenous thrombosis, systemic embolization; TREATMENT for venous thrombosis and/or pulmonary embolus.HIGH RISK: Target INR is 2.5-3.5 for patients with mechanical heart valves.CBC (HEMOGRAM ONLY)2017-06-21 14:00:00 Test Item Value Reference Range Comments WHITE BLOOD CELL COUNT (BEAKER) (test slkw=063) 8.6 K/ L 3.5-10.5 RED BLOOD CELL COUNT (BEAKER) (test tkdq=120) 4.47 M/ L 4.63-6.08 HEMOGLOBIN (BEAKER) (test lqnd=890) 11.9 GM/DL 13.7-17.5 HEMATOCRIT (BEAKER) (test owqb=211) 38.2 % 40.1-51.0 MEAN CORPUSCULAR VOLUME (BEAKER) (test gdku=344) 85.5 fL 79.0-92.2 MEAN CORPUSCULAR HEMOGLOBIN (BEAKER) (test 26.6 pg 25.7-32.2 ctgp=822) MEAN CORPUSCULAR HEMOGLOBIN CONC (BEAKER) (test 31.2 GM/DL 32.3-36.5 gckx=253) RED CELL DISTRIBUTION WIDTH (BEAKER) (test 14.5 % 11.6-14.4 ylwo=407) PLATELET COUNT (BEAKER) (test bphq=302) 196 K/CU MM 150-450 MEAN PLATELET VOLUME (BEAKER) (test qeiw=531) 11.7 fL 9.4-12.4 NUCLEATED RED BLOOD CELLS (BEAKER) (test 0 /100 WBC 0-0 skyk=211) POCT-GLUCOSE [id number] 12:37:00 Test Item Value Reference Range Comments POC-GLUCOSE METER (BEAKER) 191 mg/dL 70-110 TESTED AT [address] (test usgn=0643) [place] [address] CLOSTRIDIUM DIFFICILE TOXIN [id number] 11:35:00 Test Item Value Reference Range Comments CLOSTRIDIUM DIFFICILE TOXIN, PCR (BEAKER) (test Not Detected Not Detected nsch=0750) This qualitative real-time polymerase chain reaction assay [...] of a positive result is not recommended.POCT-GLUCOSE [id number] 08:51:00 Test Item Value Reference Range Comments POC-GLUCOSE METER (BEAKER) 159 mg/dL 70-110 TESTED AT [address] (test johg=5700) [place] [address] [id number] 07:19:00 Test Item Value Reference Range Comments PHOSPHORUS (BEAKER) (test howj=599) 3.4 mg/dL 2.3-4.7 [id number] 07:19:00 Test Item Value Reference Range Comments MAGNESIUM (BEAKER) (test goll=773) 1.8 mg/dL 1.6-2.6 BASIC METABOLIC [id number] 07:19:00 Test Item Value Reference Range Comments SODIUM (BEAKER) (test 137 meq/L 136-145 usqn=041) POTASSIUM (BEAKER) (test 3.6 meq/L 3.5-5.1 fyae=415) CHLORIDE (BEAKER) (test 106 meq/L 98-107 auji=674) CO2 (BEAKER) (test 22 meq/L 22-29 wpdh=405) BLOOD UREA NITROGEN 25 mg/dL 7-21 (BEAKER) (test vrgw=976) CREATININE (BEAKER) (test 0.73 mg/dL 0.57-1.25 bnut=148) GLUCOSE RANDOM (BEAKER) 168 mg/dL 70-105 (test eohs=185) CALCIUM (BEAKER) (test 8.2 mg/dL 8.4-10.2 gorc=994) EGFR (BEAKER) (test 110 mL/min/1.73 sq m ESTIMATED GFR IS NOT tosx=5094) ACCURATE CREATININE CLEARANCE IN PREDICTING GLOMERULAR FILTRATION RATE. ESTIMATED GFR IS NOT APPLICABLE FOR DIALYSIS PATIENTS. POCT-GLUCOSE [id number] 04:59:00 Test Item Value Reference Range Comments POC-GLUCOSE METER (BEAKER) 175 mg/dL 70-110 TESTED AT [address] (test ndak=1652) [facility] [address] POCT-GLUCOSE [id number] 00:21:00 Test Item Value Reference Range Comments POC-GLUCOSE METER (BEAKER) 108 mg/dL 70-110 TESTED AT [address] (test msqq=1578) [facility] [address] POCT-GLUCOSE [id number] 21:56:00 Test Item Value Reference Range Comments POC-GLUCOSE METER (BEAKER) 74 mg/dL 70-110 TESTED [address] [address] (test etyj=7545) [place] [id number] POCT-GLUCOSE [id number] 17:33:00 Test Item Value Reference Range Comments POC-GLUCOSE METER (BEAKER) 81 mg/dL 70-110 TESTED AT [address] (test zeng=0924) [facility] [address] POCT-GLUCOSE [id number] 11:45:00 Test Item Value Reference Range Comments POC-GLUCOSE METER (BEAKER) 193 mg/dL 70-110 TESTED AT [address] (test soim=0741) [facility] [address] POCT-GLUCOSE [id number] 08:58:00 Test Item Value Reference Range Comments POC-GLUCOSE METER (BEAKER) 164 mg/dL 70-110 TESTED AT [address] (test qmnm=9220) [facility] [address] POCT-GLUCOSE [id number] 08:42:00 Test Item Value Reference Range Comments POC-GLUCOSE METER (BEAKER) 191 mg/dL 70-110 TESTED AT [address] (test rerx=2920) [facility] [address] RAD, CHEST, 1 VIEW, NON [id number] 08:12:00Reason for exam:->pl effusionShould this be performed at the bedside?->YesFINAL REPORT CLINICAL HISTORY: pl effusion TECHNIQUE: 1 view of the chest. COMPARISON: 06/09/2017 IMPRESSION: The left PICC line is unchanged. There are no infiltrates or significant effusions. The cardiomediastinal silhouette is magnified by technique with sternotomy wires. Signed: Meagan Santacruz MDReport Verified Date/Time: 06/20/2017 08:12:30 Reading Location: [facility] C013V Neuro Reading Room [id number] 07:25:00 Test Item Value Reference Range Comments PHOSPHORUS (BEAKER) (test mwqg=901) 3.5 mg/dL 2.3-4.7 [id number] 07:25:00 Test Item Value Reference Range Comments MAGNESIUM (BEAKER) (test ndnv=097) 1.7 mg/dL 1.6-2.6 BASIC METABOLIC [id number] 07:25:00 Test Item Value Reference Range Comments SODIUM (BEAKER) (test 139 meq/L 136-145 tvwv=775) POTASSIUM (BEAKER) (test 3.3 meq/L 3.5-5.1 jwnw=908) CHLORIDE (BEAKER) (test 106 meq/L 98-107 bnrq=323) CO2 (BEAKER) (test 26 meq/L 22-29 jvis=035) BLOOD UREA NITROGEN 26 mg/dL 7-21 (BEAKER) (test oiae=324) CREATININE (BEAKER) (test 0.79 mg/dL 0.57-1.25 suxd=895) GLUCOSE RANDOM (BEAKER) 195 mg/dL 70-105 (test kplw=493) CALCIUM (BEAKER) (test 8.4 mg/dL 8.4-10.2 dnhl=132) EGFR (BEAKER) (test 100 mL/min/1.73 sq m ESTIMATED GFR IS NOT rkpt=9177) ACCURATE CREATININE CLEARANCE IN PREDICTING GLOMERULAR FILTRATION RATE. ESTIMATED GFR IS NOT APPLICABLE FOR DIALYSIS PATIENTS. POCT-GLUCOSE [id number] 23:25:00 Test Item Value Reference Range Comments POC-GLUCOSE METER (BEAKER) 101 mg/dL 70-110 TESTED AT [address] (test newe=4598) [place] [address] POCT-GLUCOSE [id number] 16:33:00 Test Item Value Reference Range Comments POC-GLUCOSE METER (BEAKER) 133 mg/dL 70-110 TESTED AT [address] (test mvzl=5185) [place] [address] POCT-GLUCOSE [id number] 12:30:00 Test Item Value Reference Range Comments POC-GLUCOSE METER (BEAKER) 178 mg/dL 70-110 TESTED AT [address] (test vmrj=8634) [place] [address] POCT-GLUCOSE [id number] 08:55:00 Test Item Value Reference Range Comments POC-GLUCOSE METER (BEAKER) 189 mg/dL 70-110 TESTED AT [address] (test rgwc=7570) [place] [address] [id number] 06:37:00 Test Item Value Reference Range Comments PHOSPHORUS (BEAKER) (test pdsu=119) 4.4 mg/dL 2.3-4.7 [id number] 06:37:00 Test Item Value Reference Range Comments MAGNESIUM (BEAKER) (test unbs=592) 1.8 mg/dL 1.6-2.6 BASIC METABOLIC [id number] 06:37:00 Test Item Value Reference Range Comments SODIUM (BEAKER) (test 138 meq/L 136-145 tqyq=115) POTASSIUM (BEAKER) (test 3.1 meq/L 3.5-5.1 vslc=166) CHLORIDE (BEAKER) (test 105 meq/L 98-107 revn=405) CO2 (BEAKER) (test 24 meq/L 22-29 xwam=372) BLOOD UREA NITROGEN 26 mg/dL 7-21 (BEAKER) (test ppml=385) CREATININE (BEAKER) (test 0.85 mg/dL 0.57-1.25 rlin=210) GLUCOSE RANDOM (BEAKER) 168 mg/dL 70-105 (test unyg=508) CALCIUM (BEAKER) (test 8.3 mg/dL 8.4-10.2 hixb=484) EGFR (BEAKER) (test 92 mL/min/1.73 sq m ESTIMATED GFR IS NOT icby=9714) ACCURATE CREATININE CLEARANCE IN PREDICTING GLOMERULAR FILTRATION RATE. ESTIMATED GFR IS NOT APPLICABLE FOR DIALYSIS PATIENTS. POCT-GLUCOSE [id number] 03:57:00 Test Item Value Reference Range Comments POC-GLUCOSE METER (BEAKER) 173 mg/dL 70-110 TESTED AT [address] (test kogm=6691) [place] [address] POCT-GLUCOSE [id number] 00:27:00 Test Item Value Reference Range Comments POC-GLUCOSE METER (BEAKER) 163 mg/dL 70-110 TESTED AT [address] (test ycft=8900) [place] [address] POCT-GLUCOSE [id number] 22:05:00 Test Item Value Reference Range Comments POC-GLUCOSE METER (BEAKER) 156 mg/dL 70-110 TESTED AT [address] (test vrvx=6472) [place] [address] CT, CHEST, WITHOUT [id number] 20:31:00FINAL REPORT CT, CHEST, WITHOUT CONTRAST INDICATION: [...] Verified Date/Time: 06/18/2017 20:31: 30 Reading Location: [address] Reading Room POCT-GLUCOSE [id number] 16:52:00 Test Item Value Reference Range Comments POC-GLUCOSE METER (BEAKER) 190 mg/dL 70-110 TESTED AT [address] (test xlbd=3243) [facility] [address] POCT-GLUCOSE [id number] 12:30:00 Test Item Value Reference Range Comments POC-GLUCOSE METER (BEAKER) 139 mg/dL 70-110 TESTED AT [address] (test gjrj=1776) [facility] [address] POCT-GLUCOSE [id number] 12:02:00 Test Item Value Reference Range Comments POC-GLUCOSE METER (BEAKER) 114 mg/dL 70-110 TESTED AT [address] (test weey=1301) [facility] [address] [id number] 07:18:00 Test Item Value Reference Range Comments PHOSPHORUS (BEAKER) (test wdaj=628) 4.8 mg/dL 2.3-4.7 [id number] 07:18:00 Test Item Value Reference Range Comments MAGNESIUM (BEAKER) (test rpqq=213) 1.4 mg/dL 1.6-2.6 COMPREHENSIVE METABOLIC [id number] 07:18:00 Test Item Value Reference Range Comments TOTAL PROTEIN (BEAKER) 6.6 gm/dL 6.0-8.3 (test hpzm=751) ALBUMIN (BEAKER) (test 3.3 g/dL 3.5-5.0 gnmw=3005) ALKALINE PHOSPHATASE 70 U/L 40-150 (BEAKER) (test isqb=610) BILIRUBIN TOTAL (BEAKER) 0.5 mg/dL 0.2-1.2 (test futm=101) SODIUM (BEAKER) (test 138 meq/L 136-145 mlra=391) POTASSIUM (BEAKER) (test 3.6 meq/L 3.5-5.1 tmew=164) CHLORIDE (BEAKER) (test 107 meq/L 98-107 peyx=601) CO2 (BEAKER) (test 21 meq/L 22-29 fsce=234) BLOOD UREA NITROGEN 26 mg/dL 7-21 (BEAKER) (test xzsr=051) CREATININE (BEAKER) (test 0.97 mg/dL 0.57-1.25 ymqk=728) GLUCOSE RANDOM (BEAKER) 118 mg/dL 70-105 (test wtsy=664) CALCIUM (BEAKER) (test 8.7 mg/dL 8.4-10.2 evwx=683) AST (SGOT) (BEAKER) (test 46 U/L 5-34 pzdo=096) ALT (SGPT) (BEAKER) (test 38 U/L 6-55 vozr=985) EGFR (BEAKER) (test 79 mL/min/1.73 sq m ESTIMATED GFR IS NOT jntm=8766) ACCURATE CREATININE CLEARANCE IN PREDICTING GLOMERULAR FILTRATION RATE. ESTIMATED GFR IS NOT APPLICABLE FOR DIALYSIS PATIENTS. POCT-GLUCOSE [id number] 13:03:00 Test Item Value Reference Range Comments POC-GLUCOSE METER (BEAKER) 172 mg/dL 70-110 TESTED AT [address] (test vwli=0863) [place] [address] POCT-GLUCOSE [id number] 09:06:00 Test Item Value Reference Range Comments POC-GLUCOSE METER (BEAKER) 172 mg/dL 70-110 TESTED AT [address] (test jqqj=0049) [facility] [address] POCT-GLUCOSE [id number] 08:59:00 Test Item Value Reference Range Comments POC-GLUCOSE METER (BEAKER) 151 mg/dL 70-110 TESTED AT [address] (test xahd=7074) [place] [address] [id number] 06:38:00 Test Item Value Reference Range Comments MAGNESIUM (BEAKER) (test btde=276) 1.8 mg/dL 1.6-2.6 BASIC METABOLIC [id number] 06:38:00 Test Item Value Reference Range Comments SODIUM (BEAKER) (test 139 meq/L 136-145 upmt=419) POTASSIUM (BEAKER) (test 3.3 meq/L 3.5-5.1 nner=010) CHLORIDE (BEAKER) (test 106 meq/L 98-107 akry=565) CO2 (BEAKER) (test 24 meq/L 22-29 yysu=518) BLOOD UREA NITROGEN 37 mg/dL 7-21 (BEAKER) (test vjpo=172) CREATININE (BEAKER) (test 1.04 mg/dL 0.57-1.25 qvwy=694) GLUCOSE RANDOM (BEAKER) 154 mg/dL 70-105 (test vvww=049) CALCIUM (BEAKER) (test 8.4 mg/dL 8.4-10.2 uoyh=380) EGFR (BEAKER) (test 73 mL/min/1.73 sq m ESTIMATED GFR IS NOT uhdc=4388) ACCURATE CREATININE CLEARANCE IN PREDICTING GLOMERULAR FILTRATION RATE. ESTIMATED GFR IS NOT APPLICABLE FOR DIALYSIS PATIENTS. CBC (HEMOGRAM ONLY)2017-06-11 06:23:00 Test Item Value Reference Range Comments WHITE BLOOD CELL COUNT (BEAKER) (test gokn=703) 6.8 K/ L 3.5-10.5 RED BLOOD CELL COUNT (BEAKER) (test jgyq=735) 5.19 M/ L 4.63-6.08 HEMOGLOBIN (BEAKER) (test kpkt=138) 13.5 GM/DL 13.7-17.5 HEMATOCRIT (BEAKER) (test fvku=367) 43.3 % 40.1-51.0 MEAN CORPUSCULAR VOLUME (BEAKER) (test lbve=839) 83.4 fL 79.0-92.2 MEAN CORPUSCULAR HEMOGLOBIN (BEAKER) (test 26.0 pg 25.7-32.2 rhsf=287) MEAN CORPUSCULAR HEMOGLOBIN CONC (BEAKER) (test 31.2 GM/DL 32.3-36.5 heuz=622) RED CELL DISTRIBUTION WIDTH (BEAKER) (test 13.9 % 11.6-14.4 wheg=715) PLATELET COUNT (BEAKER) (test zecv=886) 295 K/CU MM 150-450 MEAN PLATELET VOLUME (BEAKER) (test cutt=556) 10.8 fL 9.4-12.4 NUCLEATED RED BLOOD CELLS (BEAKER) (test 0 /100 WBC 0-0 geew=413) POCT-GLUCOSE [id number] 01:31:00 Test Item Value Reference Range Comments POC-GLUCOSE METER (BEAKER) 153 mg/dL 70-110 TESTED AT [address] (test oucx=9773) [place] [address] POCT-GLUCOSE [id number] 00:08:00 Test Item Value Reference Range Comments POC-GLUCOSE METER (BEAKER) 126 mg/dL 70-110 TESTED AT [address] (test wuce=2764) [place] [address] POCT-GLUCOSE [id number] 21:25:00 Test Item Value Reference Range Comments POC-GLUCOSE METER (BEAKER) 138 mg/dL 70-110 TESTED AT [address] (test pmnj=1590) [place] [address] CT, CHEST, WITH [id number] 17:41:00Embolization of thoracic ductReason for exam:->chylothoraxWhat is [...] MDReport Verified Date/Time: 06/10/2017 17:41:51 Reading Location: [facility] C013W Consult Reading Room POCT-GLUCOSE [id number] 16:44:00 Test Item Value Reference Range Comments POC-GLUCOSE METER (BEAKER) 109 mg/dL 70-110 TESTED AT [address] (test mopa=3985) [facility] [address] POCT-GLUCOSE [id number] 12:02:00 Test Item Value Reference Range Comments POC-GLUCOSE METER (BEAKER) 173 mg/dL 70-110 TESTED AT [address] (test cysp=9316) [facility] [address] [id number] 06:25:00 Test Item Value Reference Range Comments MAGNESIUM (BEAKER) (test slue=285) 1.8 mg/dL 1.6-2.6 BASIC METABOLIC [id number] 06:25:00 Test Item Value Reference Range Comments SODIUM (BEAKER) (test 141 meq/L 136-145 opfh=207) POTASSIUM (BEAKER) (test 3.8 meq/L 3.5-5.1 dckw=021) CHLORIDE (BEAKER) (test 107 meq/L 98-107 grue=869) CO2 (BEAKER) (test 26 meq/L 22-29 jpqi=815) BLOOD UREA NITROGEN 38 mg/dL 7-21 (BEAKER) (test rtfq=348) CREATININE (BEAKER) (test 1.16 mg/dL 0.57-1.25 amjs=371) GLUCOSE RANDOM (BEAKER) 105 mg/dL 70-105 (test szpf=192) CALCIUM (BEAKER) (test 8.8 mg/dL 8.4-10.2 abal=844) EGFR (BEAKER) (test 64 mL/min/1.73 sq m ESTIMATED GFR IS NOT yyww=1659) ACCURATE CREATININE CLEARANCE IN PREDICTING GLOMERULAR FILTRATION RATE. ESTIMATED GFR IS NOT APPLICABLE FOR DIALYSIS PATIENTS. POCT-GLUCOSE [id number] 05:14:00 Test Item Value Reference Range Comments POC-GLUCOSE METER (BEAKER) 130 mg/dL 70-110 TESTED AT [address] (test uyjm=6438) [place] [id number] POCT-GLUCOSE [id number] 01:09:00 Test Item Value Reference Range Comments POC-GLUCOSE METER (BEAKER) 139 mg/dL 70-110 TESTED AT [address] (test hypk=3661) [place] [address] POCT-GLUCOSE [id number] 22:20:00 Test Item Value Reference Range Comments POC-GLUCOSE METER (BEAKER) 146 mg/dL 70-110 TESTED AT [address] (test jwem=6944) [place] [address] POCT-GLUCOSE [id number] 18:30:00 Test Item Value Reference Range Comments POC-GLUCOSE METER (BEAKER) 127 mg/dL 70-110 TESTED AT [address] (test rymg=7254) [place] [address] POCT-GLUCOSE [id number] 13:21:00 Test Item Value Reference Range Comments POC-GLUCOSE METER (BEAKER) 138 mg/dL 70-110 TESTED AT [address] (test dcos=5939) [facility] [address] POCT-GLUCOSE [id number] 09:55:00 Test Item Value Reference Range Comments POC-GLUCOSE METER (BEAKER) 178 mg/dL 70-110 TESTED AT [address] (test hvyo=2778) [place] [address] POCT-GLUCOSE [id number] 08:57:00 Test Item Value Reference Range Comments POC-GLUCOSE METER (BEAKER) 152 mg/dL 70-110 TESTED AT [address] (test lgpm=3981) [place] [address] RAD, CHEST, 1 VIEW, NON [id number] 08:46:00Reason for exam:->pl effusionShould this be performed at the bedside?->YesFINAL REPORT HISTORY : pl effusion. Comparison: 06/08/2017 Comment: Single portable view of the chest was obtained. The cardiac silhouette size is enlarged. There is a tortuous/ectatic thoracic aorta. There is some patchy bibasilar airspace disease. Stable left-sided PICC line catheter is seen. No pneumothorax or pleural effusion is seen. Signed: Jean Pierre Renteria MDReport Verified Date/Time: 06/09/2017 08:46:02 Reading Location: [facility] Reading Room - [place] [address] [id number] 06:21:00 Test Item Value Reference Range Comments TRIGLYCERIDES (BEAKER) (test asda=854) 103 mg/dL TRIGLYCERIDE REFERENCE RANGELow Risk <150Borderline Risk 150-199High Risk 200-499Very High Risk>=[id number] 06:21:00 Test Item Value Reference Range Comments MAGNESIUM (BEAKER) (test lxyw=296) 1.6 mg/dL 1.6-2.6 [id number] 06:21:00 Test Item Value Reference Range Comments PHOSPHORUS (BEAKER) (test jbgx=685) 4.2 mg/dL 2.3-4.7 BASIC METABOLIC [id number] 06:21:00 Test Item Value Reference Range Comments SODIUM (BEAKER) (test 141 meq/L 136-145 htlo=809) POTASSIUM (BEAKER) (test 3.8 meq/L 3.5-5.1 vgdz=078) CHLORIDE (BEAKER) (test 107 meq/L 98-107 srgo=631) CO2 (BEAKER) (test 25 meq/L 22-29 fgfj=423) BLOOD UREA NITROGEN 30 mg/dL 7-21 (BEAKER) (test ggik=672) CREATININE (BEAKER) (test 1.09 mg/dL 0.57-1.25 xqzd=355) GLUCOSE RANDOM (BEAKER) 152 mg/dL 70-105 (test dqvg=628) CALCIUM (BEAKER) (test 8.5 mg/dL 8.4-10.2 augp=275) EGFR (BEAKER) (test 69 mL/min/1.73 sq m ESTIMATED GFR IS NOT jzap=0599) ACCURATE CREATININE CLEARANCE IN PREDICTING GLOMERULAR FILTRATION RATE. ESTIMATED GFR IS NOT APPLICABLE FOR DIALYSIS PATIENTS. HEPATIC FUNCTION [id number] 06:21:00 Test Item Value Reference Range Comments TOTAL PROTEIN (BEAKER) (test zlot=971) 6.6 gm/dL 6.0-8.3 ALBUMIN (BEAKER) (test jitk=5473) 3.3 g/dL 3.5-5.0 BILIRUBIN TOTAL (BEAKER) (test ykhl=531) 0.7 mg/dL 0.2-1.2 BILIRUBIN DIRECT (BEAKER) (test rypb=878) 0.3 mg/dL 0.1-0.5 ALKALINE PHOSPHATASE (BEAKER) (test fisr=517) 57 U/L 40-150 AST (SGOT) (BEAKER) (test kfui=592) 25 U/L 5-34 ALT (SGPT) (BEAKER) (test xpxs=088) 12 U/L 6-55 CBC (HEMOGRAM ONLY)2017-06-09 06:01:00 Test Item Value Reference Range Comments WHITE BLOOD CELL COUNT (BEAKER) (test qpig=053) 7.6 K/ L 3.5-10.5 RED BLOOD CELL COUNT (BEAKER) (test xczo=724) 4.97 M/ L 4.63-6.08 HEMOGLOBIN (BEAKER) (test kcvu=694) 13.1 GM/DL 13.7-17.5 HEMATOCRIT (BEAKER) (test dcea=251) 42.0 % 40.1-51.0 MEAN CORPUSCULAR VOLUME (BEAKER) (test rhsq=887) 84.5 fL 79.0-92.2 MEAN CORPUSCULAR HEMOGLOBIN (BEAKER) (test 26.4 pg 25.7-32.2 ttwx=220) MEAN CORPUSCULAR HEMOGLOBIN CONC (BEAKER) (test 31.2 GM/DL 32.3-36.5 vfpt=089) RED CELL DISTRIBUTION WIDTH (BEAKER) (test 13.8 % 11.6-14.4 kqtz=009) PLATELET COUNT (BEAKER) (test cuqk=707) 300 K/CU MM 150-450 MEAN PLATELET VOLUME (BEAKER) (test rmlk=713) 10.2 fL 9.4-12.4 NUCLEATED RED BLOOD CELLS (BEAKER) (test 0 /100 WBC 0-0 qgsf=606) POCT-GLUCOSE [id number] 01:17:00 Test Item Value Reference Range Comments POC-GLUCOSE METER (BEAKER) 138 mg/dL 70-110 TESTED AT [address] (test oagz=0477) [facility] [address] POCT-GLUCOSE [id number] 21:42:00 Test Item Value Reference Range Comments POC-GLUCOSE METER (BEAKER) 105 mg/dL 70-110 TESTED AT [address] (test fpdt=5328) [facility] [address] POCT-GLUCOSE [id number] 17:08:00 Test Item Value Reference Range Comments POC-GLUCOSE METER (BEAKER) 90 mg/dL 70-110 TESTED AT [address] (test ypmz=0335) [facility] [address] POCT-GLUCOSE [id number] 13:27:00 Test Item Value Reference Range Comments POC-GLUCOSE METER (BEAKER) 140 mg/dL 70-110 TESTED AT [address] (test ocjw=2388) [facility] [address] POCT-GLUCOSE [id number] 12:58:00 Test Item Value Reference Range Comments POC-GLUCOSE METER (BEAKER) 139 mg/dL 70-110 TESTED AT [address] (test xejn=5551) [facility] [address] POCT-GLUCOSE [id number] 06:10:00 Test Item Value Reference Range Comments POC-GLUCOSE METER (BEAKER) 120 mg/dL 70-110 TESTED AT [address] (test sipe=5662) [facility] [address] RAD, CHEST, 1 VIEW, NON [id number] 05:48:00Reason for exam:->pl effusionShould this be performed at the bedside?->YesFINAL REPORT RAD, CHEST, 1 VIEW, NON DEPT INDICATION: pl effusion COMPARISON: Prior day's exam TECHNIQUE: Portable frontal view of the chest. IMPRESSION: Lines and tubes stable.Cardiomediastinal silhouette stable.No overt consolidative or congestive change.No large pleural effusion on this limited exam.No acute osseous abnormality. Signed: Nate Rivera MDReport Verified Date/Time: 06/08/2017 05:48:32 Reading Location: [facility] C013X Ortho Consult Reading Room 05: 48 AMBASIC METABOLIC [id number] 05:28:00 Test Item Value Reference Range Comments SODIUM (BEAKER) (test 141 meq/L 136-145 dddj=824) POTASSIUM (BEAKER) (test 3.4 meq/L 3.5-5.1 lblq=043) CHLORIDE (BEAKER) (test 106 meq/L 98-107 otra=767) CO2 (BEAKER) (test 27 meq/L 22-29 qqtg=841) BLOOD UREA NITROGEN 27 mg/dL 7-21 (BEAKER) (test qjbt=382) CREATININE (BEAKER) (test 0.84 mg/dL 0.57-1.25 kmpc=970) GLUCOSE RANDOM (BEAKER) 99 mg/dL 70-105 (test vkvz=039) CALCIUM (BEAKER) (test 8.2 mg/dL 8.4-10.2 mahs=916) EGFR (BEAKER) (test 93 mL/min/1.73 sq m ESTIMATED GFR IS NOT wfqf=3651) ACCURATE CREATININE CLEARANCE IN PREDICTING GLOMERULAR FILTRATION RATE. ESTIMATED GFR IS NOT APPLICABLE FOR DIALYSIS PATIENTS. [id number] 05:27:00 Test Item Value Reference Range Comments MAGNESIUM (BEAKER) (test shrl=727) 1.7 mg/dL 1.6-2.6 POCT-GLUCOSE [id number] 01:00:00 Test Item Value Reference Range Comments POC-GLUCOSE METER (BEAKER) 112 mg/dL 70-110 TESTED AT [address] (test eqyf=7195) [facility] [address] POCT-GLUCOSE [id number] 21:31:00 Test Item Value Reference Range Comments POC-GLUCOSE METER (BEAKER) 132 mg/dL 70-110 TESTED AT [address] (test yomt=7625) [facility] [address] POCT-GLUCOSE [id number] 17:12:00 Test Item Value Reference Range Comments POC-GLUCOSE METER (BEAKER) 114 mg/dL 70-110 TESTED AT [address] (test ocds=6923) [facility] [address] [place] [id number] 15:07:00 Test Item Value Reference Range Comments CULTURE (BEAKER) (test No Legionella species isolated vsfe=9852) POCT-GLUCOSE [id number] 13:19:00 Test Item Value Reference Range Comments POC-GLUCOSE METER (BEAKER) 146 mg/dL 70-110 TESTED AT [address] (test mmhe=4859) [place] [address] POCT-GLUCOSE [id number] 09:22:00 Test Item Value Reference Range Comments POC-GLUCOSE METER (BEAKER) 126 mg/dL 70-110 TESTED AT [address] (test svgy=1626) [place] [address] [id number] 06:19:00 Test Item Value Reference Range Comments MAGNESIUM (BEAKER) (test nfft=986) 2.0 mg/dL 1.6-2.6 BASIC METABOLIC [id number] 06:19:00 Test Item Value Reference Range Comments SODIUM (BEAKER) (test 143 meq/L 136-145 bvcl=932) POTASSIUM (BEAKER) (test 3.2 meq/L 3.5-5.1 hpiv=472) CHLORIDE (BEAKER) (test 105 meq/L 98-107 gsqy=550) CO2 (BEAKER) (test 30 meq/L 22-29 fnvj=960) BLOOD UREA NITROGEN 24 mg/dL 7-21 (BEAKER) (test fhng=683) CREATININE (BEAKER) (test 0.79 mg/dL 0.57-1.25 nlub=630) GLUCOSE RANDOM (BEAKER) 92 mg/dL 70-105 (test fzeq=179) CALCIUM (BEAKER) (test 8.4 mg/dL 8.4-10.2 sorp=859) EGFR (BEAKER) (test 100 mL/min/1.73 sq m ESTIMATED GFR IS NOT qxmu=9762) ACCURATE CREATININE CLEARANCE IN PREDICTING GLOMERULAR FILTRATION RATE. ESTIMATED GFR IS NOT APPLICABLE FOR DIALYSIS PATIENTS. RAD, CHEST, 1 VIEW, NON [id number] 05:53:00Reason for exam:->pl effusionShould this be performed at the bedside?->YesFINAL REPORT Comparison exam: 06/05/2017 No pneumothorax, focal pulmonary consolidation, or significant pleural effusion. Stable cardiomediastinal contours. Appropriate position of the support hardware. Signed: Mango Rodas Verified Date/Time: 06/07/2017 05:53:31 Reading Location: [facility] B1 [id number] Ortho Consult Reading Room POCT-GLUCOSE [id number] 05:45:00 Test Item Value Reference Range Comments POC-GLUCOSE METER (BEAKER) 99 mg/dL 70-110 TESTED AT [address] (test sumv=2163) [place] [id number] POCT-GLUCOSE [id number] 01:04:00 Test Item Value Reference Range Comments POC-GLUCOSE METER (BEAKER) 129 mg/dL 70-110 TESTED AT [address] (test nriz=3761) [place] [id number] POCT-GLUCOSE [id number] 21:23:00 Test Item Value Reference Range Comments POC-GLUCOSE METER (BEAKER) 145 mg/dL 70-110 TESTED AT [address] (test xikd=1140) [place] [id number] POCT-GLUCOSE [id number] 17:23:00 Test Item Value Reference Range Comments POC-GLUCOSE METER (BEAKER) 120 mg/dL 70-110 TESTED AT [address] (test pszq=0244) [place] [id number] URINE [id number] 14:37:00 Test Item Value Reference Range Comments CULTURE (BEAKER) (test zlqf=0588) Amikacin (test code=1) Aztreonam (test code=32) Cefepime (test code=51) Cefoxitin (test code=68) Ceftazidime (test code=27) Ceftriaxone (test code=52) Ertapenem (test code=38) Gentamicin (test code=18) Levofloxacin (test code=22) Meropenem (test code=34) Nitrofurantoin (test code=23) Tetracycline (test code=2) Tobramycin (test code=25) Trimethoprim + Sulfamethoxazole (test code=47) CULTURE (BEAKER) (test zwjd=0071) 80-89,000 col/mL Serratia marcescens >100,000 col/mL skin floraPOCT-GLUCOSE [id number] 13:07:00 Test Item Value Reference Range Comments POC-GLUCOSE METER (BEAKER) 169 mg/dL 70-110 TESTED AT [address] (test ibfh=4099) [place] [address] BASIC METABOLIC [id number] 12:56:00 Test Item Value Reference Range Comments SODIUM (BEAKER) (test 138 meq/L 136-145 cfnx=917) POTASSIUM (BEAKER) (test 3.6 meq/L 3.5-5.1 gwmn=993) CHLORIDE (BEAKER) (test 100 meq/L 98-107 ctsw=628) CO2 (BEAKER) (test 29 meq/L 22-29 ybhc=186) BLOOD UREA NITROGEN 24 mg/dL 7-21 (BEAKER) (test ylrc=372) CREATININE (BEAKER) (test 0.85 mg/dL 0.57-1.25 ippl=595) GLUCOSE RANDOM (BEAKER) 141 mg/dL 70-105 (test ssng=795) CALCIUM (BEAKER) (test 8.4 mg/dL 8.4-10.2 wncw=783) EGFR (BEAKER) (test 92 mL/min/1.73 sq m ESTIMATED GFR IS NOT scbn=7628) ACCURATE CREATININE CLEARANCE IN PREDICTING GLOMERULAR FILTRATION RATE. ESTIMATED GFR IS NOT APPLICABLE FOR DIALYSIS PATIENTS. POCT-GLUCOSE [id number] 09:27:00 Test Item Value Reference Range Comments POC-GLUCOSE METER (BEAKER) 148 mg/dL 70-110 TESTED AT [address] (test kbxf=7629) [place] [address] [id number] 07:57:00 Test Item Value Reference Range Comments MAGNESIUM (BEAKER) (test kqjm=812) 2.9 mg/dL 1.6-2.6 POCT-GLUCOSE [id number] 07:49:00 Test Item Value Reference Range Comments POC-GLUCOSE METER (BEAKER) 117 mg/dL 70-110 TESTED AT [address] (test wuov=4813) [place] [address] POCT-GLUCOSE [id number] 05:12:00 Test Item Value Reference Range Comments POC-GLUCOSE METER (BEAKER) 125 mg/dL 70-110 TESTED AT [address] (test gfgd=2476) [facility] [address] POCT-GLUCOSE [id number] 03:50:00 Test Item Value Reference Range Comments POC-GLUCOSE METER (BEAKER) 139 mg/dL 70-110 TESTED AT [address] (test miqx=2847) [facility] [address] POCT-GLUCOSE [id number] 21:30:00 Test Item Value Reference Range Comments POC-GLUCOSE METER (BEAKER) 117 mg/dL 70-110 TESTED AT [address] (test lqac=1625) [facility] [address] POCT-GLUCOSE [id number] 18:07:00 Test Item Value Reference Range Comments POC-GLUCOSE METER (BEAKER) 120 mg/dL 70-110 TESTED AT [address] (test dhph=1948) [facility] [address] POCT-GLUCOSE [id number] 13:41:00 Test Item Value Reference Range Comments POC-GLUCOSE METER (BEAKER) 160 mg/dL 70-110 TESTED AT [address] (test wgji=1867) [place] [id number] POCT-GLUCOSE [id number] 10:40:00 Test Item Value Reference Range Comments POC-GLUCOSE METER (BEAKER) 163 mg/dL 70-110 TESTED AT [address] (test bplt=2624) [facility] [address] RAD, CHEST, 1 VIEW, NON [id number] 08:02:00Reason for exam:->s/p pericardial window, and decorticationShould [...] MDReport Verified Date/Time: 06/05/2017 08:02:15 Reading Location: [facility] C013Y CT Body Reading Room BASIC METABOLIC [id number] 07:13:00 Test Item Value Reference Range Comments SODIUM (BEAKER) (test 140 meq/L 136-145 xgkz=833) POTASSIUM (BEAKER) (test 3.6 meq/L 3.5-5.1 melo=896) CHLORIDE (BEAKER) (test 101 meq/L 98-107 qzii=145) CO2 (BEAKER) (test 32 meq/L 22-29 tyru=856) BLOOD UREA NITROGEN 16 mg/dL 7-21 (BEAKER) (test dfjb=336) CREATININE (BEAKER) (test 0.82 mg/dL 0.57-1.25 wdei=762) GLUCOSE RANDOM (BEAKER) 165 mg/dL 70-105 (test udeg=419) CALCIUM (BEAKER) (test 7.8 mg/dL 8.4-10.2 bpmz=128) EGFR (BEAKER) (test 96 mL/min/1.73 sq m ESTIMATED GFR IS NOT ibau=2979) ACCURATE CREATININE CLEARANCE IN PREDICTING GLOMERULAR FILTRATION RATE. ESTIMATED GFR IS NOT APPLICABLE FOR DIALYSIS PATIENTS. [id number] 07:10:00 Test Item Value Reference Range Comments MAGNESIUM (BEAKER) (test kepn=851) 2.0 mg/dL 1.6-2.6 POCT-GLUCOSE [id number] 03:09:00 Test Item Value Reference Range Comments POC-GLUCOSE METER (BEAKER) 153 mg/dL 70-110 TESTED AT [address] (test nhpi=7121) [facility] [address] POCT-GLUCOSE [id number] 00:22:00 Test Item Value Reference Range Comments POC-GLUCOSE METER (BEAKER) 185 mg/dL 70-110 TESTED AT [address] (test xucu=7001) [facility] [address] POCT-GLUCOSE [id number] 20:57:00 Test Item Value Reference Range Comments POC-GLUCOSE METER (BEAKER) 168 mg/dL 70-110 TESTED AT [address] (test dnxl=0556) [facility] [address] POCT-GLUCOSE [id number] 17:04:00 Test Item Value Reference Range Comments POC-GLUCOSE METER (BEAKER) 120 mg/dL 70-110 TESTED AT [address] (test xpnm=2245) [facility] [address] URINALYSIS W/ [id number] 15:02:00 Test Item Value Reference Range Comments COLOR (BEAKER) (test huvy=472) Yellow CLARITY (BEAKER) (test codp=038) Clear SPECIFIC GRAVITY UA (BEAKER) (test 1.012 1.001-1.035 vxmr=558) PH UA (BEAKER) (test rqif=162) 6.5 5.0-8.0 PROTEIN UA (BEAKER) (test taes=807) Negative Negative GLUCOSE UA (BEAKER) (test efeg=627) Negative Negative KETONES UA (BEAKER) (test ddov=160) Negative Negative BILIRUBIN UA (BEAKER) (test fuus=026) Negative Negative BLOOD UA (BEAKER) (test jjzi=828) Negative Negative NITRITE UA (BEAKER) (test oipf=918) Negative Negative LEUKOCYTE ESTERASE UA (BEAKER) (test Large Negative kuld=743) UROBILINOGEN UA (BEAKER) (test hmcg=191) 2.0 mg/dL 0.2-1.0 RBC UA (BEAKER) (test ezvf=982) < /HPF WBC UA (BEAKER) (test nciw=654) 9 /HPF BACTERIA (BEAKER) (test pivc=508) Moderate MUCUS (BEAKER) (test roxl=2580) Rare SQUAMOUS EPITHELIAL (BEAKER) (test 1 /HPF vesn=063) HYALINE CASTS (BEAKER) (test jooi=985) 2 /LPF SOURCE(BEAKER) (test xzzv=3797) Urine, Clean Catch POCT-GLUCOSE [id number] 12:48:00 Test Item Value Reference Range Comments POC-GLUCOSE METER (BEAKER) 143 mg/dL 70-110 TESTED AT [address] (test kfxq=6398) [facility] [address] POCT-GLUCOSE [id number] 08:30:00 Test Item Value Reference Range Comments POC-GLUCOSE METER (BEAKER) 116 mg/dL 70-110 TESTED AT [address] (test wmfh=7190) [facility] [address] [id number] 06:56:00 Test Item Value Reference Range Comments MAGNESIUM (BEAKER) (test roav=422) 2.0 mg/dL 1.6-2.6 BASIC METABOLIC [id number] 06:56:00 Test Item Value Reference Range Comments SODIUM (BEAKER) (test 141 meq/L 136-145 ldsd=915) POTASSIUM (BEAKER) (test 3.4 meq/L 3.5-5.1 ekip=406) CHLORIDE (BEAKER) (test 99 meq/L 98-107 cypu=749) CO2 (BEAKER) (test 33 meq/L 22-29 irqo=300) BLOOD UREA NITROGEN 14 mg/dL 7-21 (BEAKER) (test jhio=626) CREATININE (BEAKER) (test 0.82 mg/dL 0.57-1.25 tclm=843) GLUCOSE RANDOM (BEAKER) 75 mg/dL 70-105 (test jdca=319) CALCIUM (BEAKER) (test 8.0 mg/dL 8.4-10.2 rdrx=965) EGFR (BEAKER) (test 96 mL/min/1.73 sq m ESTIMATED GFR IS NOT nvmr=1907) ACCURATE CREATININE CLEARANCE IN PREDICTING GLOMERULAR FILTRATION RATE. ESTIMATED GFR IS NOT APPLICABLE FOR DIALYSIS PATIENTS. [id number] 06:56:00 Test Item Value Reference Range Comments ALBUMIN (BEAKER) (test dtst=4274) 3.2 g/dL 3.5-5.0 RAD, CHEST, 1 VIEW, NON [id number] 05:08:00Reason for exam:->s/p pericardial window, and decorticationShould this be performed at the bedside?-& gt;YesFINAL REPORT Comparison exam: 06/03/2017 No pneumothorax, focal pulmonary consolidation, or significant pleural effusion. Stable cardiomediastinal contours. Left PICC line terminates in the proximal right atrium. Signed: Mango Rodaseport Verified Date/Time: 06/04/2017 05:08:40 Reading Location: [address] Consult Reading Room Electronically signedby: MANGO RODAS M.D. on 06/04/2017 05:08 AMPOCT- GLUCOSE [id number] 00:06:00 Test Item Value Reference Range Comments POC-GLUCOSE METER (BEAKER) 126 mg/dL 70-110 TESTED AT [address] (test gpkn=3313) [facility] [address] POCT-GLUCOSE [id number] 21:09:00 Test Item Value Reference Range Comments POC-GLUCOSE METER (BEAKER) 148 mg/dL 70-110 TESTED AT [address] (test sdsy=2055) [facility] [address] POCT-GLUCOSE [id number] 17:29:00 Test Item Value Reference Range Comments POC-GLUCOSE METER (BEAKER) 148 mg/dL 70-110 TESTED AT [address] (test ihbh=7932) [place] [address] POCT-GLUCOSE [id number] 12:57:00 Test Item Value Reference Range Comments POC-GLUCOSE METER (BEAKER) 228 mg/dL 70-110 TESTED AT [address] (test usfb=8345) [place] [address] POCT-GLUCOSE [id number] 08:44:00 Test Item Value Reference Range Comments POC-GLUCOSE METER (BEAKER) 106 mg/dL 70-110 TESTED AT [address] (test ycfs=9899) [facility] [address] RAD, CHEST, 1 VIEW, NON [id number] 07:25:00Reason for exam:->s/p pericardial window, and decorticationShould [...] Chauhan Verified Date/Time: 06/03/2017 07:25:21 Reading Location: [facility] Diagnostic Imaging Reading Room - [place] [address] POCT-GLUCOSE [id number] 03:44:00 Test Item Value Reference Range Comments POC-GLUCOSE METER (BEAKER) 96 mg/dL 70-110 TESTED AT [address] (test zxdd=1973) [facility] [address] [id number] 03:42:00 Test Item Value Reference Range Comments MAGNESIUM (BEAKER) (test uqyq=517) 2.0 mg/dL 1.6-2.6 BASIC METABOLIC [id number] 03:42:00 Test Item Value Reference Range Comments SODIUM (BEAKER) (test 142 meq/L 136-145 sgat=767) POTASSIUM (BEAKER) (test 3.4 meq/L 3.5-5.1 mwfw=959) CHLORIDE (BEAKER) (test 99 meq/L 98-107 smrk=814) CO2 (BEAKER) (test 35 meq/L 22-29 xfbp=907) BLOOD UREA NITROGEN 15 mg/dL 7-21 (BEAKER) (test uwcy=682) CREATININE (BEAKER) (test 0.83 mg/dL 0.57-1.25 cvvi=073) GLUCOSE RANDOM (BEAKER) 44 mg/dL 70-105 (test dclu=681) CALCIUM (BEAKER) (test 8.0 mg/dL 8.4-10.2 jkkx=915) EGFR (BEAKER) (test 95 mL/min/1.73 sq m ESTIMATED GFR IS NOT xsyu=6646) ACCURATE CREATININE CLEARANCE IN PREDICTING GLOMERULAR FILTRATION RATE. ESTIMATED GFR IS NOT APPLICABLE FOR DIALYSIS PATIENTS. [id number] 03:42:00 Test Item Value Reference Range Comments ALBUMIN (BEAKER) (test koag=4653) 3.2 g/dL 3.5-5.0 POCT-GLUCOSE [id number] 02:58:00 Test Item Value Reference Range Comments POC-GLUCOSE METER (BEAKER) 46 mg/dL 70-110 TESTED AT [address] (test wusf=3890) [facility] [address] POCT-GLUCOSE [id number] 21:25:00 Test Item Value Reference Range Comments POC-GLUCOSE METER (BEAKER) 78 mg/dL 70-110 TESTED AT [address] (test kvjt=6431) [place] [address] POCT-GLUCOSE [id number] 17:02:00 Test Item Value Reference Range Comments POC-GLUCOSE METER (BEAKER) 79 mg/dL 70-110 TESTED AT [address] (test mmio=4098) [place] [address] POCT-GLUCOSE [id number] 16:58:00 Test Item Value Reference Range Comments POC-GLUCOSE METER (BEAKER) 298 mg/dL 70-110 TESTED AT [address] (test seay=1908) [place] [address] POCT-GLUCOSE [id number] 16:54:00 Test Item Value Reference Range Comments POC-GLUCOSE METER (BEAKER) 147 mg/dL 70-110 TESTED AT [address] (test jlbc=1201) [place] [address] LIPID [id number] 10:05:00 Test Item Value Reference Range Comments TRIGLYCERIDES (BEAKER) (test ralp=852) 106 mg/dL CHOLESTEROL (BEAKER) (test xtkb=868) 103 mg/dL HDL CHOLESTEROL (BEAKER) (test kgqz=745) 29 mg/dL LDL CHOLESTEROL CALCULATED (BEAKER) (test 53 mg/dL eqon=607) Triglyceride Reference Range: Low Risk <150 Borderline 150- 199 High Risk 200-499 Very High Risk >=500Cholesterol Reference Range: Low Risk <200 Borderline 200-239 High Risk > 240HDL Cholesterol Reference Range: Low Risk >=60 High Risk <40LDL Cholesterol Reference Range: Optimal <100 Near Optimal 100-129 Borderline 130-159 High 160-189 Very High >=190POCT-GLUCOSE [id number] 07:59:00 Test Item Value Reference Range Comments POC-GLUCOSE METER (BEAKER) 129 mg/dL 70-110 TESTED AT [address] (test zehg=4850) [facility] [address] POCT-GLUCOSE [id number] 07:59:00 Test Item Value Reference Range Comments POC-GLUCOSE METER (BEAKER) 53 mg/dL 70-110 TESTED AT [address] (test vaos=1475) [place] [address] POCT-GLUCOSE [id number] 07:03:00 Test Item Value Reference Range Comments POC-GLUCOSE METER (BEAKER) 173 mg/dL 70-110 TESTED AT [address] (test gotp=3789) [facility] [address] BASIC METABOLIC [id number] 06:35:00 Test Item Value Reference Range Comments SODIUM (BEAKER) (test 140 meq/L 136-145 rtcd=579) POTASSIUM (BEAKER) (test 3.5 meq/L 3.5-5.1 ldua=528) CHLORIDE (BEAKER) (test 100 meq/L 98-107 hgta=062) CO2 (BEAKER) (test 31 meq/L 22-29 rpmd=434) BLOOD UREA NITROGEN 14 mg/dL 7-21 (BEAKER) (test exdh=949) CREATININE (BEAKER) (test 0.82 mg/dL 0.57-1.25 vava=609) GLUCOSE RANDOM (BEAKER) 65 mg/dL 70-105 (test nbry=671) CALCIUM (BEAKER) (test 7.8 mg/dL 8.4-10.2 vzyf=598) EGFR (BEAKER) (test 96 mL/min/1.73 sq m ESTIMATED GFR IS NOT ibso=6260) ACCURATE CREATININE CLEARANCE IN PREDICTING GLOMERULAR FILTRATION RATE. ESTIMATED GFR IS NOT APPLICABLE FOR DIALYSIS PATIENTS. [id number] 06:31:00 Test Item Value Reference Range Comments MAGNESIUM (BEAKER) (test xymd=466) 1.8 mg/dL 1.6-2.6 [id number] 06:31:00 Test Item Value Reference Range Comments ALBUMIN (BEAKER) (test skno=4454) 3.1 g/dL 3.5-5.0 RAD, CHEST, 1 VIEW, NON [id number] 06:15:00Reason for exam:->s/p pericardial window, and decorticationShould this be performed at the bedside?-& gt;YesFINAL REPORT Comparison exam: 06/01/2017 No pneumothorax, focal pulmonary consolidation, or significant pleural effusion. Normal cardiomediastinal contours. Appropriate position of the support hardware. Signed: Mango Rodas Verified Date/Time: 06/02/2017 06 :15:59 Reading Location: [address] Consult Reading Room POCT-GLUCOSE [id number] 23:55:00 Test Item Value Reference Range Comments POC-GLUCOSE METER (BEAKER) 115 mg/dL 70-110 TESTED AT [address] (test bkwc=2021) [place] [address] POCT-GLUCOSE [id number] 21:05:00 Test Item Value Reference Range Comments POC-GLUCOSE METER (BEAKER) 90 mg/dL 70-110 TESTED AT [address] (test fuko=5757) [place] [address] POCT-GLUCOSE [id number] 17:10:00 Test Item Value Reference Range Comments POC-GLUCOSE METER (BEAKER) 102 mg/dL 70-110 TESTED AT [address] (test mbhg=9081) [place] [address] ANAEROBIC [id number] 13:41:00 Test Item Value Reference Range Comments CULTURE (BEAKER) (test htnz=4460) No anaerobes isolated POCT-GLUCOSE [id number] 12:25:00 Test Item Value Reference Range Comments POC-GLUCOSE METER (BEAKER) 220 mg/dL 70-110 TESTED AT [address] (test ldau=6196) [place] [address] [id number] 11:23:00 Test Item Value Reference Range Comments MAGNESIUM (BEAKER) (test goly=810) 1.8 mg/dL 1.6-2.6 BASIC METABOLIC [id number] 11:23:00 Test Item Value Reference Range Comments SODIUM (BEAKER) (test 140 meq/L 136-145 bpyy=919) POTASSIUM (BEAKER) (test 4.2 meq/L 3.5-5.1 ppcx=660) CHLORIDE (BEAKER) (test 100 meq/L 98-107 zvfm=575) CO2 (BEAKER) (test 31 meq/L 22-29 btjr=762) BLOOD UREA NITROGEN 15 mg/dL 7-21 (BEAKER) (test fhge=396) CREATININE (BEAKER) (test 0.86 mg/dL 0.57-1.25 oskq=881) GLUCOSE RANDOM (BEAKER) 256 mg/dL 70-105 (test fudu=718) CALCIUM (BEAKER) (test 8.0 mg/dL 8.4-10.2 jaew=935) EGFR (BEAKER) (test 91 mL/min/1.73 sq m ESTIMATED GFR IS NOT pduq=4451) ACCURATE CREATININE CLEARANCE IN PREDICTING GLOMERULAR FILTRATION RATE. ESTIMATED GFR IS NOT APPLICABLE FOR DIALYSIS PATIENTS. RAD, CHEST, 1 VIEW, NON [id number] 10:11:00Reason for exam:->s/p pericardial window, and decorticationShould this be performed at the bedside?-& gt;YesFINAL REPORT Chest one view. Clinical history: s/ p pericardial window, and decortication Comparison: 05/31/2017 Discussion: A frontal chest is provided. Lines and tubes are in stable position. Unchanged cardiac mediastinal contours. No new consolidation. No pneumothorax or large effusion. Left basilar atelectasis appears slightly improved. Signed: Mac Williameplinda Verified Date/Time: 06/01/2017 10:11:34 Reading Location: [facility] Radiology Reading Room POCT-GLUCOSE [id number] 07:28:00 Test Item Value Reference Range Comments POC-GLUCOSE METER (BEAKER) 103 mg/dL 70-110 TESTED AT [address] (test nrpk=7431) [facility] [address] POCT-GLUCOSE [id number] 05:35:00 Test Item Value Reference Range Comments POC-GLUCOSE METER (BEAKER) 128 mg/dL 70-110 TESTED AT [address] (test uxwo=0768) [place] [address] POCT-GLUCOSE [id number] 23:44:00 Test Item Value Reference Range Comments POC-GLUCOSE METER (BEAKER) 46 mg/dL 70-110 TESTED AT [address] (test aofk=8647) [facility] [address] POCT-GLUCOSE [id number] 17:33:00 Test Item Value Reference Range Comments POC-GLUCOSE METER (BEAKER) 71 mg/dL 70-110 TESTED AT [address] (test tobp=6525) [facility] [address] POCT-GLUCOSE [id number] 11:37:00 Test Item Value Reference Range Comments POC-GLUCOSE METER (BEAKER) 214 mg/dL 70-110 TESTED AT [address] (test erhq=7522) [place] [address] POCT-GLUCOSE [id number] 07:59:00 Test Item Value Reference Range Comments POC-GLUCOSE METER (BEAKER) 113 mg/dL 70-110 TESTED AT [facility] [address] [facility] (test ckcq=9298) [facility] [address] POCT-GLUCOSE [id number] 07:06:00 Test Item Value Reference Range Comments POC-GLUCOSE METER (BEAKER) 58 mg/dL 70-110 TESTED AT [place] [id number] [facility] (test nyds=7071) [facility] [address] BASIC METABOLIC [id number] 05:32:00 Test Item Value Reference Range Comments SODIUM (BEAKER) (test 141 meq/L 136-145 dths=240) POTASSIUM (BEAKER) (test 3.0 meq/L 3.5-5.1 asbr=466) CHLORIDE (BEAKER) (test 100 meq/L 98-107 guwt=564) CO2 (BEAKER) (test 34 meq/L 22-29 sree=090) BLOOD UREA NITROGEN 20 mg/dL 7-21 (BEAKER) (test zpmc=147) CREATININE (BEAKER) (test 0.76 mg/dL 0.57-1.25 lghe=551) GLUCOSE RANDOM (BEAKER) 59 mg/dL 70-105 (test ponw=447) CALCIUM (BEAKER) (test 7.4 mg/dL 8.4-10.2 xgxf=540) EGFR (BEAKER) (test 105 mL/min/1.73 sq m ESTIMATED GFR IS NOT lmmt=8906) ACCURATE CREATININE CLEARANCE IN PREDICTING GLOMERULAR FILTRATION RATE. ESTIMATED GFR IS NOT APPLICABLE FOR DIALYSIS PATIENTS. [id number] 05:28:00 Test Item Value Reference Range Comments MAGNESIUM (BEAKER) (test raiy=257) 1.7 mg/dL 1.6-2.6 RAD, CHEST, 1 VIEW, NON [id number] 05:18:00Reason for exam:->s/p vats, chest tubes, pleural effusionsShould this be performed at the bedside?-> YesFINAL REPORT Comparison exam: 05/30/2017 Mild left basilar atelectasis, unchanged. No pneumothorax. Stable cardiomediastinal contours. Appropriate position of the support hardware. Signed: Mango Rodaseport Verified Date/Time: 05/31/2017 05:18:39 Reading Location: [facility] C013X Ortho Consult Reading Room POCT-GLUCOSE [id number] 00:46:00 Test Item Value Reference Range Comments POC-GLUCOSE METER (BEAKER) 135 mg/dL 70-110 TESTED AT [address] (test dmvs=3081) [place] [address] RAD, CHEST, 1 VIEW, NON [id number] 23:39:00Reason for exam:->chest tue removal.. pnuemothoraxShould this be performed at the bedside?->YesFINAL REPORT Comparison exam: 05/30/2017 time 9:02 AM Interval removal of one of the two left chest tubes. No pneumothorax. Small right effusion and bibasilar atelectasis. Stable cardiomediastinal contours. Appropriate position of the support hardware. Signed: Mango Rodas Verified Date/Time: 05/30/2017 23:39:18 Reading Location: [facility] C013X Ortho Consult Reading Room POCT-GLUCOSE [id number] 21:21:00 Test Item Value Reference Range Comments POC-GLUCOSE METER (BEAKER) 99 mg/dL 70-110 TESTED AT [address] (test nikn=6359) [place] [address] POCT-GLUCOSE [id number] 16:54:00 Test Item Value Reference Range Comments POC-GLUCOSE METER (BEAKER) 154 mg/dL 70-110 TESTED AT [address] (test ewya=3376) [place] [address] BODY FLUID CULTURE + GRAM [id number] 12:41:00 Test Item Value Reference Range Comments CULTURE (BEAKER) (test kwyr=2935) No growth GRAM STAIN RESULT (BEAKER) (test 1+ WBCs hodn=1861) GRAM STAIN RESULT (BEAKER) (test No organisms seen zpsr=38797) POCT-GLUCOSE [id number] 12:33:00 Test Item Value Reference Range Comments POC-GLUCOSE METER (BEAKER) 119 mg/dL 70-110 TESTED AT [facility] [address] [facility] (test ugih=1871) [facility] [address] POCT-GLUCOSE [id number] 09:32:00 Test Item Value Reference Range Comments POC-GLUCOSE METER (BEAKER) 227 mg/dL 70-110 TESTED AT [address] (test ikfr=4115) [facility] [address] RAD, CHEST, 1 VIEW, NON [id number] 09:21:00Reason for exam:->s/p vats, chest tubes, pleural effusionsShould this be performed at the bedside?-> YesFINAL REPORT Chest, one view. HISTORY: Postop COMPARISON: 05/29/2017 IMPRESSION: No significant interval change. Supporting hardware unchanged in position. No identifiable pneumothorax. Trace bilateral pleural effusions. Unchanged enlargement of the cardiomediastinal silhouette. Minimal left lower lung atelectasis. No new focal consolidation. Signed: Jim Luzeport Verified Date/Time: 05/30/2017 09:21:16 Reading Location: [facility] B1 C013Y CT Body Reading Room POCT-GLUCOSE [id number] 06:48:00 Test Item Value Reference Range Comments POC-GLUCOSE METER (BEAKER) 129 mg/dL 70-110 TESTED AT [place] [id number] [facility] (test adae=9284) [facility] [address] BASIC METABOLIC [id number] 06:37:00 Test Item Value Reference Range Comments SODIUM (BEAKER) (test 140 meq/L 136-145 hwzc=828) POTASSIUM (BEAKER) (test 3.3 meq/L 3.5-5.1 lvsn=695) CHLORIDE (BEAKER) (test 98 meq/L 98-107 uvni=865) CO2 (BEAKER) (test 34 meq/L 22-29 gbdz=284) BLOOD UREA NITROGEN 21 mg/dL 7-21 (BEAKER) (test fizf=638) CREATININE (BEAKER) (test 0.80 mg/dL 0.57-1.25 xuar=627) GLUCOSE RANDOM (BEAKER) 51 mg/dL 70-105 (test dhnh=537) CALCIUM (BEAKER) (test 7.3 mg/dL 8.4-10.2 djgy=078) EGFR (BEAKER) (test 99 mL/min/1.73 sq m ESTIMATED GFR IS NOT aime=0915) ACCURATE CREATININE CLEARANCE IN PREDICTING GLOMERULAR FILTRATION RATE. ESTIMATED GFR IS NOT APPLICABLE FOR DIALYSIS PATIENTS. [id number] 06:36:00 Test Item Value Reference Range Comments PHOSPHORUS (BEAKER) (test wkgt=780) 4.0 mg/dL 2.3-4.7 [id number] 06:36:00 Test Item Value Reference Range Comments MAGNESIUM (BEAKER) (test xoxp=711) 1.9 mg/dL 1.6-2.6 CBC W/PLT COUNT & AUTO [id number] 06:25:00 Test Item Value Reference Range Comments WHITE BLOOD CELL COUNT (BEAKER) (test fjgh=842) 10.2 K/ L 3.5-10.5 RED BLOOD CELL COUNT (BEAKER) (test ketb=839) 4.38 M/ L 4.63-6.08 HEMOGLOBIN (BEAKER) (test mnxc=916) 11.4 GM/DL 13.7-17.5 HEMATOCRIT (BEAKER) (test rcvf=232) 36.9 % 40.1-51.0 MEAN CORPUSCULAR VOLUME (BEAKER) (test wcrr=071) 84.2 fL 79.0-92.2 MEAN CORPUSCULAR HEMOGLOBIN (BEAKER) (test 26.0 pg 25.7-32.2 vioj=945) MEAN CORPUSCULAR HEMOGLOBIN CONC (BEAKER) (test 30.9 GM/DL 32.3-36.5 hdkb=415) RED CELL DISTRIBUTION WIDTH (BEAKER) (test 13.5 % 11.6-14.4 zixq=548) PLATELET COUNT (BEAKER) (test vzxc=410) 324 K/CU MM 150-450 MEAN PLATELET VOLUME (BEAKER) (test awbf=722) 9.9 fL 9.4-12.4 NUCLEATED RED BLOOD CELLS (BEAKER) (test 0 /100 WBC 0-0 lklj=689) NEUTROPHILS RELATIVE PERCENT (BEAKER) (test 69 % gkdy=002) LYMPHOCYTES RELATIVE PERCENT (BEAKER) (test 19 % zcmk=863) MONOCYTES RELATIVE PERCENT (BEAKER) (test 7 % fdir=332) EOSINOPHILS RELATIVE PERCENT (BEAKER) (test 4 % fobt=512) BASOPHILS RELATIVE PERCENT (BEAKER) (test 1 % ljkb=940) NEUTROPHILS ABSOLUTE COUNT (BEAKER) (test 7.05 K/ L 1.78-5.38 noex=486) LYMPHOCYTES ABSOLUTE COUNT (BEAKER) (test 1.94 K/ L 1.32-3.57 mcde=785) MONOCYTES ABSOLUTE COUNT (BEAKER) (test 0.71 K/ L 0.30-0.82 flgt=636) EOSINOPHILS ABSOLUTE COUNT (BEAKER) (test 0.38 K/ L 0.04-0.54 invr=087) BASOPHILS ABSOLUTE COUNT (BEAKER) (test 0.08 K/ L 0.01-0.08 jfsp=354) IMMATURE GRANULOCYTES-RELATIVE PERCENT (BEAKER) 0 % 0-1 (test mnym=2629) POCT-GLUCOSE [id number] 05:47:00 Test Item Value Reference Range Comments POC-GLUCOSE METER (BEAKER) 49 mg/dL 70-110 TESTED AT [address] (test ievo=7495) [place] [address] POCT-GLUCOSE [id number] 20:23:00 Test Item Value Reference Range Comments POC-GLUCOSE METER (BEAKER) 142 mg/dL 70-110 TESTED AT [address] (test dpvg=4713) [place] [address] POCT-GLUCOSE [id number] 17:07:00 Test Item Value Reference Range Comments POC-GLUCOSE METER (BEAKER) 81 mg/dL 70-110 TESTED AT [address] (test emnh=4992) [place] [address] ANAEROBIC [id number] 14:35:00 Test Item Value Reference Range Comments CULTURE (BEAKER) (test lovy=3223) No anaerobes isolated POCT-GLUCOSE [id number] 13:24:00 Test Item Value Reference Range Comments POC-GLUCOSE METER (BEAKER) 219 mg/dL 70-110 TESTED AT [address] (test mpmj=9739) [place] [address] POCT-GLUCOSE [id number] 12:37:00 Test Item Value Reference Range Comments POC-GLUCOSE METER (BEAKER) 229 mg/dL 70-110 TESTED AT [address] (test vpid=5813) [facility] [address] BODY FLUID CULTURE + GRAM [id number] 08:43:00 Test Item Value Reference Range Comments CULTURE (BEAKER) (test fqmu=0556) No growth GRAM STAIN RESULT (BEAKER) (test 2+ WBCs vxdl=9043) GRAM STAIN RESULT (BEAKER) (test No organisms seen hmzg=50974) RAD, CHEST, 1 VIEW, NON [id number] 07:32:00Reason for exam:->s/p vats, chest tubes, pleural [...] MDReport Verified Date/Time: 05/29/2017 07:32:28 Reading Location: [address] Transitional Reading Room BASIC METABOLIC [id number] 06:57:00 Test Item Value Reference Range Comments SODIUM (BEAKER) (test 137 meq/L 136-145 lmir=765) POTASSIUM (BEAKER) (test 3.6 meq/L 3.5-5.1 plqj=550) CHLORIDE (BEAKER) (test 98 meq/L 98-107 unrh=637) CO2 (BEAKER) (test 31 meq/L 22-29 alol=383) BLOOD UREA NITROGEN 18 mg/dL 7-21 (BEAKER) (test clyu=665) CREATININE (BEAKER) (test 0.82 mg/dL 0.57-1.25 mcbr=451) GLUCOSE RANDOM (BEAKER) 169 mg/dL 70-105 (test madd=705) CALCIUM (BEAKER) (test 7.5 mg/dL 8.4-10.2 uoky=612) EGFR (BEAKER) (test 96 mL/min/1.73 sq m ESTIMATED GFR IS NOT faug=8221) ACCURATE CREATININE CLEARANCE IN PREDICTING GLOMERULAR FILTRATION RATE. ESTIMATED GFR IS NOT APPLICABLE FOR DIALYSIS PATIENTS. [id number] 06:42:00 Test Item Value Reference Range Comments PHOSPHORUS (BEAKER) (test ujsf=195) 3.1 mg/dL 2.3-4.7 [id number] 06:42:00 Test Item Value Reference Range Comments MAGNESIUM (BEAKER) (test fdta=233) 1.8 mg/dL 1.6-2.6 POCT-GLUCOSE [id number] 05:54:00 Test Item Value Reference Range Comments POC-GLUCOSE METER (BEAKER) 149 mg/dL 70-110 TESTED AT [facility] [address] [facility] (test rxnu=9027) [facility] [address] CBC W/PLT COUNT & AUTO [id number] 04:54:00 Test Item Value Reference Range Comments WHITE BLOOD CELL COUNT (BEAKER) (test ndqt=090) 10.6 K/ L 3.5-10.5 RED BLOOD CELL COUNT (BEAKER) (test ftwb=968) 4.41 M/ L 4.63-6.08 HEMOGLOBIN (BEAKER) (test wbgk=460) 11.5 GM/DL 13.7-17.5 HEMATOCRIT (BEAKER) (test itwv=272) 37.1 % 40.1-51.0 MEAN CORPUSCULAR VOLUME (BEAKER) (test kcla=879) 84.1 fL 79.0-92.2 MEAN CORPUSCULAR HEMOGLOBIN (BEAKER) (test 26.1 pg 25.7-32.2 woaa=284) MEAN CORPUSCULAR HEMOGLOBIN CONC (BEAKER) (test 31.0 GM/DL 32.3-36.5 ivor=443) RED CELL DISTRIBUTION WIDTH (BEAKER) (test 13.6 % 11.6-14.4 poyw=556) PLATELET COUNT (BEAKER) (test vhfu=444) 292 K/CU MM 150-450 MEAN PLATELET VOLUME (BEAKER) (test odjg=286) 9.5 fL 9.4-12.4 NUCLEATED RED BLOOD CELLS (BEAKER) (test 0 /100 WBC 0-0 apnx=916) NEUTROPHILS RELATIVE PERCENT (BEAKER) (test 73 % pywz=322) LYMPHOCYTES RELATIVE PERCENT (BEAKER) (test 15 % eljb=910) MONOCYTES RELATIVE PERCENT (BEAKER) (test 7 % hxlu=175) EOSINOPHILS RELATIVE PERCENT (BEAKER) (test 4 % mvgb=367) BASOPHILS RELATIVE PERCENT (BEAKER) (test 1 % xisa=156) NEUTROPHILS ABSOLUTE COUNT (BEAKER) (test 7.72 K/ L 1.78-5.38 javn=859) LYMPHOCYTES ABSOLUTE COUNT (BEAKER) (test 1.60 K/ L 1.32-3.57 movm=769) MONOCYTES ABSOLUTE COUNT (BEAKER) (test 0.75 K/ L 0.30-0.82 rtni=965) EOSINOPHILS ABSOLUTE COUNT (BEAKER) (test 0.41 K/ L 0.04-0.54 hrpo=061) BASOPHILS ABSOLUTE COUNT (BEAKER) (test 0.07 K/ L 0.01-0.08 oqmk=570) IMMATURE GRANULOCYTES-RELATIVE PERCENT (BEAKER) 0 % 0-1 (test bnvf=0984) POCT-GLUCOSE [id number] 01:10:00 Test Item Value Reference Range Comments POC-GLUCOSE METER (BEAKER) 174 mg/dL 70-110 TESTED AT [address] (test psbh=6007) [place] [id number] POCT-GLUCOSE [id number] 22:30:00 Test Item Value Reference Range Comments POC-GLUCOSE METER (BEAKER) 165 mg/dL 70-110 TESTED AT [address] (test acie=2859) [place] [id number] POCT-GLUCOSE [id number] 21:56:00 Test Item Value Reference Range Comments POC-GLUCOSE METER (BEAKER) 234 mg/dL 70-110 TESTED AT [address] (test tege=7281) [place] [id number] POCT-GLUCOSE [id number] 12:28:00 Test Item Value Reference Range Comments POC-GLUCOSE METER (BEAKER) 221 mg/dL 70-110 TESTED AT [address] (test yedp=9960) [place] [id number] CALCIUM, [id number] 04:27:00 Test Item Value Reference Range Comments CALCIUM IONIZED (BEAKER) (test bqbr=970) 0.98 mmol/L 1.12-1.27 PH, BLOOD (BEAKER) (test svdv=9879) 7.41 RAD, CHEST, 1 VIEW, NON [id number] 04:20:00Reason for exam:->pleural effusionShould this be performed [...] Verified Date/Time: 05/28/2017 04:20:11 Reading Location : [address] Reading Room CBC W/PLT COUNT & AUTO [id number] 04:19:00 Test Item Value Reference Range Comments WHITE BLOOD CELL COUNT (BEAKER) (test hytr=975) 7.5 K/ L 3.5-10.5 RED BLOOD CELL COUNT (BEAKER) (test dkvt=546) 4.32 M/ L 4.63-6.08 HEMOGLOBIN (BEAKER) (test yoku=493) 11.2 GM/DL 13.7-17.5 HEMATOCRIT (BEAKER) (test roni=555) 36.9 % 40.1-51.0 MEAN CORPUSCULAR VOLUME (BEAKER) (test wmnc=995) 85.4 fL 79.0-92.2 MEAN CORPUSCULAR HEMOGLOBIN (BEAKER) (test 25.9 pg 25.7-32.2 qoom=854) MEAN CORPUSCULAR HEMOGLOBIN CONC (BEAKER) (test 30.4 GM/DL 32.3-36.5 plkc=718) RED CELL DISTRIBUTION WIDTH (BEAKER) (test 13.9 % 11.6-14.4 quuc=854) PLATELET COUNT (BEAKER) (test xirf=595) 290 K/CU MM 150-450 MEAN PLATELET VOLUME (BEAKER) (test epha=454) 9.1 fL 9.4-12.4 NUCLEATED RED BLOOD CELLS (BEAKER) (test 0 /100 WBC 0-0 mmix=861) NEUTROPHILS RELATIVE PERCENT (BEAKER) (test 70 % keab=068) LYMPHOCYTES RELATIVE PERCENT (BEAKER) (test 21 % bjmu=673) MONOCYTES RELATIVE PERCENT (BEAKER) (test 7 % hhsx=153) EOSINOPHILS RELATIVE PERCENT (BEAKER) (test 2 % kxav=141) BASOPHILS RELATIVE PERCENT (BEAKER) (test 1 % eeom=057) NEUTROPHILS ABSOLUTE COUNT (BEAKER) (test 5.25 K/ L 1.78-5.38 aroj=904) LYMPHOCYTES ABSOLUTE COUNT (BEAKER) (test 1.55 K/ L 1.32-3.57 wspx=454) MONOCYTES ABSOLUTE COUNT (BEAKER) (test 0.53 K/ L 0.30-0.82 mklh=136) EOSINOPHILS ABSOLUTE COUNT (BEAKER) (test 0.14 K/ L 0.04-0.54 vbva=111) BASOPHILS ABSOLUTE COUNT (BEAKER) (test 0.06 K/ L 0.01-0.08 wtza=934) IMMATURE GRANULOCYTES-RELATIVE PERCENT (BEAKER) 0 % 0-1 (test gfhk=0889) BASIC METABOLIC [id number] 04:19:00 Test Item Value Reference Range Comments SODIUM (BEAKER) (test 138 meq/L 136-145 amml=638) POTASSIUM (BEAKER) (test 4.2 meq/L 3.5-5.1 uqqr=550) CHLORIDE (BEAKER) (test 101 meq/L 98-107 dbzw=038) CO2 (BEAKER) (test 29 meq/L 22-29 pmye=972) BLOOD UREA NITROGEN 15 mg/dL 7-21 (BEAKER) (test uchk=484) CREATININE (BEAKER) (test 0.79 mg/dL 0.57-1.25 omjm=305) GLUCOSE RANDOM (BEAKER) 152 mg/dL 70-105 (test fxmr=760) CALCIUM (BEAKER) (test 7.5 mg/dL 8.4-10.2 zzdk=152) EGFR (BEAKER) (test 100 mL/min/1.73 sq m ESTIMATED GFR IS NOT ohdz=4318) ACCURATE CREATININE CLEARANCE IN PREDICTING GLOMERULAR FILTRATION RATE. ESTIMATED GFR IS NOT APPLICABLE FOR DIALYSIS PATIENTS. [id number] 04:15:00 Test Item Value Reference Range Comments PHOSPHORUS (BEAKER) (test teiy=605) 5.0 mg/dL 2.3-4.7 [id number] 04:15:00 Test Item Value Reference Range Comments MAGNESIUM (BEAKER) (test etdr=116) 1.7 mg/dL 1.6-2.6 OXYGEN SATURATION, [id number] 04:12:00 Test Item Value Reference Range Comments O2 SATURATION (MEASURED) (BEAKER) (test eopi=8379) 74.3 % LACTIC ACID, ARTERIAL, WHOLE [id number] 04:08:00 Test Item Value Reference Range Comments LACTATE BLOOD ARTERIAL (2) (BEAKER) (test 0.7 mmol/L 0.5-2.2 onoy=0947) Effective 12/04/2015: Units/Reference Range ChangeNew: 0.5-2.2 mmol/L Previous: 5 -20 mg/dLPOCT-GLUCOSE [id number] 00:25:00 Test Item Value Reference Range Comments POC-GLUCOSE METER (BEAKER) 169 mg/dL 70-110 TESTED AT [facility] [address] [facility] (test igqf=6475) [facility] [address] BLOOD GAS, [id number] 17:04:00 Test Item Value Reference Range Comments PH ARTERIAL (BEAKER) (test eiox=671) 7.44 7.35-7.45 PCO2 ARTERIAL (BEAKER) (test ojhj=825) 33 mmHg 35-45 PO2 ARTERIAL (BEAKER) (test drqb=704) 127 mmHg 80-90 O2 SATURATION ARTERIAL (BEAKER) (test xzut=975) 98.7 % 96.0-97.0 HCO3 ARTERIAL (BEAKER) (test wajq=286) 22 mmol/L 21-29 BASE EXCESS ARTERIAL (BEAKER) (test qary=843) -1.7 mmol/L -2.0-3.0 PATIENT TEMPERATURE (BEAKER) (test qyuv=4536) 37.0 C FIO2 (BEAKER) (test mkfr=1921) 60.0 % PRN if O2 saturation less than 90%PRN 30 minutes after each ventilator changeRAD , CHEST, 1 VIEW, NON [id number] 16:11:00Reason for exam:->s/p VATs/ pleurodesis; intubatedFINAL REPORT [...] Verified Date/Time: 05/27/2017 16:11: 25 Reading Location: [facility] Diagnostic Imaging Reading Room - [place] [address] BLOOD GAS, [id number] 15:35:00 Test Item Value Reference Range Comments PH ARTERIAL (BEAKER) (test pjpo=518) 7.48 7.35-7.45 PCO2 ARTERIAL (BEAKER) (test nyep=639) 40 mmHg 35-45 PO2 ARTERIAL (BEAKER) (test vqqr=451) 67 mmHg 80-90 O2 SATURATION ARTERIAL (BEAKER) (test mbtn=462) 94.7 % 96.0-97.0 HCO3 ARTERIAL (BEAKER) (test tzdp=598) 29 mmol/L 21-29 BASE EXCESS ARTERIAL (BEAKER) (test gsje=696) 5.3 mmol/L -2.0-3.0 PATIENT TEMPERATURE (BEAKER) (test lopw=4688) 36.9 C FIO2 (BEAKER) (test cgwt=8915) 60.0 % PRN if O2 saturation less than 90%PRN 30 minutes after each ventilator changePLATELET AGGREGATION: FUNCTION [id number] 15:15:00 Test Item Value Reference Range Comments WEAK ADP RESULT(BEAKER) (test 86 % 60-91 tfzf=6675) PLATELET FUNCTION SCREEN 60-100% indicates normal INTERP (BEAKER) (test platelet function ehcc=6447) [id number] (BEAKER) Dory Melchor MD (electronic (test pznr=3604) signature) PLATELET COUNT AGG (BEAKER) 371 K/CU MM 150-450 (test uxiv=0488) for patients on clopidogrel in past two weeksTRIGLYCERIDES, BODY [id number] 15:13:00 Test Item Value Reference Range Comments TRIGLYCERIDES FLUID (BEAKER) (test xhuu=110) 344 mg/dL Reference Range: No Normals Assay performance has not been validated for this type of specimen.BASIC METABOLIC [id number] 14:55:00 Test Item Value Reference Range Comments SODIUM (BEAKER) (test 139 meq/L 136-145 hdsj=473) POTASSIUM (BEAKER) (test 3.8 meq/L 3.5-5.1 Specimen slightly spaw=247) hemolyzed CHLORIDE (BEAKER) (test 101 meq/L 98-107 jrna=713) CO2 (BEAKER) (test 27 meq/L 22-29 cwwc=127) BLOOD UREA NITROGEN 21 mg/dL 7-21 (BEAKER) (test lwfs=588) CREATININE (BEAKER) (test 0.86 mg/dL 0.57-1.25 Specimen slightly zhjx=043) hemolyzed GLUCOSE RANDOM (BEAKER) 90 mg/dL 70-105 (test nnjm=734) CALCIUM (BEAKER) (test 7.6 mg/dL 8.4-10.2 uiut=512) EGFR (BEAKER) (test 91 mL/min/1.73 sq m ESTIMATED GFR IS NOT vgyv=1010) ACCURATE CREATININE CLEARANCE IN PREDICTING GLOMERULAR FILTRATION RATE. ESTIMATED GFR IS NOT APPLICABLE FOR DIALYSIS PATIENTS. LACTIC ACID, ARTERIAL, WHOLE [id number] 14:27:00 Test Item Value Reference Range Comments LACTATE BLOOD ARTERIAL (2) (BEAKER) (test 1.3 mmol/L 0.5-2.2 ffjb=2577) Effective 12/04/2015: Units/Reference Range ChangeNew: 0.5-2.2 mmol/L Previous: 5 -20 mg/dLHGB/HCT (H&H) - STAT [id number] 14:15:00 Test Item Value Reference Range Comments HEMOGLOBIN (BEAKER) (test bvfy=920) 13.1 g/dL 13.0-16.8 HEMATOCRIT (BEAKER) (test ftkv=200) 39.0 % 40.0-50.0 CALCIUM, [id number] 14:15:00 Test Item Value Reference Range Comments CALCIUM IONIZED (BEAKER) (test gywc=167) 0.95 mmol/L 1.12-1.27 PH, BLOOD (BEAKER) (test ginz=1956) 7.49 BLOOD GAS, [id number] 14:14:00 Test Item Value Reference Range Comments PH ARTERIAL (BEAKER) (test vmlq=386) 7.49 7.35-7.45 PCO2 ARTERIAL (BEAKER) (test tvak=585) 39 mmHg 35-45 PO2 ARTERIAL (BEAKER) (test fkam=476) 73 mmHg 80-90 O2 SATURATION ARTERIAL (BEAKER) (test qqor=158) 96.0 % 96.0-97.0 HCO3 ARTERIAL (BEAKER) (test ywoc=758) 30 mmol/L 21-29 BASE EXCESS ARTERIAL (BEAKER) (test kdhu=393) 5.8 mmol/L -2.0-3.0 PATIENT TEMPERATURE (BEAKER) (test ymch=6414) 36.5 C FIO2 (BEAKER) (test ltpq=2389) 60.0 % GLUCOSE-STAT [id number] 14:13:00 Test Item Value Reference Range Comments GLUCOSE RANDOM (BEAKER) (test zktw=312) 88 mg/dL 70-110 SODIUM NA-STAT [id number] 14:13:00 Test Item Value Reference Range Comments SODIUM (BEAKER) (test nsfq=896) 135 meq/L 135-148 POTASSIUM-STAT [id number] 14:13:00 Test Item Value Reference Range Comments POTASSIUM (BEAKER) (test gkaw=323) 3.5 meq/L 3.6-5.5 CBC W/PLT COUNT & AUTO [id number] 14:06:00 Test Item Value Reference Range Comments WHITE BLOOD CELL COUNT (BEAKER) (test bbzz=270) 8.9 K/ L 3.5-10.5 RED BLOOD CELL COUNT (BEAKER) (test zqes=995) 4.74 M/ L 4.63-6.08 HEMOGLOBIN (BEAKER) (test foom=379) 12.4 GM/DL 13.7-17.5 HEMATOCRIT (BEAKER) (test buig=346) 39.6 % 40.1-51.0 MEAN CORPUSCULAR VOLUME (BEAKER) (test jojx=582) 83.5 fL 79.0-92.2 MEAN CORPUSCULAR HEMOGLOBIN (BEAKER) (test 26.2 pg 25.7-32.2 rurw=773) MEAN CORPUSCULAR HEMOGLOBIN CONC (BEAKER) (test 31.3 GM/DL 32.3-36.5 hjcn=258) RED CELL DISTRIBUTION WIDTH (BEAKER) (test 13.8 % 11.6-14.4 hpjq=799) PLATELET COUNT (BEAKER) (test rkld=018) 379 K/CU MM 150-450 MEAN PLATELET VOLUME (BEAKER) (test moef=621) 9.6 fL 9.4-12.4 NUCLEATED RED BLOOD CELLS (BEAKER) (test 0 /100 WBC 0-0 gdiq=036) NEUTROPHILS RELATIVE PERCENT (BEAKER) (test 77 % jmhi=015) LYMPHOCYTES RELATIVE PERCENT (BEAKER) (test 13 % yqxc=929) MONOCYTES RELATIVE PERCENT (BEAKER) (test 6 % qzzx=361) EOSINOPHILS RELATIVE PERCENT (BEAKER) (test 3 % ynzt=162) BASOPHILS RELATIVE PERCENT (BEAKER) (test 1 % oyqs=812) NEUTROPHILS ABSOLUTE COUNT (BEAKER) (test 6.85 K/ L 1.78-5.38 msog=672) LYMPHOCYTES ABSOLUTE COUNT (BEAKER) (test 1.13 K/ L 1.32-3.57 qqfm=892) MONOCYTES ABSOLUTE COUNT (BEAKER) (test 0.54 K/ L 0.30-0.82 mqxy=858) EOSINOPHILS ABSOLUTE COUNT (BEAKER) (test 0.24 K/ L 0.04-0.54 mwio=917) BASOPHILS ABSOLUTE COUNT (BEAKER) (test 0.06 K/ L 0.01-0.08 vqkr=378) IMMATURE GRANULOCYTES-RELATIVE PERCENT (BEAKER) 0 % 0-1 (test asgr=7656) U/S, [id number] 12:22:00Reason for exam:->Left pleural effusion please leave [...] Rivera Verified Date/Time: 05/27/2017 12:22:11 Reading Location: [facility] C013X Ortho Consult Reading Room [id number] 08:59:00 Test Item Value Reference Range Comments PROTIME (BEAKER) (test izdi=271) 15.3 seconds 11.7-14.7 INR (BEAKER) (test uimh=094) 1.2 <=5.9 PARTIAL THROMBOPLASTIN TIME (BEAKER) (test 28.4 seconds 22.5-36.0 mxxh=059) RECOMMENDED COUMADIN/WARFARIN INR THERAPY RANGESSTANDARD DOSE: 2.0 - 3.0 Includes: PROPHYLAXIS forvenous thrombosis, systemic embolization; TREATMENT for venous thrombosis and/or pulmonary embolus.HIGH RISK: Target INR is 2.5-3.5 for patients with mechanical heart valves.POCT-GLUCOSE [id number] 08:04:00 Test Item Value Reference Range Comments POC-GLUCOSE METER (BEAKER) 83 mg/dL 70-110 TESTED AT [address] (test kwbc=4056) [facility] [address] SURGICALLY OBTAINED CULTURE + GRAM [id number] 07:44:00 Test Item Value Reference Range Comments CULTURE (BEAKER) (test vkfd=7527) No growth GRAM STAIN RESULT (BEAKER) (test No WBCs ayfe=5334) GRAM STAIN RESULT (BEAKER) (test No organisms seen mfhf=74750) RAD, CHEST, 1 VIEW, NON [id number] 06:27:00Reason for exam:->pleural effusionShould this be performed at the bedside?->YesFINAL REPORT Comparison exam: 05/26/2017 Small bilateral pleural effusions unchanged. Stable cardiomediastinal contours. Left PICC line terminates in the superior vena cava. Signed: Mango Rodasort Verified Date/Time: 05/27/2017 06:27:53 Reading Location: [facility] B1 C013X Ortho Consult Reading Room BASIC METABOLIC [id number] 06:13:00 Test Item Value Reference Range Comments SODIUM (BEAKER) (test 141 meq/L 136-145 fimr=069) POTASSIUM (BEAKER) (test 3.6 meq/L 3.5-5.1 lizf=287) CHLORIDE (BEAKER) (test 100 meq/L 98-107 obsc=122) CO2 (BEAKER) (test 31 meq/L 22-29 rzgl=895) BLOOD UREA NITROGEN 18 mg/dL 7-21 (BEAKER) (test ycbs=475) CREATININE (BEAKER) (test 0.84 mg/dL 0.57-1.25 qxye=496) GLUCOSE RANDOM (BEAKER) 59 mg/dL 70-105 (test zjzo=925) CALCIUM (BEAKER) (test 7.9 mg/dL 8.4-10.2 oqwa=497) EGFR (BEAKER) (test 93 mL/min/1.73 sq m ESTIMATED GFR IS NOT qtpu=4532) ACCURATE CREATININE CLEARANCE IN PREDICTING GLOMERULAR FILTRATION RATE. ESTIMATED GFR IS NOT APPLICABLE FOR DIALYSIS PATIENTS. [id number] 06:12:00 Test Item Value Reference Range Comments ALBUMIN (BEAKER) (test bqgg=5447) 3.1 g/dL 3.5-5.0 CBC (HEMOGRAM ONLY)2017-05-27 05:50:00 Test Item Value Reference Range Comments WHITE BLOOD CELL COUNT (BEAKER) (test meth=553) 9.4 K/ L 3.5-10.5 RED BLOOD CELL COUNT (BEAKER) (test yfkr=151) 4.82 M/ L 4.63-6.08 HEMOGLOBIN (BEAKER) (test ggky=833) 12.8 GM/DL 13.7-17.5 HEMATOCRIT (BEAKER) (test tixa=437) 41.0 % 40.1-51.0 MEAN CORPUSCULAR VOLUME (BEAKER) (test cyni=778) 85.1 fL 79.0-92.2 MEAN CORPUSCULAR HEMOGLOBIN (BEAKER) (test 26.6 pg 25.7-32.2 iyfl=939) MEAN CORPUSCULAR HEMOGLOBIN CONC (BEAKER) (test 31.2 GM/DL 32.3-36.5 nbzk=726) RED CELL DISTRIBUTION WIDTH (BEAKER) (test 13.8 % 11.6-14.4 twuv=351) PLATELET COUNT (BEAKER) (test ophg=311) 377 K/CU MM 150-450 MEAN PLATELET VOLUME (BEAKER) (test gtww=949) 9.5 fL 9.4-12.4 NUCLEATED RED BLOOD CELLS (BEAKER) (test 0 /100 WBC 0-0 hpfs=491) BODY FLUID CELL COUNT WITH [id number] 22:11:00 Test Item Value Reference Range Comments APPEARANCE FLUID (BEAKER) (test xjjf=296) Turbid Clear COLOR FLUID (BEAKER) (test lyxa=338) [place] Colorless, Straw RBC FLUID (BEAKER) (test rulc=425) [address] /cu mm <=1 ADJUSTED WBC FLUID (BEAKER) (test fngg=9023) 1051 /cu mm <=5 LINING CELLS (BEAKER) (test mobb=4533) 126 /cu mm <=1 NEUTROPHILS FLUID (BEAKER) (test gohk=0837) 10 % LYMPHS FLUID (BEAKER) (test jjjk=574) 83 % MONO/MACROPHAGE FLUID (BEAKER) (test gicu=215) 6 % EOSINOPHILS FLUID (BEAKER) (test jjfy=628) 1 % BASO FLUID (BEAKER) (test qkza=572) 0 % CONTAINER BODY FLUID (BEAKER) (test lmhz=9297) EDTA Tube POCT-GLUCOSE [id number] 21:11:00 Test Item Value Reference Range Comments POC-GLUCOSE METER (BEAKER) 198 mg/dL 70-110 TESTED AT [address] (test fmvo=8608) [facility] [address] TRIGLYCERIDES, BODY [id number] 19:52:00 Test Item Value Reference Range Comments TRIGLYCERIDES FLUID (BEAKER) (test rrea=096) 244 mg/dL Reference Range: No Normals Assay performance has not been validated for this type of specimen.AMYLASE, BODY [id number] 19:10:00 Test Item Value Reference Range Comments AMYLASE FLUID (BEAKER) (test enkl=942) 14 U/L 30-110 Absence of reference range indicates that normals have not been defined.Assay performance has not been validated for this type of specimen.LACTATE DEHYDROGENASE (LDH), BODY [id number] 19:10:00 Test Item Value Reference Range Comments LACTATE DEHYDROGENASE FLUID (BEAKER) 174 U/L Light's criteria identifies (test mqdq=212) effusions if one or more are pre Absence of reference range indicates that normals have not been defined.Assay performance has not been validated for this type of specimen.PROTEIN, BODY [id number] 19:10:00 Test Item Value Reference Range Comments PROTEIN FLUID (BEAKER) (test 4.0 g/dL Light's criteria identifies xbdb=210) effusions if one or more are pre Absence of reference range indicates that normals have not been defined.Assay performance has not been validated for this type of specimen.GLUCOSE, BODY [id number] 19:10:00 Test Item Value Reference Range Comments GLUCOSE, BODY FLUID (BEAKER) (test vkwy=0589) 191 mg/dL 70-110 Absence of reference range indicates that normals have not been defined.Assay performance has not been validated for this type of specimen.POCT-GLUCOSE [id number] 18:26:00 Test Item Value Reference Range Comments POC-GLUCOSE METER (BEAKER) 142 mg/dL 70-110 TESTED AT [facility] [address] [place] [address] (test lvio=0354) [facility] [address] U/S, [id number] 17:30:00Reason for exam:->left effusionFINAL REPORT Thoracentesis: Performing M.D.: Rebecca Hu M.D. Fruit Preserver: nonePreprocedure diagnosis: pleural effusionPostprocedure Diagnosis: sameSpecimen removed: [...] referring surgeon was notified. Signed: Rebecca Hu Verified Date/Time: 05/26/2017 17:30:24 Reading Location: [address] Ultrasound Reading Room Electronically signed by: REBECCA HU M.D. on 05:30 PMCT, CHEST, WITHOUT [id number] 16:52:00Reason for exam:-& gt;chylous pericardial effusion, questionable [...] posteriorly. 3. Left sided thyroid nodule/cyst. Signed: Jean Pierre RenteriaMDReport Verified Date/Time: 05/26/2017 16:52:34 Reading Location: [facility] B1 C013Y CT Body Reading Room 04: 52 PMRAD, CHEST, 1 VIEW, NON [id number] 13:35:00Reason for exam:-> pleural effusionShould this be performed at the bedside?->YesFINAL REPORT AP chest HISTORY: Pleural effusion COMPARISON: 2016 IMPRESSION:Moderate layering pleural effusions are not significantly changed from previous study. Bibasilarairspace disease suggests atelectasis. Mild pulmonary vascular congestion. Cardiomegaly. No pneumothorax. Signed: Blu Meyer MDReport Verified Date/Time: 05/26/2017 13:35:45 Reading Location: [facility] Mammo Reading Room POCT-GLUCOSE [id number] 12:40:00 Test Item Value Reference Range Comments POC-GLUCOSE METER (BEAKER) 178 mg/dL 70-110 TESTED AT [address] (test xitd=7496) [place] [address] [id number] 12:16:00 Test Item Value Reference Range Comments PROTIME (BEAKER) (test qvoy=615) 15.3 seconds 11.7-14.7 INR (BEAKER) (test jeri=990) 1.2 <=5.9 PARTIAL THROMBOPLASTIN TIME (BEAKER) (test 33.9 seconds 22.5-36.0 dgem=495) RECOMMENDED COUMADIN/WARFARIN INR THERAPY RANGESSTANDARD DOSE: 2.0 - 3.0 Includes: PROPHYLAXIS forvenous thrombosis, systemic embolization; TREATMENT for venous thrombosis and/or pulmonary embolus.HIGH RISK: Target INR is 2.5-3.5 for patients with mechanical heart valves.POCT-GLUCOSE [id number] 08:03:00 Test Item Value Reference Range Comments POC-GLUCOSE METER (BEAKER) 211 mg/dL 70-110 TESTED AT [facility] [address] [facility] (test dfjb=1130) [place] [id number] BASIC METABOLIC [id number] 07:15:00 Test Item Value Reference Range Comments SODIUM (BEAKER) (test 139 meq/L 136-145 zzuy=605) POTASSIUM (BEAKER) (test 3.6 meq/L 3.5-5.1 zaek=239) CHLORIDE (BEAKER) (test 99 meq/L 98-107 lckw=636) CO2 (BEAKER) (test 32 meq/L 22-29 pzxm=303) BLOOD UREA NITROGEN 22 mg/dL 7-21 (BEAKER) (test vnqb=142) CREATININE (BEAKER) (test 0.97 mg/dL 0.57-1.25 upfs=132) GLUCOSE RANDOM (BEAKER) 191 mg/dL 70-105 (test vonv=737) CALCIUM (BEAKER) (test 7.9 mg/dL 8.4-10.2 hrbz=253) EGFR (BEAKER) (test 79 mL/min/1.73 sq m ESTIMATED GFR IS NOT zwmu=5439) ACCURATE CREATININE CLEARANCE IN PREDICTING GLOMERULAR FILTRATION RATE. ESTIMATED GFR IS NOT APPLICABLE FOR DIALYSIS PATIENTS. [id number] 07:14:00 Test Item Value Reference Range Comments MAGNESIUM (BEAKER) (test qhme=055) 1.8 mg/dL 1.6-2.6 CBC W/PLT COUNT & AUTO [id number] 06:32:00 Test Item Value Reference Range Comments WHITE BLOOD CELL COUNT (BEAKER) (test fczf=308) 9.1 K/ L 3.5-10.5 RED BLOOD CELL COUNT (BEAKER) (test xvpi=164) 4.60 M/ L 4.63-6.08 HEMOGLOBIN (BEAKER) (test pgik=546) 12.2 GM/DL 13.7-17.5 HEMATOCRIT (BEAKER) (test mtjq=048) 39.6 % 40.1-51.0 MEAN CORPUSCULAR VOLUME (BEAKER) (test mago=779) 86.1 fL 79.0-92.2 MEAN CORPUSCULAR HEMOGLOBIN (BEAKER) (test 26.5 pg 25.7-32.2 jvzf=706) MEAN CORPUSCULAR HEMOGLOBIN CONC (BEAKER) (test 30.8 GM/DL 32.3-36.5 hswu=125) RED CELL DISTRIBUTION WIDTH (BEAKER) (test 14.2 % 11.6-14.4 wmfo=854) PLATELET COUNT (BEAKER) (test ehtc=711) 337 K/CU MM 150-450 MEAN PLATELET VOLUME (BEAKER) (test qubl=291) 9.7 fL 9.4-12.4 NUCLEATED RED BLOOD CELLS (BEAKER) (test 0 /100 WBC 0-0 buwr=462) NEUTROPHILS RELATIVE PERCENT (BEAKER) (test 66 % jdot=589) LYMPHOCYTES RELATIVE PERCENT (BEAKER) (test 21 % mrci=637) MONOCYTES RELATIVE PERCENT (BEAKER) (test 9 % ufhi=633) EOSINOPHILS RELATIVE PERCENT (BEAKER) (test 4 % brae=182) BASOPHILS RELATIVE PERCENT (BEAKER) (test 1 % noua=073) NEUTROPHILS ABSOLUTE COUNT (BEAKER) (test 6.00 K/ L 1.78-5.38 finf=382) LYMPHOCYTES ABSOLUTE COUNT (BEAKER) (test 1.88 K/ L 1.32-3.57 nbdz=036) MONOCYTES ABSOLUTE COUNT (BEAKER) (test 0.83 K/ L 0.30-0.82 movr=620) EOSINOPHILS ABSOLUTE COUNT (BEAKER) (test 0.32 K/ L 0.04-0.54 vunn=595) BASOPHILS ABSOLUTE COUNT (BEAKER) (test 0.09 K/ L 0.01-0.08 rwny=961) IMMATURE GRANULOCYTES-RELATIVE PERCENT (BEAKER) 0 % 0-1 (test rynf=8918) BASIC METABOLIC [id number] 22:17:00 Test Item Value Reference Range Comments SODIUM (BEAKER) (test 138 meq/L 136-145 nsvx=281) POTASSIUM (BEAKER) (test 3.8 meq/L 3.5-5.1 wvic=535) CHLORIDE (BEAKER) (test 98 meq/L 98-107 vmlr=212) CO2 (BEAKER) (test 30 meq/L 22-29 luij=166) BLOOD UREA NITROGEN 18 mg/dL 7-21 (BEAKER) (test igcw=505) CREATININE (BEAKER) (test 1.10 mg/dL 0.57-1.25 ypmz=217) GLUCOSE RANDOM (BEAKER) 239 mg/dL 70-105 (test ojlo=893) CALCIUM (BEAKER) (test 8.2 mg/dL 8.4-10.2 uqoz=508) EGFR (BEAKER) (test 68 mL/min/1.73 sq m ESTIMATED GFR IS NOT jihc=0916) ACCURATE CREATININE CLEARANCE IN PREDICTING GLOMERULAR FILTRATION RATE. ESTIMATED GFR IS NOT APPLICABLE FOR DIALYSIS PATIENTS. POCT-GLUCOSE [id number] 20:59:00 Test Item Value Reference Range Comments POC-GLUCOSE METER (BEAKER) 215 mg/dL 70-110 TESTED AT [address] (test agcq=5012) [place] [address] POCT-GLUCOSE [id number] 17:08:00 Test Item Value Reference Range Comments POC-GLUCOSE METER (BEAKER) 214 mg/dL 70-110 TESTED AT [address] (test orwe=2148) [place] [address] POCT-GLUCOSE [id number] 13:13:00 Test Item Value Reference Range Comments POC-GLUCOSE METER (BEAKER) 138 mg/dL 70-110 TESTED AT [address] (test wvll=8005) [place] [address] [id number] 13:01:00Medical Cytology Report Case: [id number] Authorizing Provider: Nba Villanueva MD Collected: 05/24/2017 0854 Ordering Location: [facility] CV Recovery Room 2 Received: 05/25/2017 09 Pathologist: Janel Garcia MD Specimen: Pericardial PERICARDIAL FLUID (CYTOSPINS): - NO MALIGNANT CELLS IDENTIFIED (SEE COMMENT) Signing Pathologist Direct Phone Line: [phone] signed by Janel Garcia MD on 05/25/2017 at 1:01 PMCytospins show scattered mesothelial cells with reactive changes, macrophages in a background of many small mature lymphocytes. No diagnostic features of epithelial malignancy are identified. Clinical correlation is recommended. [id number] effusionPERICARDIAL ZLUSK916 mls bloody; 4 cytospinsCollected: [id number]: [id number] [facility], Department of Pathology, [address] [place] [address], Tel [facility], Department of Pathology, [address] [place] [address], HCYPBXTV [id number] 11 :00:00 Test Item Value Reference Range Comments CYTOLOGY RESULT POINTER (VAL) (test See Separate Report gzps=8539) [id number] 09:24:00 Test Item Value Reference Range Comments TRIGLYCERIDES (BEAKER) (test akif=620) 74 mg/dL TRIGLYCERIDE REFERENCE RANGELow Risk <150Borderline Risk 150-199High Risk 200-499Very High Risk>=500LACTATE DEHYDROGENASE (LDH)2017-05-25 09:24:00 Test Item Value Reference Range Comments LACTATE DEHYDROGENASE (BEAKER) (test zjpz=938) 219 U/L 125-220 [id number] 09:21:00 Test Item Value Reference Range Comments POTASSIUM (BEAKER) (test qbrk=909) 3.9 meq/L 3.5-5.1 Check Serum Potassium level 2 hours after oral potassium replacement completed or 30 min after intravenous potassium replacement.[id number] 09:21:00 Test Item Value Reference Range Comments MAGNESIUM (ENZOAKER) (test mnqh=025) 1.9 mg/dL 1.6-2.6 Check Serum Potassium level 2 hours after oral potassium replacement completed or 30 min after intravenous potassium replacement.GLUCOSE-STAT [id number] 09: 03:00 Test Item Value Reference Range Comments GLUCOSE RANDOM (ENZOAKER) (test nlvs=061) 130 mg/dL 70-110 RAD, CHEST, 1 VIEW, NON [id number] 04:40:00Reason for exam:->s/p pericardial windowShould this be [...] for fluid overload/heart failure. Signed: Car Castro MDReport Verified Date/Time: 05/25/2017 04:40:56 Reading Location : [address] Reading Room [id number] 03:56:00 Test Item Value Reference Range Comments MAGNESIUM (BEAKER) (test wceh=025) 2.0 mg/dL 1.6-2.6 BASIC METABOLIC [id number] 03:56:00 Test Item Value Reference Range Comments SODIUM (BEAKER) (test 142 meq/L 136-145 mpwj=904) POTASSIUM (BEAKER) (test 3.7 meq/L 3.5-5.1 rczg=614) CHLORIDE (BEAKER) (test 101 meq/L 98-107 czfh=128) CO2 (BEAKER) (test 33 meq/L 22-29 ezlr=887) BLOOD UREA NITROGEN 11 mg/dL 7-21 (BEAKER) (test bgwn=552) CREATININE (BEAKER) (test 0.78 mg/dL 0.57-1.25 svpw=784) GLUCOSE RANDOM (BEAKER) 105 mg/dL 70-105 (test knpn=898) CALCIUM (BEAKER) (test 8.6 mg/dL 8.4-10.2 devj=419) EGFR (BEAKER) (test 102 mL/min/1.73 sq m ESTIMATED GFR IS NOT keop=0384) ACCURATE CREATININE CLEARANCE IN PREDICTING GLOMERULAR FILTRATION RATE. ESTIMATED GFR IS NOT APPLICABLE FOR DIALYSIS PATIENTS. CBC W/PLT COUNT & AUTO [id number] 03:26:00 Test Item Value Reference Range Comments WHITE BLOOD CELL COUNT (BEAKER) (test vloz=934) 8.2 K/ L 3.5-10.5 RED BLOOD CELL COUNT (BEAKER) (test ggvi=810) 4.66 M/ L 4.63-6.08 HEMOGLOBIN (BEAKER) (test fidc=873) 12.2 GM/DL 13.7-17.5 HEMATOCRIT (BEAKER) (test iebh=739) 39.6 % 40.1-51.0 MEAN CORPUSCULAR VOLUME (BEAKER) (test fefq=240) 85.0 fL 79.0-92.2 MEAN CORPUSCULAR HEMOGLOBIN (BEAKER) (test 26.2 pg 25.7-32.2 ukjc=145) MEAN CORPUSCULAR HEMOGLOBIN CONC (BEAKER) (test 30.8 GM/DL 32.3-36.5 tvsb=442) RED CELL DISTRIBUTION WIDTH (BEAKER) (test 14.0 % 11.6-14.4 sjox=253) PLATELET COUNT (BEAKER) (test hyuw=468) 348 K/CU MM 150-450 MEAN PLATELET VOLUME (BEAKER) (test bjwu=192) 9.2 fL 9.4-12.4 NUCLEATED RED BLOOD CELLS (BEAKER) (test 0 /100 WBC 0-0 jquo=836) NEUTROPHILS RELATIVE PERCENT (BEAKER) (test 73 % wjid=707) LYMPHOCYTES RELATIVE PERCENT (BEAKER) (test 16 % wazu=420) MONOCYTES RELATIVE PERCENT (BEAKER) (test 8 % gbvs=705) EOSINOPHILS RELATIVE PERCENT (BEAKER) (test 2 % llio=624) BASOPHILS RELATIVE PERCENT (BEAKER) (test 1 % jnut=756) NEUTROPHILS ABSOLUTE COUNT (BEAKER) (test 5.98 K/ L 1.78-5.38 kqku=683) LYMPHOCYTES ABSOLUTE COUNT (BEAKER) (test 1.34 K/ L 1.32-3.57 szlm=026) MONOCYTES ABSOLUTE COUNT (BEAKER) (test 0.64 K/ L 0.30-0.82 hgfv=100) EOSINOPHILS ABSOLUTE COUNT (BEAKER) (test 0.19 K/ L 0.04-0.54 hzrt=108) BASOPHILS ABSOLUTE COUNT (BEAKER) (test 0.06 K/ L 0.01-0.08 btfl=287) IMMATURE GRANULOCYTES-RELATIVE PERCENT (BEAKER) 0 % 0-1 (test zqjo=3969) POCT-GLUCOSE [id number] 03:24:00 Test Item Value Reference Range Comments POC-GLUCOSE METER (BEAKER) 102 mg/dL 70-110 TESTED AT [facility] [address] [facility] (test hryr=3863) [place] [address] SEDIMENTATION [id number] 20:42:00 Test Item Value Reference Range Comments SEDIMENTATION RATE, ERYTHROCYTE (BEAKER) (test 38 mm/HR 0-20 eikv=270) [id number] 20:29:00 Test Item Value Reference Range Comments MAGNESIUM (BEAKER) (test qkxs=061) 1.9 mg/dL 1.6-2.6 C-REACTIVE [id number] 20:29:00 Test Item Value Reference Range Comments C-REACTIVE PROTEIN (BEAKER) (test ymmr=420) 1.10 mg/dL 0.00-0.50 POCT-GLUCOSE [id number] 20:11:00 Test Item Value Reference Range Comments POC-GLUCOSE METER (BEAKER) 139 mg/dL 70-110 TESTED AT [address] (test irpk=8759) [facility] [address] POTASSIUM-STAT [id number] 20:06:00 Test Item Value Reference Range Comments POTASSIUM (BEAKER) (test sbst=930) 4.1 meq/L 3.6-5.5 CALCIUM, [id number] 20:06:00 Test Item Value Reference Range Comments CALCIUM IONIZED (BEAKER) (test ojbp=871) 1.10 mmol/L 1.12-1.27 PH, BLOOD (BEAKER) (test bfnq=4055) 7.37 GLUCOSE-STAT [id number] 20:06:00 Test Item Value Reference Range Comments GLUCOSE RANDOM (BEAKER) (test czww=194) 134 mg/dL 70-110 POCT-GLUCOSE [id number] 17:55:00 Test Item Value Reference Range Comments POC-GLUCOSE METER (BEAKER) 64 mg/dL 70-110 TESTED AT [address] (test ujey=9764) [place] [id number] GLUCOSE-STAT [id number] 16:29:00 Test Item Value Reference Range Comments GLUCOSE RANDOM (BEAKER) (test qxpr=963) 70 mg/dL 70-110 POTASSIUM-STAT [id number] 16:29:00 Test Item Value Reference Range Comments POTASSIUM (BEAKER) (test cfvp=583) 3.8 meq/L 3.6-5.5 POCT-GLUCOSE [id number] 14:24:00 Test Item Value Reference Range Comments POC-GLUCOSE METER (BEAKER) 72 mg/dL 70-110 TESTED AT [address] (test urpl=8598) [facility] [address] BLOOD GAS, [id number] 14:22:00 Test Item Value Reference Range Comments PH ARTERIAL (BEAKER) (test lgtd=394) 7.45 7.35-7.45 PCO2 ARTERIAL (BEAKER) (test igoc=046) 42 mmHg 35-45 PO2 ARTERIAL (BEAKER) (test fipf=687) 192 mmHg 80-90 O2 SATURATION ARTERIAL (BEAKER) (test fgka=153) 99.4 % 96.0-97.0 HCO3 ARTERIAL (BEAKER) (test pzvt=800) 28 mmol/L 21-29 BASE EXCESS ARTERIAL (BEAKER) (test xbex=370) 4.0 mmol/L -2.0-3.0 PATIENT TEMPERATURE (BEAKER) (test wiyt=9327) 37.0 C FIO2 (BEAKER) (test asdz=2269) 100.0 % RAD, CHEST, 1 VIEW, NON [id number] 12:43:00Reason for exam:->picc line placementFINAL REPORT Chest [...] MDReport Verified Date/Time: 05/24/2017 12:43:57 Reading Location: [address] Consult Reading Room CBC W/PLT COUNT & AUTO [id number] 11:13:00 Test Item Value Reference Range Comments WHITE BLOOD CELL COUNT (BEAKER) (test lpxr=489) 6.2 K/ L 3.5-10.5 RED BLOOD CELL COUNT (BEAKER) (test tnit=846) 3.93 M/ L 4.63-6.08 HEMOGLOBIN (BEAKER) (test oilx=348) 10.2 GM/DL 13.7-17.5 HEMATOCRIT (BEAKER) (test qeyv=819) 33.5 % 40.1-51.0 MEAN CORPUSCULAR VOLUME (BEAKER) (test ukzq=450) 85.2 fL 79.0-92.2 MEAN CORPUSCULAR HEMOGLOBIN (BEAKER) (test 26.0 pg 25.7-32.2 uqsn=266) MEAN CORPUSCULAR HEMOGLOBIN CONC (BEAKER) (test 30.4 GM/DL 32.3-36.5 bcce=884) RED CELL DISTRIBUTION WIDTH (BEAKER) (test 13.5 % 11.6-14.4 uboo=153) PLATELET COUNT (BEAKER) (test eict=410) 333 K/CU MM 150-450 MEAN PLATELET VOLUME (BEAKER) (test kjwr=804) 9.7 fL 9.4-12.4 NUCLEATED RED BLOOD CELLS (BEAKER) (test 0 /100 WBC 0-0 epza=255) NEUTROPHILS RELATIVE PERCENT (BEAKER) (test 70 % klut=572) LYMPHOCYTES RELATIVE PERCENT (BEAKER) (test 21 % bvec=275) MONOCYTES RELATIVE PERCENT (BEAKER) (test 7 % huxr=991) EOSINOPHILS RELATIVE PERCENT (BEAKER) (test 2 % xqym=710) BASOPHILS RELATIVE PERCENT (BEAKER) (test 1 % fbtd=286) NEUTROPHILS ABSOLUTE COUNT (BEAKER) (test 4.31 K/ L 1.78-5.38 ncnx=355) LYMPHOCYTES ABSOLUTE COUNT (BEAKER) (test 1.28 K/ L 1.32-3.57 gmle=316) MONOCYTES ABSOLUTE COUNT (BEAKER) (test 0.41 K/ L 0.30-0.82 vppf=717) EOSINOPHILS ABSOLUTE COUNT (BEAKER) (test 0.13 K/ L 0.04-0.54 xhhy=760) BASOPHILS ABSOLUTE COUNT (BEAKER) (test 0.05 K/ L 0.01-0.08 yehs=291) IMMATURE GRANULOCYTES-RELATIVE PERCENT (BEAKER) 0 % 0-1 (test kvji=8246) BASIC METABOLIC [id number] 11:02:00 Test Item Value Reference Range Comments SODIUM (BEAKER) (test 141 meq/L 136-145 bxfv=327) POTASSIUM (BEAKER) (test 3.3 meq/L 3.5-5.1 osye=067) CHLORIDE (BEAKER) (test 105 meq/L 98-107 frid=297) CO2 (BEAKER) (test 30 meq/L 22-29 vxco=102) BLOOD UREA NITROGEN 16 mg/dL 7-21 (BEAKER) (test ljim=052) CREATININE (BEAKER) (test 0.73 mg/dL 0.57-1.25 vwpr=017) GLUCOSE RANDOM (BEAKER) 103 mg/dL 70-105 (test ptmr=701) CALCIUM (BEAKER) (test 7.9 mg/dL 8.4-10.2 vcrp=728) EGFR (BEAKER) (test 110 mL/min/1.73 sq m ESTIMATED GFR IS NOT fnhq=0047) ACCURATE CREATININE CLEARANCE IN PREDICTING GLOMERULAR FILTRATION RATE. ESTIMATED GFR IS NOT APPLICABLE FOR DIALYSIS PATIENTS. [id number] 11:01:00 Test Item Value Reference Range Comments MAGNESIUM (BEAKER) (test hwqr=446) 1.5 mg/dL 1.6-2.6 [id number] 11:01:00 Test Item Value Reference Range Comments FIBRINOGEN LEVEL (BEAKER) (test yjhf=554) 418 mg/dl 225-434 [id number] 11:01:00 Test Item Value Reference Range Comments PARTIAL THROMBOPLASTIN TIME (BEAKER) (test 33.1 seconds 22.5-36.0 ihjq=087) PROTHROMBIN [id number] 11:00:00 Test Item Value Reference Range Comments PROTIME (BEAKER) (test nkap=705) 17.6 seconds 11.7-14.7 INR (BEAKER) (test wvph=571) 1.5 <=5.9 RECOMMENDED COUMADIN/WARFARIN INR THERAPY RANGESSTANDARD DOSE: 2.0 - 3.0 Includes: PROPHYLAXIS forvenous thrombosis, systemic embolization; TREATMENT for venous thrombosis and/or pulmonary embolus.HIGH RISK: Target INR is 2.5-3.5 for patients with mechanical heart valves.LACTIC ACID, ARTERIAL, WHOLE [id number] 10:57:00 Test Item Value Reference Range Comments LACTATE BLOOD ARTERIAL (2) (BEAKER) (test 0.6 mmol/L 0.5-2.2 qpmb=6107) Effective 12/04/2015: Units/Reference Range ChangeNew: 0.5-2.2 mmol/L Previous: 5 -20 mg/dLBLOOD GAS, [id number] 10:42:00 Test Item Value Reference Range Comments PH ARTERIAL (BEAKER) (test ybqf=810) 7.42 7.35-7.45 PCO2 ARTERIAL (BEAKER) (test tuku=132) 43 mmHg 35-45 PO2 ARTERIAL (BEAKER) (test qtrm=014) 83 mmHg 80-90 O2 SATURATION ARTERIAL (BEAKER) (test gxfj=151) 97.1 % 96.0-97.0 HCO3 ARTERIAL (BEAKER) (test iiqz=745) 28 mmol/L 21-29 BASE EXCESS ARTERIAL (BEAKER) (test nmls=763) 2.0 mmol/L -2.0-3.0 PATIENT TEMPERATURE (BEAKER) (test wycz=5909) 34.7 C FIO2 (BEAKER) (test krrh=0604) 60.0 % SODIUM NA-STAT [id number] 10:42:00 Test Item Value Reference Range Comments SODIUM (BEAKER) (test ouke=731) 138 meq/L 135-148 POTASSIUM-STAT [id number] 10:42:00 Test Item Value Reference Range Comments POTASSIUM (BEAKER) (test jdrd=355) 3.1 meq/L 3.6-5.5 GLUCOSE-STAT [id number] 10:42:00 Test Item Value Reference Range Comments GLUCOSE RANDOM (BEAKER) (test zerx=142) 105 mg/dL 70-110 HGB/HCT (H&H) - STAT [id number] 10:42:00 Test Item Value Reference Range Comments HEMOGLOBIN (BEAKER) (test iczh=886) 11.3 g/dL 13.0-16.8 HEMATOCRIT (BEAKER) (test ddja=730) 33.0 % 40.0-50.0 CALCIUM, [id number] 10:41:00 Test Item Value Reference Range Comments CALCIUM IONIZED (BEAKER) (test ryaj=367) 1.06 mmol/L 1.12-1.27 PH, BLOOD (BEAKER) (test gjfg=7899) 7.39 RAD, CHEST, 1 VIEW, NON [id number] 10:34:00Reason for exam:->sp pericadial windowFINAL REPORT Chest [...] Verified Date/ Time: 05/24/2017 10:34:21 Reading [facility] Reading Room SODIUM NA-STAT [id number] 09:32:00 Test Item Value Reference Range Comments SODIUM (BEAKER) (test luvi=047) 141 meq/L 135-148 BLOOD GAS, [id number] 09:32:00 Test Item Value Reference Range Comments PH ARTERIAL (BEAKER) (test rdin=415) 7.28 7.35-7.45 PCO2 ARTERIAL (BEAKER) (test mumq=544) 65 mmHg 35-45 PO2 ARTERIAL (BEAKER) (test srbe=948) 67 mmHg 80-90 O2 SATURATION ARTERIAL (BEAKER) (test yppe=052) 91.6 % 96.0-97.0 HCO3 ARTERIAL (BEAKER) (test lfvt=717) 30 mmol/L 21-29 BASE EXCESS ARTERIAL (BEAKER) (test byoc=957) 2.0 mmol/L -2.0-3.0 PATIENT TEMPERATURE (BEAKER) (test miak=8303) 36.0 C FIO2 (BEAKER) (test vwnp=4729) 100.0 % POTASSIUM-STAT [id number] 09:32:00 Test Item Value Reference Range Comments POTASSIUM (BEAKER) (test yyuc=222) 3.4 meq/L 3.6-5.5 GLUCOSE-STAT [id number] 09:32:00 Test Item Value Reference Range Comments GLUCOSE RANDOM (BEAKER) (test gjwq=741) 125 mg/dL 70-110 HGB/HCT (H&H) - STAT [id number] 09:32:00 Test Item Value Reference Range Comments HEMOGLOBIN (BEAKER) (test rnme=926) 11.9 g/dL 13.0-16.8 HEMATOCRIT (BEAKER) (test kddl=955) 35.0 % 40.0-50.0 BLOOD GAS, [id number] 08:34:00 Test Item Value Reference Range Comments PH ARTERIAL (BEAKER) (test tity=746) 7.38 7.35-7.45 PCO2 ARTERIAL (BEAKER) (test ucpv=595) 52 mmHg 35-45 PO2 ARTERIAL (BEAKER) (test upsh=206) 175 mmHg 80-90 O2 SATURATION ARTERIAL (BEAKER) (test kwee=953) 99.1 % 96.0-97.0 HCO3 ARTERIAL (BEAKER) (test dxmp=284) 30 mmol/L 21-29 BASE EXCESS ARTERIAL (BEAKER) (test vkyp=171) 4.1 mmol/L -2.0-3.0 PATIENT TEMPERATURE (BEAKER) (test kkne=4458) 37.0 C FIO2 (BEAKER) (test cjqd=7177) 100.0 % GLUCOSE-STAT [id number] 08:34:00 Test Item Value Reference Range Comments GLUCOSE RANDOM (BEAKER) (test uese=286) 121 mg/dL 70-110 HGB/HCT (H&H) - STAT [id number] 08:34:00 Test Item Value Reference Range Comments HEMOGLOBIN (BEAKER) (test xkvw=542) 11.3 g/dL 13.0-16.8 HEMATOCRIT (BEAKER) (test lejy=415) 33.0 % 40.0-50.0 SODIUM NA-STAT [id number] 08:33:00 Test Item Value Reference Range Comments SODIUM (BEAKER) (test ntzm=789) 139 meq/L 135-148 POTASSIUM-STAT [id number] 08:33:00 Test Item Value Reference Range Comments POTASSIUM (BEAKER) (test noyy=634) 3.5 meq/L 3.6-5.5 [id number] 06:30:00 Test Item Value Reference Range Comments MAGNESIUM (BEAKER) (test spva=809) 1.9 mg/dL 1.6-2.6 BASIC METABOLIC [id number] 06:30:00 Test Item Value Reference Range Comments SODIUM (BEAKER) (test 142 meq/L 136-145 sjhd=268) POTASSIUM (BEAKER) (test 4.1 meq/L 3.5-5.1 egbu=012) CHLORIDE (BEAKER) (test 103 meq/L 98-107 ahtp=123) CO2 (BEAKER) (test 28 meq/L 22-29 jnlv=741) BLOOD UREA NITROGEN 15 mg/dL 7-21 (BEAKER) (test nmko=747) CREATININE (BEAKER) (test 0.81 mg/dL 0.57-1.25 qfij=695) GLUCOSE RANDOM (BEAKER) 143 mg/dL 70-105 (test wtbb=424) CALCIUM (BEAKER) (test 9.3 mg/dL 8.4-10.2 klhr=213) EGFR (BEAKER) (test 97 mL/min/1.73 sq m ESTIMATED GFR IS NOT lsqx=4269) ACCURATE CREATININE CLEARANCE IN PREDICTING GLOMERULAR FILTRATION RATE. ESTIMATED GFR IS NOT APPLICABLE FOR DIALYSIS PATIENTS. CBC W/PLT COUNT & AUTO [id number] 05:53:00 Test Item Value Reference Range Comments WHITE BLOOD CELL COUNT (BEAKER) (test bqis=736) 10.2 K/ L 3.5-10.5 RED BLOOD CELL COUNT (BEAKER) (test toln=289) 4.71 M/ L 4.63-6.08 HEMOGLOBIN (BEAKER) (test jdha=715) 12.2 GM/DL 13.7-17.5 HEMATOCRIT (BEAKER) (test qqzw=545) 40.9 % 40.1-51.0 MEAN CORPUSCULAR VOLUME (BEAKER) (test tuet=739) 86.8 fL 79.0-92.2 MEAN CORPUSCULAR HEMOGLOBIN (BEAKER) (test 25.9 pg 25.7-32.2 ubau=719) MEAN CORPUSCULAR HEMOGLOBIN CONC (BEAKER) (test 29.8 GM/DL 32.3-36.5 lrug=444) RED CELL DISTRIBUTION WIDTH (BEAKER) (test 13.6 % 11.6-14.4 pssp=387) PLATELET COUNT (BEAKER) (test mdwi=763) 436 K/CU MM 150-450 MEAN PLATELET VOLUME (BEAKER) (test xnaz=879) 10.3 fL 9.4-12.4 NUCLEATED RED BLOOD CELLS (BEAKER) (test 0 /100 WBC 0-0 nnhg=866) NEUTROPHILS RELATIVE PERCENT (BEAKER) (test 70 % vzyl=818) LYMPHOCYTES RELATIVE PERCENT (BEAKER) (test 20 % lbuz=978) MONOCYTES RELATIVE PERCENT (BEAKER) (test 7 % mojp=488) EOSINOPHILS RELATIVE PERCENT (BEAKER) (test 2 % cowo=363) BASOPHILS RELATIVE PERCENT (BEAKER) (test 1 % cmyp=751) NEUTROPHILS ABSOLUTE COUNT (BEAKER) (test 7.09 K/ L 1.78-5.38 eqcn=910) LYMPHOCYTES ABSOLUTE COUNT (BEAKER) (test 2.04 K/ L 1.32-3.57 ioyo=970) MONOCYTES ABSOLUTE COUNT (BEAKER) (test 0.69 K/ L 0.30-0.82 uzmi=190) EOSINOPHILS ABSOLUTE COUNT (BEAKER) (test 0.20 K/ L 0.04-0.54 txdm=712) BASOPHILS ABSOLUTE COUNT (BEAKER) (test 0.10 K/ L 0.01-0.08 bjiq=254) IMMATURE GRANULOCYTES-RELATIVE PERCENT (BEAKER) 1 % 0-1 (test tujk=2186) POCT-GLUCOSE [id number] 05:52:00 Test Item Value Reference Range Comments POC-GLUCOSE METER (BEAKER) 153 mg/dL 70-110 TESTED AT [address] (test pcmq=9023) [place] [id number] POCT-GLUCOSE [id number] 21:22:00 Test Item Value Reference Range Comments POC-GLUCOSE METER (BEAKER) 212 mg/dL 70-110 TESTED AT [address] (test xrea=8449) [place] [address] [id number] 17:56:00 Test Item Value Reference Range Comments PARTIAL THROMBOPLASTIN TIME (BEAKER) (test 34.4 seconds 22.5-36.0 ntbb=939) PROTHROMBIN [id number] 17:55:00 Test Item Value Reference Range Comments PROTIME (BEAKER) (test xgzu=498) 16.4 seconds 11.7-14.7 INR (BEAKER) (test phzl=073) 1.3 <=5.9 RECOMMENDED COUMADIN/WARFARIN INR THERAPY RANGESSTANDARD DOSE: 2.0 - 3.0 Includes: PROPHYLAXIS forvenous thrombosis, systemic embolization; TREATMENT for venous thrombosis and/or pulmonary embolus.HIGH RISK: Target INR is 2.5-3.5 for patients with mechanical heart valves.POCT-GLUCOSE [id number] 17:33:00 Test Item Value Reference Range Comments POC-GLUCOSE METER (BEAKER) 233 mg/dL 70-110 TESTED AT [address] (test gfxl=4878) [facility] [address] POCT-GLUCOSE [id number] 12:51:00 Test Item Value Reference Range Comments POC-GLUCOSE METER (BEAKER) 149 mg/dL 70-110 TESTED AT [address] (test thlw=7610) [facility] [address] POCT-GLUCOSE [id number] 07:34:00 Test Item Value Reference Range Comments POC-GLUCOSE METER (BEAKER) 104 mg/dL 70-110 TESTED AT [address] (test ddep=5783) [facility] [address] B-TYPE NATRIURETIC FACTOR (BNP)2017-05-23 00:50:00 Test Item Value Reference Range Comments B-TYPE NATRIURETIC PEPTIDE (BEAKER) (test 177 pg/mL 0-100 jscr=112) [id number] 00:47:00 Test Item Value Reference Range Comments MAGNESIUM (BEAKER) (test dwyh=477) 1.8 mg/dL 1.6-2.6 BASIC METABOLIC [id number] 00:47:00 Test Item Value Reference Range Comments SODIUM (BEAKER) (test 141 meq/L 136-145 tvor=884) POTASSIUM (BEAKER) (test 3.9 meq/L 3.5-5.1 dxmf=987) CHLORIDE (BEAKER) (test 103 meq/L 98-107 bozx=745) CO2 (BEAKER) (test 29 meq/L 22-29 lwhi=421) BLOOD UREA NITROGEN 18 mg/dL 7-21 (BEAKER) (test yybw=694) CREATININE (BEAKER) (test 0.83 mg/dL 0.57-1.25 jmur=018) GLUCOSE RANDOM (BEAKER) 135 mg/dL 70-105 (test hjgy=197) CALCIUM (BEAKER) (test 8.8 mg/dL 8.4-10.2 lzef=605) EGFR (BEAKER) (test 95 mL/min/1.73 sq m ESTIMATED GFR IS NOT sjbm=9407) ACCURATE CREATININE CLEARANCE IN PREDICTING GLOMERULAR FILTRATION RATE. ESTIMATED GFR IS NOT APPLICABLE FOR DIALYSIS PATIENTS. HEPATIC FUNCTION [id number] 00:47:00 Test Item Value Reference Range Comments TOTAL PROTEIN (BEAKER) (test dbsl=693) 7.2 gm/dL 6.0-8.3 ALBUMIN (BEAKER) (test opsz=8195) 3.6 g/dL 3.5-5.0 BILIRUBIN TOTAL (BEAKER) (test oqcw=181) 0.5 mg/dL 0.2-1.2 BILIRUBIN DIRECT (BEAKER) (test todp=547) 0.2 mg/dL 0.1-0.5 ALKALINE PHOSPHATASE (BEAKER) (test eylm=425) 90 U/L 40-150 AST (SGOT) (BEAKER) (test oafa=051) 24 U/L 5-34 ALT (SGPT) (BEAKER) (test ynvj=913) 34 U/L 6-55 CBC W/PLT COUNT & AUTO [id number] 00:08:00 Test Item Value Reference Range Comments WHITE BLOOD CELL COUNT (BEAKER) (test xkkh=097) 10.7 K/ L 3.5-10.5 RED BLOOD CELL COUNT (BEAKER) (test nzms=684) 4.49 M/ L 4.63-6.08 HEMOGLOBIN (BEAKER) (test trob=445) 12.1 GM/DL 13.7-17.5 HEMATOCRIT (BEAKER) (test tnto=050) 38.8 % 40.1-51.0 MEAN CORPUSCULAR VOLUME (BEAKER) (test volo=701) 86.4 fL 79.0-92.2 MEAN CORPUSCULAR HEMOGLOBIN (BEAKER) (test 26.9 pg 25.7-32.2 ggeo=626) MEAN CORPUSCULAR HEMOGLOBIN CONC (BEAKER) (test 31.2 GM/DL 32.3-36.5 vcdq=460) RED CELL DISTRIBUTION WIDTH (BEAKER) (test 13.5 % 11.6-14.4 qevv=512) PLATELET COUNT (BEAKER) (test fgut=225) 418 K/CU MM 150-450 MEAN PLATELET VOLUME (BEAKER) (test oeje=196) 9.7 fL 9.4-12.4 NUCLEATED RED BLOOD CELLS (BEAKER) (test 0 /100 WBC 0-0 mauf=185) NEUTROPHILS RELATIVE PERCENT (BEAKER) (test 66 % rjxt=512) LYMPHOCYTES RELATIVE PERCENT (BEAKER) (test 23 % iccb=459) MONOCYTES RELATIVE PERCENT (BEAKER) (test 7 % yvgi=981) EOSINOPHILS RELATIVE PERCENT (BEAKER) (test 3 % uplu=691) BASOPHILS RELATIVE PERCENT (BEAKER) (test 1 % tiqp=345) NEUTROPHILS ABSOLUTE COUNT (BEAKER) (test 7.05 K/ L 1.78-5.38 ytxt=852) LYMPHOCYTES ABSOLUTE COUNT (BEAKER) (test 2.50 K/ L 1.32-3.57 lbdp=662) MONOCYTES ABSOLUTE COUNT (BEAKER) (test 0.76 K/ L 0.30-0.82 nnqq=184) EOSINOPHILS ABSOLUTE COUNT (BEAKER) (test 0.29 K/ L 0.04-0.54 njny=446) BASOPHILS ABSOLUTE COUNT (BEAKER) (test 0.11 K/ L 0.01-0.08 obgj=077) IMMATURE GRANULOCYTES-RELATIVE PERCENT (BEAKER) 0 % 0-1 (test qnjn=1064) RAD, CHEST, 1 VIEW, NON [id number] 23:49:00Reason for exam:-> dyspneaShould this be performed [...] MDReport Verified Date/Time: 05/22/2017 23:49:06 Reading Location: [facility] C013Y CT Body Reading Room POCT-GLUCOSE [id number] 23:16:00 Test Item Value Reference Range Comments POC-GLUCOSE METER (BEAKER) 177 mg/dL 70-110 TESTED AT [address] (test psdi=5056) [facility] [id number] POCT-GLUCOSE [id number] 12:20:00 Test Item Value Reference Range Comments POC-GLUCOSE METER (BEAKER) 122 mg/dL 70-110 TESTED AT [address] (test jzqm=3784) [facility] [address] POCT-GLUCOSE [id number] 08:30:00 Test Item Value Reference Range Comments POC-GLUCOSE METER (BEAKER) 80 mg/dL 70-110 TESTED AT [address] (test lvue=5754) [facility] [address] [id number] 07:36:00 Test Item Value Reference Range Comments PHOSPHORUS (BEAKER) (test weda=973) 4.6 mg/dL 2.3-4.7 [id number] 07:36:00 Test Item Value Reference Range Comments MAGNESIUM (BEAKER) (test etkt=704) 1.8 mg/dL 1.6-2.6 BASIC METABOLIC [id number] 07:36:00 Test Item Value Reference Range Comments SODIUM (BEAKER) (test 144 meq/L 136-145 dtys=546) POTASSIUM (BEAKER) (test 4.6 meq/L 3.5-5.1 twig=229) CHLORIDE (BEAKER) (test 109 meq/L 98-107 ojnb=194) CO2 (BEAKER) (test 28 meq/L 22-29 swez=574) BLOOD UREA NITROGEN 10 mg/dL 7-21 (BEAKER) (test tqex=968) CREATININE (BEAKER) (test 0.79 mg/dL 0.57-1.25 nmgk=708) GLUCOSE RANDOM (BEAKER) 98 mg/dL 70-105 (test fulh=638) CALCIUM (BEAKER) (test 8.4 mg/dL 8.4-10.2 luay=697) EGFR (BEAKER) (test 100 mL/min/1.73 sq m ESTIMATED GFR IS NOT como=4392) ACCURATE CREATININE CLEARANCE IN PREDICTING GLOMERULAR FILTRATION RATE. ESTIMATED GFR IS NOT APPLICABLE FOR DIALYSIS PATIENTS. POCT-GLUCOSE [id number] 02:18:00 Test Item Value Reference Range Comments POC-GLUCOSE METER (BEAKER) 160 mg/dL 70-110 TESTED AT [address] (test blfg=7556) [facility] [address] POCT-GLUCOSE [id number] 21:04:00 Test Item Value Reference Range Comments POC-GLUCOSE METER (BEAKER) 243 mg/dL 70-110 TESTED AT [address] (test ketc=6829) [facility] [address] POCT-GLUCOSE [id number] 17:49:00 Test Item Value Reference Range Comments POC-GLUCOSE METER (BEAKER) 186 mg/dL 70-110 TESTED AT [address] (test uisd=3806) [facility] [address] POCT-GLUCOSE [id number] 17:49:00 Test Item Value Reference Range Comments POC-GLUCOSE METER (BEAKER) 107 mg/dL 70-110 TESTED AT [address] (test swbi=1733) [facility] [address] POCT-GLUCOSE [id number] 10:40:00 Test Item Value Reference Range Comments POC-GLUCOSE METER (BEAKER) 160 mg/dL 70-110 TESTED AT [address] (test rwwc=2367) [place] [id number] POCT-GLUCOSE [id number] 08:36:00 Test Item Value Reference Range Comments POC-GLUCOSE METER (BEAKER) 71 mg/dL 70-110 TESTED AT [address] (test hbwb=9865) [place] [id number] POCT-GLUCOSE [id number] 08:36:00 Test Item Value Reference Range Comments POC-GLUCOSE METER (BEAKER) 67 mg/dL 70-110 Notified LAURA PARRA/TESTED AT [facility] (test vbtr=3393) [address] [place] [address] [id number] 05:51:00 Test Item Value Reference Range Comments PHOSPHORUS (BEAKER) (test hmzm=398) 5.0 mg/dL 2.3-4.7 [id number] 05:51:00 Test Item Value Reference Range Comments MAGNESIUM (BEAKER) (test bgid=706) 1.8 mg/dL 1.6-2.6 BASIC METABOLIC [id number] 05:51:00 Test Item Value Reference Range Comments SODIUM (BEAKER) (test 142 meq/L 136-145 iznr=347) POTASSIUM (BEAKER) (test 3.8 meq/L 3.5-5.1 gtgn=000) CHLORIDE (BEAKER) (test 109 meq/L 98-107 iykj=373) CO2 (BEAKER) (test 26 meq/L 22-29 zkih=803) BLOOD UREA NITROGEN 11 mg/dL 7-21 (BEAKER) (test cpvk=368) CREATININE (BEAKER) (test 0.75 mg/dL 0.57-1.25 zazn=240) GLUCOSE RANDOM (BEAKER) 63 mg/dL 70-105 (test bqmi=062) CALCIUM (BEAKER) (test 8.2 mg/dL 8.4-10.2 zdzo=653) EGFR (BEAKER) (test 107 mL/min/1.73 sq m ESTIMATED GFR IS NOT nkwn=9399) ACCURATE CREATININE CLEARANCE IN PREDICTING GLOMERULAR FILTRATION RATE. ESTIMATED GFR IS NOT APPLICABLE FOR DIALYSIS PATIENTS. CBC W/PLT COUNT & AUTO [id number] 05:29:00 Test Item Value Reference Range Comments WHITE BLOOD CELL COUNT (BEAKER) (test vgan=955) 7.0 K/ L 3.5-10.5 RED BLOOD CELL COUNT (BEAKER) (test dcyy=199) 3.86 M/ L 4.63-6.08 HEMOGLOBIN (BEAKER) (test vxse=505) 10.5 GM/DL 13.7-17.5 HEMATOCRIT (BEAKER) (test puss=848) 33.6 % 40.1-51.0 MEAN CORPUSCULAR VOLUME (BEAKER) (test uhke=137) 87.0 fL 79.0-92.2 MEAN CORPUSCULAR HEMOGLOBIN (BEAKER) (test 27.2 pg 25.7-32.2 kmcm=603) MEAN CORPUSCULAR HEMOGLOBIN CONC (BEAKER) (test 31.3 GM/DL 32.3-36.5 tvad=657) RED CELL DISTRIBUTION WIDTH (BEAKER) (test 13.7 % 11.6-14.4 tzzk=883) PLATELET COUNT (BEAKER) (test hwke=685) 253 K/CU MM 150-450 MEAN PLATELET VOLUME (BEAKER) (test xafr=388) 10.4 fL 9.4-12.4 NUCLEATED RED BLOOD CELLS (BEAKER) (test 0 /100 WBC 0-0 lqzo=360) NEUTROPHILS RELATIVE PERCENT (BEAKER) (test 58 % glpc=243) LYMPHOCYTES RELATIVE PERCENT (BEAKER) (test 29 % hjoq=204) MONOCYTES RELATIVE PERCENT (BEAKER) (test 9 % eaae=693) EOSINOPHILS RELATIVE PERCENT (BEAKER) (test 3 % icfn=959) BASOPHILS RELATIVE PERCENT (BEAKER) (test 1 % cnmf=518) NEUTROPHILS ABSOLUTE COUNT (BEAKER) (test 4.12 K/ L 1.78-5.38 flsn=533) LYMPHOCYTES ABSOLUTE COUNT (BEAKER) (test 2.02 K/ L 1.32-3.57 hbwl=543) MONOCYTES ABSOLUTE COUNT (BEAKER) (test 0.64 K/ L 0.30-0.82 elkw=940) EOSINOPHILS ABSOLUTE COUNT (BEAKER) (test 0.18 K/ L 0.04-0.54 tcgy=210) BASOPHILS ABSOLUTE COUNT (BEAKER) (test 0.06 K/ L 0.01-0.08 smcv=530) IMMATURE GRANULOCYTES-RELATIVE PERCENT (BEAKER) 0 % 0-1 (test uimj=6242) POCT-GLUCOSE [id number] 23:05:00 Test Item Value Reference Range Comments POC-GLUCOSE METER (BEAKER) 147 mg/dL 70-110 TESTED AT [address] (test iifn=9158) [place] [id number] POCT-GLUCOSE [id number] 17:06:00 Test Item Value Reference Range Comments POC-GLUCOSE METER (BEAKER) 123 mg/dL 70-110 TESTED AT [address] (test uzmm=2680) [place] [id number] POCT-GLUCOSE [id number] 12:10:00 Test Item Value Reference Range Comments POC-GLUCOSE METER (BEAKER) 232 mg/dL 70-110 TESTED AT [address] (test jebu=3519) [place] [id number] RAD, CHEST, 1 VIEW, NON [id number] 08:02:00Reason for exam:->s/p cardiac surgeryFINAL REPORT Chest one view AP 05/09/2017 8:02 AM CLINICAL INDICATION: s/p cardiac surgery COMPARISON: 05/08/2017 IMPRESSION: Cardiomediastinal contours are stable. The central pulmonary vasculature is not engorged. The lungs are well aerated. Sternotomy wires remain midline. Signed: Walter Correia Verified Date/Time: 05/09/2017 08:02:26 Reading Location: [facility] C013V Neuro Reading Room POCT-GLUCOSE [id number] 07:42:00 Test Item Value Reference Range Comments POC-GLUCOSE METER (BEAKER) 100 mg/dL 70-110 TESTED AT [facility] [address] (test tjgn=2363) [facility] [address] [id number] 06:26:00 Test Item Value Reference Range Comments PHOSPHORUS (BEAKER) (test rlup=478) 4.7 mg/dL 2.3-4.7 [id number] 06:26:00 Test Item Value Reference Range Comments MAGNESIUM (BEAKER) (test yiqf=428) 1.9 mg/dL 1.6-2.6 BASIC METABOLIC [id number] 06:26:00 Test Item Value Reference Range Comments SODIUM (BEAKER) (test 141 meq/L 136-145 crxh=647) POTASSIUM (BEAKER) (test 3.6 meq/L 3.5-5.1 gdon=844) CHLORIDE (BEAKER) (test 107 meq/L 98-107 zoyp=305) CO2 (BEAKER) (test 26 meq/L 22-29 ddto=098) BLOOD UREA NITROGEN 13 mg/dL 7-21 (BEAKER) (test mffj=964) CREATININE (BEAKER) (test 0.78 mg/dL 0.57-1.25 vhiu=972) GLUCOSE RANDOM (BEAKER) 75 mg/dL 70-105 (test julo=518) CALCIUM (BEAKER) (test 8.4 mg/dL 8.4-10.2 jdrf=715) EGFR (BEAKER) (test 102 mL/min/1.73 sq m ESTIMATED GFR IS NOT svkx=4730) ACCURATE CREATININE CLEARANCE IN PREDICTING GLOMERULAR FILTRATION RATE. ESTIMATED GFR IS NOT APPLICABLE FOR DIALYSIS PATIENTS. CBC W/PLT COUNT & AUTO [id number] 05:47:00 Test Item Value Reference Range Comments WHITE BLOOD CELL COUNT (BEAKER) (test cyqi=989) 7.6 K/ L 3.5-10.5 RED BLOOD CELL COUNT (BEAKER) (test hupm=334) 4.11 M/ L 4.63-6.08 HEMOGLOBIN (BEAKER) (test hraz=926) 10.8 GM/DL 13.7-17.5 HEMATOCRIT (BEAKER) (test napw=269) 35.6 % 40.1-51.0 MEAN CORPUSCULAR VOLUME (BEAKER) (test tmap=270) 86.6 fL 79.0-92.2 MEAN CORPUSCULAR HEMOGLOBIN (BEAKER) (test 26.3 pg 25.7-32.2 vcrz=243) MEAN CORPUSCULAR HEMOGLOBIN CONC (BEAKER) (test 30.3 GM/DL 32.3-36.5 elef=015) RED CELL DISTRIBUTION WIDTH (BEAKER) (test 13.6 % 11.6-14.4 fnxx=164) PLATELET COUNT (BEAKER) (test oato=302) 238 K/CU MM 150-450 MEAN PLATELET VOLUME (BEAKER) (test rjkl=716) 10.5 fL 9.4-12.4 NUCLEATED RED BLOOD CELLS (BEAKER) (test 0 /100 WBC 0-0 xdmj=124) NEUTROPHILS RELATIVE PERCENT (BEAKER) (test 59 % xhnz=911) LYMPHOCYTES RELATIVE PERCENT (BEAKER) (test 27 % zqra=249) MONOCYTES RELATIVE PERCENT (BEAKER) (test 10 % novc=723) EOSINOPHILS RELATIVE PERCENT (BEAKER) (test 3 % sknr=907) BASOPHILS RELATIVE PERCENT (BEAKER) (test 1 % yxsf=808) NEUTROPHILS ABSOLUTE COUNT (BEAKER) (test 4.48 K/ L 1.78-5.38 cvvv=271) LYMPHOCYTES ABSOLUTE COUNT (BEAKER) (test 2.00 K/ L 1.32-3.57 yxyg=498) MONOCYTES ABSOLUTE COUNT (BEAKER) (test 0.78 K/ L 0.30-0.82 voik=844) EOSINOPHILS ABSOLUTE COUNT (BEAKER) (test 0.20 K/ L 0.04-0.54 meqp=065) BASOPHILS ABSOLUTE COUNT (BEAKER) (test 0.07 K/ L 0.01-0.08 zqaj=836) IMMATURE GRANULOCYTES-RELATIVE PERCENT (BEAKER) 0 % 0-1 (test etzu=4287) POCT-GLUCOSE [id number] 20:48:00 Test Item Value Reference Range Comments POC-GLUCOSE METER (BEAKER) 197 mg/dL 70-110 TESTED AT [address] (test sego=5760) [facility] [address] POCT-GLUCOSE [id number] 17:09:00 Test Item Value Reference Range Comments POC-GLUCOSE METER (BEAKER) 131 mg/dL 70-110 TESTED AT [address] (test noog=7636) [facility] [address] POCT-GLUCOSE [id number] 16:10:00 Test Item Value Reference Range Comments POC-GLUCOSE METER (BEAKER) 78 mg/dL 70-110 TESTED AT [place] [id number] [facility] (test uilf=7176) [facility] [address] POCT-GLUCOSE [id number] 12:03:00 Test Item Value Reference Range Comments POC-GLUCOSE METER (BEAKER) 150 mg/dL 70-110 TESTED AT [address] (test lktn=7756) [place] [id number] RAD, CHEST, 1 VIEW, NON [id number] 08:59:00Reason for exam:->s/p cardiac surgeryFINAL REPORT Portable chest History: Status post cardiac surgery Comparison study: May 07, 2017 FINDINGS: The cardiac silhouette is enlarged. The patient is status post sternotomy. Atelectatic changes are seen in the left midlung field. No pleural effusion or pneumothorax is noted. Degenerative changes are seen. IMPRESSION: No significant change. Signed: Chay Schaffer [facility] Verified Date/Time: 05/08/2017 08:59:34 Reading Location: [facility] C0X Ortho Consult Reading Room POCT-GLUCOSE [id number] 07:58:00 Test Item Value Reference Range Comments POC-GLUCOSE METER (BEAKER) 96 mg/dL 70-110 TESTED AT [address] (test ggum=5471) [place] [address] [id number] 07:02:00 Test Item Value Reference Range Comments PHOSPHORUS (BEAKER) (test jjgw=300) 4.3 mg/dL 2.3-4.7 [id number] 07:02:00 Test Item Value Reference Range Comments MAGNESIUM (BEAKER) (test nzqs=762) 2.0 mg/dL 1.6-2.6 BASIC METABOLIC [id number] 07:02:00 Test Item Value Reference Range Comments SODIUM (BEAKER) (test 140 meq/L 136-145 vqbs=414) POTASSIUM (BEAKER) (test 3.6 meq/L 3.5-5.1 fnal=177) CHLORIDE (BEAKER) (test 104 meq/L 98-107 xidu=645) CO2 (BEAKER) (test 29 meq/L 22-29 otlv=946) BLOOD UREA NITROGEN 17 mg/dL 7-21 (BEAKER) (test zsdn=989) CREATININE (BEAKER) (test 0.79 mg/dL 0.57-1.25 wvkx=704) GLUCOSE RANDOM (BEAKER) 117 mg/dL 70-105 (test jpsf=249) CALCIUM (BEAKER) (test 8.2 mg/dL 8.4-10.2 vadx=184) EGFR (BEAKER) (test 100 mL/min/1.73 sq m ESTIMATED GFR IS NOT zkjm=7310) ACCURATE CREATININE CLEARANCE IN PREDICTING GLOMERULAR FILTRATION RATE. ESTIMATED GFR IS NOT APPLICABLE FOR DIALYSIS PATIENTS. CBC W/PLT COUNT & AUTO [id number] 06:27:00 Test Item Value Reference Range Comments WHITE BLOOD CELL COUNT (BEAKER) (test jwrx=271) 7.9 K/ L 3.5-10.5 RED BLOOD CELL COUNT (BEAKER) (test yvkc=496) 4.28 M/ L 4.63-6.08 HEMOGLOBIN (BEAKER) (test tizn=399) 11.6 GM/DL 13.7-17.5 HEMATOCRIT (BEAKER) (test owpt=035) 37.2 % 40.1-51.0 MEAN CORPUSCULAR VOLUME (BEAKER) (test qfrx=834) 86.9 fL 79.0-92.2 MEAN CORPUSCULAR HEMOGLOBIN (BEAKER) (test 27.1 pg 25.7-32.2 owet=464) MEAN CORPUSCULAR HEMOGLOBIN CONC (BEAKER) (test 31.2 GM/DL 32.3-36.5 fvtw=935) RED CELL DISTRIBUTION WIDTH (BEAKER) (test 13.7 % 11.6-14.4 dyge=027) PLATELET COUNT (BEAKER) (test nsqt=310) 194 K/CU MM 150-450 MEAN PLATELET VOLUME (BEAKER) (test bkyi=602) 10.7 fL 9.4-12.4 NUCLEATED RED BLOOD CELLS (BEAKER) (test 0 /100 WBC 0-0 ugqd=997) NEUTROPHILS RELATIVE PERCENT (BEAKER) (test 64 % uzdi=269) LYMPHOCYTES RELATIVE PERCENT (BEAKER) (test 23 % iweu=547) MONOCYTES RELATIVE PERCENT (BEAKER) (test 10 % rbjf=623) EOSINOPHILS RELATIVE PERCENT (BEAKER) (test 2 % nlxh=030) BASOPHILS RELATIVE PERCENT (BEAKER) (test 1 % gpep=304) NEUTROPHILS ABSOLUTE COUNT (BEAKER) (test 5.04 K/ L 1.78-5.38 nbsp=710) LYMPHOCYTES ABSOLUTE COUNT (BEAKER) (test 1.84 K/ L 1.32-3.57 mpbd=631) MONOCYTES ABSOLUTE COUNT (BEAKER) (test 0.82 K/ L 0.30-0.82 snfd=207) EOSINOPHILS ABSOLUTE COUNT (BEAKER) (test 0.16 K/ L 0.04-0.54 uuni=836) BASOPHILS ABSOLUTE COUNT (BEAKER) (test 0.05 K/ L 0.01-0.08 lkid=593) IMMATURE GRANULOCYTES-RELATIVE PERCENT (BEAKER) 0 % 0-1 (test zaeq=0978) POCT-GLUCOSE [id number] 21:49:00 Test Item Value Reference Range Comments POC-GLUCOSE METER (BEAKER) 130 mg/dL 70-110 TESTED AT [address] (test wmxc=4548) [place] [address] POCT-GLUCOSE [id number] 16:43:00 Test Item Value Reference Range Comments POC-GLUCOSE METER (BEAKER) 202 mg/dL 70-110 TESTED AT [address] (test namf=9479) [place] [address] [id number] 13:47:00 Test Item Value Reference Range Comments MAGNESIUM (BEAKER) (test kfcw=156) 1.7 mg/dL 1.6-2.6 Check Serum Magnesium level 2 hours after IV magnesium replacement.POCT-GLUCOSE [id number] 12:11:00 Test Item Value Reference Range Comments POC-GLUCOSE METER (BEAKER) 259 mg/dL 70-110 TESTED AT [address] (test bynt=5075) [place] [address] POCT-GLUCOSE [id number] 08:06:00 Test Item Value Reference Range Comments POC-GLUCOSE METER (BEAKER) 236 mg/dL 70-110 TESTED AT [address] (test fdev=0016) [place] [address] RAD, CHEST, 1 VIEW, NON [id number] 04:56:00Reason for exam:->s/p cardiac surgeryFINAL REPORT RAD, CHEST, 1 VIEW, NON DEPT INDICATION: s/p cardiac surgery COMPARISON: Prior day's exam TECHNIQUE: Portable frontal view of the chest. IMPRESSION: Stable right IJline.Removal of a left-sided chest tube.Stable cardiomegaly.No active pulmonary edema.No pneumothorax.Patchy left retrocardiac opacity, likely reflecting atelectasis.No acute osseous abnormality. Signed: Nate Rivera MDReport Verified Date/Time: 05/07/2017 04:56:05 Reading Location: [facility] C013X Ortho Consult Reading Room CBC W/ PLT COUNT & AUTO [id number] 04:22:00 Test Item Value Reference Range Comments WHITE BLOOD CELL COUNT (BEAKER) (test vyjl=483) 10.0 K/ L 3.5-10.5 RED BLOOD CELL COUNT (BEAKER) (test xxhd=385) 4.23 M/ L 4.63-6.08 HEMOGLOBIN (BEAKER) (test acva=565) 11.5 GM/DL 13.7-17.5 HEMATOCRIT (BEAKER) (test azxb=626) 36.3 % 40.1-51.0 MEAN CORPUSCULAR VOLUME (BEAKER) (test lkwa=209) 85.8 fL 79.0-92.2 MEAN CORPUSCULAR HEMOGLOBIN (BEAKER) (test 27.2 pg 25.7-32.2 nwzm=647) MEAN CORPUSCULAR HEMOGLOBIN CONC (BEAKER) (test 31.7 GM/DL 32.3-36.5 dill=860) RED CELL DISTRIBUTION WIDTH (BEAKER) (test 13.7 % 11.6-14.4 xwpz=956) PLATELET COUNT (BEAKER) (test sdce=542) 148 K/CU MM 150-450 MEAN PLATELET VOLUME (BEAKER) (test dyea=106) 10.9 fL 9.4-12.4 NUCLEATED RED BLOOD CELLS (BEAKER) (test 0 /100 WBC 0-0 axpu=979) NEUTROPHILS RELATIVE PERCENT (BEAKER) (test 71 % sscj=251) LYMPHOCYTES RELATIVE PERCENT (BEAKER) (test 17 % jcki=079) MONOCYTES RELATIVE PERCENT (BEAKER) (test 10 % plux=451) EOSINOPHILS RELATIVE PERCENT (BEAKER) (test 1 % fsvi=847) BASOPHILS RELATIVE PERCENT (BEAKER) (test 0 % bfmm=505) NEUTROPHILS ABSOLUTE COUNT (BEAKER) (test 7.08 K/ L 1.78-5.38 jjti=288) LYMPHOCYTES ABSOLUTE COUNT (BEAKER) (test 1.69 K/ L 1.32-3.57 yaif=405) MONOCYTES ABSOLUTE COUNT (BEAKER) (test 1.03 K/ L 0.30-0.82 doss=942) EOSINOPHILS ABSOLUTE COUNT (BEAKER) (test 0.14 K/ L 0.04-0.54 intm=021) BASOPHILS ABSOLUTE COUNT (BEAKER) (test 0.04 K/ L 0.01-0.08 rjmy=004) IMMATURE GRANULOCYTES-RELATIVE PERCENT (BEAKER) 0 % 0-1 (test syhw=0400) BASIC METABOLIC [id number] 04:13:00 Test Item Value Reference Range Comments SODIUM (BEAKER) (test 137 meq/L 136-145 tazt=776) POTASSIUM (BEAKER) (test 3.9 meq/L 3.5-5.1 edlc=346) CHLORIDE (BEAKER) (test 105 meq/L 98-107 zhay=110) CO2 (BEAKER) (test 27 meq/L 22-29 sljq=461) BLOOD UREA NITROGEN 14 mg/dL 7-21 (BEAKER) (test ixof=062) CREATININE (BEAKER) (test 0.70 mg/dL 0.57-1.25 olny=446) GLUCOSE RANDOM (BEAKER) 164 mg/dL 70-105 (test rogk=035) CALCIUM (BEAKER) (test 7.9 mg/dL 8.4-10.2 qyut=053) EGFR (BEAKER) (test 115 mL/min/1.73 sq m ESTIMATED GFR IS NOT ojew=8504) ACCURATE CREATININE CLEARANCE IN PREDICTING GLOMERULAR FILTRATION RATE. ESTIMATED GFR IS NOT APPLICABLE FOR DIALYSIS PATIENTS. [id number] 04:04:00 Test Item Value Reference Range Comments PHOSPHORUS (BEAKER) (test xibz=206) 3.1 mg/dL 2.3-4.7 [id number] 04:04:00 Test Item Value Reference Range Comments MAGNESIUM (BEAKER) (test hddd=992) 1.6 mg/dL 1.6-2.6 LACTIC ACID, ARTERIAL, WHOLE [id number] 03:59:00 Test Item Value Reference Range Comments LACTATE BLOOD ARTERIAL (2) (BEAKER) (test 0.8 mmol/L 0.5-2.2 ugyj=5342) Effective 12/04/2015: Units/Reference Range ChangeNew: 0.5-2.2 mmol/L Previous: 5 -20 mg/dLOXYGEN SATURATION, [id number] 03:37:00 Test Item Value Reference Range Comments O2 SATURATION (MEASURED) (BEAKER) (test pwfz=2195) 67.4 % CALCIUM, [id number] 03:37:00 Test Item Value Reference Range Comments CALCIUM IONIZED (BEAKER) (test mwjw=106) 1.13 mmol/L 1.12-1.27 PH, BLOOD (BEAKER) (test kwht=4689) 7.40 POCT-GLUCOSE [id number] 22:22:00 Test Item Value Reference Range Comments POC-GLUCOSE METER (BEAKER) 223 mg/dL 70-110 TESTED AT [address] (test wazp=4991) [facility] [address] POCT-GLUCOSE [id number] 22:14:00 Test Item Value Reference Range Comments POC-GLUCOSE METER (BEAKER) 201 mg/dL 70-110 TESTED AT [address] (test jmnh=5346) [facility] [address] POCT-GLUCOSE [id number] 16:51:00 Test Item Value Reference Range Comments POC-GLUCOSE METER (BEAKER) 256 mg/dL 70-110 TESTED AT [address] (test dbyo=3526) [facility] [address] CALCIUM, [id number] 12:39:00 Test Item Value Reference Range Comments CALCIUM IONIZED (BEAKER) (test itei=716) 1.21 mmol/L 1.12-1.27 PH, BLOOD (BEAKER) (test bups=8929) 7.44 POCT-GLUCOSE [id number] 12:29:00 Test Item Value Reference Range Comments POC-GLUCOSE METER (BEAKER) 286 mg/dL 70-110 TESTED AT [address] (test cjwb=1925) [facility] [address] POCT-GLUCOSE [id number] 11:35:00 Test Item Value Reference Range Comments POC-GLUCOSE METER (BEAKER) 242 mg/dL 70-110 TESTED AT [facility] [address] [facility] (test ymfn=9553) [facility] [address] BASIC METABOLIC [id number] 06:26:00 Test Item Value Reference Range Comments SODIUM (BEAKER) (test 133 meq/L 136-145 mevf=494) POTASSIUM (BEAKER) (test 4.3 meq/L 3.5-5.1 bqho=463) CHLORIDE (BEAKER) (test 104 meq/L 98-107 oybm=033) CO2 (BEAKER) (test 23 meq/L 22-29 vkvd=738) BLOOD UREA NITROGEN 13 mg/dL 7-21 (BEAKER) (test pjzj=177) CREATININE (BEAKER) (test 0.68 mg/dL 0.57-1.25 icxg=180) GLUCOSE RANDOM (BEAKER) 261 mg/dL 70-105 (test tljk=352) CALCIUM (BEAKER) (test 7.9 mg/dL 8.4-10.2 aneq=183) EGFR (BEAKER) (test 119 mL/min/1.73 sq m ESTIMATED GFR IS NOT vwxj=4914) ACCURATE CREATININE CLEARANCE IN PREDICTING GLOMERULAR FILTRATION RATE. ESTIMATED GFR IS NOT APPLICABLE FOR DIALYSIS PATIENTS. [id number] 06:25:00 Test Item Value Reference Range Comments PHOSPHORUS (BEAKER) (test vrnz=388) 3.2 mg/dL 2.3-4.7 [id number] 06:25:00 Test Item Value Reference Range Comments MAGNESIUM (BEAKER) (test pntd=430) 1.7 mg/dL 1.6-2.6 CBC W/PLT COUNT & AUTO [id number] 06:00:00 Test Item Value Reference Range Comments WHITE BLOOD CELL COUNT (BEAKER) (test bpmw=496) 11.1 K/ L 3.5-10.5 RED BLOOD CELL COUNT (BEAKER) (test gtye=799) 4.61 M/ L 4.63-6.08 HEMOGLOBIN (BEAKER) (test jtmk=731) 12.6 GM/DL 13.7-17.5 HEMATOCRIT (BEAKER) (test mrnm=254) 39.6 % 40.1-51.0 MEAN CORPUSCULAR VOLUME (BEAKER) (test zwwh=165) 85.9 fL 79.0-92.2 MEAN CORPUSCULAR HEMOGLOBIN (BEAKER) (test 27.3 pg 25.7-32.2 lvct=413) MEAN CORPUSCULAR HEMOGLOBIN CONC (BEAKER) (test 31.8 GM/DL 32.3-36.5 bxce=919) RED CELL DISTRIBUTION WIDTH (BEAKER) (test 13.8 % 11.6-14.4 xbwt=914) PLATELET COUNT (BEAKER) (test djvj=162) 157 K/CU MM 150-450 MEAN PLATELET VOLUME (BEAKER) (test jjsb=496) 10.5 fL 9.4-12.4 NUCLEATED RED BLOOD CELLS (BEAKER) (test 0 /100 WBC 0-0 qdps=620) NEUTROPHILS RELATIVE PERCENT (BEAKER) (test 74 % pmly=596) LYMPHOCYTES RELATIVE PERCENT (BEAKER) (test 15 % mdzw=841) MONOCYTES RELATIVE PERCENT (BEAKER) (test 9 % asal=334) EOSINOPHILS RELATIVE PERCENT (BEAKER) (test 1 % fosr=597) BASOPHILS RELATIVE PERCENT (BEAKER) (test 0 % lpde=036) NEUTROPHILS ABSOLUTE COUNT (BEAKER) (test 8.24 K/ L 1.78-5.38 jblv=677) LYMPHOCYTES ABSOLUTE COUNT (BEAKER) (test 1.68 K/ L 1.32-3.57 tpxb=847) MONOCYTES ABSOLUTE COUNT (BEAKER) (test 0.98 K/ L 0.30-0.82 keim=030) EOSINOPHILS ABSOLUTE COUNT (BEAKER) (test 0.07 K/ L 0.04-0.54 tgeg=439) BASOPHILS ABSOLUTE COUNT (BEAKER) (test 0.04 K/ L 0.01-0.08 rsxe=208) IMMATURE GRANULOCYTES-RELATIVE PERCENT (BEAKER) 1 % 0-1 (test loru=1344) OXYGEN SATURATION, [id number] 05:52:00 Test Item Value Reference Range Comments O2 SATURATION (MEASURED) (BEAKER) (test qrhz=9554) 94.9 % CALCIUM, [id number] 05:52:00 Test Item Value Reference Range Comments CALCIUM IONIZED (BEAKER) (test cbpu=257) 1.05 mmol/L 1.12-1.27 PH, BLOOD (BEAKER) (test jnmz=0400) 7.37 RAD, CHEST, 1 VIEW, NON [id number] 05:01:00while patient is intubated or has chest tubes.Reason for exam:->s/p sternotomyShould this be performed at the bedside?->YesFINAL REPORT RAD, CHEST, 1 VIEW, NON DEPT INDICATION: s/p sternotomy COMPARISON: Prior day's exam TECHNIQUE: Portable frontal view of the chest. IMPRESSION: Lines and tubes stable.Cardiomediastinal silhouette stable.No large focal airspace opacity or acute pulmonary edema.No acute osseous abnormality. Signed: Nate Rivera MDReport Verified Date/Time: 05/06/2017 05:01:31 Reading Location: [facility] [id number] Ortho Consult Reading Room POCT-GLUCOSE [id number] 23:53:00 Test Item Value Reference Range Comments POC-GLUCOSE METER (BEAKER) 238 mg/dL 70-110 TESTED AT [address] (test hgwj=5991) [facility] [address] POCT-GLUCOSE [id number] 17:09:00 Test Item Value Reference Range Comments POC-GLUCOSE METER (BEAKER) 260 mg/dL 70-110 TESTED AT [address] (test tydq=0971) [facility] [address] POCT-GLUCOSE [id number] 09:11:00 Test Item Value Reference Range Comments POC-GLUCOSE METER (BEAKER) 133 mg/dL 70-110 TESTED AT [address] (test ikkp=4760) [facility] [address] RAD, CHEST, 1 VIEW, NON [id number] 07:57:00while patient is intubated or has chest tubes.Reason for exam:->s/p sternotomyShould this be performed at the bedside?->YesFINAL REPORT Chest, one view. HISTORY : Sternotomy COMPARISON: 05/04/2017 IMPRESSION: Interval extubation. Right- sided vascular neck sheath remains. Left-sided chest tube unchanged in position. No identifiable pneumothorax. Unchanged mild interstitial edema and enlargement of thecardiomediastinal silhouette. Signed: Jim Luzeport Verified Date/Time: 05/05/2017 07:57:10Reading Location: [facility] Diagnostic Imaging Reading Room - [place] [address] POCT-GLUCOSE [id number] 06:24:00 Test Item Value Reference Range Comments POC-GLUCOSE METER (BEAKER) 137 mg/dL 70-110 TESTED AT [place] [id number] [facility] (test qnfn=0027) [facility] [address] POCT-GLUCOSE [id number] 06:24:00 Test Item Value Reference Range Comments POC-GLUCOSE METER (BEAKER) 129 mg/dL 70-110 TESTED AT [address] (test jymx=9063) [facility] [address] CBC W/PLT COUNT & AUTO [id number] 05:17:00 Test Item Value Reference Range Comments WHITE BLOOD CELL COUNT (BEAKER) (test mxnp=187) 10.5 K/ L 3.5-10.5 RED BLOOD CELL COUNT (BEAKER) (test wxaz=507) 5.40 M/ L 4.63-6.08 HEMOGLOBIN (BEAKER) (test ntwj=359) 14.5 GM/DL 13.7-17.5 HEMATOCRIT (BEAKER) (test erkg=116) 45.4 % 40.1-51.0 MEAN CORPUSCULAR VOLUME (BEAKER) (test xqsu=150) 84.1 fL 79.0-92.2 MEAN CORPUSCULAR HEMOGLOBIN (BEAKER) (test 26.9 pg 25.7-32.2 xyne=179) MEAN CORPUSCULAR HEMOGLOBIN CONC (BEAKER) (test 31.9 GM/DL 32.3-36.5 ljgl=012) RED CELL DISTRIBUTION WIDTH (BEAKER) (test 13.8 % 11.6-14.4 ervb=596) PLATELET COUNT (BEAKER) (test xyup=285) 180 K/CU MM 150-450 MEAN PLATELET VOLUME (BEAKER) (test gztw=557) 10.4 fL 9.4-12.4 NUCLEATED RED BLOOD CELLS (BEAKER) (test 0 /100 WBC 0-0 gjmb=229) NEUTROPHILS RELATIVE PERCENT (BEAKER) (test 77 % mlju=391) LYMPHOCYTES RELATIVE PERCENT (BEAKER) (test 14 % kvzg=839) MONOCYTES RELATIVE PERCENT (BEAKER) (test 9 % ezms=131) EOSINOPHILS RELATIVE PERCENT (BEAKER) (test 0 % ykys=805) BASOPHILS RELATIVE PERCENT (BEAKER) (test 0 % pnbt=019) NEUTROPHILS ABSOLUTE COUNT (BEAKER) (test 8.05 K/ L 1.78-5.38 nqgi=129) LYMPHOCYTES ABSOLUTE COUNT (BEAKER) (test 1.47 K/ L 1.32-3.57 bwwh=402) MONOCYTES ABSOLUTE COUNT (BEAKER) (test 0.90 K/ L 0.30-0.82 ecdm=183) EOSINOPHILS ABSOLUTE COUNT (BEAKER) (test 0.03 K/ L 0.04-0.54 wshl=442) BASOPHILS ABSOLUTE COUNT (BEAKER) (test 0.03 K/ L 0.01-0.08 cbvy=323) IMMATURE GRANULOCYTES-RELATIVE PERCENT (BEAKER) 0 % 0-1 (test sdme=2549) [id number] 04:45:00 Test Item Value Reference Range Comments PHOSPHORUS (BEAKER) (test imad=722) 4.3 mg/dL 2.3-4.7 [id number] 04:45:00 Test Item Value Reference Range Comments MAGNESIUM (BEAKER) (test abxf=560) 2.2 mg/dL 1.6-2.6 BASIC METABOLIC [id number] 04:45:00 Test Item Value Reference Range Comments SODIUM (BEAKER) (test 139 meq/L 136-145 jzqm=865) POTASSIUM (BEAKER) (test 3.9 meq/L 3.5-5.1 swlf=976) CHLORIDE (BEAKER) (test 108 meq/L 98-107 kepc=366) CO2 (BEAKER) (test 25 meq/L 22-29 vgrx=028) BLOOD UREA NITROGEN 14 mg/dL 7-21 (BEAKER) (test ftcq=394) CREATININE (BEAKER) (test 0.77 mg/dL 0.57-1.25 nbwh=643) GLUCOSE RANDOM (BEAKER) 146 mg/dL 70-105 (test iran=113) CALCIUM (BEAKER) (test 8.6 mg/dL 8.4-10.2 hqwz=156) EGFR (BEAKER) (test 103 mL/min/1.73 sq m ESTIMATED GFR IS NOT jgew=8180) ACCURATE CREATININE CLEARANCE IN PREDICTING GLOMERULAR FILTRATION RATE. ESTIMATED GFR IS NOT APPLICABLE FOR DIALYSIS PATIENTS. POCT-GLUCOSE [id number] 04:42:00 Test Item Value Reference Range Comments POC-GLUCOSE METER (BEAKER) 143 mg/dL 70-110 TESTED AT [address] (test iapp=0194) [facility] [address] LACTIC ACID, ARTERIAL, WHOLE [id number] 04:41:00 Test Item Value Reference Range Comments LACTATE BLOOD ARTERIAL (2) (BEAKER) (test 0.8 mmol/L 0.5-2.2 kjdx=1895) Effective 12/04/2015: Units/Reference Range ChangeNew: 0.5-2.2 mmol/L Previous: 5 -20 mg/dLBLOOD GAS, [id number] 04:31:00 Test Item Value Reference Range Comments PH ARTERIAL (BEAKER) (test atwn=138) 7.41 7.35-7.45 PCO2 ARTERIAL (BEAKER) (test zipf=898) 40 mmHg 35-45 PO2 ARTERIAL (BEAKER) (test gfxx=277) 86 mmHg 80-90 O2 SATURATION ARTERIAL (BEAKER) (test wwbf=816) 96.7 % 96.0-97.0 HCO3 ARTERIAL (BEAKER) (test wbgz=158) 25 mmol/L 21-29 BASE EXCESS ARTERIAL (BEAKER) (test zuex=702) 0.2 mmol/L -2.0-3.0 PATIENT TEMPERATURE (BEAKER) (test ljdf=3425) 36.9 C FIO2 (BEAKER) (test pffr=9036) 40.0 % POCT-GLUCOSE [id number] 02:23:00 Test Item Value Reference Range Comments POC-GLUCOSE METER (BEAKER) 162 mg/dL 70-110 TESTED AT [address] (test ikor=0215) [facility] [address] POCT-GLUCOSE [id number] 02:23:00 Test Item Value Reference Range Comments POC-GLUCOSE METER (BEAKER) 188 mg/dL 70-110 TESTED AT [address] (test ldnm=6676) [facility] [address] POCT-GLUCOSE [id number] 02:23:00 Test Item Value Reference Range Comments POC-GLUCOSE METER (BEAKER) 198 mg/dL 70-110 TESTED AT [address] (test cnmd=1976) [place] [id number] POCT-GLUCOSE [id number] 02:10:00 Test Item Value Reference Range Comments POC-GLUCOSE METER (BEAKER) 222 mg/dL 70-110 TESTED AT [address] (test zgqj=9807) [place] [address] POCT-GLUCOSE [id number] 02:10:00 Test Item Value Reference Range Comments POC-GLUCOSE METER (BEAKER) 283 mg/dL 70-110 TESTED AT [address] (test kdri=1704) [place] [address] [id number] 01:45:00 Test Item Value Reference Range Comments MAGNESIUM (BEAKER) (test 2.8 mg/dL 1.6-2.6 Specimen moderately hemolyzed vuod=983) POCT-GLUCOSE [id number] 22:40:00 Test Item Value Reference Range Comments POC-GLUCOSE METER (BEAKER) 221 mg/dL 70-110 TESTED AT [address] (test vsdw=6798) [place] [address] POCT-GLUCOSE [id number] 22:40:00 Test Item Value Reference Range Comments POC-GLUCOSE METER (BEAKER) 225 mg/dL 70-110 TESTED AT [address] (test ggsa=7151) [place] [address] [id number] 22:20:00 Test Item Value Reference Range Comments POTASSIUM (BEAKER) (test gvqa=348) 4.5 meq/L 3.5-5.1 [id number] 22:20:00 Test Item Value Reference Range Comments MAGNESIUM (BEAKER) (test guxd=082) 1.9 mg/dL 1.6-2.6 CALCIUM, [id number] 21:52:00 Test Item Value Reference Range Comments CALCIUM IONIZED (BEAKER) (test scjn=730) 1.11 mmol/L 1.12-1.27 PH, BLOOD (BEAKER) (test jdhx=5356) 7.38 OXYGEN SATURATION, [id number] 21:51:00 Test Item Value Reference Range Comments O2 SATURATION (MEASURED) (BEAKER) (test iygc=6643) 69.8 % LACTIC ACID, ARTERIAL, WHOLE [id number] 18:10:00 Test Item Value Reference Range Comments LACTATE BLOOD ARTERIAL (2) 1.0 mmol/L 0.5-2.2 Specimen slightly hemolyzed (BEAKER) (test zxpv=7836) Effective 12/04/2015: Units/Reference Range ChangeNew: 0.5-2.2 mmol/L Previous: 5 -20 mg/dLHEMOGLOBIN AND [id number] 17:39:00 Test Item Value Reference Range Comments HEMOGLOBIN (BEAKER) (test usxh=554) 15.2 GM/DL 13.7-17.5 HEMATOCRIT (BEAKER) (test dfnh=202) 45.0 % 40.1-51.0 BLOOD GAS, [id number] 17:39:00 Test Item Value Reference Range Comments PH ARTERIAL (BEAKER) (test qqru=093) 7.38 7.35-7.45 PCO2 ARTERIAL (BEAKER) (test bmud=632) 42 mmHg 35-45 PO2 ARTERIAL (BEAKER) (test ovzh=755) 92 mmHg 80-90 O2 SATURATION ARTERIAL (BEAKER) (test kqqb=379) 96.7 % 96.0-97.0 HCO3 ARTERIAL (BEAKER) (test ntsq=419) 24 mmol/L 21-29 BASE EXCESS ARTERIAL (BEAKER) (test nzuq=574) -0.9 mmol/L -2.0-3.0 PATIENT TEMPERATURE (BEAKER) (test ofzx=3594) 37.6 C FIO2 (BEAKER) (test tsgu=6052) 99.0 % OXYGEN SATURATION, [id number] 17:38:00 Test Item Value Reference Range Comments O2 SATURATION (MEASURED) (BEAKER) (test cpke=0436) 66.6 % HEMOGLOBIN [id number] 16:50:00 Test Item Value Reference Range Comments HEMOGLOBIN A1C (BEAKER) (test lkle=536) 16.9 % 4.3-6.1 BLOOD GAS, [id number] 14:48:00 Test Item Value Reference Range Comments PH ARTERIAL (BEAKER) (test drgl=115) 7.34 7.35-7.45 PCO2 ARTERIAL (BEAKER) (test egbn=170) 43 mmHg 35-45 PO2 ARTERIAL (BEAKER) (test gcxg=784) 92 mmHg 80-90 O2 SATURATION ARTERIAL (BEAKER) (test lxhr=310) 96.6 % 96.0-97.0 HCO3 ARTERIAL (BEAKER) (test pirn=333) 23 mmol/L 21-29 BASE EXCESS ARTERIAL (BEAKER) (test wely=443) -2.7 mmol/L -2.0-3.0 PATIENT TEMPERATURE (BEAKER) (test nbkb=2199) 37.0 C FIO2 (BEAKER) (test mdoo=6601) 40.0 % POCT-GLUCOSE [id number] 14:20:00 Test Item Value Reference Range Comments POC-GLUCOSE METER (BEAKER) 282 mg/dL 70-110 TESTED AT [facility] [address] [facility] (test svpk=3858) [facility] [address] BASIC METABOLIC [id number] 13:21:00 Test Item Value Reference Range Comments SODIUM (BEAKER) (test 137 meq/L 136-145 lqwp=228) POTASSIUM (BEAKER) (test 4.8 meq/L 3.5-5.1 Specimen slightly xwdi=291) hemolyzed CHLORIDE (BEAKER) (test 107 meq/L 98-107 unpg=987) CO2 (BEAKER) (test 24 meq/L 22-29 nqru=809) BLOOD UREA NITROGEN 14 mg/dL 7-21 (BEAKER) (test eebn=664) CREATININE (BEAKER) (test 0.75 mg/dL 0.57-1.25 Specimen slightly ioke=193) hemolyzed GLUCOSE RANDOM (BEAKER) 329 mg/dL 70-105 (test qhgx=238) CALCIUM (BEAKER) (test 7.6 mg/dL 8.4-10.2 rwdn=291) EGFR (BEAKER) (test 107 mL/min/1.73 sq m ESTIMATED GFR IS NOT ofud=0698) ACCURATE CREATININE CLEARANCE IN PREDICTING GLOMERULAR FILTRATION RATE. ESTIMATED GFR IS NOT APPLICABLE FOR DIALYSIS PATIENTS. CBC W/PLT COUNT & AUTO [id number] 12:53:00 Test Item Value Reference Range Comments WHITE BLOOD CELL COUNT (BEAKER) (test jeot=751) 12.7 K/ L 3.5-10.5 RED BLOOD CELL COUNT (BEAKER) (test oksd=222) 5.36 M/ L 4.63-6.08 HEMOGLOBIN (BEAKER) (test bvcz=023) 14.7 GM/DL 13.7-17.5 HEMATOCRIT (BEAKER) (test bcqx=722) 45.2 % 40.1-51.0 MEAN CORPUSCULAR VOLUME (BEAKER) (test yqga=769) 84.3 fL 79.0-92.2 MEAN CORPUSCULAR HEMOGLOBIN (BEAKER) (test 27.4 pg 25.7-32.2 ypax=978) MEAN CORPUSCULAR HEMOGLOBIN CONC (BEAKER) (test 32.5 GM/DL 32.3-36.5 qlwj=097) RED CELL DISTRIBUTION WIDTH (BEAKER) (test 13.4 % 11.6-14.4 pehs=499) PLATELET COUNT (BEAKER) (test mhfz=572) 166 K/CU MM 150-450 MEAN PLATELET VOLUME (BEAKER) (test fwtj=709) 10.8 fL 9.4-12.4 NUCLEATED RED BLOOD CELLS (BEAKER) (test 0 /100 WBC 0-0 nwhm=471) NEUTROPHILS RELATIVE PERCENT (BEAKER) (test 77 % vxaa=435) LYMPHOCYTES RELATIVE PERCENT (BEAKER) (test 16 % emrm=732) MONOCYTES RELATIVE PERCENT (BEAKER) (test 5 % pxdu=007) EOSINOPHILS RELATIVE PERCENT (BEAKER) (test 1 % bbdm=505) BASOPHILS RELATIVE PERCENT (BEAKER) (test 0 % tjsl=256) NEUTROPHILS ABSOLUTE COUNT (BEAKER) (test 9.73 K/ L 1.78-5.38 lfkg=180) LYMPHOCYTES ABSOLUTE COUNT (BEAKER) (test 2.06 K/ L 1.32-3.57 xypw=127) MONOCYTES ABSOLUTE COUNT (BEAKER) (test 0.63 K/ L 0.30-0.82 gmof=881) EOSINOPHILS ABSOLUTE COUNT (BEAKER) (test 0.10 K/ L 0.04-0.54 asjh=396) BASOPHILS ABSOLUTE COUNT (BEAKER) (test 0.05 K/ L 0.01-0.08 zjet=051) IMMATURE GRANULOCYTES-RELATIVE PERCENT (BEAKER) 1 % 0-1 (test wwna=2336) LACTIC ACID, ARTERIAL, WHOLE [id number] 12:51:00 Test Item Value Reference Range Comments LACTATE BLOOD ARTERIAL (2) 0.9 mmol/L 0.5-2.2 Specimen slightly hemolyzed (BEAKER) (test sojp=2750) Effective 12/04/2015: Units/Reference Range ChangeNew: 0.5-2.2 mmol/L Previous: 5 -20 mg/dLPT/[id number] 12:47:00 Test Item Value Reference Range Comments PROTIME (BEAKER) (test gfks=093) 15.8 seconds 11.7-14.7 INR (BEAKER) (test eoiw=667) 1.3 <=5.9 PARTIAL THROMBOPLASTIN TIME (BEAKER) (test 34.9 seconds 22.5-36.0 sbza=274) RECOMMENDED COUMADIN/WARFARIN INR THERAPY RANGESSTANDARD DOSE: 2.0 - 3.0 Includes: PROPHYLAXIS forvenous thrombosis, systemic embolization; TREATMENT for venous thrombosis and/or pulmonary embolus.HIGH RISK: Target INR is 2.5-3.5 for patients with mechanical heart valves.RAD, CHEST, 1 VIEW, NON [id number] 12:36:00Reason for exam:->s/p sternotomyShould this be performed at the bedside?->YesFINAL REPORT Chest one view. Clinical history: s/p sternotomy Comparison: May 02, 2017 Discussion: A frontal chest is provided. ET is 5 cm above the martinez. A feeding tube projects below the diaphragm. A right IJ approach Cabot-Jessica catheter projects over the pulmonary outflow tract, there is a left-sided chest tube, and a midline catheter that likely represents a mediastinal drain. Cardiomediastinal contours are unchanged. Low lung volumes with left basilar atelectasis. Right lung is grossly clear. No pneumothorax, or large effusion. Signed: [facility] Verified Date/Time: 05/04/2017 12:36:10 Reading Location: [facility] B1 [id number] Consult Reading Room 12: 36 PMCALCIUM, [id number] 12:07:00 Test Item Value Reference Range Comments CALCIUM IONIZED (BEAKER) (test alyp=698) 1.12 mmol/L 1.12-1.27 PH, BLOOD (BEAKER) (test jtke=4748) 7.33 BLOOD GAS, [id number] 12:06:00 Test Item Value Reference Range Comments PH ARTERIAL (BEAKER) (test fzmh=135) 7.34 7.35-7.45 PCO2 ARTERIAL (BEAKER) (test vjsm=145) 48 mmHg 35-45 PO2 ARTERIAL (BEAKER) (test rlvq=661) 95 mmHg 80-90 O2 SATURATION ARTERIAL (BEAKER) (test bibv=623) 97.0 % 96.0-97.0 HCO3 ARTERIAL (BEAKER) (test nnpz=699) 25 mmol/L 21-29 BASE EXCESS ARTERIAL (BEAKER) (test ytvm=917) -1.2 mmol/L -2.0-3.0 PATIENT TEMPERATURE (BEAKER) (test lnvs=0651) 36.3 C FIO2 (BEAKER) (test tdbe=6756) 60.0 % GLUCOSE-STAT [id number] 12:06:00 Test Item Value Reference Range Comments GLUCOSE RANDOM (BEAKER) (test ydju=121) 296 mg/dL 70-110 SODIUM NA-STAT [id number] 12:06:00 Test Item Value Reference Range Comments SODIUM (BEAKER) (test gwmi=547) 134 meq/L 135-148 POTASSIUM-STAT [id number] 12:05:00 Test Item Value Reference Range Comments POTASSIUM (BEAKER) (test wobr=653) 4.7 meq/L 3.6-5.5 HGB/HCT (H&H) - STAT [id number] 12:05:00 Test Item Value Reference Range Comments HEMOGLOBIN (BEAKER) (test taax=889) 14.7 g/dL 13.0-16.8 HEMATOCRIT (BEAKER) (test kbrh=515) 43.0 % 40.0-50.0 OXYGEN SATURATION, [id number] 12:05:00 Test Item Value Reference Range Comments O2 SATURATION (MEASURED) (BEAKER) (test ewxn=8235) 63.8 % For occult lthpkojodniguJJOM-[id number] 11:01:00 Test Item Value Reference Range Comments ACTIVATED CLOTTING TIME 109 sec TESTED AT [facility] [address] [facility] (BEAKER) (test wpas=714) [place] [address] [id number] 11:01:00 Test Item Value Reference Range Comments ACTIVATED CLOTTING TIME 428 sec TESTED AT [facility] [address] [facility] (BEAKER) (test ihlu=679) [place] [address] [id number] 11:01:00 Test Item Value Reference Range Comments ACTIVATED CLOTTING TIME 456 sec TESTED AT [facility] [address] (BEAKER) (test hqid=201) [facility] [address] THROMBOELASTOGRAPH (TEG)2017-05-04 10:48:00 Test Item Value Reference Range Comments TEG ACTIVATED CLOTTING TIME (BEAKER) (test 5.8 minutes 4.0-7.0 hoch=5466) TEG FIBRINOGEN ACTIVITY (BEAKER) (test 67.5 degrees 61.0-73.0 gove=5722) TEG PLT. AGGREGATION (BEAKER) (test uzvj=7586) 48.4 MM 55.0-65.0 TGH ACTIVATED CLOTTING TIME (BEAKER) (test 6.0 minutes 4.0-7.0 tjsr=4922) TGH FIBRINOGEN ACTIVITY (BEAKER) (test 61.5 degrees 61.0-73.0 kpue=5988) TGH PLT. AGGREGATION (BEAKER) (test cedj=6560) 39.6 MM 55.0-65.0 PLATELET [id number] 10:39:00 Test Item Value Reference Range Comments PLATELET COUNT (BEAKER) (test plvs=291) 146 K/CU MM 150-450 [id number] 10:28:00 Test Item Value Reference Range Comments PARTIAL THROMBOPLASTIN TIME (BEAKER) (test 35.6 seconds 22.5-36.0 kgzw=705) PROTHROMBIN [id number] 10:27:00 Test Item Value Reference Range Comments PROTIME (BEAKER) (test bjdi=558) 18.1 seconds 11.7-14.7 INR (BEAKER) (test wekx=316) 1.5 <=5.9 RECOMMENDED COUMADIN/WARFARIN INR THERAPY RANGESSTANDARD DOSE: 2.0 - 3.0 Includes: PROPHYLAXIS forvenous thrombosis, systemic embolization; TREATMENT for venous thrombosis and/or pulmonary embolus.HIGH RISK: Target INR is 2.5-3.5 for patients with mechanical heart valves.[id number] 10:27:00 Test Item Value Reference Range Comments FIBRINOGEN LEVEL (BEAKER) (test wzsg=711) 327 mg/dl 225-434 POTASSIUM-STAT [id number] 10:18:00 Test Item Value Reference Range Comments POTASSIUM (BEAKER) (test tsjv=294) 4.7 meq/L 3.6-5.5 BLOOD GAS, [id number] 10:18:00 Test Item Value Reference Range Comments PH ARTERIAL (BEAKER) (test ohms=628) 7.35 7.35-7.45 PCO2 ARTERIAL (BEAKER) (test hdzu=513) 47 mmHg 35-45 PO2 ARTERIAL (BEAKER) (test kjfd=775) 340 mmHg 80-90 O2 SATURATION ARTERIAL (BEAKER) (test hgnw=660) 99.7 % 96.0-97.0 HCO3 ARTERIAL (BEAKER) (test lkap=386) 26 mmol/L 21-29 BASE EXCESS ARTERIAL (BEAKER) (test jyxk=396) -0.4 mmol/L -2.0-3.0 PATIENT TEMPERATURE (BEAKER) (test rvey=2198) 36.2 C FIO2 (BEAKER) (test ygvy=1612) 92.0 % SODIUM NA-STAT [id number] 10:18:00 Test Item Value Reference Range Comments SODIUM (BEAKER) (test aunl=145) 134 meq/L 135-148 GLUCOSE-STAT [id number] 10:18:00 Test Item Value Reference Range Comments GLUCOSE RANDOM (BEAKER) (test cwpu=614) 260 mg/dL 70-110 HGB/HCT (H&H) - STAT [id number] 10:18:00 Test Item Value Reference Range Comments HEMOGLOBIN (BEAKER) (test rewv=779) 12.7 g/dL 13.0-16.8 HEMATOCRIT (BEAKER) (test zxcu=890) 37.0 % 40.0-50.0 CALCIUM, [id number] 10:16:00 Test Item Value Reference Range Comments CALCIUM IONIZED (BEAKER) (test uxxz=280) 1.15 mmol/L 1.12-1.27 PH, BLOOD (BEAKER) (test bsyb=2293) 7.34 POTASSIUM-STAT [id number] 09:32:00 Test Item Value Reference Range Comments POTASSIUM (BEAKER) (test zrof=207) 3.8 meq/L 3.6-5.5 BLOOD GAS, [id number] 09:32:00 Test Item Value Reference Range Comments PH ARTERIAL (BEAKER) (test gveh=800) 7.35 7.35-7.45 PCO2 ARTERIAL (BEAKER) (test aldf=956) 46 mmHg 35-45 PO2 ARTERIAL (BEAKER) (test ptuc=410) 279 mmHg 80-90 O2 SATURATION ARTERIAL (BEAKER) (test eomp=794) 99.6 % 96.0-97.0 HCO3 ARTERIAL (BEAKER) (test psdj=308) 27 mmol/L 21-29 BASE EXCESS ARTERIAL (BEAKER) (test fkiq=597) -1.4 mmol/L -2.0-3.0 PATIENT TEMPERATURE (BEAKER) (test kdtw=8310) 30.8 C FIO2 (BEAKER) (test wqeq=9031) 65.0 % GLUCOSE-STAT [id number] 09:32:00 Test Item Value Reference Range Comments GLUCOSE RANDOM (BEAKER) (test xvsk=413) 230 mg/dL 70-110 HGB/HCT (H&H) - STAT [id number] 09:32:00 Test Item Value Reference Range Comments HEMOGLOBIN (BEAKER) (test vfyx=982) 11.6 g/dL 13.0-16.8 HEMATOCRIT (BEAKER) (test nwqf=845) 34.0 % 40.0-50.0 SODIUM NA-STAT [id number] 09:32:00 Test Item Value Reference Range Comments SODIUM (BEAKER) (test vypc=424) 134 meq/L 135-148 BLOOD GAS, [id number] 08:13:00 Test Item Value Reference Range Comments PH ARTERIAL (BEAKER) (test rcqb=562) 7.37 7.35-7.45 PCO2 ARTERIAL (BEAKER) (test tact=071) 48 mmHg 35-45 PO2 ARTERIAL (BEAKER) (test wxng=131) 413 mmHg 80-90 O2 SATURATION ARTERIAL (BEAKER) (test aykf=863) 99.8 % 96.0-97.0 HCO3 ARTERIAL (BEAKER) (test wpze=321) 27 mmol/L 21-29 BASE EXCESS ARTERIAL (BEAKER) (test kgai=727) 0.8 mmol/L -2.0-3.0 PATIENT TEMPERATURE (BEAKER) (test lewe=2288) 37.0 C FIO2 (BEAKER) (test brwp=0451) 97.0 % GLUCOSE-STAT [id number] 08:13:00 Test Item Value Reference Range Comments GLUCOSE RANDOM (BEAKER) (test adyu=465) 235 mg/dL 70-110 SODIUM NA-STAT [id number] 08:12:00 Test Item Value Reference Range Comments SODIUM (BEAKER) (test jbnk=019) 138 meq/L 135-148 POTASSIUM-STAT [id number] 08:12:00 Test Item Value Reference Range Comments POTASSIUM (BEAKER) (test qjtx=154) 3.9 meq/L 3.6-5.5 HGB/HCT (H&H) - STAT [id number] 08:12:00 Test Item Value Reference Range Comments HEMOGLOBIN (BEAKER) (test brrb=279) 15.0 g/dL 13.0-16.8 HEMATOCRIT (BEAKER) (test aeki=463) 44.0 % 40.0-50.0 POCT-GLUCOSE [id number] 06:41:00 Test Item Value Reference Range Comments POC-GLUCOSE METER (BEAKER) 222 mg/dL 70-110 TESTED AT [facility] [address] [place] [address] (test epka=2289) [facility] [address] [id number] 05:46:00 Test Item Value Reference Range Comments MAGNESIUM (BEAKER) (test waql=081) 1.9 mg/dL 1.6-2.6 BASIC METABOLIC [id number] 05:46:00 Test Item Value Reference Range Comments SODIUM (BEAKER) (test 139 meq/L 136-145 ngnw=081) POTASSIUM (BEAKER) (test 3.7 meq/L 3.5-5.1 wrge=085) CHLORIDE (BEAKER) (test 104 meq/L 98-107 mihv=831) CO2 (BEAKER) (test 26 meq/L 22-29 slvv=414) BLOOD UREA NITROGEN 15 mg/dL 7-21 (BEAKER) (test qcdi=663) CREATININE (BEAKER) (test 0.79 mg/dL 0.57-1.25 wedg=364) GLUCOSE RANDOM (BEAKER) 206 mg/dL 70-105 (test mxcy=517) CALCIUM (BEAKER) (test 8.9 mg/dL 8.4-10.2 netg=164) EGFR (BEAKER) (test 100 mL/min/1.73 sq m ESTIMATED GFR IS NOT tepv=9505) ACCURATE CREATININE CLEARANCE IN PREDICTING GLOMERULAR FILTRATION RATE. ESTIMATED GFR IS NOT APPLICABLE FOR DIALYSIS PATIENTS. CBC W/PLT COUNT & AUTO [id number] 05:23:00 Test Item Value Reference Range Comments WHITE BLOOD CELL COUNT (BEAKER) (test pcdq=781) 6.0 K/ L 3.5-10.5 RED BLOOD CELL COUNT (BEAKER) (test vpcn=057) 5.56 M/ L 4.63-6.08 HEMOGLOBIN (BEAKER) (test uzbk=261) 15.0 GM/DL 13.7-17.5 HEMATOCRIT (BEAKER) (test ehrd=475) 47.1 % 40.1-51.0 MEAN CORPUSCULAR VOLUME (BEAKER) (test zkhg=974) 84.7 fL 79.0-92.2 MEAN CORPUSCULAR HEMOGLOBIN (BEAKER) (test 27.0 pg 25.7-32.2 octs=301) MEAN CORPUSCULAR HEMOGLOBIN CONC (BEAKER) (test 31.8 GM/DL 32.3-36.5 snwl=918) RED CELL DISTRIBUTION WIDTH (BEAKER) (test 13.4 % 11.6-14.4 bldw=207) PLATELET COUNT (BEAKER) (test wsyo=880) 197 K/CU MM 150-450 MEAN PLATELET VOLUME (BEAKER) (test fuuv=344) 10.8 fL 9.4-12.4 NUCLEATED RED BLOOD CELLS (BEAKER) (test 0 /100 WBC 0-0 kwkc=040) NEUTROPHILS RELATIVE PERCENT (BEAKER) (test 51 % xyac=163) LYMPHOCYTES RELATIVE PERCENT (BEAKER) (test 37 % yadw=266) MONOCYTES RELATIVE PERCENT (BEAKER) (test 9 % uvab=995) EOSINOPHILS RELATIVE PERCENT (BEAKER) (test 3 % qnfq=545) BASOPHILS RELATIVE PERCENT (BEAKER) (test 1 % vvpr=949) NEUTROPHILS ABSOLUTE COUNT (BEAKER) (test 3.07 K/ L 1.78-5.38 kdld=071) LYMPHOCYTES ABSOLUTE COUNT (BEAKER) (test 2.21 K/ L 1.32-3.57 cuxi=338) MONOCYTES ABSOLUTE COUNT (BEAKER) (test 0.52 K/ L 0.30-0.82 dwwa=945) EOSINOPHILS ABSOLUTE COUNT (BEAKER) (test 0.18 K/ L 0.04-0.54 uthh=743) BASOPHILS ABSOLUTE COUNT (BEAKER) (test 0.05 K/ L 0.01-0.08 sean=915) IMMATURE GRANULOCYTES-RELATIVE PERCENT (BEAKER) 0 % 0-1 (test tqec=2822) POCT-GLUCOSE [id number] 22:55:00 Test Item Value Reference Range Comments POC-GLUCOSE METER (BEAKER) 116 mg/dL 70-110 TESTED AT [facility] [address] [facility] (test ghcd=6694) [place] [id number] POCT-GLUCOSE [id number] 17:48:00 Test Item Value Reference Range Comments POC-GLUCOSE METER (BEAKER) 284 mg/dL 70-110 TESTED AT [address] (test suhr=2827) [place] [id number] PLATELET AGGREGATION: FUNCTION [id number] 16:57:00 Test Item Value Reference Range Comments WEAK ADP RESULT(BEAKER) (test 69 % 60-91 bmfj=2418) PLATELET FUNCTION SCREEN 60-100% indicates normal INTERP (BEAKER) (test platelet function fvch=7946) [id number] (BEAKER) Dory Melchor MD (electronic (test obyq=5816) signature) PLATELET COUNT AGG (BEAKER) 222 K/CU MM 150-450 (test jfkr=3064) for patients on clopidogrel in past two [id number] 13:47:00 Test Item Value Reference Range Comments PARTIAL THROMBOPLASTIN TIME (BEAKER) (test 31.3 seconds 22.5-36.0 cwwr=208) PROTHROMBIN [id number] 13:46:00 Test Item Value Reference Range Comments PROTIME (BEAKER) (test zvzl=241) 14.1 seconds 11.7-14.7 INR (BEAKER) (test ixjw=535) 1.1 <=5.9 RECOMMENDED COUMADIN/WARFARIN INR THERAPY RANGESSTANDARD DOSE: 2.0 - 3.0 Includes: PROPHYLAXIS forvenous thrombosis, systemic embolization; TREATMENT for venous thrombosis and/or pulmonary embolus.HIGH RISK: Target INR is 2.5-3.5 for patients with mechanical heart valves.POCT-GLUCOSE [id number] 11:24:00 Test Item Value Reference Range Comments POC-GLUCOSE METER (BEAKER) 329 mg/dL 70-110 Notified LAURA PARRA/TESTED AT [facility] (test nqfd=2471) [address] [place] [address] POCT-GLUCOSE [id number] 09:23:00 Test Item Value Reference Range Comments POC-GLUCOSE METER (BEAKER) 328 mg/dL 70-110 Notified LAURA PARRA/TESTED AT [facility] (test vozd=3170) [address] [facility] [address] B-TYPE NATRIURETIC FACTOR (BNP)2017-05-03 03:21:00 Test Item Value Reference Range Comments B-TYPE NATRIURETIC PEPTIDE (BEAKER) (test iceu=045) 53 pg/mL 0-100 [id number] 03:12:00 Test Item Value Reference Range Comments MAGNESIUM (BEAKER) (test 2.1 mg/dL 1.6-2.6 Specimen slightly hemolyzed uxwt=121) BASIC METABOLIC [id number] 03:12:00 Test Item Value Reference Range Comments SODIUM (BEAKER) (test 137 meq/L 136-145 eevk=564) POTASSIUM (BEAKER) (test 4.1 meq/L 3.5-5.1 Specimen slightly qjjj=891) hemolyzed CHLORIDE (BEAKER) (test 103 meq/L 98-107 kzzp=170) CO2 (BEAKER) (test 25 meq/L 22-29 lcqp=055) BLOOD UREA NITROGEN 17 mg/dL 7-21 (BEAKER) (test yvnk=313) CREATININE (BEAKER) (test 0.88 mg/dL 0.57-1.25 Specimen slightly qgbw=435) hemolyzed GLUCOSE RANDOM (BEAKER) 323 mg/dL 70-105 (test dhwl=950) CALCIUM (BEAKER) (test 8.7 mg/dL 8.4-10.2 rrrk=147) EGFR (BEAKER) (test 89 mL/min/1.73 sq m ESTIMATED GFR IS NOT xnfo=6870) ACCURATE CREATININE CLEARANCE IN PREDICTING GLOMERULAR FILTRATION RATE. ESTIMATED GFR IS NOT APPLICABLE FOR DIALYSIS PATIENTS. CBC W/PLT COUNT & AUTO [id number] 03:01:00 Test Item Value Reference Range Comments WHITE BLOOD CELL COUNT (BEAKER) (test byib=204) 6.4 K/ L 3.5-10.5 RED BLOOD CELL COUNT (BEAKER) (test ywpr=663) 5.43 M/ L 4.63-6.08 HEMOGLOBIN (BEAKER) (test qoai=895) 14.3 GM/DL 13.7-17.5 HEMATOCRIT (BEAKER) (test mzjo=684) 45.3 % 40.1-51.0 MEAN CORPUSCULAR VOLUME (BEAKER) (test pstj=215) 83.4 fL 79.0-92.2 MEAN CORPUSCULAR HEMOGLOBIN (BEAKER) (test 26.3 pg 25.7-32.2 ofcq=881) MEAN CORPUSCULAR HEMOGLOBIN CONC (BEAKER) (test 31.6 GM/DL 32.3-36.5 wqzf=141) RED CELL DISTRIBUTION WIDTH (BEAKER) (test 13.5 % 11.6-14.4 soha=512) PLATELET COUNT (BEAKER) (test zwua=547) 189 K/CU MM 150-450 MEAN PLATELET VOLUME (BEAKER) (test brdp=661) 10.9 fL 9.4-12.4 NUCLEATED RED BLOOD CELLS (BEAKER) (test 0 /100 WBC 0-0 mtwq=843) NEUTROPHILS RELATIVE PERCENT (BEAKER) (test 56 % vgbk=355) LYMPHOCYTES RELATIVE PERCENT (BEAKER) (test 32 % mkxh=108) MONOCYTES RELATIVE PERCENT (BEAKER) (test 9 % wqqr=606) EOSINOPHILS RELATIVE PERCENT (BEAKER) (test 2 % jknf=282) BASOPHILS RELATIVE PERCENT (BEAKER) (test 1 % yqth=524) NEUTROPHILS ABSOLUTE COUNT (BEAKER) (test 3.57 K/ L 1.78-5.38 uefb=873) LYMPHOCYTES ABSOLUTE COUNT (BEAKER) (test 2.06 K/ L 1.32-3.57 zpvj=176) MONOCYTES ABSOLUTE COUNT (BEAKER) (test 0.54 K/ L 0.30-0.82 clxc=213) EOSINOPHILS ABSOLUTE COUNT (BEAKER) (test 0.12 K/ L 0.04-0.54 rgea=892) BASOPHILS ABSOLUTE COUNT (BEAKER) (test 0.05 K/ L 0.01-0.08 ypqq=954) IMMATURE GRANULOCYTES-RELATIVE PERCENT (BEAKER) 0 % 0-1 (test aiym=2897) POCT-GLUCOSE [id number] 22:07:00 Test Item Value Reference Range Comments POC-GLUCOSE METER (BEAKER) 342 mg/dL 70-110 TESTED AT [facility] [address] [facility] (test mtre=1257) [facility] [address] POCT-GLUCOSE [id number] 18:21:00 Test Item Value Reference Range Comments POC-GLUCOSE METER (BEAKER) 318 mg/dL 70-110 TESTED AT [facility] [address] [facility] (test pxnc=8271) [facility] [address] POCT-GLUCOSE [id number] 11:55:00 Test Item Value Reference Range Comments POC-GLUCOSE METER (BEAKER) 316 mg/dL 70-110 Notified LAURA PARRA/TESTED AT [facility] (test hagm=6452) [address] [place] [address] CREATINE KINASE (CK), TOTAL AND [id number] 10:04:00 Test Item Value Reference Range Comments CREATINE KINASE TOTAL (BEAKER) (test wahg=648) 61 U/L 29-200 CREATINE KINASE-MB (BEAKER) (test ldwb=834) 1.5 ng/mL 0.0-6.6 CREATINE KINASE-MB INDEX (BEAKER) (test lyra=632) 2.5 % CK-MB Reference Range:<6.7 Normal6.7-10.0 Borderline>10.0 AbnormalTROPONIN [id number] 10:04:00 Test Item Value Reference Range Comments TROPONIN I (BEAKER) (test lujl=803) 0.01 ng/mL 0.00-0.03 Troponin I (TnI) levels [...] and persistent tachyarrhythmia.RAD, CHEST, 1 VIEW, NON [id number] 06:50:00Reason for exam:->Baseline, NSVTShould this be performed at the bedside?->YesFINAL REPORT RAD, CHEST, 1 VIEW, NON DEPT INDICATION: Baseline, NSVT COMPARISON: None FINDINGS: Portable frontal view of the chest. IMPRESSION: Support Lines: Nine Lungs and pleura: Central congestive changes favored to represent under inflation. No effusion. No pneumothorax.Heart and mediastinum: Normal cardiac size. No venous engorgement.Additional findings: None. Signed: JR Jade, Isael Renteria Verified Date/Time: 05/02/2017 06:50:16 Reading Location: [facility] B1 C013Y CT Body Reading Room BASIC METABOLIC [id number] 06:38:00 Test Item Value Reference Range Comments SODIUM (BEAKER) (test 137 meq/L 136-145 ykwu=232) POTASSIUM (BEAKER) (test 4.2 meq/L 3.5-5.1 Specimen slightly kput=921) hemolyzed CHLORIDE (BEAKER) (test 105 meq/L 98-107 ohab=741) CO2 (BEAKER) (test 20 meq/L 22-29 iupk=633) BLOOD UREA NITROGEN 22 mg/dL 7-21 (BEAKER) (test wbic=893) CREATININE (BEAKER) (test 0.90 mg/dL 0.57-1.25 Specimen slightly yqsi=737) hemolyzed GLUCOSE RANDOM (BEAKER) 477 mg/dL 70-105 (test igql=512) CALCIUM (BEAKER) (test 8.3 mg/dL 8.4-10.2 fyjz=306) EGFR (BEAKER) (test 86 mL/min/1.73 sq m ESTIMATED GFR IS NOT voim=4144) ACCURATE CREATININE CLEARANCE IN PREDICTING GLOMERULAR FILTRATION RATE. ESTIMATED GFR IS NOT APPLICABLE FOR DIALYSIS PATIENTS. [id number] 06:35:00 Test Item Value Reference Range Comments MAGNESIUM (BEAKER) (test 2.3 mg/dL 1.6-2.6 Specimen slightly hemolyzed ydef=929) POCT-GLUCOSE [id number] 06:01:00 Test Item Value Reference Range Comments POC-GLUCOSE METER (BEAKER) 407 mg/dL 70-110 TESTED AT [facility] [address] [facility] (test zcup=3252) [facility] [address] CREATINE KINASE (CK), TOTAL AND [id number] 05:53:00 Test Item Value Reference Range Comments CREATINE KINASE TOTAL (BEAKER) (test cljf=813) 71 U/L 29-200 CREATINE KINASE-MB (BEAKER) (test eiph=379) 1.7 ng/mL 0.0-6.6 CREATINE KINASE-MB INDEX (BEAKER) (test vhad=169) 2.4 % CK-MB Reference Range:<6.7 Normal6.7-10.0 Borderline>10.0 AbnormalTSH/FREE T4 IF [id number] 05:48:00 Test Item Value Reference Range Comments THYROID STIMULATING HORMONE (BEAKER) (test 3.13 uIU/mL 0.35-4.94 spbp=082) TROPONIN [id number] 05:44:00 Test Item Value Reference Range Comments TROPONIN I (BEAKER) (test ejyl=793) 0.01 ng/mL 0.00-0.03 Troponin I (TnI) levels [...] failure, acidosis, acute neurological disease, and persistent tachyarrhythmia.[id number] 04:54:00 Test Item Value Reference Range Comments PARTIAL THROMBOPLASTIN TIME (BEAKER) (test 36.2 seconds 22.5-36.0 jtsy=278) CBC W/PLT COUNT & AUTO [id number] 04:54:00 Test Item Value Reference Range Comments WHITE BLOOD CELL COUNT (BEAKER) (test yexe=550) 7.6 K/ L 3.5-10.5 RED BLOOD CELL COUNT (BEAKER) (test xtbg=149) 5.56 M/ L 4.63-6.08 HEMOGLOBIN (BEAKER) (test dpsd=091) 14.9 GM/DL 13.7-17.5 HEMATOCRIT (BEAKER) (test krwf=048) 45.8 % 40.1-51.0 MEAN CORPUSCULAR VOLUME (BEAKER) (test hnvm=600) 82.4 fL 79.0-92.2 MEAN CORPUSCULAR HEMOGLOBIN (BEAKER) (test 26.8 pg 25.7-32.2 dzxw=954) MEAN CORPUSCULAR HEMOGLOBIN CONC (BEAKER) (test 32.5 GM/DL 32.3-36.5 omdx=872) RED CELL DISTRIBUTION WIDTH (BEAKER) (test 13.2 % 11.6-14.4 cftl=912) PLATELET COUNT (BEAKER) (test rvim=807) 221 K/CU MM 150-450 MEAN PLATELET VOLUME (BEAKER) (test jbzx=681) 11.2 fL 9.4-12.4 NUCLEATED RED BLOOD CELLS (BEAKER) (test 0 /100 WBC 0-0 xyln=499) NEUTROPHILS RELATIVE PERCENT (BEAKER) (test 62 % xuyl=440) LYMPHOCYTES RELATIVE PERCENT (BEAKER) (test 27 % xqsq=102) MONOCYTES RELATIVE PERCENT (BEAKER) (test 8 % fkej=214) EOSINOPHILS RELATIVE PERCENT (BEAKER) (test 2 % mxax=128) BASOPHILS RELATIVE PERCENT (BEAKER) (test 1 % xftc=758) NEUTROPHILS ABSOLUTE COUNT (BEAKER) (test 4.68 K/ L 1.78-5.38 otcg=573) LYMPHOCYTES ABSOLUTE COUNT (BEAKER) (test 2.06 K/ L 1.32-3.57 kpqk=018) MONOCYTES ABSOLUTE COUNT (BEAKER) (test 0.60 K/ L 0.30-0.82 gyto=835) EOSINOPHILS ABSOLUTE COUNT (BEAKER) (test 0.12 K/ L 0.04-0.54 efdi=218) BASOPHILS ABSOLUTE COUNT (BEAKER) (test 0.07 K/ L 0.01-0.08 fzky=955) IMMATURE GRANULOCYTES-RELATIVE PERCENT (BEAKER) 0 % 0-1 (test iser=9344) PROTHROMBIN [id number] 04:53:00 Test Item Value Reference Range Comments PROTIME (BEAKER) (test ttwb=773) 14.0 seconds 11.7-14.7 INR (BEAKER) (test dqwg=304) 1.1 <=5.9 RECOMMENDED COUMADIN/WARFARIN INR THERAPY RANGESSTANDARD DOSE: 2.0 - 3.0 Includes: PROPHYLAXIS forvenous thrombosis, systemic embolization; TREATMENT for venous thrombosis and/or pulmonary embolus.HIGH RISK: Target INR is 2.5-3.5 for patients with mechanical heart valves.
[2018-11-22 21:17] LABS: Absolute Lymphocytes (CBC) 0.5 K/uL (0.7-4.9); Absolute Monocytes 0.7 K/uL (0.1-1.3); Absolute Neutrophil 18.7 K/uL (1.8-8.0); Basophils % 0.3 % (0-1.3); Eosinophils % 0.1 % (0-4.4); Hematocrit 45.1 % (39.6-49.0); Lymphocytes % 2.4 % (15.3-44.8); MPV 8.6 fL (7.6-11.3); Monocytes % 3.7 % (3.3-12.3); RBC Red Blood Cell Count 5.43 M/uL (4.33-5.43)
[2018-11-22] MEDS ORDERED: IBUPROFEN 400 MG TAB ONE (21:23)
[2018-11-22 21:31] LABS: BUN Blood Urea Nitrogen 14 mg/dL (7-18); Bicarbonate 26 mmol/L (21-32); Glucose Level 347 mg/dL (74-106); Potassium 3.9 mmol/L (3.5-5.1); Sodium Level 136 mmol/L (136-145)
--- NOTE | 2018-11-22 21:53 | ER ---
Nurse's Notes [facility] Name: Pipo Nieto Age: 63 yrs Sex: Male : 1955 Arrival Date: 11/22/2018 Time: 19:31 Bed 19 Private MD: Merly Couch H Diagnosis: Cellulitis of right lower limb;Lymphangitis;Hyperglycemia, unspecified Presentation: 11/22 19:41 Risk Assessment: Do you want to hurt yourself or someone else? Patient reports no ed1 desire to harm self or others. Initial Sepsis Screen: Does the patient meet any 2 criteria? Temp <36.0*C (96.8*F)) or > 38.3*C (100.9*F). HR > 90 bpm. Yes Does the patient have a suspected source of infection? Yes: Skin breakdown/wound If YES to both, name of provider notified: Quan Hudson MD. 19:51 Presenting complaint: Patient states: right lower leg redness and pain X2 days. pt c/o ak1 right upper thigh tenderness X2 days. pt c/o N/V X2 days. pt c/o fever X2 days. pt c/o general weakness X2 days. Transition of care: patient was not received from another setting of care. Onset of symptoms is unknown. Care prior to arrival: None. 19:51 Method Of Arrival: Wheelchair ak1 19:51 Acuity: FARAZ 3 ak1 Historical: - Allergies: 19:53 No Known Allergies; ak1 - Home Meds: 19:53 allopurinol 100 mg Oral tab 1 tab 2 times per day [Active]; aspirin 325 mg Oral tab ak1 once daily [Active]; insulin detemir 45units in the AM, 35 units in the PM subcutaneous twice a day [Active]; metoprolol tartrate 25 mg Oral tab 1 tab once daily [Active]; bumetanide 1 mg Oral tab 1 tab once daily [Active]; losartan 25 mg Oral tab 1 tab once daily [Active]; atorvastatin 80 mg Oral tab 1 tab once daily [Active]; amiodarone 200 mg Oral tab 1 tab once daily [Active]; - PMHx: 19:53 Cardiac Tamponade; Diabetes; Fluid in Lungs; Gout; Hypertension; Kidney stones; ak1 - Immunization history:: Adult Immunizations up to date. - Social history:: Smoking status: Patient/guardian denies using tobacco. - Ebola Screening: : No symptoms or risks identified at this time. - Family history:: not pertinent. - Hospitalizations: : No recent hospitalization is reported. Screenin:41 Abuse screen: Denies threats or abuse. Denies injuries from another. Nutritional ed1 screening: No deficits noted. Tuberculosis screening: No symptoms or risk factors identified. Fall Risk None identified. Assessment: 19:41 General: Appears uncomfortable, Behavior is calm, cooperative. Pain: Complains of pain ed1 in right leg Pain does not radiate. Pain currently is 10 out of 10 on a pain scale. Quality of pain is described as aching, throbbing, Pain began 1 day ago. Is continuous. Neuro: Level of Consciousness is awake, alert, obeys commands, Oriented to person, place, time, situation. Cardiovascular: Denies chest pain, Heart tones S1 S2 present. Respiratory: Airway is patent Respiratory effort is even, unlabored, Respiratory pattern is regular, symmetrical, Breath sounds are clear bilaterally. GI: Abdomen is obese, Bowel sounds present X 4 quads. Abd is soft and non tender X 4 quads. Reports nausea, Patient currently denies diarrhea, vomiting. : No signs and/or symptoms were reported regarding the genitourinary system. EENT: No signs and/or symptoms were reported regarding the EENT system. Derm: Skin is healthy with good turgor, Skin is dry, Skin is normal, Skin temperature is warm redness noted to right LE. Musculoskeletal: Circulation, motion, and sensation intact. Range of motion: intact in all extremities. 20:41 Reassessment: Patient appears in no apparent distress at this time. No changes from ed1 previously documented assessment. Patient and/or family updated on plan of care and expected duration. Pain level reassessed. Patient is alert, oriented x 3, equal unlabored respirations, skin warm/dry/pink. Patient states symptoms have not improved. 22:49 Reassessment: Patient appears in no apparent distress at this time. Patient and/or ed1 family updated on plan of care and expected duration. Pain level reassessed. Patient is alert, oriented x 3, equal unlabored respirations, skin warm/dry/pink. Pt currently appears to be sleeping. Vital Signs: 19:53 BP 165 / 89; Pulse 101; Resp 20; Temp 101.5(O); Pulse Ox 98% on R/A; Weight 143.79 kg ak1 (R); Height 5 ft. 11 in. (180.34 cm) (R); Pain 10/10; 22:00 Temp 99.1(O); ed1 22:49 BP 144 / 78; Pulse 101; Resp 18; Temp 99.2; Pulse Ox 94% on R/A; ed1 19:53 Body Mass Index 44.21 (143.79 kg, 180.34 cm) ak1 ED Course: 19:31 Patient arrived in ED. am2 19:31 Merly Couch DO is Private Physician. am2 19:41 Patient has correct armband on for positive identification. Placed in gown. Bed in low ed1 position. Call light in reach. Side rails up X2. Adult w/ patient. personnel monitor on. Pulse ox on. NIBP on. 19:52 Triage completed. ak1 19:53 Arm band placed on Patient placed in an exam room, on a stretcher, on pulse oximetry, ak1 Patient notified of wait time. 20:06 Quan Hudson MD is Attending Physician. rn 20:58 Padmini Ahuja RN is Primary Nurse. ed1 21:00 Initial lab(s) drawn, by me, sent to lab. First set of blood cultures drawn by me. bb Missed attempt(s): 20 gauge in right antecubital area. Bleeding controlled, band aid applied, catheter tip intact. 21:30 Second set of blood cultures drawn by me. Inserted saline lock: 20 gauge in left bb antecubital area, using aseptic technique. 21:51 Madison Saavedra MD is Hospitalizing Provider. rn 22:45 Jens Wilkes MD is Hospitalizing Provider. rn 22:51 No provider procedures requiring assistance completed. Patient admitted, IV remains in ed1 place. intact, No redness/swelling at site. Administered Medications: 21:13 Drug: Motrin 800 mg Route: PO; ed1 22:00 Follow up: Temp 99.1 Oral; Response: No adverse reaction; Temperature is decreased ed1 22:02 Drug: NS 0.9% 500 ml Route: IV; Rate: bolus; Site: left antecubital; ed1 22:57 Follow up: IV Status: Completed infusion; IV Intake: 500ml ed1 22:02 Drug: vancoMYCIN 1 grams Route: IVPB; Infused Over: 2 hrs; Site: left antecubital; ed1 23:35 Follow up: IV Status: Infusion continued upon admission ed1 22:03 Drug: Zofran 4 mg Route: IVP; Site: left antecubital; ed1 22:58 Follow up: Response: No adverse reaction; Nausea is decreased ed1 Intake: 22:57 IV: 500ml; Total: 500ml. ed1 Outcome: 21:52 Decision to Hospitalize by Provider. rn 23:34 Admitted to Tele accompanied by tech, family with patient, via stretcher, room 403, ed1 with chart, Report called to LAURA Roberts 23:34 Condition: stable 23:34 Discharge instructions given to patient, family, Instructed on the need for admit, Demonstrated understanding of instructions. 23:35 Patient left the ED. ed1 Signatures: Jo Ann Cantu RN RN bb Quan Hudson MD MD rn Riggs, Erika, RN RN ed1 Kayleen Sharp RN RN ak1 Ivana Santamaria am2
--- NOTE | 2018-11-22 21:53 | EDPHYS ---
Physician Documentation [facility] Name: Pipo Nieto Age: 63 yrs Sex: Male : 1955 Arrival Date: 11/22/2018 Time: 19:31 Bed 19 Private MD: Merly Couch H ED Physician Quan Hudson HPI: 11/22 20:20 This 63 yrs old Male presents to ER via Wheelchair with complaints of Fever, rn Leg Pain, Vomiting/Diarrhea, chills. 20:20 The patient reports fever, that was measured at 102 degrees Fahrenheit. Onset: The rn symptoms/episode began/occurred yesterday. Modifying factors: there are no obvious modifying factors. Associated signs and symptoms: Pertinent positives: diarrhea, nausea, vomiting. Severity of symptoms: At their worst the symptoms were mild in the emergency department the symptoms are unchanged. The patient has experienced a previous episode. Reports redness to right leg that began small area yesterday, got worse today, + fever/chills/vomiting/diarrhea/high blood sugar. . Historical: - Allergies: 19:53 No Known Allergies; ak1 - Home Meds: 19:53 allopurinol 100 mg Oral tab 1 tab 2 times per day [Active]; aspirin 325 mg Oral tab ak1 once daily [Active]; insulin detemir 45units in the AM, 35 units in the PM subcutaneous twice a day [Active]; metoprolol tartrate 25 mg Oral tab 1 tab once daily [Active]; bumetanide 1 mg Oral tab 1 tab once daily [Active]; losartan 25 mg Oral tab 1 tab once daily [Active]; atorvastatin 80 mg Oral tab 1 tab once daily [Active]; amiodarone 200 mg Oral tab 1 tab once daily [Active]; - PMHx: 19:53 Cardiac Tamponade; Diabetes; Fluid in Lungs; Gout; Hypertension; Kidney stones; ak1 - Immunization history:: Adult Immunizations up to date. - Social history:: Smoking status: Patient/guardian denies using tobacco. - Ebola Screening: : No symptoms or risks identified at this time. - Family history:: not pertinent. - Hospitalizations: : No recent hospitalization is reported. ROS: 20:20 Constitutional: + fever Eyes: Negative for injury, pain, redness, and discharge, Neck: rn Negative for injury, pain, and swelling, Cardiovascular: Negative for chest pain, palpitations, and edema, Respiratory: Negative for shortness of breath, cough, wheezing, and pleuritic chest pain, Abdomen/GI: + nausea MS/Extremity: Negative for injury and deformity, Skin: + cellulitis or right leg Neuro: + generalized weakness Exam: 20:20 Constitutional: This is a well developed, well nourished patient who is awake, alert, rn mild tachypnea, appears fatigued Head/Face: Normocephalic, atraumatic. Eyes: Pupils equal round and reactive to light, extra-ocular motions intact. Lids and lashes normal. Conjunctiva and sclera are non-icteric and not injected. Cornea within normal limits. Periorbital areas with no swelling, redness, or edema. ENT: dry MM Cardiovascular: tachycardic, regular, no murmur Respiratory: mild tachypnea, clear bilaterally Abdomen/GI: soft, non-tender Skin: Warm, dry, + erythema and warmth of right lower extremity with streaking to right groin and right inguinal lymphadenopathy with tenderness MS/ Extremity: Pulses equal, no cyanosis. Neurovascular intact. Full, normal range of motion. Equal circumference. Weak but equal DP pulses. Neuro: Awake and alert, GCS 15, oriented to person, place, time, and situation. Vital Signs: 19:53 BP 165 / 89; Pulse 101; Resp 20; Temp 101.5(O); Pulse Ox 98% on R/A; Weight 143.79 kg ak1 (R); Height 5 ft. 11 in. (180.34 cm) (R); Pain 10/10; 22:00 Temp 99.1(O); ed1 22:49 BP 144 / 78; Pulse 101; Resp 18; Temp 99.2; Pulse Ox 94% on R/A; ed1 19:53 Body Mass Index 44.21 (143.79 kg, 180.34 cm) ak1 MDM: 20:06 Patient medically screened. rn 21:51 Differential diagnosis: bacterial infection. Data reviewed: vital signs, nurses notes, consulting intern test result(s), and as a result, I will admit patient. Counseling: I had a detailed discussion with the patient and/or guardian regarding: the historical points, exam findings, and any diagnostic results supporting the discharge/admit diagnosis, lab results, the need for further work-up and treatment in the hospital. Admission orders: after a detailed discussion of the patient's condition and case, the admit orders are written by me. 11/22 20:13 Order name: CBC with Diff rn 11/22 20:13 Order name: Basic Metabolic Panel; Complete Time: 21:51 rn 11/22 20:13 Order name: Procalcitonin; Complete Time: 21:51 rn 11/22 20:13 Order name: Blood Culture Adult (2) rn 11/22 20:13 Order name: Ketone, Serum; Complete Time: 21:51 rn 11/22 22:08 Order name: Basic Metabolic Panel EDMS 11/22 22:08 Order name: Basic Metabolic Panel EDMS 11/22 22:08 Order name: CBC with Automated Diff EDMS 11/22 22:08 Order name: CBC with Automated Diff EDMS 11/22 20:13 Order name: IV Start; Complete Time: 21:41 rn 11/22 22:08 Order name: CONS Pharmacy Consult EDCA 11/22 22:08 Order name: CONS Pharmacy Consult EDMS 11/22 22:08 Order name: Regular EDMS Administered Medications: 21:13 Drug: Motrin 800 mg Route: PO; ed1 22:00 Follow up: Temp 99.1 Oral; Response: No adverse reaction; Temperature is decreased ed1 22:02 Drug: NS 0.9% 500 ml Route: IV; Rate: bolus; Site: left antecubital; ed1 22:57 Follow up: IV Status: Completed infusion; IV Intake: 500ml ed1 22:02 Drug: vancoMYCIN 1 grams Route: IVPB; Infused Over: 2 hrs; Site: left antecubital; ed1 23:35 Follow up: IV Status: Infusion continued upon admission ed1 22:03 Drug: Zofran 4 mg Route: IVP; Site: left antecubital; ed1 22:58 Follow up: Response: No adverse reaction; Nausea is decreased ed1 Disposition: 11/22/18 21:52 Hospitalization ordered by Jens Wilkes for Inpatient Admission. Preliminary diagnosis are Cellulitis of right lower limb, Lymphangitis, Hyperglycemia, unspecified. - Bed requested for Telemetry/MedSurg (Inpatient). - Status is Inpatient Admission. ed1 - Condition is Stable. - Problem is new. - Symptoms have improved. UTI on Admission? No Signatures: Dispatcher [employer] [facility] Quan Hudson MD MD rn Riggs, Erika RN RN ed1 Kayleen Sharp RN RN ak1 Reny Preciado, RN RN cg Corrections: (The following items were deleted from the chart) 22:02 20:13 Accucheck ordered. rn ed1 22:11 22:09 Abdomen Pelvis W Con+CT.RAD.BRZ ordered. EDCA EDCA 22:44 21:52 Hospitalization Ordered by Madison Saavedra MD for Inpatient Admission. Preliminary cg diagnosis is Cellulitis of right lower limb; Lymphangitis; Hyperglycemia, unspecified. Bed requested for Telemetry/MedSurg (Inpatient). Status is Inpatient Admission. Condition is Stable. Problem is new. Symptoms have improved. UTI on Admission? No. rn 22:45 22:44 11/22/2018 21:52 Hospitalization Ordered by Madison Saavedra MD for Inpatient internal investigator. Preliminary diagnosis is Cellulitis of right lower limb; Lymphangitis; Hyperglycemia, unspecified. Bed requested for Telemetry/MedSurg (Inpatient). Status is Inpatient Admission. Condition is Stable. Problem is new. Symptoms have improved. UTI on Admission? No. cg 23:35 22:45 11/22/2018 21:52 Hospitalization Ordered by Jens Wilkes MD for Inpatient ed1 Admission. Preliminary diagnosis is Cellulitis of right lower limb; Lymphangitis; Hyperglycemia, unspecified. Bed requested for Telemetry/MedSurg (Inpatient). Status is Inpatient Admission. Condition is Stable. Problem is new. Symptoms have improved. UTI on Admission? No. rn
[2018-11-22] MEDS ORDERED: VANCOMYCIN 1 GM/VIAL ONE ×2 (21:54→22:02)
[2018-11-22] MEDS ORDERED: NA CHLORIDE 0.9% 250 ML ONE (21:54)
[2018-11-22] MEDS ORDERED: NA CHLORIDE 0.9% 0 ML ONE (21:54)
[2018-11-22] MEDS ORDERED: ONDANSETRON 4 MG/2 ML VIAL ONE (21:54)
[2018-11-22] MEDS ORDERED: NA CHLORIDE 0.9% 500 ML ONE (22:02)
[2018-11-22] MEDS ORDERED: ONDANSETRON 4 MG/2 ML VIAL IV PRN (22:04)
[2018-11-22] MEDS ORDERED: MORPHINE 4 MG/ML SYR IV PRN (22:04)
[2018-11-22] MEDS ORDERED: VANCOMYCIN/NS 1 gm 1 GM/250 ML BAG IVPB SCH (22:15)
[2018-11-22] MEDS ORDERED: Levofloxacin500mg IV 500 MG/100 ML BAG IV SCH (23:00)
[2018-11-22 23:53] LABS: Blood Morphology Comment NOT SEEN (NOT SEEN); Platelet Estimate ADEQ
[2018-11-23] MEDS: NA CHLORIDE 0.9% 1,000 ML IV SCH ×2 (00:03→09:00)
[2018-11-23] MEDS ORDERED: VANCOMYCIN/NS 1 gm 1 GM/250 ML BAG IVPB ONE (00:45)
[2018-11-23] MEDS ORDERED: VANCOMYCIN 1 GM/VIAL ONE (01:16)
[2018-11-23] MEDS ORDERED: NA CHLORIDE 0.9% 0 ML IV ONE (01:19)
[2018-11-23] MEDS ORDERED: NA CHLORIDE 0.9% 250 ML ONE (01:23)
[2018-11-23] MEDS: ACETAMINOPHEN 500 MG TAB PO PRN ×2 (04:26→15:05)
[2018-11-23 04:34] LABS: Absolute Lymphocytes (CBC) 0.7 K/uL (0.7-4.9); Absolute Neutrophil 15.6 K/uL (1.8-8.0); Basophils % 0.4 % (0-1.3); Hematocrit 41.6 % (39.6-49.0); Lymphocytes % 3.9 % (15.3-44.8); MPV 8.6 fL (7.6-11.3); Monocytes % 5.7 % (3.3-12.3); RBC Red Blood Cell Count 5.07 M/uL (4.33-5.43)
[2018-11-23 04:45] LABS: Potassium 4.2 mmol/L (3.5-5.1)
[2018-11-23] MEDS: METOPROLOL TAR 50 MG TAB PO SCH ×2 (06:17→06:47)
[2018-11-23] MEDS ORDERED: LOSARTAN POTASSIUM 50 MG TABLET PO SCH ×3 (06:18→09:00)
[2018-11-23] MEDS ORDERED: METOPROLOL TAR 25 MG TAB PO ONE (08:00)
--- NOTE | 2018-11-23 08:31 | P.HP ---
Certification for Inpatient Patient admitted to: Inpatient With expected LOS: >2 Midnights Patient will require the following post-hospital care: None Practitioner: I am a practitioner with admitting privileges, knowledge of patient current condition, hospital course, and medical plan of care. Services: Services provided to patient in accordance with Admission requirements found in Title 42 Section 412.3 of the Code of Federal Regulations Patient History Date of Service: 11/22/18 Reason for admission: right lower extremity cellulitis History of Present Illness: Patient is a 63-year-old gentleman who noticed some redness on his right lower extremity is a few days ago. Patient has a history of diabetes and hypertension. He states that with his medications these are pretty well controlled. He is also on amiodarone for atrial fibrillation. He is on anti- platelet therapy but no anticoagulation. Patient states he was feeling really poorly over the last 24 hr. He has been having nausea and vomiting along with diarrhea. His fevers have gotten to 102. he has had shakes and chills as well. This finally made him come into the emergency room where his workup revealed that he had a leukocytosis along with an elevated procalcitonin level. patient' s redness extends from his almeida region all the way up to the groin area. It crosses to the side of his knee joint. It does not appear to involve the knee whatsoever. But there is significant concern for lymphangitis. Patient will need extensive IV antibiotic therapy along with strict blood sugar control. Hopefully we get some improvement over the next 24-48 hours. He may benefit from some anti-inflammatories as well. Allergies No Known Allergies Allergy (Verified 03/14/18 02:02) Home Medications: Allopurinol [Zyloprim] 300 mg PO BID 11/23/18 Amiodarone HCl [Cordarone Tab] 200 mg PO BEDTIME 11/23/18 Aspirin 81 mg PO DAILY 11/23/18 Atorvastatin Calcium [Lipitor] 80 mg PO BEDTIME 11/23/18 Bumetanide [Bumex] 1 mg PO DAILY 11/23/18 Insulin -Regular Human [Novolin -R*] 35 unit SQ TID 11/23/18 Insulin Detemir [Levemir] 60 units SQ BID 11/23/18 Losartan Potassium 25 mg PO DAILY 11/23/18 Metoprolol Succinate [Toprol Xl] 25 mg PO DAILY 11/23/18 - Past Medical/Surgical History Has patient received pneumonia vaccine in the past: No Diabetic: Yes -: gout -: kidney stones -: obesity -: diabetes mellitus -: CAD -: HTN -: cyst removal 30yrs ago -: CABG - Family History dad Medical History: Heart disease - Social History Smoking Status: Former smoker Alcohol use: No CD- Drugs: No Caffeine use: No Place of Residence: Home Review of Systems 10-point ROS is otherwise unremarkable Physical Examination - Vital Signs Temperature: 98.7 F Blood Pressure: 164/78 Pulse: 85 Respirations: 19 Pulse Ox (%): 98 - Physical Exam General: Alert, In no apparent distress, Oriented x3 HEENT: Atraumatic, PERRLA, Mucous membr. moist/pink, EOMI, Sclerae nonicteric Neck: Supple, 2+ carotid pulse no bruit, No LAD, Without JVD or thyroid abnormality Respiratory: Clear to auscultation bilaterally, Normal air movement Cardiovascular: Regular rate/rhythm, Normal S1 S2 Gastrointestinal: Normal bowel sounds, Soft and benign, Non-distended, No tenderness Musculoskeletal: No clubbing, No swelling, No tenderness Integumentary: Tenderness/swelling, Erythema (extends from the anterior almeida to the groin), Warmth Neurological: Normal gait, Normal speech, Normal strength at 5/5 x4 extr, Normal tone, Normal affect Lymphatics: No axilla or inguinal lymphadenopathy - Studies Laboratory Data (last 24 hrs) 11/22/18 21:00: Sodium 136, Potassium 3.9, BUN 14, Creatinine 1.15, Glucose 347 H 11/22/18 21:00: WBC 20.0 H, Hgb 14.7, Hct 45.1, Plt Count 216 Assessment & Plan - Problems (Diagnosis) (1) Lymphangitis, acute, lower leg Current Visit: Yes Status: Acute (2) Cellulitis of right lower extremity Current Visit: Yes Status: Acute (3) CHF (congestive heart failure) Onset Date: 10/24/15 Current Visit: No Status: Acute Qualifiers: (4) Cellulitis Onset Date: 03/15/18 Current Visit: No Status: Acute Qualifiers: (5) Diabetes mellitus Onset Date: 03/15/18 Current Visit: No Status: Acute Qualifiers: (6) HTN (hypertension) Onset Date: 03/15/18 Current Visit: No Status: Acute Qualifiers: (7) Morbid obesity Onset Date: 10/24/15 Current Visit: No Status: Chronic - Plan 1. Continue with IV antibiotic 2. Continue with local wound care 3. ID consultation 4. Gentle IV hydration 5. Monitor CBC 6. Strict blood sugar monitoring 7. Pain control; may benefit from antiinflammatory 8. GI and DVT prophylaxis Discharge Plan: Home Plan to discharge in: Greater than 2 days - Advance Directives Does patient have a Living Will: No Does patient have a Durable POA for Healthcare: No - Code Status/Comfort Care Code Status Assessed: Yes Code Status: Full Code Critical Care: No Time Spent Managing PTS Care (In Minutes): 45
[2018-11-23] MEDS ORDERED: ALLOPURINOL 300 MG TAB PO SCH (09:00)
[2018-11-23] MEDS ORDERED: METOPROLOL XL 25 MG TAB PO SCH (09:00)
[2018-11-23] MEDS ORDERED: ASPIRIN 325 MG TAB PO SCH (09:00)
[2018-11-23] MEDS ORDERED: BUMETANIDE 1 MG TABLET PO SCH (09:00)
[2018-11-23] MEDS ORDERED: INSULIN DETEMIR 60 UNIT SQ SCH (09:00)
[2018-11-23] MEDS ORDERED: AMPICILLIN/SULBACT 3 GM in NA CHLORIDE 0.9% 100 ML IVPB SCH (09:30)
[2018-11-23] MEDS: ASPIRIN 81 MG CHEWABLE TABLET PO SCH (09:42)
[2018-11-23] MEDS: BUMETANIDE 1 MG TABLET PO SCH (09:43)
[2018-11-23] MEDS: ALLOPURINOL 100 MG TAB PO SCH (09:43)
--- NOTE | 2018-11-23 10:06 | P.PN ---
Subjective Date of Service: 11/23/18 Chief Complaint: right lower extremity cellulitis pt seen and examined at bedside with RN. Chart reviewed. Pt this AM c/o having pain in the right LE around his knee. States his redness is now trending upwards. No fever overnight. Denies any other complains Review of Systems 10-point ROS is otherwise unremarkable Physical Examination - Vital Signs Temperature: 98.7 F Blood Pressure: 164/78 Pulse: 85 Respirations: 19 Pulse Ox (%): 98 - Physical Exam General: Alert, In no apparent distress HEENT: Atraumatic, PERRLA, EOMI Neck: Supple, JVD not distended Respiratory: Clear to auscultation bilaterally, Normal air movement Cardiovascular: Regular rate/rhythm, Normal S1 S2 Gastrointestinal: Normal bowel sounds, No tenderness Musculoskeletal: Erythema, Tenderness, Warmth, Other (Right Lower Ext. Increase Redness in the anterior Santos area. Erythema tracking up to the thigh area as well ) Integumentary: No rashes Neurological: Normal speech, Normal tone, Normal affect Lymphatics: No axilla or inguinal lymphadenopathy - Studies Laboratory Data (last 24 hrs) 11/22/18 21:00: Sodium 136, Potassium 3.9, BUN 14, Creatinine 1.15, Glucose 347 H 11/22/18 21:00: WBC 20.0 H, Hgb 14.7, Hct 45.1, Plt Count 216 Medications List Reviewed: Yes Assessment And Plan - Current Problems (Diagnosis) (1) Cellulitis of right lower extremity Current Visit: Yes Status: Acute Plan: Cellulitis of the right lower Extremity with Lymphangitis -Currently on IV unasyn and Vanc -Minimal Improvement today -Will get US to R/o DVT at this time -Continue with IV abx at this time -Wound and Blood culture pending (2) CHF (congestive heart failure) Onset Date: 10/24/15 Current Visit: No Status: Chronic Plan: Chronic CHF with EF of 35% with Global Hypokenesis on 2015 ECHO -Restarted now on Home medication of Bumex and ARB -Caution with Fluids Qualifiers: Heart failure type: combined systolic and diastolic Heart failure chronicity: chronic Qualified Code(s): I50.42 - Chronic combined systolic ( congestive) and diastolic (congestive) heart failure (3) Diabetes mellitus Onset Date: 03/15/18 Current Visit: No Status: Chronic Plan: ISS and accucheck Qualifiers: Diabetes mellitus type: type 2 Diabetes mellitus termite treater insulin use: without jail use Diabetes mellitus complication status: with skin complications Diabetes mellitus complication detail: with dermatitis Qualified Code(s): E11.620 - Type 2 diabetes mellitus with diabetic dermatitis (4) HTN (hypertension) Onset Date: 03/15/18 Current Visit: No Status: Chronic Plan: Restarted Back on Home medication -Stable now Qualifiers: Hypertension type: essential hypertension (5) Morbid obesity Onset Date: 10/24/15 Current Visit: No Status: Chronic - Plan Pending Clinical Improvement. Continue with IV abx. F.u with culture Discharge Plan: Home Plan to discharge in: Greater than 2 days - Code Status/Comfort Care Code Status Assessed: Yes Critical Care: No
--- NOTE | 2018-11-23 10:55 | RAD REPORT ---
EXAM DESCRIPTION: USExtremity Venous Uni Ltd4 10:41 am CLINICAL HISTORY: Right leg pain and swelling. COMPARISON: None. FINDINGS: Right common femoral, superficial femoral, popliteal and right posterior tibial veins are compressible and demonstrate augmentation. Doppler demonstrates good flow. Nonspecific right inguinal lymphadenopathy IMPRESSION: No evidence of deep venous thrombosis involving the right lower extremity.
[2018-11-23] MEDS ORDERED: D50W 25 GM/50 ML SYRINGE IV PRN (12:03)
[2018-11-23] MEDS ORDERED: GLUCAGON 1 MG/VIAL IM PRN (12:03)
[2018-11-23] MEDS: INSULIN -REGULAR HUMAN 50 UNIT/0.5 ML ML SQ SCH ×3 (12:22→21:54)
[2018-11-23] MEDS: VANCOMYCIN 2 GM in NA CHLORIDE 0.9% 500 ML IV SCH (13:40)
[2018-11-23] MEDS: INSULIN GLARGINE 100 UNITS/ML SQ SCH ×2 (13:41→21:55)
[2018-11-23 13:53] LABS: Urine Appearance CLEAR; Urine Bilirubin NEGATIVE (NEG); Urine Blood TRACE (NEG); Urine Color YELLOW; Urine Glucose 3+ (NEG); Urine Microscopic Reflex ORDER UMIC; Urine Protein NEGATIVE (NEG); Urine Urobilinogen 0.2 mg/dL (0.2-1.0); Urine pH 5.5 (5.0-7.0)
[2018-11-23 14:15] LABS: Urine Bacteria <20 /HPF (NONE SEEN); Urine Culture Reflex Order NOT NEEDED; Urine RBC <5 /HPF (NONE SEEN)
[2018-11-23] MEDS ORDERED: TRAMADOL HCL 50 MG TAB PO ONE (15:33)
[2018-11-23 16:12] LABS: Hematocrit 39.9 % (39.6-49.0); MPV 8.5 fL (7.6-11.3)
[2018-11-23 16:22] LABS: Albumin 3.2 g/dL (3.4-5.0); Bilirubin Total 0.7 mg/dL (0.2-1.0); Potassium 3.5 mmol/L (3.5-5.1); Protein, Total 7.6 g/dL (6.4-8.2)
[2018-11-23] MEDS: PIPER/TAZO/NS 3.375gm 3.375 GM/100 ML BAG IVPB SCH (17:28)
[2018-11-23] MEDS ORDERED: METOPROLOL XL 50 MG TAB PO SCH (21:00)
[2018-11-23] MEDS ORDERED: ATORVASTATIN 80 MG TAB PO SCH (21:00)
[2018-11-23] MEDS: ATORVASTATIN 80 MG TAB PO SCH (21:53)
[2018-11-23] MEDS: METOPROLOL XL 25 MG TAB PO SCH (21:53)
[2018-11-23] MEDS: AMIODARONE HCL 200 MG TAB PO SCH (21:54)
[2018-11-24] MEDS: PIPER/TAZO/NS 3.375gm 3.375 GM/100 ML BAG IVPB SCH ×3 (00:04→16:12)
[2018-11-24] MEDS: VANCOMYCIN 2 GM in NA CHLORIDE 0.9% 500 ML IV SCH ×2 (00:27→12:58)
[2018-11-24] MEDS: INSULIN -REGULAR HUMAN 50 UNIT/0.5 ML ML SQ SCH ×4 (08:10→20:34)
[2018-11-24] MEDS: BUMETANIDE 1 MG TABLET PO SCH (08:12)
[2018-11-24] MEDS: ALLOPURINOL 100 MG TAB PO SCH ×2 (08:13→22:34)
[2018-11-24] MEDS: LOSARTAN POTASSIUM 50 MG TABLET PO SCH (08:13)
[2018-11-24] MEDS: ASPIRIN 81 MG CHEWABLE TABLET PO SCH (08:13)
[2018-11-24] MEDS: INSULIN GLARGINE 100 UNITS/ML SQ SCH ×2 (08:14→20:34)
[2018-11-24] MEDS: TRAMADOL HCL 50 MG TAB PO PRN ×2 (09:33→20:33)
--- NOTE | 2018-11-24 10:17 | P.PN ---
Subjective Date of Service: 11/24/18 Chief Complaint: right lower extremity cellulitis pt seen and examined at bedside with RN. Chart reviewed. Pt this AM c/o having pain and tightness on the affected leg. Fever of 102.4 yesterday. No fever overnight. Denies any other complains Review of Systems 10-point ROS is otherwise unremarkable Physical Examination - Vital Signs Temperature: 99.3 F Blood Pressure: 156/74 Pulse: 74 Respirations: 18 Pulse Ox (%): 96 - Physical Exam General: Alert, In no apparent distress Respiratory: Clear to auscultation bilaterally, Normal air movement Cardiovascular: Regular rate/rhythm, Normal S1 S2 Gastrointestinal: Normal bowel sounds, No tenderness Musculoskeletal: No tenderness Integumentary: Rash(es), Tenderness/swelling, Erythema, Warmth, Other (right Leg with Rash that is improving and lymphangitis that is improving as well ) Neurological: Normal speech, Normal tone, Normal affect Lymphatics: No axilla or inguinal lymphadenopathy - Studies Medications List Reviewed: Yes Assessment And Plan - Current Problems (Diagnosis) (1) Cellulitis of right lower extremity Current Visit: Yes Status: Acute Plan: Cellulitis of the right lower Extremity with Lymphangitis. Improving today but slowly -Now switched to Zosyn and Vanc -US negative for DVT -Blood culture pending (2) CHF (congestive heart failure) Onset Date: 10/24/15 Current Visit: No Status: Chronic Plan: Chronic CHF with EF of 35% with Global Hypokenesis on 2015 ECHO -Restarted now on Home medication of Bumex, BB and ARB -Caution with Fluids Qualifiers: Heart failure type: combined systolic and diastolic Heart failure chronicity: chronic Qualified Code(s): I50.42 - Chronic combined systolic ( congestive) and diastolic (congestive) heart failure (3) Diabetes mellitus Onset Date: 03/15/18 Current Visit: No Status: Chronic Plan: ISS and accucheck -elevated BS. Adjusted SS to mod and restarted Long acting Insulin at 30 units BID Qualifiers: Diabetes mellitus type: type 2 Diabetes mellitus shelter insulin use: without shelter use Diabetes mellitus complication status: with skin complications Diabetes mellitus complication detail: with dermatitis Qualified Code(s): E11.620 - Type 2 diabetes mellitus with diabetic dermatitis (4) HTN (hypertension) Onset Date: 03/15/18 Current Visit: No Status: Chronic Plan: Restarted Back on Home medication -Stable now Qualifiers: Hypertension type: essential hypertension (5) Morbid obesity Onset Date: 10/24/15 Current Visit: No Status: Chronic - Plan Pending Clinical Improvement. Continue with IV abx. F.u with culture Discharge Plan: Home Plan to discharge in: 48 Hours - Code Status/Comfort Care Code Status Assessed: Yes Critical Care: No
--- NOTE | 2018-11-24 18:38 | RAD REPORT ---
EXAM DESCRIPTION: US - Lower Extremity Artery [facility] - 11/24/2018 6:17 pm CLINICAL HISTORY: RT LEG CELLULITIS COMPARISON: No comparisons FINDINGS: Doppler interrogation of the right lower extremity arterial system was performed. The right common femoral artery is triphasic. The right superficial femoral artery is triphasic. Right popliteal artery and posterior tibial artery appear biphasic. Right dorsalis pedis artery appea rs monophasic to biphasic. No high-grade stenosis or occlusion. IMPRESSION: Mild to moderate distal peripheral vascular disease involving the infrapopliteal segment s is present. No occlusion is seen.
[2018-11-24] MEDS: AMIODARONE HCL 200 MG TAB PO SCH ×2 (20:33→21:00)
[2018-11-24] MEDS: METOPROLOL XL 25 MG TAB PO SCH (20:33)
[2018-11-24] MEDS: ATORVASTATIN 80 MG TAB PO SCH (20:33)
[2018-11-24] MEDS: VANCOMYCIN 1.5 GM in NA CHLORIDE 0.9% 500 ML IV SCH (20:34)
[2018-11-24] MEDS ORDERED: VANCOMYCIN 1.5 GM in NA CHLORIDE 0.9% 500 ML IV SCH (21:00)
[2018-11-25] MEDS: PIPER/TAZO/NS 3.375gm 3.375 GM/100 ML BAG IVPB SCH ×3 (00:35→17:00)
[2018-11-25] MEDS: VANCOMYCIN 1.5 GM in NA CHLORIDE 0.9% 500 ML IV SCH ×3 (06:49→20:43)
[2018-11-25] MEDS: INSULIN -REGULAR HUMAN 50 UNIT/0.5 ML ML SQ SCH ×5 (07:30→20:41)
[2018-11-25] MEDS: INSULIN GLARGINE 100 UNITS/ML SQ SCH ×3 (09:00→20:41)
[2018-11-25] MEDS: ASPIRIN 81 MG CHEWABLE TABLET PO SCH (09:33)
[2018-11-25] MEDS: BUMETANIDE 1 MG TABLET PO SCH (09:34)
[2018-11-25] MEDS: ALLOPURINOL 100 MG TAB PO SCH ×2 (09:35→20:39)
[2018-11-25] MEDS: LOSARTAN POTASSIUM 50 MG TABLET PO SCH (09:47)
[2018-11-25 10:24] LABS: Absolute Lymphocytes (CBC) 0.9 K/uL (0.7-4.9); Absolute Monocytes 0.7 K/uL (0.1-1.3); Absolute Neutrophil 9.1 K/uL (1.8-8.0); Basophils % 0.4 % (0-1.3); Eosinophils % 0.8 % (0-4.4); Hematocrit 38.8 % (39.6-49.0); Lymphocytes % 8.3 % (15.3-44.8); MPV 8.8 fL (7.6-11.3); Monocytes % 6.4 % (3.3-12.3); RBC Red Blood Cell Count 4.77 M/uL (4.33-5.43)
[2018-11-25 10:42] LABS: Albumin 2.8 g/dL (3.4-5.0); Bilirubin Total 0.7 mg/dL (0.2-1.0); Potassium 3.6 mmol/L (3.5-5.1); Protein, Total 7.3 g/dL (6.4-8.2)
--- NOTE | 2018-11-25 12:13 | P.PN ---
Subjective Date of Service: 11/25/18 Chief Complaint: right lower extremity cellulitis pt seen and examined at bedside with RN. Chart reviewed. No fever or chills noted, denies SOB and CP as well. Concern about his BS and Pain in the leg today. extensive Discussion regarding his PVD, plan of care and insulin needs were discussed with him, Daughter on the phone and . All in understanding and agreement Review of Systems 10-point ROS is otherwise unremarkable Physical Examination - Vital Signs Temperature: 97.0 F Blood Pressure: 160/81 Pulse: 64 Respirations: 18 Pulse Ox (%): 98 - Physical Exam General: Alert, In no apparent distress HEENT: Atraumatic, PERRLA, EOMI Neck: Supple, JVD not distended Respiratory: Clear to auscultation bilaterally, Normal air movement Cardiovascular: Regular rate/rhythm, Normal S1 S2 Gastrointestinal: Normal bowel sounds, No tenderness Musculoskeletal: Erythema, Tenderness, Warmth, Other (Improvement noted but minimal. ) Integumentary: No rashes Neurological: Normal speech, Normal tone, Normal affect Lymphatics: No axilla or inguinal lymphadenopathy - Studies Medications List Reviewed: Yes Assessment And Plan - Current Problems (Diagnosis) (1) Cellulitis of right lower extremity Current Visit: Yes Status: Acute Plan: Cellulitis of the right lower Extremity with Lymphangitis. Improving today but slowly -On IV Zosyn and Vanc -US negative for DVT. US Arterial + for PVD -Blood culture pending -ID and General Surgery consulted today (2) CHF (congestive heart failure) Onset Date: 10/24/15 Current Visit: No Status: Chronic Plan: Chronic CHF with EF of 35% with Global Hypokenesis on 2015 ECHO -Restarted now on Home medication of Bumex, BB and ARB -Caution with Fluids Qualifiers: Heart failure type: combined systolic and diastolic Heart failure chronicity: chronic Qualified Code(s): I50.42 - Chronic combined systolic ( congestive) and diastolic (congestive) heart failure (3) Diabetes mellitus Onset Date: 03/15/18 Current Visit: No Status: Chronic Plan: ISS and accucheck -elevated BS. Adjusted SS to aggressive and increased Long acting Insulin at 50 units BID Qualifiers: Diabetes mellitus type: type 2 Diabetes mellitus penitentiary insulin use: without termite inspector use Diabetes mellitus complication status: with skin complications Diabetes mellitus complication detail: with dermatitis Qualified Code(s): E11.620 - Type 2 diabetes mellitus with diabetic dermatitis (4) HTN (hypertension) Onset Date: 03/15/18 Current Visit: No Status: Chronic Plan: Restarted Back on Home medication -Stable now Qualifiers: Hypertension type: essential hypertension (5) Morbid obesity Onset Date: 10/24/15 Current Visit: No Status: Chronic - Plan Pending Clinical Improvement. Continue with IV abx. F.u with culture Discharge Plan: Home Plan to discharge in: 48 Hours - Code Status/Comfort Care Code Status Assessed: Yes Critical Care: No
--- NOTE | 2018-11-25 16:01 | CON ---
Date of Consultation: 11/22/2018 History Of Present Illness: This is a 63-year-old male I have consulted for cellulitis of right lowe r extremity and lymphangitis. The patient came in on November 22, to the emergency room for fevers, chills, and increasing pain and discomfort with redness to his right leg. The patient was im mediately started on IV antibiotic at that time. The patient has significant past medical history of diabetes mellitus, morbid obesity, coronary artery disease, hypercholesterolemia, CABG done 4 years ago. The patient denies any headache, nausea, vomiting, chest pain, abdominal pain, constipation, or diarrhea. Initial symptoms also included nausea, vomiting when he was at home. The patient is feel ing much better today. is by the bedside. Patient's initial white blood cell count was 20,000, currently being treated with vancomycin and Zosyn. Initially, the patient was on Zosyn, which was s tarted on 11/23. Past Medical History: As per HPI. Social History: Nonsmoker, nondrinker. Family History: Noncontributory. Medications: Vancomycin, Zosyn. See MAR for other medication. Allergies: NO KNOWN DRUG ALLERGIES. Review of Systems: A 10-point review was performed. Physical Examination: General: This is a 63-year-old male, lying in bed, not in any acute cardiopulmonary distress. Vital Signs: Temperature 97, pulse 54, respiration 18, blood pressure 150/81. HEENT: Unremarkable. Neck: Supple. Lungs: With crackles. Heart: S1, S2. Regular. ABDOMEN: Soft, nontender. Bowel sounds present. Extremities: 1+ edema to the right leg with erythematous changes and increased warmth and tenderness all the way from ankle to the knee area. The inner thigh also has some redness and tenderness. The patient also has a small ulcer to between the big toe and the new phalanx and metatarsal area cough with dry scaly skin. Laboratory Data: Shows WBC 10.9, down from 20,000, hemoglobin 8.3, platelets 209. Chemistry shows s odium 137, potassium 3.6, chloride 102, bicarb 25, BUN 12, creatinine 0.9, glucose is 335. Micro ella a shows blood culture in 24 hours showing no growth. Assessment And Plan: Right lower extremity cellulitis, most likely etiology is right foot ulceration at the site of the big toe. The patient also has diabetes mellitus, which is uncontrolled; morbid o besity; possible lymphedema; and stasis dermatitis. The patient will continue IV antibiotic for at l east 2 weeks, can be switched to oral antibiotic in another 24 to 48 hours. When patient improves, w e will follow the patient closely. Thank you, Dr. Ai Morrison, for the consult. ELLIOTT/PEDRO Voice ID: [id number] Report ID: [id number]
--- NOTE | 2018-11-25 16:16 | CON ---
Date of Consultation: 11/25/2018 Brief History Of Present Illness: Patient is a 63-year-old gentleman who noticed redness and swellin g to the right lower extremity approximately 1 week prior to his presentation to the hospital. He no beck that there was no injury. No trauma. No bug bites. No other inciting factors. He does have a history of diabetes and hypertension. He had swelling in the right lower extremity predominantly. Harpreet cooley does have a history of atrial fibrillation on anti-platelet therapy. He noted that the swelling go t progressively worse and rapidly evolved and as such he came to the emergency room with the above-st ated complaints. He was started on antibiotics at that time and continues to have redness to the are a, but there was no obvious collections he is aware of and has had some improvement in recession from the demarcated areas by his description since his admission to the hospital, but minimal improvement . Past Medical History: Significant for gout, kidney stones, obesity, diabetes, coronary artery diseas e, hypertension. Past Surgical History: Had a cyst removal and a CABG, coronary artery bypass graft. Family History: Significant for heart disease in his father. Social History: He is a former smoker, 20+ pack year history. Denies alcohol or recreational drug u se. Home Medications: Include allopurinol, amiodarone, aspirin, atorvastatin, Bumex, insulin, losartan, metoprolol. Review of Systems: A 10-point review of systems other than HPI, denies. Physical Examination: Vital Signs: At the time of my examination, his BMI is 44.4. He has a blood pressure of 160/81, pul se is 64, respiratory rate 18, temperature 97.0. General: He is awake, alert, oriented. Psychiatric: Appropriate, conversive. HEENT: Normocephalic. Sclerae anicteric. Mucous membranes are moist. Oropharynx clear. Neck: Supple. No JVD. Chest: Normal expansion and excursion. Abdomen: Soft, nontender, nondistended Extremities: Focused examination of extremities with respect to lower extremity shows swelling of the right lower extremity with cellulitis over the circumferent ial thickness of the right lower extremity below the knee. There is a pen marking the area of rednes s. There is recession from this minimally. There is no obvious fluid collections and no traumatic i njuries to there and the skin appears to be intact with just edematous changes to the lower extremity . The left lower extremity also has edema and some cellulitis, but it is minimal as compared with th e right. It is also in the area of the area mainly posteriorly and anteriorly with some v enous stasis appearance. No ulceration or open wounds of bilateral lower extremities. Laboratory Data: Reveals a white blood count of 10.9, hemoglobin 13.2, hematocrit 38.8, platelet cou nt is 209, neutrophils 84%. His sodium was 137, potassium 3.6, chloride 102, carbon dioxide 25, BUN 12, creatinine 0.9. Glucose has been elevated since admission and is currently 266 on the last check . His total bilirubin is 0.7, AST 40, ALT 35, alkaline phosphatase is 59. His acetone was negative. On admission, he had imaging performed which included an extremity venous study on 11/23, which was officially read, has no evidence of DVT in the right lower extremity. He also had a Doppler. Duple x ultrasound on 11/24 which is officially read as mild to moderate distal peripheral vascular disease involving the infrapopliteal segments is present. No acute occlusion is seen. Assessment And Plan: This is a 63-year-old male who comes in with uncontrolled diabetes, who present s with a cellulitis of the right lower extremity. 1.IV fluid hydration. 2.Antibiotic coverage per Dr. Gracia. 3.Serial extremity exams. 4.Elevate the extremity. 5.Gentle wrapping to reduce edema. 6.I do not find that the patient has a drainable fluid collection or surgical intervention necessary at this time however I will follow along with you. CAMILLE/PEDRO Voice ID: [id number] Report ID: [id number]
[2018-11-25] MEDS ORDERED: BISACODYL E.C. 5 MG TAB PO ONE (19:29)
[2018-11-25] MEDS ORDERED: MAGNESIUM HYDROXIDE 8% 30 ML PO PRN (19:30)
[2018-11-25] MEDS: METOPROLOL XL 25 MG TAB PO SCH (20:39)
[2018-11-25] MEDS: ATORVASTATIN 80 MG TAB PO SCH (20:40)
[2018-11-26] MEDS: PIPER/TAZO/NS 3.375gm 3.375 GM/100 ML BAG IVPB SCH ×3 (00:58→16:56)
[2018-11-26] MEDS: VANCOMYCIN 1.5 GM in NA CHLORIDE 0.9% 500 ML IV SCH ×3 (04:25→20:02)
[2018-11-26] MEDS: TRAMADOL HCL 50 MG TAB PO PRN (06:15)
[2018-11-26 06:26] LABS: Absolute Lymphocytes (CBC) 1.1 K/uL (0.7-4.9); Absolute Monocytes 0.7 K/uL (0.1-1.3); Absolute Neutrophil 7.2 K/uL (1.8-8.0); Basophils % 0.6 % (0-1.3); Eosinophils % 1.2 % (0-4.4); Hematocrit 37.9 % (39.6-49.0); Lymphocytes % 12.2 % (15.3-44.8); Monocytes % 7.7 % (3.3-12.3); RBC Red Blood Cell Count 4.69 M/uL (4.33-5.43)
[2018-11-26 06:44] LABS: ALT/SGPT 50 U/L (12-78); AST/SGOT 50 U/L (15-37); Albumin 2.6 g/dL (3.4-5.0); Alkaline Phosphatase 78 U/L (45-117); BUN Blood Urea Nitrogen 11 mg/dL (7-18); Bicarbonate 25 mmol/L (21-32); Bilirubin Total 0.8 mg/dL (0.2-1.0); Glucose Level 199 mg/dL (74-106); Potassium 3.3 mmol/L (3.5-5.1); Protein, Total 7.3 g/dL (6.4-8.2); Sodium Level 140 mmol/L (136-145)
[2018-11-26] MEDS: ASPIRIN 81 MG CHEWABLE TABLET PO SCH (08:53)
[2018-11-26] MEDS: LOSARTAN POTASSIUM 50 MG TABLET PO SCH (08:53)
[2018-11-26] MEDS: ALLOPURINOL 100 MG TAB PO SCH ×2 (08:53→20:04)
[2018-11-26] MEDS: INSULIN -REGULAR HUMAN 50 UNIT/0.5 ML ML SQ SCH ×4 (08:54→20:03)
[2018-11-26] MEDS: INSULIN GLARGINE 100 UNITS/ML SQ SCH ×2 (08:55→20:03)
[2018-11-26] MEDS: BUMETANIDE 1 MG TABLET PO SCH (08:57)
--- NOTE | 2018-11-26 11:27 | P.PN ---
Subjective Date of Service: 11/26/18 Chief Complaint: right lower extremity cellulitis Subjective: Improving Physical Examination - Vital Signs Temperature: 97.5 F Blood Pressure: 185/77 Pulse: 67 Respirations: 18 Pulse Ox (%): 97 - Physical Exam General: Alert, In no apparent distress, Cooperative Musculoskeletal: Other (RLE - less swelling, less cellulitis) - Studies Medications List Reviewed: Yes Assessment And Plan - Current Problems (Diagnosis) (1) Cellulitis of right lower extremity Current Visit: Yes Status: Acute Plan: - continue antibioitcs - continue medical management - control hyperglycemia - keep limb elevated
--- NOTE | 2018-11-26 12:30 | P.PN ---
Subjective Date of Service: 11/26/18 Chief Complaint: right lower extremity cellulitis pt seen and examined at bedside with RN. Chart reviewed. No fever or chills noted, denies SOB and CP as well. Concerned about being diabetic diet was to be on a regular diet. Educated extensively about goal blood sugar range and need to be on a diabetic diet Review of Systems 10-point ROS is otherwise unremarkable Physical Examination - Vital Signs Temperature: 97.5 F Blood Pressure: 185/77 Pulse: 67 Respirations: 18 Pulse Ox (%): 97 - Physical Exam General: Alert, In no apparent distress, Obese HEENT: Atraumatic, PERRLA, EOMI Neck: Supple, JVD not distended Respiratory: Clear to auscultation bilaterally, Normal air movement Cardiovascular: Regular rate/rhythm, Normal S1 S2 Gastrointestinal: Normal bowel sounds, No tenderness Musculoskeletal: Swelling, Erythema, Tenderness, Warmth Integumentary: Rash(es), Skin lesion Neurological: Normal speech, Normal tone, Normal affect Lymphatics: No axilla or inguinal lymphadenopathy - Studies Medications List Reviewed: Yes Assessment And Plan - Current Problems (Diagnosis) (1) Cellulitis of right lower extremity Current Visit: Yes Status: Acute Plan: Cellulitis of the right lower Extremity with Lymphangitis. Marked improvement today -On IV Zosyn and Vanc -US negative for DVT. US Arterial + for PVD -Blood culture pending. Negative thus far -ID and General Surgery consulted. Recommendations appreciated (2) CHF (congestive heart failure) Onset Date: 10/24/15 Current Visit: No Status: Chronic Plan: Chronic CHF with EF of 35% with Global Hypokenesis on 2015 ECHO -Restarted now on Home medication of Bumex, BB and ARB -Caution with Fluids Qualifiers: Heart failure type: combined systolic and diastolic Heart failure chronicity: chronic Qualified Code(s): I50.42 - Chronic combined systolic ( congestive) and diastolic (congestive) heart failure (3) Diabetes mellitus Onset Date: 03/15/18 Current Visit: No Status: Chronic Plan: ISS and accucheck -on aggressive sliding scale and Long acting Insulin at 50 units BID Qualifiers: Diabetes mellitus type: type 2 Diabetes mellitus senior living insulin use: without rn long term care use Diabetes mellitus complication status: with skin complications Diabetes mellitus complication detail: with dermatitis Qualified Code(s): E11.620 - Type 2 diabetes mellitus with diabetic dermatitis (4) HTN (hypertension) Onset Date: 03/15/18 Current Visit: No Status: Chronic Plan: Restarted Back on Home medication -Stable now Qualifiers: Hypertension type: essential hypertension (5) Morbid obesity Onset Date: 10/24/15 Current Visit: No Status: Chronic - Plan Pending Clinical Improvement. Continue with IV abx. F.u with culture Discharge Plan: Home Plan to discharge in: 48 Hours - Code Status/Comfort Care Code Status Assessed: Yes Critical Care: No
[2018-11-26] MEDS: METOPROLOL XL 25 MG TAB PO SCH (20:04)
[2018-11-26] MEDS: ATORVASTATIN 80 MG TAB PO SCH (20:04)
[2018-11-27] MEDS: PIPER/TAZO/NS 3.375gm 3.375 GM/100 ML BAG IVPB SCH ×3 (00:36→16:56)
[2018-11-27] MEDS: VANCOMYCIN 1.5 GM in NA CHLORIDE 0.9% 500 ML IV SCH ×3 (04:05→21:41)
[2018-11-27 06:20] LABS: Absolute Lymphocytes (CBC) 1.1 K/uL (0.7-4.9); Absolute Monocytes 0.7 K/uL (0.1-1.3); Absolute Neutrophil 7.8 K/uL (1.8-8.0); Basophils % 0.7 % (0-1.3); Hematocrit 37.7 % (39.6-49.0); Lymphocytes % 11.2 % (15.3-44.8); MPV 8.8 fL (7.6-11.3); Monocytes % 7.4 % (3.3-12.3); RBC Red Blood Cell Count 4.67 M/uL (4.33-5.43)
[2018-11-27 06:34] LABS: ALT/SGPT 44 U/L (12-78); AST/SGOT 37 U/L (15-37); Albumin 2.6 g/dL (3.4-5.0); Alkaline Phosphatase 60 U/L (45-117); BUN Blood Urea Nitrogen 8 mg/dL (7-18); Bicarbonate 27 mmol/L (21-32); Bilirubin Total 0.7 mg/dL (0.2-1.0); Glucose Level 157 mg/dL (74-106); Potassium 3.2 mmol/L (3.5-5.1); Protein, Total 7.2 g/dL (6.4-8.2); Sodium Level 140 mmol/L (136-145)
--- NOTE | 2018-11-27 09:12 | P.PN ---
Subjective Date of Service: 11/27/18 Chief Complaint: right lower extremity cellulitis Subjective: Improving (no acute events) Physical Examination - Vital Signs Temperature: 97 F Blood Pressure: 170/82 Pulse: 60 Respirations: 16 Pulse Ox (%): 97 - Physical Exam General: Alert, In no apparent distress, Cooperative Musculoskeletal: Other (RLE much improved, less swelling, cellulitis much improved) - Studies Medications List Reviewed: Yes Assessment And Plan - Current Problems (Diagnosis) (1) Cellulitis of right lower extremity Current Visit: Yes Status: Acute Plan: - continue antibioitcs - continue medical management - control hyperglycemia - keep limb elevated
[2018-11-27] MEDS: INSULIN GLARGINE 100 UNITS/ML SQ SCH ×2 (09:15→21:00)
[2018-11-27] MEDS: LOSARTAN POTASSIUM 50 MG TABLET PO SCH ×2 (09:16→21:47)
[2018-11-27] MEDS: BUMETANIDE 1 MG TABLET PO SCH (09:16)
[2018-11-27] MEDS: INSULIN -REGULAR HUMAN 50 UNIT/0.5 ML ML SQ SCH ×4 (09:17→21:43)
[2018-11-27] MEDS: ASPIRIN 81 MG CHEWABLE TABLET PO SCH (09:17)
[2018-11-27] MEDS: ALLOPURINOL 100 MG TAB PO SCH ×2 (09:17→21:41)
[2018-11-27] MEDS ORDERED: NA CHLORIDE 0.9% 100 ML ONE (09:32)
--- NOTE | 2018-11-27 10:11 | P.PN ---
Subjective Date of Service: 11/27/18 Chief Complaint: right lower extremity cellulitis pt seen and examined at bedside with RN. Chart reviewed. No fever or chills noted, denies SOB and CP as well. Educated extensively about goal blood sugar range and need to be on a diabetic diet Review of Systems 10-point ROS is otherwise unremarkable Physical Examination - Vital Signs Temperature: 97 F Blood Pressure: 170/82 Pulse: 60 Respirations: 16 Pulse Ox (%): 97 - Physical Exam General: Alert, In no apparent distress HEENT: Atraumatic, PERRLA, EOMI Neck: Supple, JVD not distended Respiratory: Clear to auscultation bilaterally, Normal air movement Cardiovascular: Regular rate/rhythm, Normal S1 S2 Gastrointestinal: Normal bowel sounds, No tenderness Musculoskeletal: Swelling, Erythema, Tenderness, Warmth Integumentary: No rashes Neurological: Normal speech, Normal tone, Normal affect Lymphatics: No axilla or inguinal lymphadenopathy - Studies Medications List Reviewed: Yes Assessment And Plan - Current Problems (Diagnosis) (1) Cellulitis of right lower extremity Current Visit: Yes Status: Acute Plan: Cellulitis of the right lower Extremity with Lymphangitis. Marked improvement today -On IV Zosyn and Vanc -US negative for DVT. US Arterial + for PVD -Blood culture pending. Negative thus far -ID and General Surgery consulted. Recommendations appreciated (2) CHF (congestive heart failure) Onset Date: 10/24/15 Current Visit: No Status: Chronic Plan: Chronic CHF with EF of 35% with Global Hypokenesis on 2015 ECHO -Restarted now on Home medication of Bumex, BB and ARB -Caution with Fluids Qualifiers: Heart failure type: combined systolic and diastolic Heart failure chronicity: chronic Qualified Code(s): I50.42 - Chronic combined systolic ( congestive) and diastolic (congestive) heart failure (3) Diabetes mellitus Onset Date: 03/15/18 Current Visit: No Status: Chronic Plan: ISS and accucheck -on aggressive sliding scale and Long acting Insulin at 50 units BID Qualifiers: Diabetes mellitus type: type 2 Diabetes mellitus residential insulin use: without intermediate project manager use Diabetes mellitus complication status: with skin complications Diabetes mellitus complication detail: with dermatitis Qualified Code(s): E11.620 - Type 2 diabetes mellitus with diabetic dermatitis (4) HTN (hypertension) Onset Date: 03/15/18 Current Visit: No Status: Chronic Plan: Restarted Back on Home medication -Stable now Qualifiers: Hypertension type: essential hypertension (5) Morbid obesity Onset Date: 10/24/15 Current Visit: No Status: Chronic - Plan Pending Clinical Improvement. Continue with IV abx. F.u with culture Discharge Plan: Home Plan to discharge in: 48 Hours - Code Status/Comfort Care Code Status Assessed: Yes Critical Care: No
[2018-11-27] MEDS ORDERED: HYDRALAZINE HCL 20 MG/ML VIAL IV ONE (18:05)
[2018-11-27] MEDS ORDERED: HYDRALAZINE HCL 20 MG/ML VIAL IV PRN (20:34)
[2018-11-27] MEDS: TRAMADOL HCL 50 MG TAB PO PRN (21:40)
[2018-11-27] MEDS: ATORVASTATIN 80 MG TAB PO SCH (21:41)
[2018-11-27] MEDS: METOPROLOL XL 25 MG TAB PO SCH (21:42)
[2018-11-28] MEDS: PIPER/TAZO/NS 3.375gm 3.375 GM/100 ML BAG IVPB SCH ×3 (01:00→17:22)
[2018-11-28] MEDS: VANCOMYCIN 1.5 GM in NA CHLORIDE 0.9% 500 ML IV SCH ×3 (05:00→21:21)
[2018-11-28 06:15] LABS: Absolute Lymphocytes (CBC) 1.4 K/uL (0.7-4.9); Absolute Monocytes 0.7 K/uL (0.1-1.3); Absolute Neutrophil 7.1 K/uL (1.8-8.0); Basophils % 0.8 % (0-1.3); Eosinophils % 1.1 % (0-4.4); Hematocrit 42.6 % (39.6-49.0); Lymphocytes % 14.6 % (15.3-44.8); MPV 8.4 fL (7.6-11.3); RBC Red Blood Cell Count 5.26 M/uL (4.33-5.43)
[2018-11-28 06:34] LABS: ALT/SGPT 47 U/L (12-78); AST/SGOT 37 U/L (15-37); Albumin 2.8 g/dL (3.4-5.0); Alkaline Phosphatase 68 U/L (45-117); BUN Blood Urea Nitrogen 9 mg/dL (7-18); Bicarbonate 30 mmol/L (21-32); Bilirubin Total 0.8 mg/dL (0.2-1.0); Glucose Level 169 mg/dL (74-106); Potassium 3.6 mmol/L (3.5-5.1); Protein, Total 8.1 g/dL (6.4-8.2); Sodium Level 140 mmol/L (136-145)
[2018-11-28] MEDS: INSULIN -REGULAR HUMAN 50 UNIT/0.5 ML ML SQ SCH ×4 (09:00→21:23)
[2018-11-28] MEDS: BUMETANIDE 1 MG TABLET PO SCH (09:01)
[2018-11-28] MEDS: INSULIN GLARGINE 100 UNITS/ML SQ SCH ×2 (09:01→21:21)
[2018-11-28] MEDS: ALLOPURINOL 100 MG TAB PO SCH ×2 (09:02→21:22)
[2018-11-28] MEDS: LOSARTAN POTASSIUM 50 MG TABLET PO SCH (09:03)
[2018-11-28] MEDS: METOPROLOL XL 25 MG TAB PO SCH ×2 (09:03→21:23)
[2018-11-28] MEDS: ASPIRIN 81 MG CHEWABLE TABLET PO SCH (09:04)
--- NOTE | 2018-11-28 16:24 | P.PN ---
Subjective Date of Service: 11/28/18 Chief Complaint: right lower extremity cellulitis Subjective: Other (Patient is slowly improving. Still with erythema to the right lower extremity.) Physical Examination - Vital Signs Temperature: 96.4 F Blood Pressure: 149/75 Pulse: 63 Respirations: 18 Pulse Ox (%): 96 - Physical Exam General: Alert, In no apparent distress, Oriented x3, Cooperative HEENT: Atraumatic Neck: Supple Respiratory: Clear to auscultation bilaterally, Normal air movement Cardiovascular: Normal pulses, Regular rate/rhythm Gastrointestinal: Normal bowel sounds, Soft and benign, Non-distended Integumentary: Other (Erythema noted to the right lower extremity. Edema improved. Patient with chronic venous changes.) Neurological: Normal speech, Normal strength at 5/5 x4 extr, Normal tone, Normal affect - Studies Microbiology Data (last 24 hrs): 11/22/18 21:35 Blood - Blood Aerobic Blood Culture - Final No growth in 5 days. 11/22/18 21:35 Blood - Blood Anaerobic Blood Culture - Final No growth in 5 days. 11/22/18 21:00 Blood - Blood Aerobic Blood Culture - Final No growth in 5 days. 11/22/18 21:00 Blood - Blood Anaerobic Blood Culture - Final No growth in 5 days. Medications List Reviewed: Yes Assessment & Plan Discharge Plan: LTAC Plan to discharge in: 24 Hours Physician Review Additional Text: Impression: Right lower extremity cellulitis with lymphangitis with peripheral vascular disease and venous insufficiency Chronic systolic CHF Diabetes mellitus type 2 Hypertension Obesity, BMI 44 Plan: Right lower extremity cellulitis with lymphangitis with peripheral vascular disease and venous insufficiency: Continue current IV antibiotic therapy. Will discuss with surgery for recommendation. Will also addressed with infectious disease as the patient may require long-term IV antibiotic therapy. Patient would benefit with LTAC placement. Will discuss with specialty care for recommendation. Continue DVT prophylaxis. Continue to reassess. Chronic systolic CHF: Continue with medication. Patient on diuretic therapy. Continue with beta-marley and Arb inhibitor. Diabetes mellitus type 2: Continue to monitor closely. Will adjust medication Hypertension: Continue with medication. Will monitor and adjust appropriately. Obesity, BMI 44: Continue to address lifestyle modification education. Time Spent Managing Pts Care (In Minutes): 55
[2018-11-28] MEDS: ATORVASTATIN 80 MG TAB PO SCH (21:22)
[2018-11-29] MEDS: PIPER/TAZO/NS 3.375gm 3.375 GM/100 ML BAG IVPB SCH ×2 (02:06→10:06)
[2018-11-29] MEDS: VANCOMYCIN 1.5 GM in NA CHLORIDE 0.9% 500 ML IV SCH ×2 (04:52→13:39)
[2018-11-29] MEDS: ALLOPURINOL 100 MG TAB PO SCH ×2 (08:49→21:04)
[2018-11-29] MEDS: METOPROLOL XL 25 MG TAB PO SCH ×2 (08:49→21:04)
[2018-11-29] MEDS: LOSARTAN POTASSIUM 50 MG TABLET PO SCH (08:50)
[2018-11-29] MEDS: ASPIRIN 81 MG CHEWABLE TABLET PO SCH (08:50)
[2018-11-29] MEDS: BUMETANIDE 1 MG TABLET PO SCH (08:50)
[2018-11-29] MEDS: INSULIN -REGULAR HUMAN 50 UNIT/0.5 ML ML SQ SCH ×4 (08:51→22:16)
[2018-11-29] MEDS: INSULIN GLARGINE 100 UNITS/ML SQ SCH ×2 (08:52→22:15)
--- NOTE | 2018-11-29 13:36 | P.PN ---
Subjective Date of Service: 11/29/18 Chief Complaint: right lower extremity cellulitis Subjective: Doing well Physical Examination - Vital Signs Temperature: 98.3 F Blood Pressure: 162/74 Pulse: 69 Respirations: 16 Pulse Ox (%): 96 - Physical Exam General: Alert, In no apparent distress, Oriented x3, Cooperative HEENT: Atraumatic Neck: Supple Respiratory: Clear to auscultation bilaterally, Normal air movement Cardiovascular: Normal pulses, Regular rate/rhythm Integumentary: Other (Erythema to the lower extremity improved. Edema also improved. Chronic venous changes noted.) Neurological: Normal speech, Normal strength at 5/5 x4 extr, Normal tone, Normal affect - Studies Medications List Reviewed: Yes Assessment & Plan Discharge Plan: Other (Home versus LTAC) Plan to discharge in: 24 Hours Physician Review Additional Text: Impression: Right lower extremity cellulitis with lymphangitis with peripheral vascular disease and venous insufficiency Chronic systolic CHF Diabetes mellitus type 2 Hypertension Obesity, BMI 44 Plan: Right lower extremity cellulitis with lymphangitis with peripheral vascular disease and venous insufficiency: Patient shows improvement with IV antibiotic therapy. So far blood cultures negative. Will discuss case further with infectious disease. If no need for long-term IV antibiotic therapy patient can be transitioned to oral medication and possible discharge today. If patient requires long-term IV antibiotic therapy will need to consider LTAC placement. Await to discuss with infectious disease. Chronic systolic CHF: Continue with medication. Patient on diuretic therapy. Continue with beta-marley and Arb inhibitor. Diabetes mellitus type 2: Continue to monitor closely. Will adjust medication for better control Hypertension: Continue with medication. Will monitor and adjust appropriately. Obesity, BMI 44: Continue to address lifestyle modification education. Time Spent Managing Pts Care (In Minutes): 55
[2018-11-29] MEDS: levoFLOXacin 500 MG TAB PO SCH (16:57)
--- NOTE | 2018-11-29 19:42 | CON ---
Delete this note MTDD
--- NOTE | 2018-11-29 20:26 | PN ---
Subjective: The patient is lying in bed. Denies any headache, nausea, vomiting, chest pain, abdomin al pain, constipation, or diarrhea. Objective: Vital Signs: Temperature 98, pulse 69, respirations 16, blood pressure 160/74. Lungs: Basal crackles. Heart: S1, S2. Regular. Abdomen: Soft, nontender. Bowel sounds present. Extremities: Right leg 1+ edema with erythematous changes increased warmth. Laboratory Data: Shows WBC 9.4, hemoglobin 14.1, platelets are 307. Chemistry shows sodium 140, pot assium 3.6, chloride 102, bicarb 30, BUN 9, creatinine 0.8, glucose 169. Medications: Include doxycycline and Levaquin. Assessment And Plan: Right lower extremity cellulitis with possible source from the plantar surface. The patient has an open wound. Recommend to treat patient with Levaquin and doxycycline and monito r for next 24 hours to see any worsening of infection. If not, then patient can be discharged on Lev aquin and doxycycline for a total course of 2 weeks. ELLIOTT/PEDRO Voice ID: [id number] Report ID: [id number]
[2018-11-29] MEDS: DOXYCYCLINE 100 MG CAP PO SCH (21:04)
[2018-11-29] MEDS: ATORVASTATIN 80 MG TAB PO SCH (21:04)
[2018-11-30] MEDS: levoFLOXacin 500 MG TAB PO SCH (08:11)
[2018-11-30] MEDS: DOXYCYCLINE 100 MG CAP PO SCH (08:11)
[2018-11-30] MEDS: ASPIRIN 81 MG CHEWABLE TABLET PO SCH (08:12)
[2018-11-30] MEDS: BUMETANIDE 1 MG TABLET PO SCH (08:12)
[2018-11-30] MEDS: METOPROLOL XL 25 MG TAB PO SCH (08:12)
[2018-11-30] MEDS: LOSARTAN POTASSIUM 50 MG TABLET PO SCH (08:12)
[2018-11-30] MEDS: ALLOPURINOL 100 MG TAB PO SCH (08:12)
[2018-11-30] MEDS: INSULIN GLARGINE 100 UNITS/ML SQ SCH (08:13)
[2018-11-30] MEDS: INSULIN -REGULAR HUMAN 50 UNIT/0.5 ML ML SQ SCH (08:13)
--- NOTE | 2018-11-30 09:53 | P.PN ---
Subjective Date of Service: 11/29/18 Chief Complaint: right lower extremity cellulitis Subjective: Improving (Patient has significant improvement in cellulitis and swelling) Physical Examination - Vital Signs Temperature: 97.3 F Blood Pressure: 150/90 Pulse: 63 Respirations: 19 Pulse Ox (%): 95 - Physical Exam General: Alert, In no apparent distress, Cooperative Integumentary: Other (significant improvement in cellulitis and swelling, no drainable collections) - Studies Medications List Reviewed: Yes Assessment And Plan - Current Problems (Diagnosis) (1) Cellulitis of right lower extremity Current Visit: Yes Status: Acute Plan: - continue antibioitcs - continue medical management - control hyperglycemia - keep limb elevated - will sign off for now, call with any new concerns Physician Review Additional Text: Impression: Right lower extremity cellulitis with lymphangitis with peripheral vascular disease and venous insufficiency Chronic systolic CHF Diabetes mellitus type 2 Hypertension Obesity, BMI 44 Plan: Right lower extremity cellulitis with lymphangitis with peripheral vascular disease and venous insufficiency: Patient shows improvement with IV antibiotic therapy. So far blood cultures negative. Will discuss case further with infectious disease. If no need for long-term IV antibiotic therapy patient can be transitioned to oral medication and possible discharge today. If patient requires long-term IV antibiotic therapy will need to consider LTAC placement. Await to discuss with infectious disease. Chronic systolic CHF: Continue with medication. Patient on diuretic therapy. Continue with beta-marley and Arb inhibitor. Diabetes mellitus type 2: Continue to monitor closely. Will adjust medication for better control Hypertension: Continue with medication. Will monitor and adjust appropriately. Obesity, BMI 44: Continue to address lifestyle modification education.
--- NOTE | 2018-11-30 10:49 | P.DS ---
Admission Date: 11/22/18 Discharge Date: 11/30/18 Primary Care Provider: Dr. Couch; Cardiology-Dr. Mccormick([place]) Disposition: ROUTINE DISCHARGE Discharge Condition: GOOD Reason for Admission: right lower extremity cellulitis Consultations: Surgery-Dr. Fountain Infectious disease-Dr. Gracia Procedures: Venous doppler: COMPARISON: None. FINDINGS: Right common femoral, superficial femoral, popliteal and right posterior tibial veins are compressible and demonstrate augmentation. Doppler demonstrates good flow. Nonspecific right inguinal lymphadenopathy IMPRESSION: No evidence of deep venous thrombosis involving the right lower extremity. Arterial doppler: COMPARISON: No comparisons FINDINGS: Doppler interrogation of the right lower extremity arterial system was performed. The right common femoral artery is triphasic. The right superficial femoral artery is triphasic. Right popliteal artery and posterior tibial artery appear biphasic. Right dorsalis pedis artery appears monophasic to biphasic. No high-grade stenosis or occlusion. IMPRESSION: Mild to moderate distal peripheral vascular disease involving the infrapopliteal segments is present. No occlusion is seen. Medical Problem list: Right lower extremity cellulitis with lymphangitis with peripheral vascular disease and chronic venous insufficiency Chronic systolic CHF Diabetes mellitus type 2 Hypertension Gout Obesity, BMI 44 Brief History of Present Illness: 63-year-old male presented emergency room with right lower extremity swelling and erythema. Patient found to have cellulitis with lymphangitis. Patient admitted for treatment. Hospital Course: Patient presented with right lower extremity swelling, erythema secondary to right lower extremity cellulitis with lymphangitis. Patient was admitted for IV antibiotic therapy and treatment. Venous Doppler was negative for DVT. RT err Doppler shows mild to moderate distal peripheral vascular disease involving the infrapopliteal segments. No occlusion was noted. Patient responded to antibiotic therapy slowly. Patient was seen by surgery. No surgical intervention was required. Patient also evaluated by infectious disease. Infectious disease recommended to continue with outpatient therapy. At discharge blood cultures negative. At discharge he will continue with Levaquin 500 mg daily and doxycycline 100 mg 1 pill twice daily for 10 more days. Patient will continue with Bactrim to umbilicus, nares, and wound twice daily. Patient to elevate leg when sitting or lying. Recommend to follow up with surgery within 1 week to follow up this hospitalization and continue his care. Patient also has underlying chronic venous insufficiency. This can be further monitored and addressed as an outpatient. Recommend to follow up with cardiology to further monitor and address his peripheral vascular disease. Patient may require further intervention in the near future. Patient with underlying chronic systolic CHF and hypertension. Patient on diuretic therapy. At discharge he will continue with a 1500 cc per day fluid restriction and low-salt diet. Patient is to monitor his weight daily. If his weight increases by more than 5 lb, he is to contact his PCP for further recommendation. At discharge he will continue with aspirin 81 mg daily, Bumex 1 mg daily, metoprolol XL 25 mg 1 pill twice daily, and losartan 50 mg 1 pill daily. Education on CHF and hypertension will be provided. Recommend to follow up with cardiology to further evaluate. Patient with underlying diabetes mellitus type 2. Patient insulin dependent. Recommend strict control at home. At discharge he will continue with Levemir 60 units subcu twice daily. Patient also takes Novolin R 35 units 3 times a day. Recommend to maintain blood sugars less 140 fasting and less than 200 after meals. Further adjustment can be done by his PCP. Patient with gout. Patient will continue with allopurinol 300 mg 1 pill twice daily. Patient with hyperlipidemia. Patient will continue with Lipitor 80 mg daily. Vital Signs/Physical Exam: Temp Pulse Resp BP Pulse Ox 97.3 F 63 19 150/90 H 95 11/30/18 09:53 11/30/18 09:53 11/30/18 09:53 11/30/18 09:53 11/30/18 09:53 General: Alert, In no apparent distress, Oriented x3, Cooperative HEENT: Atraumatic Neck: Supple Respiratory: Clear to auscultation bilaterally, Normal air movement Cardiovascular: Normal pulses, Regular rate/rhythm Gastrointestinal: Normal bowel sounds, Soft and benign, Non-distended, No masses , No rebound, No guarding Integumentary: Other (Chronic venous changes to the lower right lower extremity. Erythema and edema significantly improved. Mild chronic venous erythema noted. No significant edema noted to the lower extremities bilateral) Neurological: Normal speech, Normal strength at 5/5 x4 extr, Normal tone, Normal affect Laboratory Data at Discharge: WBC 9.4 K/uL (4.3-10.9) 11/28/18 05:54 Hgb 14.1 g/dL (13.6-17.9) 11/28/18 05:54 Hct 42.6 % (39.6-49.0) 11/28/18 05:54 Plt Count 307 K/uL (152-406) 11/28/18 05:54 Sodium 140 mmol/L (136-145) 11/28/18 05:54 Potassium 3.6 mmol/L (3.5-5.1) 11/28/18 05:54 BUN 9 mg/dL (7-18) 11/28/18 05:54 Creatinine 0.82 mg/dL (0.55-1.3) 11/28/18 05:54 Glucose 169 mg/dL (74-106) H 11/28/18 05:54 Total Bilirubin 0.8 mg/dL (0.2-1.0) 11/28/18 05:54 AST 37 U/L (15-37) 11/28/18 05:54 ALT 47 U/L (12-78) 11/28/18 05:54 Alkaline Phosphatase 68 U/L (45-117) 11/28/18 05:54 Home Medications: Allopurinol [Zyloprim*] 300 mg PO BID 11/23/18 Aspirin 81 mg PO DAILY 11/23/18 Atorvastatin Calcium [Lipitor] 80 mg PO BEDTIME 11/23/18 Bumetanide [Bumex*] 1 mg PO DAILY 11/23/18 Insulin -Regular Human [Novolin -R*] 35 unit SQ TID 11/23/18 Insulin Detemir [Levemir] 60 units SQ BID 11/23/18 Losartan Potassium 50 mg PO DAILY 11/23/18 Metoprolol Succinate [Toprol Xl*] 25 mg PO DAILY 11/23/18 Doxycycline Hyclate 100 mg PO BID #20 tablet 11/30/18 Mupirocin Oint [Bactroban 2% Ointment] 8 appl TOP BID #1 tube 11/30/18 levoFLOXacin [Levaquin] 500 mg PO DAILY #10 tab 11/30/18 New Medications: Doxycycline Hyclate 100 mg PO BID #20 tablet levoFLOXacin [Levaquin] 500 mg PO DAILY #10 tab Mupirocin Oint [Bactroban 2% Ointment] 8 appl TOP BID #1 tube Patient Discharge Instructions: 1. Follow up with his PCP within 1 week to follow up this hospitalization. 2. Patient presented with right lower extremity swelling, erythema secondary to right lower extremity cellulitis with lymphangitis. Patient was admitted for IV antibiotic therapy and treatment. Venous Doppler was negative for DVT. RT err Doppler shows mild to moderate distal peripheral vascular disease involving the infrapopliteal segments. No occlusion was noted. Patient responded to antibiotic therapy slowly. Patient was seen by surgery. No surgical intervention was required. Patient also evaluated by infectious disease. Infectious disease recommended to continue with outpatient therapy. At discharge blood cultures negative. At discharge he will continue with Levaquin 500 mg daily and doxycycline 100 mg 1 pill twice daily for 10 more days. Patient will continue with Bactrim to umbilicus, nares , and wound twice daily. Patient to elevate leg when sitting or lying. Recommend to follow up with surgery within 1 week to follow up this hospitalization and continue his care. Patient also has underlying chronic venous insufficiency. This can be further monitored and addressed as an outpatient. Recommend to follow up with cardiology to further monitor and address his peripheral vascular disease. Patient may require further intervention in the near future. 3. Patient with underlying chronic systolic CHF and hypertension. Patient on diuretic therapy. At discharge he will continue with a 1500 cc per day fluid restriction and low-salt diet. Patient is to monitor his weight daily. If his weight increases by more than 5 lb, he is to contact his PCP for further recommendation. At discharge he will continue with aspirin 81 mg daily, Bumex 1 mg daily, metoprolol XL 25 mg 1 pill twice daily, and losartan 50 mg 1 pill daily. Education on CHF and hypertension will be provided. Recommend to follow up with cardiology to further evaluate. 4. Patient with underlying diabetes mellitus type 2. Patient insulin dependent. Recommend strict control at home. At discharge he will continue with Levemir 60 units subcu twice daily. Patient also takes Novolin R 35 units 3 times a day. Recommend to maintain blood sugars less 140 fasting and less than 200 after meals. Further adjustment can be done by his PCP. 5. Patient with gout. Patient will continue with allopurinol 300 mg 1 pill twice daily. 6. Patient with hyperlipidemia. Patient will continue with Lipitor 80 mg daily. Diet: AHA Activity: Fall precautions Time spent managing pt's care (in minutes): 55
== END 2018-11-30 11:51 | disposition home or self-care (01) | DRG 603 ==
LOC: ER 19:27 → ERHOLD 22:21 → 4TH 23:06
PROVIDERS: ADMIT Hospitalist; ATTEND Family Medicine
DX: L03.115 Cellulitis of right lower limb (principal); Z68.41 Body mass index [BMI] 40.0-44.9, adult; I50.22 Chronic systolic (congestive) heart failure; L97.519 Non-pressure chronic ulcer of other part of right foot with unspecified severity; E11.621 Type 2 diabetes mellitus with foot ulcer; L03.125 Acute lymphangitis of right lower limb; I11.0 Hypertensive heart disease with heart failure; E11.620 Type 2 diabetes mellitus with diabetic dermatitis; E11.51 Type 2 diabetes mellitus with diabetic peripheral angiopathy without gangrene; I25.10 Atherosclerotic heart disease of native coronary artery without angina pectoris; I48.91 Unspecified atrial fibrillation; I87.2 Venous insufficiency (chronic) (peripheral); E66.01 Morbid (severe) obesity due to excess calories; E11.65 Type 2 diabetes mellitus with hyperglycemia; E78.00 Pure hypercholesterolemia, unspecified; M10.9 Gout, unspecified; Z79.4 Long term (current) use of insulin; Z79.02 Long term (current) use of antithrombotics/antiplatelets; Z87.891 Personal history of nicotine dependence; Z95.1 Presence of aortocoronary bypass graft
CPT/HCPCS: 36415; 80048; 80053; 80202; 81003; 81015; 82010; 82962; 83605; 84145; 85025; 85027; 87040; 93926; 93971; 96365; 96366; 96375; 99285; J0295; J0360; J2405; J2543; J3370; J7030

== ENCOUNTER 2019-05-17 15:27 | Inpatient (IN) | payer BC, OTHER ==
[2019-05-17] MEDS ORDERED: NA CHLORIDE 0.9% 1,000 ML ONE ×3 (16:19→20:01)
[2019-05-17] MEDS ORDERED: FAMOTIDINE 20 MG/2 ML VIAL IV ONE (16:19)
[2019-05-17] MEDS ORDERED: NA CHLORIDE 0.9% 100 ML IV ONE (16:19)
[2019-05-17] MEDS ORDERED: ONDANSETRON 4 MG/2 ML VIAL ONE (16:19)
[2019-05-17 16:26] LABS: Absolute Lymphocytes (CBC) 0.7 K/uL (0.7-4.9); Basophils % 0.5 % (0-1.3); Hematocrit 44.9 % (39.6-49.0); Lymphocytes % 3.3 % (15.3-44.8); MPV 8.9 fL (7.6-11.3)
[2019-05-17] MEDS ORDERED: ACETAMINOPHEN 500 MG TAB ONE (16:28)
[2019-05-17 16:30] LABS: Protime INR 1.19
[2019-05-17 16:48] LABS: ALT/SGPT 36 U/L (12-78); AST/SGOT 26 U/L (15-37); Albumin 3.8 g/dL (3.4-5.0); Alkaline Phosphatase 54 U/L (45-117); BUN Blood Urea Nitrogen 19 mg/dL (7-18); Bicarbonate 27 mmol/L (21-32); Bilirubin Direct 0.3 mg/dL (0-0.2); Bilirubin Total 1.1 mg/dL (0.2-1.0); Glucose Level 254 mg/dL (74-106); Magnesium 1.6 mg/dL (1.8-2.4); NT PRO-BNP 129 pg/mL (<125); Potassium 3.6 mmol/L (3.5-5.1); Protein, Total 8.4 g/dL (6.4-8.2); Sodium Level 135 mmol/L (136-145); Troponin (Emerg Dept Use Only) < 0.02 ng/mL (0.0-0.045)
[2019-05-17 16:54] LABS: Blood Morphology Comment NOT SEEN (NOT SEEN); Platelet Estimate ADEQ; Urine White Blood Cell Casts OK
--- NOTE | 2019-05-17 17:20 | RAD REPORT ---
EXAM DESCRIPTION: RAD - Chest Single View - 05/17/2019 5:12 pm CLINICAL HISTORY: N/V, fever Chest pain. COMPARISON: Chest Single View dated 03/13/2018; Chest Single View dated 06/17/2017; Chest Single View dated 05/22/2017; Chest Single View dated 05/02/2017 FINDINGS: Portable technique limits examination quality. The lungs are grossly clear. The heart is mildly enlarged in size with changes of a prior CABG noted. No displaced fractures. IMPRESSION: No acute intrathoracic process suspected.
[2019-05-17] MEDS ORDERED: Magnesium Sulfate 2gm IVPB 2 G/50 ML BAG IV ONE (17:49)
--- NOTE | 2019-05-17 17:51 | ER ---
Nurse's Notes [facility] Name: Pipo Nieto Age: 64 yrs Sex: Male : 1955 Arrival Date: 05/17/2019 Time: 15:31 Bed 19 Private MD: Merly Couch H Diagnosis: Other sepsis;Cellulitis of right lower limb Presentation: 05/17 15:34 Presenting complaint: Patient states: N/V/D since this morning at 0200. Chills as well. la1 Transition of care: patient was not received from another setting of care. Onset of symptoms was May 17, 2019. Risk Assessment: Do you want to hurt yourself or someone else? Patient reports no desire to harm self or others. Initial Sepsis Screen: Does the patient meet any 2 criteria? No. Patient's initial sepsis screen is negative. Does the patient have a suspected source of infection? No. Patient's initial sepsis screen is negative. Care prior to arrival: None. 15:34 Method Of Arrival: Wheelchair la1 15:34 Acuity: FARAZ 3 la1 Historical: - Allergies: 15:34 No Known Allergies; la1 - Home Meds: 17:07 allopurinol 100 mg Oral tab 1 tab 2 times per day [Active]; amiodarone 200 mg Oral tab ch 1 tab once daily [Active]; aspirin 325 mg Oral tab 1 tab once daily [Active]; atorvastatin 80 mg Oral tab 1 tab once daily [Active]; bumetanide 1 mg Oral tab 1 tab once daily [Active]; insulin detemir 45units in the AM, 35 units in the PM subcutaneous twice a day [Active]; losartan 25 mg Oral tab 1 tab once daily [Active]; metoprolol tartrate 25 mg Oral tab 1 tab once daily [Active]; - PMHx: 15:34 Cardiac Tamponade; Diabetes; Fluid in Lungs; Gout; Hypertension; Kidney stones; la1 - Immunization history:: Adult Immunizations up to date. - Social history:: Smoking status: Patient/guardian denies using tobacco. - Ebola Screening: : No symptoms or risks identified at this time. Screenin:55 Abuse screen: Denies threats or abuse. Denies injuries from another. Nutritional ch screening: No deficits noted. Tuberculosis screening: No symptoms or risk factors identified. Fall Risk None identified. Assessment: 16:00 General: Appears in no apparent distress. uncomfortable, Behavior is cooperative, ch appropriate for age, quiet. Pain: Complains of pain in top of head, forehead, left frontal area and right frontal area Pain currently is 8 out of 10 on a pain scale. Pain began gradually. 16:00 Neuro: No deficits noted. Cardiovascular: Heart tones S1 S2 present muffled Capillary ch refill < 3 seconds in bilateral fingers pt has slower [employer] in toes. severe clubbing of toenails. Pulses are all present. Edema is 2+ to right midcalf, right ankle and right foot pitting to right midcalf and right ankle Rhythm is sinus tachycardia. Respiratory: Airway is patent Trachea midline Respiratory effort is even, unlabored, Respiratory pattern is tachypnea Breath sounds are diminished bilaterally. GI: Abdomen is round obese, Bowel sounds present X 4 quads. Abd is soft and non tender X 4 quads. Reports lower abdominal pain, upper abdominal pain, diarrhea, nausea, vomiting. : No signs and/or symptoms were reported regarding the genitourinary system. Derm: Skin is fragile, has lesions on pt has some abrasions to R lower leg and L lower leg. states they just appear when his legs get swollen, and it has happened several times before. pt has Bright red lower R leg, circumferential, going up R inner thigh Skin is dry, Skin is flushed. Musculoskeletal: pt reports pain in R lower and upper leg. pt leg is tender as well. pt L lower leg is dark red. pt states that is chronic and old. 17:10 Reassessment: Patient appears in no apparent distress at this time. Patient and/or ch family updated on plan of care and expected duration. Pain level reassessed. pt reports increase in headache. states he feels very hot. Donnie notified of pt VS. awaiting new orders. 17:42 Reassessment: Patient appears in no apparent distress at this time. pt has increase in ch redness to leg since arrival. pt red borders marked and timed. donnie page in room to reassess pt. 17:55 Reassessment: Patient appears in no apparent distress at this time. Patient and/or ch family updated on plan of care and expected duration. Pain level reassessed. Dr. Mckeon speaks with pt and family. pt is standing to urinate. Antibiotic orders faxed to pharmacy. no s/s of distress. 18:39 Reassessment: Patient appears in no apparent distress at this time. Patient and/or ch family updated on plan of care and expected duration. Pain level reassessed. Respiratory: Airway is patent Respiratory effort is even, labored, Respiratory pattern is tachypnea Breath sounds are diminished bilaterally. 18:42 Reassessment: pt has deep open crack at bottom of R great toe. states it has been there ch for days. 19:09 Reassessment: Patient and/or family updated on plan of care and expected duration. Pain ch level reassessed. Report given to Paz. I am calling hospitalist to update him about pt care. 19:10 Reassessment: Patient appears in no apparent distress at this time. Patient and/or cc3 family updated on plan of care and expected duration. Pain level reassessed. Patient is alert, oriented x 3, equal unlabored respirations, skin warm/dry/pink. Received this male patient from morning shift LAURA Davey as a case of sepsis, right leg cellulitis for admission to room 215 after shift change. With IV cannula gauge 18 at the right ACV with ongoing 2nd liter of NS bolus and Vancomycin 1 gram, infusing well. Patient denies pain at this time. General: Appears in no apparent distress. comfortable, obese, Behavior is calm, cooperative, appropriate for age. Pain: Denies pain. Neuro: Level of Consciousness is awake, alert, obeys commands, Oriented to person, place, time, situation, Appropriate for age. Cardiovascular: Denies chest pain, diaphoresis, fatigue, lightheadedness, nausea, shortness of breath, syncope, vomiting, Heart tones S1 S2 present muffled Capillary refill < 3 seconds in bilateral fingers Clubbing of nail beds is present in toenails. Patient's skin is warm and dry. Pulses are all present. Edema is 2+ to right ankle and right midcalf and right foot pitting to right foot and right midcalf and right ankle Rhythm is sinus tachycardia Chest pain is denied. Respiratory: Airway is patent Trachea midline Respiratory effort is even, unlabored, Respiratory pattern is regular, symmetrical, Breath sounds are diminished bilaterally. GI: Abdomen is round obese, Bowel sounds present X 4 quads. Abd is soft and non tender X 4 quads. : No signs and/or symptoms were reported regarding the genitourinary system. EENT: No signs and/or symptoms were reported regarding the EENT system. Derm: Skin is fragile, has lesions on right and left lower legs Skin is dry, Skin is flushed. Musculoskeletal: Range of motion: intact in all extremities, Swelling present in bilateral lower legs but more on the right lower leg. 19:40 Reassessment: Report called and handed over to LAURA Prado for cc3 continuity of care and management. 19:50 Reassessment: Hospitalist at bedside assessing the patient. cc3 20:00 Reassessment: Patient appears in no apparent distress at this time. Patient and/or cc3 family updated on plan of care and expected duration. Pain level reassessed. Patient is alert, oriented x 3, equal unlabored respirations, skin warm/dry/pink. PA Page ordered for a third liter of NS bolus and carried out. Patient left ER for admission vitally stable by stretcher escorted by wireless field technician Lincoln. No valuables left in the patient's room. Patient denies pain at this time. Patient states feeling better. Vital Signs: 15:34 BP 125 / 65; Pulse 108; Resp 16; Temp 99.9; Pulse Ox 100% on R/A; Weight 145.15 kg; la1 Height 5 ft. 4 in. (162.56 cm); 16:34 BP 149 / 78; Pulse 104; Resp 15; Temp 99.5; Pulse Ox 95% on R/A; Pain 7/10; ch 17:07 BP 167 / 70; Pulse 106; Resp 31; Temp 100.9; Pulse Ox 94% on R/A; Pain 6/10; ch 17:42 BP 158 / 88; Pulse 111; Resp 27; Temp 101.7; Pulse Ox 94% on R/A; Pain 7/10; ch 18:39 BP 137 / 56; Pulse 102; Resp 28; Temp 101.7; Pulse Ox 100% on 2 lpm NC; Pain 5/10; ch 19:30 BP 124 / 68; Pulse 102; Resp 24 S; Temp 100.5(O); Pulse Ox 98% on 2 lpm NC; cc3 20:00 BP 129 / 72; Pulse 100; Resp 20 S; Pulse Ox 98% on 2 lpm NC; Pain 4/10; cc3 15:34 Body Mass Index 54.93 (145.15 kg, 162.56 cm) la1 Vitals: 16:34 Cardiac Rhythm Assessment Regular Sinus tach. ED Course: 15:31 Patient arrived in ED. mr 15:31 Merly Couch DO is Private Physician. mr 15:34 Triage completed. la1 15:35 Arm band placed on left wrist. la1 15:38 Donnie Whitten PA is PHCP. cp 15:38 Joshua Melendez MD is Attending Physician. cp 15:48 Tamica Sotelo, LAURA is Primary Nurse. ch 16:00 Patient has correct armband on for positive identification. Bed in low position. Call light in reach. Side rails up X 1. Adult w/ patient. playground monitor on. Pulse ox on. NIBP on. 16:00 Warm blanket given. 16:00 First set of blood cultures drawn. 16:00 No provider procedures requiring assistance completed. Patient admitted, IV remains in place. 16:10 EKG done, by analytical technician. reviewed by Donnie RODRIGUEZ. sm3 16:15 Second set of blood cultures drawn. 16:17 Inserted saline lock: 18 gauge in right antecubital area, using aseptic technique. Blood collected. 17:13 XRAY Chest (1 view) In Process Unspecified. EDMS 17:49 Cheli Mckeon MD is Hospitalizing Provider. cp 17:57 No apparent distress. Resting quietly. ch 18:40 Missed attempt(s): 22 gauge in right forearm. Administered Medications: 16:10 Drug: Zofran 4 mg Route: IVP; Site: right antecubital; 16:15 Drug: Pepcid 20 mg Route: IVP; Site: right antecubital; 16:20 Drug: NS 0.9% 1000 ml Route: IV; Rate: 1000 ml/hr; Site: right antecubital; 17:44 Not Given (Donnie states do not give 4.5 L of fluid to pt due to medical hx and lung ch sounds): NS 0.9% (30 ml/kg) 30 ml/kg IV at bolus once; Sepsis Protocol 17:50 Drug: Magnesium Sulfate 2 grams Route: IVPB; Infused Over: 1 hrs; Site: right ch antecubital; 18:38 Follow up: IV Status: Completed infusion; IV Intake: 50ml ch 18:08 Drug: Cefepime 2 grams Route: IVPB; Rate: 200 ml/hr; Infused Over: 30 mins; Site: right ch antecubital; 19:00 Follow up: Response: No adverse reaction; IV Status: Completed infusion cc3 18:08 Drug: Motrin 800 mg Route: PO; ch 18:37 Follow up: Response: No adverse reaction ch 18:09 Drug: NS 0.9% 1000 ml Route: IV; Rate: 1 bolus; Site: right antecubital; ch 19:30 Follow up: Response: No adverse reaction; IV Status: Completed infusion; IV Intake: cc3 1000ml 18:38 Drug: vancoMYCIN 1 grams Route: IVPB; Infused Over: 2 hrs; Site: right antecubital; ch 19:30 Follow up: Response: No adverse reaction; IV Status: Infusion continued upon admission cc3 20:00 Drug: NS 0.9% 1000 ml Route: IV; Rate: 1 bolus; Site: right antecubital; cc3 20:01 Follow up: Response: No adverse reaction; IV Status: Infusion continued upon admission cc3 Intake: 18:38 IV: 50ml; Total: 50ml. ch 19:30 IV: 1000ml; Total: 1050ml. cc3 Outcome: 17:50 Decision to Hospitalize by Provider. cp 20:00 Admitted to Med/surg accompanied by tech, family with patient, via stretcher, room 215, cc3 with oxygen, with chart, Report called to LAURA Prado 20:00 Condition: stable 20:00 Instructed on the need for admit, Demonstrated understanding of instructions. 20:07 Patient left the ED. cc3 Signatures: Dispatcher [employer] EDMS Tamica Sotelo RN RN ch Rivera, Mary mr Attema, Lee, RN RN la1 Donnie Whitten PA PA Alba Zamorano [facility] Paz Sam cc3 Corrections: (The following items were deleted from the chart) 18:02 16:41 CBC+H.LAB.BRZ drawn and sent. EDMS 18:03 16:40 BASIC METABOLIC PANEL+C.LAB.BRZ drawn and sent. EDMS 18:03 16:40 BLOOD CULTURE*+BA.LAB.BRZ drawn and sent. EDMS 18:03 16:41 CKMB+C.LAB.BRZ drawn and sent. EDMS 18:03 16:41 CREATINE PHOSPHOKINASE+C.LAB.BRZ drawn and sent. EDMS 18:03 16:41 LACTATE+C.LAB.BRZ drawn and sent. EDMS 18:03 16:41 HEPATIC FUNCTION+C.LAB.BRZ drawn and sent. [facility]
--- NOTE | 2019-05-17 17:51 | EDPHYS ---
Physician Documentation [facility] Name: Pipo Nieto Age: 64 yrs Sex: Male : 1955 Arrival Date: 05/17/2019 Time: 15:31 Bed 19 Private MD: Merly Couch H ED Physician Joshua Melendez HPI: 05/17 15:55 This 64 yrs old Male presents to ER via Wheelchair with complaints of cp Vomiting/Diarrhea. 15:55 The patient presents to the emergency department with nausea, that is mild, vomiting, cp that is intermittent, diarrhea, that is continuous. 15:55 Onset: The symptoms/episode began/occurred this morning. Possible causes: unknown. cp 15:55 Associated signs and symptoms: Pertinent positives: fever, Pertinent negatives: cp abdominal pain, constipation, GI bleeding, chest pain. Historical: - Allergies: 15:34 No Known Allergies; la1 - Home Meds: 17:07 allopurinol 100 mg Oral tab 1 tab 2 times per day [Active]; amiodarone 200 mg Oral tab ch 1 tab once daily [Active]; aspirin 325 mg Oral tab 1 tab once daily [Active]; atorvastatin 80 mg Oral tab 1 tab once daily [Active]; bumetanide 1 mg Oral tab 1 tab once daily [Active]; insulin detemir 45units in the AM, 35 units in the PM subcutaneous twice a day [Active]; losartan 25 mg Oral tab 1 tab once daily [Active]; metoprolol tartrate 25 mg Oral tab 1 tab once daily [Active]; - PMHx: 15:34 Cardiac Tamponade; Diabetes; Fluid in Lungs; Gout; Hypertension; Kidney stones; la1 - Immunization history:: Adult Immunizations up to date. - Social history:: Smoking status: Patient/guardian denies using tobacco. - Ebola Screening: : No symptoms or risks identified at this time. ROS: 16:05 Constitutional: Positive for chills, Negative for fever, poor PO intake. cp 16:05 Eyes: Negative for injury, pain, redness, and discharge. cp 16:05 ENT: Negative for drainage from ear(s), ear pain, sore throat, difficulty swallowing, difficulty handling secretions. 16:05 Cardiovascular: Negative for chest pain, edema, palpitations. 16:05 Respiratory: Negative for cough, shortness of breath, wheezing. 16:05 Abdomen/GI: Positive for nausea, vomiting, diarrhea, Negative for abdominal pain, constipation, black/tarry stool, rectal bleeding. 16:05 : Negative for urinary symptoms. 16:05 Skin: Positive for erythema, of the right leg. 16:05 Neuro: Positive for headache, Negative for altered mental status, weakness. 16:05 All other systems are negative. Exam: 16:08 Constitutional: The patient appears in no acute distress, alert, awake, cp non-diaphoretic, non-toxic, well developed, well nourished, uncomfortable. 16:08 Head/Face: Normocephalic, atraumatic. cp 16:08 Eyes: Periorbital structures: appear normal, Conjunctiva: normal, no exudate, no injection, Lids and lashes: appear normal, bilaterally. 16:08 ENT: External ear(s): are unremarkable, Ear canal(s): are normal, clear, TM's: bulging, is not appreciated, bilaterally, dullness, bilaterally, erythema, is not appreciated, bilaterally, Nose: is normal, Mouth: Lips: moist, Oral mucosa: pink and intact, moist, Posterior pharynx: is normal, airway is patent, no erythema, no exudate. 16:08 Neck: ROM/movement: is normal, is supple, without pain, no range of motions limitations, no meningismus, no nuchal rigidity. 16:08 Chest/axilla: Inspection: normal, Palpation: is normal, no crepitus, no tenderness. 16:08 Cardiovascular: Rate: tachycardic, Rhythm: regular, Edema: is not appreciated, JVD: is not appreciated. 16:08 Respiratory: the patient does not display signs of respiratory distress, Respirations: normal, no use of accessory muscles, no retractions, no splinting, no tachypnea, labored breathing, is not present, Breath sounds: are clear throughout, no decreased breath sounds, no stridor, no wheezing. 16:08 Abdomen/GI: Inspection: abdomen appears normal, Bowel sounds: active, all quadrants, Palpation: abdomen is soft and non-tender, in all quadrants, rebound tenderness, is not appreciated, voluntary guarding, is not appreciated, involuntary guarding, is not appreciated. 16:08 Back: pain, is absent, ROM is normal. 16:08 Skin: cellulitis, that is moderate, well demarcated, on the right leg. 16:08 Neuro: Orientation: to person, place \T\ time. Mentation: is normal, Cerebellar function: is grossly normal, Motor: moves all fours, strength is normal. 16:11 ECG was reviewed by the Attending Physician. cp Vital Signs: 15:34 BP 125 / 65; Pulse 108; Resp 16; Temp 99.9; Pulse Ox 100% on R/A; Weight 145.15 kg; la1 Height 5 ft. 4 in. (162.56 cm); 16:34 BP 149 / 78; Pulse 104; Resp 15; Temp 99.5; Pulse Ox 95% on R/A; Pain 7/10; ch 17:07 BP 167 / 70; Pulse 106; Resp 31; Temp 100.9; Pulse Ox 94% on R/A; Pain 6/10; ch 17:42 BP 158 / 88; Pulse 111; Resp 27; Temp 101.7; Pulse Ox 94% on R/A; Pain 7/10; ch 18:39 BP 137 / 56; Pulse 102; Resp 28; Temp 101.7; Pulse Ox 100% on 2 lpm NC; Pain 5/10; ch 19:30 BP 124 / 68; Pulse 102; Resp 24 S; Temp 100.5(O); Pulse Ox 98% on 2 lpm NC; cc3 20:00 BP 129 / 72; Pulse 100; Resp 20 S; Pulse Ox 98% on 2 lpm NC; Pain 4/10; cc3 15:34 Body Mass Index 54.93 (145.15 kg, 162.56 cm) la1 MDM: 15:49 Patient medically screened. cp 16:00 Differential diagnosis: gastritis, viral gastroenteritis, gastroenteritis, sepsis, cp dehydration, pneumonia. 17:45 Data reviewed: vital signs, nurses notes, lab test result(s), EKG, radiologic studies, cp plain films. 17:45 Response to treatment: the patient's symptoms have mildly improved after treatment. cp 17:46 Physician consultation: Cheli Mckeon MD was called at 17:40, was contacted at 17:40, cp regarding admission, to the telemetry unit. patient's condition. 05/17 15:55 Order name: Basic Metabolic Panel; Complete Time: 17:25 cp 05/17 17:25 Interpretation: Normal except: NA 135; GLUC 254; BUN 19; GFR 60. cp 05/17 15:55 Order name: CBC with Diff; Complete Time: 17:25 05/17 17:25 Interpretation: Normal except: WBC 19.6; LEXUS% 92.7; LYM% 3.3; NEUT A 18.2. 05/17 15:55 Order name: LFT's; Complete Time: 17:25 05/17 17:25 Interpretation: Normal except: BILIT 1.1; BILID 0.3; TP 8.4; GLOB 4.6; A/G 0.8. cp 05/17 15:55 Order name: Magnesium; Complete Time: 17:25 05/17 15:55 Order name: NT PRO-BNP; Complete Time: 17:25 cp 05/17 15:55 Order name: PT-INR; Complete Time: 17:25 05/17 15:55 Order name: Troponin (emerg Dept Use Only); Complete Time: 17:25 05/17 15:55 Order name: Lactate; Complete Time: 17:25 05/17 17:26 Interpretation: Abnormal: LAC 2.9. cp 05/17 15:55 Order name: Procalcitonin; Complete Time: 17:41 cp 05/17 15:55 Order name: Blood Culture Adult (2) 05/17 15:55 Order name: XRAY Chest (1 view); Complete Time: 17:25 05/17 15:56 Order name: Urine Microscopic Only; Complete Time: 19:59 05/17 16:56 Order name: CBC Smear Scan; Complete Time: 17:25 EDMS 05/17 18:08 Order name: Urine Dipstick--Ancillary (enter results) bd 05/17 18:09 Order name: Urine Dipstick-Ancillary; Complete Time: 19:59 EDMS 05/17 18:51 Order name: Lactate 05/17 19:44 Order name: Lactate; Complete Time: 19:59 EDMS 05/17 15:55 Order name: EKG; Complete Time: 15:56 cp 05/17 15:55 Order name: Cardiac monitoring; Complete Time: 18:43 cp 05/17 15:55 Order name: EKG - Nurse/Tech; Complete Time: 18:43 cp 10/16 15:55 Order name: IV Saline Lock; Complete Time: 18:43 cp 05/17 15:55 Order name: Labs collected and sent; Complete Time: 18:43 cp 05/17 15:55 Order name: O2 Per Protocol; Complete Time: 18:43 cp 05/17 15:55 Order name: O2 Sat Monitoring; Complete Time: 18:43 cp 05/17 15:56 Order name: Cardiac monitoring; Complete Time: 16:42 ch 05/17 15:56 Order name: EKG - Nurse/Tech; Complete Time: 16:42 ch 05/17 15:56 Order name: IV Saline Lock - Large Bore; Complete Time: 16:42 ch 05/17 15:56 Order name: Labs collected and sent; Complete Time: 16:42 ch 05/17 15:56 Order name: O2 Per Protocol; Complete Time: 16:42 ch 05/17 15:56 Order name: O2 Sat Monitoring; Complete Time: 16:42 ch 05/17 15:56 Order name: Urine Dipstick-Ancillary (obtain specimen); Complete Time: 18:43 05/17 19:55 Order name: US; Complete Time: 19:59 EDMS EC:11 Rate is 105 beats/min. Rhythm is regular. MO interval is normal. QRS interval is cp prolonged at 156 msec. QT interval is normal. T waves are Inverted in leads aVL, aVR, V1, V2, V3. Interpreted by me. Reviewed by me. Administered Medications: 16:10 Drug: Zofran 4 mg Route: IVP; Site: right antecubital; ch 16:15 Drug: Pepcid 20 mg Route: IVP; Site: right antecubital; ch 16:20 Drug: NS 0.9% 1000 ml Route: IV; Rate: 1000 ml/hr; Site: right antecubital; ch 17:44 Not Given (Donnie states do not give 4.5 L of fluid to pt due to medical hx and lung ch sounds): NS 0.9% (30 ml/kg) 30 ml/kg IV at bolus once; Sepsis Protocol 17:50 Drug: Magnesium Sulfate 2 grams Route: IVPB; Infused Over: 1 hrs; Site: right ch antecubital; 18:38 Follow up: IV Status: Completed infusion; IV Intake: 50ml ch 18:08 Drug: Cefepime 2 grams Route: IVPB; Rate: 200 ml/hr; Infused Over: 30 mins; Site: right ch antecubital; 19:00 Follow up: Response: No adverse reaction; IV Status: Completed infusion cc3 18:08 Drug: Motrin 800 mg Route: PO; 18:37 Follow up: Response: No adverse reaction 18:09 Drug: NS 0.9% 1000 ml Route: IV; Rate: 1 bolus; Site: right antecubital; 19:30 Follow up: Response: No adverse reaction; IV Status: Completed infusion; IV Intake: cc3 1000ml 18:38 Drug: vancoMYCIN 1 grams Route: IVPB; Infused Over: 2 hrs; Site: right antecubital; 19:30 Follow up: Response: No adverse reaction; IV Status: Infusion continued upon admission cc3 20:00 Drug: NS 0.9% 1000 ml Route: IV; Rate: 1 bolus; Site: right antecubital; cc3 20:01 Follow up: Response: No adverse reaction; IV Status: Infusion continued upon admission cc3 Disposition: 05/17/19 17:50 Hospitalization ordered by Cheli Mckeon for Inpatient Admission. Preliminary diagnosis are Other sepsis, Cellulitis of right lower limb. - Bed requested for Telemetry/MedSurg (Inpatient). - Status is Inpatient Admission. cc3 - Condition is Stable. - Problem is new. - Symptoms have improved. UTI on Admission? No Addendum: 05/19/2019 07:45 Co-signature as Attending Physician, Joshua Melendez MD I agree with the assessment and k dr plan of care. Signatures: Dispatcher [employer] EDSD Lolita Arnett Christina, LAURA SANCHEZ Joshua Melendez MD MD [facility] Justin Chavarria RN RN la1 Donnie Whitten PA PA Paz Stein cc3 Corrections: (The following items were deleted from the chart) 05/17 17:13 15:57 Chest Single View+RAD.RAD.BRZ ordered. EDMS EDMS 18:02 15:57 CBC+H.LAB.BRZ ordered. EDMS EDMS 18:02 15:57 Procalcitonin+C.LAB.BRZ ordered. EDMS EDMS 18:02 15:57 PROTIME (+INR)+COAG.LAB.BRZ ordered. EDMS EDMS 18:02 15:57 PTT, ACTIVATED+COAG.LAB.BRZ ordered. EDMS EDMS 18:03 15:57 BASIC METABOLIC PANEL+C.LAB.BRZ ordered. EDMS EDMS 18:03 15:57 BLOOD CULTURE*+BA.LAB.BRZ ordered. EDMS EDMS 18:03 15:57 CKMB+C.LAB.BRZ ordered. EDMS EDMS 18:03 15:57 CREATINE PHOSPHOKINASE+C.LAB.BRZ ordered. EDMS EDMS 18:03 15:57 LACTATE+C.LAB.BRZ ordered. EDMS EDMS 18:03 15:57 HEPATIC FUNCTION+C.LAB.BRZ ordered. EDMS EDMS 18:03 15:57 LIPASE+C.LAB.BRZ ordered. EDMS EDMS 18:03 15:57 TROPONIN (EMERG DEPT USE ONLY)+C.LAB.BRZ ordered. EDMS EDMS 18:13 17:50 Hospitalization Ordered by Cheli Mckeon MD for Inpatient Admission. Preliminary bd diagnosis is Other sepsis; Cellulitis of right lower limb. Bed requested for Telemetry/MedSurg (Inpatient). Status is Inpatient Admission. Condition is Stable. Problem is new. Symptoms have improved. UTI on Admission? No. cp 18:43 15:56 Accucheck ordered. ch 20:07 18:13 05/17/2019 17:50 Hospitalization Ordered by Cheli Mckeon MD for Inpatient cc3 Admission. Preliminary diagnosis is Other sepsis; Cellulitis of right lower limb. Bed requested for Telemetry/MedSurg (Inpatient). Status is Inpatient Admission. Condition is Stable. Problem is new. Symptoms have improved. UTI on Admission? No. bd
[2019-05-17] MEDS ORDERED: CEFEPIME/SWI 2gm 2 GM/20 ML SYR IV ONE (18:00)
[2019-05-17] MEDS ORDERED: VANCOMYCIN/NS 1 gm 1 GM/250 ML BAG IV ONE (18:00)
[2019-05-17] MEDS ORDERED: IBUPROFEN 200 MG TAB PO ONE (18:06)
[2019-05-17 19:42] LABS: Urine Bacteria <20 /HPF (NONE SEEN); Urine Culture Reflex Order NOT NEEDED; Urine RBC <5 /HPF (NONE SEEN)
--- NOTE | 2019-05-17 19:51 | RAD REPORT ---
EXAM DESCRIPTION: US - Extremity Venous Uni Ltd - 05/17/2019 7:35 pm CLINICAL HISTORY: swelling rule out DVT Leg swelling and edema. COMPARISON: <Comparisons> FINDINGS: Right lower extremity venous system was interrogated with Doppler technique. Normal flow, compressibility and augmentation was noted. There is no DVT present. IMPRESSION: No evidence of right lower extremity deep venous thrombosis.
[2019-05-17 19:57] LABS: Urine Blood TRACE (NEG); Urine Glucose 1+ (NEG); Urine Protein 1+ (NEG); Urine Specific Gravity 1.015 (1.005-1.030); Urine pH 5.5 (5.0-7.0)
[2019-05-17] MEDS ORDERED: ONDANSETRON 4 MG/2 ML VIAL IV PRN (20:07)
[2019-05-17] MEDS ORDERED: VANCOMYCIN/NS 1 gm 1 GM/250 ML BAG IVPB SCH (20:07)
[2019-05-17 20:35] VITALS: O2SAT 98
[2019-05-17] MEDS ORDERED: CEFEPIME 2 GM VIAL IV SCH (21:00)
[2019-05-17] MEDS ORDERED: VANCOMYCIN/NS 1 gm 1 GM/250 ML BAG IVPB ONE (21:15)
[2019-05-17] MEDS: INSULIN -REGULAR HUMAN 50 UNIT/0.5 ML ML SQ SCH (21:15)
[2019-05-17] MEDS: NA CHLORIDE 0.9% 1,000 ML IV SCH (21:17)
[2019-05-17] MEDS: ACETAMINOPHEN 500 MG TAB PO PRN (21:18)
[2019-05-17] MEDS ORDERED: VANCOMYCIN 1 GM/VIAL ONE (21:51)
[2019-05-17] MEDS ORDERED: NA CHLORIDE 0.9% 250 ML ONE (21:53)
--- NOTE | 2019-05-17 23:02 | HP ---
Chief Complaint: Right lower extremity redness, swelling, fever, chills. Primary Care Physician: Dr. Couch. History Of Present Illness: Patient is a 64-year-old male with past medical history of gout, kidney stones, obesity, diabetes, heart disease, hypertension, comes in with fever, chills, nausea, vomiting , and diarrhea since this morning. Patient also report redness and swelling of his right lower extre mity which is worse than usual with some streaking going up his inner thigh. Patient was admitted to the hospital for right extremity cellulitis in October. The patient's symptoms are constant, moderate , progressively worsening. He does have a lesion on his right plantar aspect of his toe. Patient's blood sugars are not well controlled. He is on large doses of insulin. No alleviating factors. Swe lling is worse with hanging the foot down. In the ER, his workup revealed the signs and symptoms con sistent with sepsis. He was given IV fluid bolus x2, IV antibiotics. Cultures were obtained and he was referred for admission. When seen in the ER, he was awake, alert, oriented x3, in some mild dist ress. Past Medical History: Diabetes; heart disease, status post CABG; gout; kidney stones; morbid obesity ; hypertension; hyperlipidemia. Past Surgical History: Coronary artery bypass graft, cyst removal 30 years ago. Allergies: NO KNOWN DRUG ALLERGIES. Medications: List reviewed. Social History: Patient is a former smoker. Does use alcohol occasionally. Lives at home, , currently employed. Family History: Father had heart disease. Review of Systems: Ten-point system reviewed, negative except as per HPI. Physical Examination: Vital Signs: Blood pressure 125/65, pulse 108, respirations 16, temperature 99.9, O2 of 100% on room air. Patient did spike a temperature of 101.7 in the ER and his temperature at home was 103. General: Awake, alert, oriented x3. Morbidly obese male, ill-appearing. HEENT: Normocephalic, atraumatic. PERRLA. EOMI. Dry mucous membranes. Oropharynx is clear. Conj unctiva is anicteric. Neck: Supple. No JVD. Trachea midline. CV: S1, S2. Sinus tachycardia. Peripheral pulses weak. Respiratory: Moving air well bilaterally. No wheezing or stridor. No use of accessory muscles. Gastrointestinal: Abdomen is soft, nontender, nondistended. Positive bowel sounds. No guarding or rigidity. Extremities: Patient does have some cyanosis of his toes when his feet are hanging off the bed. Pur plish discoloration. Patient has significant edema on both lower extremities, worse on the right wit h erythema, warm to touch and streaking skin chronic venous stasis changes and erythema of the right lower extremity with streaking. Patient also has dried ulceration and abrasion of his 1st digit plan tar aspect. Neuro: Cranial nerves 2 through 12 intact grossly. No focal neurological deficits. Speech is varinder l. Psych: Mood is okay. Affect is full. Insight and judgment are fair. Laboratory Data: Sodium 135, potassium 3.6, chloride 99, CO2 of 27, BUN 19, creatinine 1.22, glucose 254, lactate 2.9, calcium 8.8, magnesium 1.6. Troponin less than 0.02. Procalcitonin 4.21. WBC 19 .6, H and H 14.6 and 44.9, platelets 197, neutrophils 92%. INR 1.19. Chest x-ray shows no acute int rathoracic process identified. Assessment: A 64-year-old male with: 1.Sepsis secondary to cellulitis. Patient is tachycardic, had temperature of 103. Current T-max is 101.7. White blood cell count is 19,000 with left shift. Patient has elevated lactate and procalci tonin. We will start on sepsis guidelines. Patient has been bolused 2 L. Cautious with IV fluids d ue to history of coronary artery disease with coronary artery bypass graft and history of pericardial effusion in the past. 2.Right lower extremity cellulitis. We will continue with broad-spectrum IV antibiotics. Obtain cu ltures. Patient has significant edema. We will obtain Doppler sonogram to rule out deep venous thro mbosis in the right lower extremity. 3.Hypomagnesemia. We will replace and monitor. 4.Essential hypertension, stable. We will hold blood pressure medications for now due to sepsis. 5.Diabetes mellitus type 2 with hyperglycemia, insulin requiring. We will resume long-acting insuli n and reduce dose as patient has been throwing up, not tolerating diet well. Placed on sliding scale insulin and monitor blood glucose levels. 6.Mixed hyperlipidemia. Continue statin. 7.Coronary artery disease, [place] artery, [place] heart, status post coronary artery bypass graft wit hout angina, stable. 8.Morbid obesity, body mass index greater than 50. 9.History of gout. 10.Deep venous thrombosis prophylaxis with Lovenox. Plan: Admit patient to Med-Surg, place as inpatient. Length of stay greater than 2 midnights. SARANYA Voice ID: [id number] Report ID: [id number]
[2019-05-17 23:51] VITALS: BMI 44.6
--- NOTE | 2019-05-18 05:15 | EKG ---
Test Date: 2019-05-17 Test Time: 16:02:46 Textile Pin Worker: MAYCOL MEASUREMENT RESULTS: Intervals: Rate: 105 NV: 184 QRSD: 156 QT: 404 QTc: 533 [place]: P: 30 NV: 184 QRS: -7 T: 93 INTERPRETIVE STATEMENTS: Sinus tachycardia Right bundle branch block T wave abnormality, non specific Abnormal ECG Compared to ECG 06/17/2017 14:59:59 T-wave abnormality now present Sinus bradycardia no longer present Electronically Signed On 05-18-19 05:14:38 CDT by Guy Cole
[2019-05-18 05:36] LABS: Absolute Lymphocytes (CBC) 0.8 K/uL (0.7-4.9); Basophils % 0.4 % (0-1.3); Hematocrit 38.3 % (39.6-49.0); Lymphocytes % 6.5 % (15.3-44.8); MPV 8.8 fL (7.6-11.3); RBC Red Blood Cell Count 4.63 M/uL (4.33-5.43)
[2019-05-18 05:50] LABS: Magnesium 2.1 mg/dL (1.8-2.4); Phosphorus 1.8 mg/dL (2.5-4.9); Potassium 4.1 mmol/L (3.5-5.1)
[2019-05-18] MEDS ORDERED: INFLUENZA VACCINE (for 3y+) 0.5 ML DOSE IMVAC ONE (06:00)
[2019-05-18 07:12] LABS: Blood Morphology Comment NOT SEEN (NOT SEEN); Platelet Estimate ADEQ
[2019-05-18] MEDS ORDERED: HOME MED 1 EA UNK (Insulin Detemir [Levemir Flextouch] 25 UNITS) SQ SCH (08:15)
[2019-05-18] MEDS: NA CHLORIDE 0.9% 1,000 ML IV SCH ×3 (08:42→19:55)
[2019-05-18] MEDS: INSULIN -REGULAR HUMAN 50 UNIT/0.5 ML ML SQ SCH ×4 (08:43→21:00)
[2019-05-18] MEDS: BUMETANIDE 1 MG TABLET PO SCH (08:44)
[2019-05-18] MEDS: ACETAMINOPHEN 500 MG TAB PO PRN ×2 (08:44→15:30)
[2019-05-18] MEDS: ALLOPURINOL 300 MG TAB PO SCH ×2 (08:45→19:54)
[2019-05-18] MEDS: ASPIRIN 81 MG CHEWABLE TABLET PO SCH (08:45)
[2019-05-18] MEDS ORDERED: CEFEPIME 2 GM VIAL IV SCH (09:00)
[2019-05-18] MEDS: CEFEPIME/SWI 2gm 2 GM/20 ML SYR IV SCH ×2 (09:09→21:16)
[2019-05-18] MEDS: VANCOMYCIN 2 GM in NA CHLORIDE 0.9% 500 ML IVPB SCH (11:43)
--- NOTE | 2019-05-18 14:57 | PN ---
Date of Progress Note: 05/18/2019 Subjective: Patient seen and examined. Chart reviewed and case discussed with RN. Patient states he is feeling slightly better. Still spiking high fevers, 101.7 last night, currently has temperature of 100. No significant pain. Medications: List reviewed. Physical Examination: Vital Signs: Temperature 100, T-max 101.7, heart rate 83, blood pressure 173/81 , respirations 18, O2 95% on 2 L via nasal cannula. General: Awake, alert, oriented x3. Morbidly obese, ill-appearing male. CV: S1, S2. Regular rate and rhythm. Peripheral pulses present. Respiratory: Moving air well bilaterally. No wheezing or stridor. No use of accessory muscles. Gastrointestinal: Abdomen is soft, nontender, nondistended. Positive bowel sounds. No guarding or rigidity. Extremities: No clubbing or cyanosis. Patient has edema of the right lower extremity. Neurologic: Cranial nerves 2 through 12 intact grossly. No focal neurological deficit. Speech is normal. Skin: Erythema of the right lower extremity with streaking, somewhat advanced outside of demarcation from yesterday. Warm to touch. Tenderness to palpation. Laboratory Data: WBC 11.8, H and H 12.7 and 38.3, platelets 176, neutrophils 87 %, 1% band. Sodium 139, potassium 4.1, chloride 106, CO2 of 28, BUN 15, creatinine 1.11, glucose 294. Lactate is 2.2, calcium 8.1, phosphorus 1.8, magnesium 2.1. Doppler venous study right lower extremity is negative for DVT. Assessment And Plan: A 64-year-old male with; 1. Sepsis secondary to cellulitis, improving. Patient's white blood cell count is trending down. Still febrile with temperature of 101.7. Cellulitis still quite significant with redness, increasing past demarcation from yesterday. We will continue with IV fluids and IV antibiotics. We will follow up on cultures. 2. Right lower extremity cellulitis. Continue with IV antibiotics. Cultures are pending at this time. No deep venous thrombosis. Erythema worsening. 3. Hypomagnesemia. Replace and monitor. 4. Hypophosphatemia. Replace and monitor. 5. Essential hypertension, stable. We will resume blood pressure medications as appropriate, held yesterday due to sepsis. 6. Diabetic foot wound: right 1st digit plantar aspect. Wound care. 7. Diabetes mellitus type 2 with hyperglycemia, insulin requiring. We will resume long-acting insulin at reduced dose. Continue sliding scale insulin. 8. Mixed hyperlipidemia. Continue statin. 9. Coronary artery disease, [place] artery and [place] heart, status post coronary artery bypass graft done without angina, stable. 10. Morbid obesity. Body mass index is 44.6. 11. History of gout. 12. Deep venous thrombosis prophylaxis with Lovenox. 13. Disposition: Discharge likely in the next 24 to 48 hours depending on clinical response and culture results. SARANYA Voice ID: [id number] Report ID: [id number] WENDY
[2019-05-18] MEDS: MUPIROCIN 2% OINT 22GM TUBE TOP SCH (15:30)
[2019-05-18] MEDS ORDERED: HYDROCODONE/APAP 7.5/325 MG TAB PO PRN (16:22)
[2019-05-18] MEDS: ENOXAPARIN 40 MG/0.4 ML SQ SCH (16:41)
[2019-05-18] MEDS ORDERED: PROMETHAZINE 25 MG/ML VIAL IV ONE (19:28)
[2019-05-18] MEDS: IBUPROFEN 400 MG TAB PO PRN (19:55)
[2019-05-18] MEDS: ATORVASTATIN 80 MG TAB PO SCH (19:55)
[2019-05-18] MEDS ORDERED: VANCOMYCIN 2 GM in NA CHLORIDE 0.9% 500 ML IVPB SCH (20:00)
--- NOTE | 2019-05-18 20:43 | CON ---
History Of Present Illness: This is a known patient to me from previous admission. Patient coming i n with right lower extremity cellulitis, currently treated with the antibiotic. Patient also has wou nd to the right big toe. Has significant past medical history of diabetes mellitus, morbid obesity, kidney stone, gout, heart disease, hypertension. Coming in with fever, chills, nausea, vomiting, and diarrhea the day prior to admission. Past Medical History: As per HPI. Social History: Ex-smoker. Nondrinker. Family History: Noncontributory. Medications: Patient is currently being treated with cefepime and vancomycin. Allergies: NO KNOWN DRUG ALLERGIES. Review of Systems: A 10-point review was performed. Physical Examination: General: This is a 64-year-old male, lying in bed, not in any acute cardiopulmonary distress. Vital Signs: Temperature 97.8, pulse 82, respirations 18, blood pressure 152/72. HEENT: Unremarkable. Neck: Supple. Lungs: Clear to auscultation. Heart: S1, S2. Regular. Abdomen: Soft, nontender. Bowel sounds present. Extremities: Right leg with erythematous changes and increase edema and tenderness with horizontal w ound noted under the big toe and on plantar surface area. No drainage noted. Laboratory Data: Shows WBC 11,800 down from 19,600, hemoglobin 12.7, platelets are 176. Chemistry s hows sodium 139, potassium 4.1, chloride 106, bicarb 28, BUN 15, creatinine 1.1, glucose 294. Micro data shows cultures are pending. Chest x-ray, no infiltrate. Assessment And Plan: Right lower extremity cellulitis, most likely secondary to the open wound to th e big toe area. We will recommend to apply Xeroform gauze and petroleum gel. Keep the wound covered and keep leg elevated. Continue IV antibiotic, total course of 2 weeks. We will follow the patient closely. [facility]. NF/MODL Voice ID: [id number] Report ID: [id number]
[2019-05-18] MEDS ORDERED: INSULIN GLARGINE 100 UNITS/ML SQ SCH ×2 (21:00)
[2019-05-18] MEDS: INSULIN GLARGINE 100 UNITS/ML SQ SCH (21:16)
[2019-05-19] MEDS: NA CHLORIDE 0.9% 1,000 ML IV SCH ×3 (00:20→21:14)
[2019-05-19] MEDS: VANCOMYCIN 2 GM in NA CHLORIDE 0.9% 500 ML IVPB SCH ×2 (05:34→23:26)
[2019-05-19 06:11] LABS: Absolute Lymphocytes (CBC) 0.7 K/uL (0.7-4.9); Basophils % 0.5 % (0-1.3); Hematocrit 35.9 % (39.6-49.0); Lymphocytes % 7.5 % (15.3-44.8); MPV 8.8 fL (7.6-11.3); RBC Red Blood Cell Count 4.36 M/uL (4.33-5.43)
[2019-05-19 06:27] LABS: Potassium 4.3 mmol/L (3.5-5.1)
[2019-05-19] MEDS: INSULIN -REGULAR HUMAN 50 UNIT/0.5 ML ML SQ SCH ×5 (08:11→21:00)
[2019-05-19] MEDS: INSULIN GLARGINE 100 UNITS/ML SQ SCH ×2 (08:11→21:00)
[2019-05-19] MEDS: ASPIRIN 81 MG CHEWABLE TABLET PO SCH (08:12)
[2019-05-19] MEDS: BUMETANIDE 1 MG TABLET PO SCH (08:12)
[2019-05-19] MEDS: ALLOPURINOL 300 MG TAB PO SCH ×2 (08:12→21:16)
[2019-05-19] MEDS: CEFEPIME/SWI 2gm 2 GM/20 ML SYR IV SCH ×2 (08:12→21:17)
[2019-05-19] MEDS: IBUPROFEN 400 MG TAB PO PRN (08:13)
[2019-05-19] MEDS: MUPIROCIN 2% OINT 22GM TUBE TOP SCH ×2 (08:14→21:00)
[2019-05-19] MEDS: INSULIN ASPART 40 UNIT SQ SCH ×2 (16:00→21:00)
--- NOTE | 2019-05-19 16:05 | PN ---
Date of Progress Note: 05/19/2019 Subjective: Patient seen and examined. Chart reviewed and case discussed with RN. Patient feels sl ightly worse today with continued swelling and pain in his legs. Some low-grade fevers overnight. Medications: List reviewed. Physical Examination: Vital Signs: Temperature 97.5, heart rate 84, blood pressure 170/88, respirations 18, O2 96% on room air. General: Awake, alert, oriented x3. Morbidly obese male, ill-appearing, in some mild distress. CV: S1, S2. Sinus bradycardia. Peripheral pulses present. Respiratory: Moving air well bilaterally. No wheezing or stridor. No use of accessory muscles. Gastrointestinal: Abdomen is soft, nontender, nondistended. Positive bowel sounds. Extremities: Right lower extremity edema, swelling, warm to touch. Mild tenderness to palpation. E rythema is somewhat improved from demarcation; however, not completely resolved. Neurologic: Nonfocal. Laboratory Data: WBC 9.5, hemoglobin and hematocrit 12.1 and 35.9, platelets 158, neutrophils 82%, n o bands. Sodium 137, potassium 4.3, chloride 103, CO2 of 30, BUN 13, creatinine 0.88, glucose 253, c alcium 8.1. Procalcitonin is 2.13, down from 4.21. Blood cultures, no growth to date. Assessment And Plan: A 64-year-old male with: 1.Sepsis secondary to cellulitis, improving. White blood cell count now normalized. Still having s ome low-grade fevers overnight. Cellulitis is improving; however, still has pain and redness. Cultu res negative to date. Appreciate ID input. 2.Right lower extremity cellulitis. We will continue with broad-spectrum IV antibiotics. Cultures are negative to date. Continued swelling, however, Dopplers negative for deep venous thrombosis. We will encourage ambulation, elevate affected leg and use ice. 3.Hypomagnesemia, replaced. 4.Hypophosphatemia, replaced. We will continue to monitor. 5.Essential hypertension, not well controlled. We will adjust blood pressure medications. 6.Diabetes mellitus type 2 with hyperglycemia insulin requiring. Patient is on 65 units of Lantus t wice a day and takes 40 units of NovoLog with meals, however, currently in the 200s. We will start o n 20 units and monitor closely. 7.Mixed hyperlipidemia. Continue statin. 8.Coronary artery disease, [place] artery, [place] heart, status post coronary artery bypass graft wit hout angina, stable. 9.Morbid obesity. BMI is 44.6. 10.History of gout. 11.Deep venous thrombosis prophylaxis with Lovenox. 12.Disposition: Likely discharge in the 24 hours depending on clinical response. May need long-ter m IV antibiotics. /PEDRO Voice ID: [id number] Report ID: [id number]
[2019-05-19] MEDS: ENOXAPARIN 40 MG/0.4 ML SQ SCH (16:40)
[2019-05-19] MEDS: ATORVASTATIN 80 MG TAB PO SCH (21:16)
[2019-05-20] MEDS: NA CHLORIDE 0.9% 1,000 ML IV SCH ×2 (03:00→13:59)
[2019-05-20 06:23] LABS: Absolute Lymphocytes (CBC) 1.2 K/uL (0.7-4.9); Basophils % 0.6 % (0-1.3); Hematocrit 35.4 % (39.6-49.0); Lymphocytes % 15.3 % (15.3-44.8); MPV 9.2 fL (7.6-11.3); RBC Red Blood Cell Count 4.36 M/uL (4.33-5.43)
[2019-05-20 06:40] LABS: BUN Blood Urea Nitrogen 13 mg/dL (7-18); Bicarbonate 27 mmol/L (21-32); Glucose Level 169 mg/dL (74-106); Potassium 3.5 mmol/L (3.5-5.1); Sodium Level 139 mmol/L (136-145)
[2019-05-20] MEDS: INSULIN -REGULAR HUMAN 50 UNIT/0.5 ML ML SQ SCH ×4 (07:30→21:00)
[2019-05-20] MEDS: CEFEPIME/SWI 2gm 2 GM/20 ML SYR IV SCH ×2 (07:55→21:07)
[2019-05-20] MEDS: BUMETANIDE 1 MG TABLET PO SCH (07:56)
[2019-05-20] MEDS: ASPIRIN 81 MG CHEWABLE TABLET PO SCH (07:56)
[2019-05-20] MEDS: INSULIN GLARGINE 100 UNITS/ML SQ SCH ×2 (07:57→21:00)
[2019-05-20] MEDS: ALLOPURINOL 300 MG TAB PO SCH ×2 (07:57→21:08)
[2019-05-20] MEDS: INSULIN ASPART 40 UNIT SQ SCH ×3 (07:58→16:58)
[2019-05-20] MEDS: MUPIROCIN 2% OINT 22GM TUBE TOP SCH ×2 (07:58→21:00)
[2019-05-20] MEDS ORDERED: POTASSIUM CL SA 10 MEQ TAB PO ONE (09:00)
[2019-05-20] MEDS: LOSARTAN POTASSIUM 50 MG TABLET PO SCH (10:10)
--- NOTE | 2019-05-20 12:06 | PN ---
Date of Progress Note: 05/20/2019 Subjective: Patient seen and examined. Chart reviewed and case discussed with RN. Daughter at the bedside. Treatment plan explained. All questions answered. Medications: List reviewed. Physical Examination: Vital Signs: Temperature 97.3, heart rate 56, blood pressure 172/80, respirations 17, O2 98% on room air. General: Awake, alert, oriented x3, not in any acute distress. Morbidly obese male. CV: S1, S2. Regular rate and rhythm. Peripheral pulses present. Respiratory: Moving air well bilaterally. No wheezing or stridor. No use of accessory muscles. Gastrointestinal: Abdomen is soft, nontender, nondistended. Positive bowel sounds. Extremities: No clubbing or cyanosis. Right lower extremity with edema, worse than left. Warm to t ouch. Skin: Right lower extremity erythema improving significantly; however, still has warm to touch and s welling, worse in the contralateral side. Neurologic: Nonfocal. Laboratory Data: Sodium 139, potassium 3.5, chloride 106, CO2 of 27, BUN 13, creatinine 0.78, glucos e 169, calcium 8. WBC 7.7, H and H 12.1 and 35.4, platelets 166, neutrophils 73%. Blood cultures; n o growth to date. Assessment And Plan: 64-year-old male with: 1.Sepsis secondary to cellulitis, improving. WBC count is normal. Cultures negative to date. 2.Right lower extremity cellulitis. We will continue with broad-spectrum IV antibiotics. No growth from the cultures. Patient continues to have swelling and mild erythema. Dopplers negative for DVT . Infectious Disease recommending 2 weeks of IV antibiotics. We will obtain PICC line and set up IV antibiotics. 3.Hypomagnesemia, replaced. 4.Hypophosphatemia, replaced. We will continue to monitor. 5.Essential hypertension, not well controlled. We will resume blood pressure medications. Add hydr alazine p.r.n. 6.Diabetes mellitus type 2 with hyperglycemia, insulin requiring. Continue home dose of insulin. 7.Mixed hyperlipidemia. Continue statin. 8.Coronary artery disease, [place] artery and [place] heart, status post coronary artery bypass graft without angina, stable. 9.Morbid obesity. BMI 44.6. 10.Gout, on allopurinol. 11.Deep venous thrombosis prophylaxis with Lovenox. 12.Likely discharge in the next 24 hours once PICC line has been placed and IV antibiotics have been arranged. SARANYA Voice ID: [id number] Report ID: [id number]
[2019-05-20] MEDS: VANCOMYCIN 2 GM in NA CHLORIDE 0.9% 500 ML IVPB SCH ×2 (13:11→21:07)
[2019-05-20] MEDS: ENOXAPARIN 40 MG/0.4 ML SQ SCH (16:59)
[2019-05-20] MEDS: METOPROLOL XL 25 MG TAB PO SCH (21:08)
[2019-05-20] MEDS: ATORVASTATIN 80 MG TAB PO SCH (21:08)
[2019-05-21] MEDS: NA CHLORIDE 0.9% 1,000 ML IV SCH (05:33)
[2019-05-21 06:12] LABS: Basophils % 1.1 % (0-1.3); Hematocrit 35.1 % (39.6-49.0); Lymphocytes % 15.6 % (15.3-44.8); RBC Red Blood Cell Count 4.34 M/uL (4.33-5.43)
[2019-05-21 07:07] LABS: ALT/SGPT 34 U/L (12-78); AST/SGOT 43 U/L (15-37); Albumin 2.6 g/dL (3.4-5.0); Alkaline Phosphatase 49 U/L (45-117); BUN Blood Urea Nitrogen 10 mg/dL (7-18); Bicarbonate 29 mmol/L (21-32); Bilirubin Total 0.7 mg/dL (0.2-1.0); Glucose Level 167 mg/dL (74-106); Potassium 3.5 mmol/L (3.5-5.1); Protein, Total 6.7 g/dL (6.4-8.2); Sodium Level 140 mmol/L (136-145)
[2019-05-21] MEDS: INSULIN -REGULAR HUMAN 50 UNIT/0.5 ML ML SQ SCH ×4 (07:30→20:52)
[2019-05-21] MEDS: INSULIN GLARGINE 100 UNITS/ML SQ SCH ×2 (09:00→20:51)
[2019-05-21] MEDS: MUPIROCIN 2% OINT 22GM TUBE TOP SCH ×2 (09:00→20:52)
[2019-05-21] MEDS ORDERED: POTASSIUM CL SA 10 MEQ TAB PO ONE ×2 (09:00)
[2019-05-21] MEDS: ASPIRIN 81 MG CHEWABLE TABLET PO SCH (09:30)
[2019-05-21] MEDS: CEFEPIME/SWI 2gm 2 GM/20 ML SYR IV SCH ×2 (09:30→20:49)
[2019-05-21] MEDS: BUMETANIDE 1 MG TABLET PO SCH (09:30)
[2019-05-21] MEDS: ALLOPURINOL 300 MG TAB PO SCH ×2 (09:30→20:50)
[2019-05-21] MEDS: LOSARTAN POTASSIUM 50 MG TABLET PO SCH (09:30)
[2019-05-21] MEDS: VANCOMYCIN 2 GM in NA CHLORIDE 0.9% 500 ML IVPB SCH (09:31)
[2019-05-21] MEDS ORDERED: HYDRALAZINE HCL 20 MG/ML VIAL IV PRN (09:38)
[2019-05-21] MEDS: INSULIN ASPART 40 UNIT SQ SCH ×3 (09:38→20:51)
--- NOTE | 2019-05-21 11:04 | PN ---
Date of Progress Note: 05/21/2019 Subjective: Patient seen and examined. Chart reviewed and case discussed with RN. Patient did comp makenna of some pain in his right leg. Overall doing better. Medications: List reviewed. Physical Examination: Vital Signs: Temperature 99, heart rate 68, blood pressure 180/70, respirations 18, O2 95% on room a ir. General: Awake, alert, oriented x3, in some mild distress. Morbidly obese male. CV: S1, S2. Regular rate and rhythm. Peripheral pulses present. Respiratory: Moving air well bilaterally. No wheezing. Gastrointestinal: Abdomen is soft, nontender, nondistended. Positive bowel sounds. Extremities: No clubbing, cyanosis. Patient has right lower extremity edema. Neurologic: Nonfocal. Skin: Right lower extremity, erythema. Skin is still somewhat warm to touch. Some wrinkling seen, indicating decreased level of edema. Laboratory Data: Sodium 140, potassium 3.5, chloride 106, CO2 29, BUN 10, creatinine 0.78, glucose 1 67, calcium 7.9, AST 43, ALT 34, albumin 2.6. WBC 6.2, H and H 12.3 and 35.1, platelets 208. Blood cultures, no growth to date. Assessment And Plan: 64-year-old male with: 1.Sepsis secondary to cellulitis, improving. Cultures negative. WBC count is normalized. 2.Right lower extremity cellulitis. We will continue with broad-spectrum IV antibiotics. Cultures are negative to date, however, still has some swelling. Erythema has improved significantly. No yves p venous thrombosis. PICC line has been placed. We will set up for 2 weeks of IV antibiotics total. 3.Hypomagnesemia, replaced. 4.Hypophosphatemia, replaced. 5.Moderate protein-calorie malnutrition. Albumin is 2.6. 6.Essential hypertension, not well controlled. We will add hydralazine for systolic greater than 16 0 IV. 7.Diabetes mellitus type 2, insulin requiring with hyperglycemia. Blood sugar levels are better con trolled. We will continue with home dose and pre-meal insulin. 8.Mixed hyperlipidemia. Continue statin. 9.Coronary artery disease, [place] artery and [place] heart, status post coronary artery bypass graft without angina, stable. 10.Morbid obesity. BMI 44. 11.Gout. Continue allopurinol. 12.Deep vein thrombosis prophylaxis with Lovenox. Disposition: Likely discharge once IV antibiotics have been set up. SARANYA Voice ID: [id number] Report ID: [id number]
[2019-05-21] MEDS: ENOXAPARIN 40 MG/0.4 ML SQ SCH (17:20)
[2019-05-21] MEDS: VANCOMYCIN 2.25 GM in NA CHLORIDE 0.9% 500 ML IVPB SCH (20:49)
[2019-05-21] MEDS: METOPROLOL XL 25 MG TAB PO SCH (20:50)
[2019-05-21] MEDS: ATORVASTATIN 80 MG TAB PO SCH (20:50)
[2019-05-22 05:16] LABS: Absolute Lymphocytes (CBC) 1.2 K/uL (0.7-4.9); Basophils % 1.2 % (0-1.3); Hematocrit 37.2 % (39.6-49.0); Lymphocytes % 15.7 % (15.3-44.8); MPV 8.5 fL (7.6-11.3); RBC Red Blood Cell Count 4.58 M/uL (4.33-5.43)
[2019-05-22 05:34] LABS: ALT/SGPT 39 U/L (12-78); AST/SGOT 42 U/L (15-37); Albumin 2.7 g/dL (3.4-5.0); Alkaline Phosphatase 54 U/L (45-117); BUN Blood Urea Nitrogen 8 mg/dL (7-18); Bicarbonate 30 mmol/L (21-32); Bilirubin Total 0.6 mg/dL (0.2-1.0); Glucose Level 97 mg/dL (74-106); Potassium 3.4 mmol/L (3.5-5.1); Sodium Level 142 mmol/L (136-145)
[2019-05-22] MEDS: INSULIN -REGULAR HUMAN 50 UNIT/0.5 ML ML SQ SCH ×2 (07:30→11:30)
[2019-05-22] MEDS ORDERED: POTASSIUM CL SA 10 MEQ TAB PO ONE (09:00)
[2019-05-22] MEDS: MUPIROCIN 2% OINT 22GM TUBE TOP SCH (09:00)
[2019-05-22] MEDS: ASPIRIN 81 MG CHEWABLE TABLET PO SCH (09:08)
[2019-05-22] MEDS: VANCOMYCIN 2.25 GM in NA CHLORIDE 0.9% 500 ML IVPB SCH (09:10)
[2019-05-22] MEDS: CEFEPIME/SWI 2gm 2 GM/20 ML SYR IV SCH (09:10)
[2019-05-22] MEDS: INSULIN GLARGINE 100 UNITS/ML SQ SCH (09:10)
[2019-05-22] MEDS: ALLOPURINOL 300 MG TAB PO SCH (09:10)
[2019-05-22] MEDS: LOSARTAN POTASSIUM 50 MG TABLET PO SCH (09:10)
[2019-05-22] MEDS: INSULIN ASPART 40 UNIT SQ SCH ×2 (09:12→13:07)
[2019-05-22] MEDS: BUMETANIDE 1 MG TABLET PO SCH (09:12)
--- NOTE | 2019-05-22 12:20 | RAD REPORT ---
EXAM DESCRIPTION: RAD - Chest Single View - 05/21/2019 12:21 am CLINICAL HISTORY: S/P PICC insertion TECHNIQUE: Single frontal view of the chest is submitted. COMPARISON: 05/17/2019 FINDINGS: Heart: The cardiothoracic silhouette is enlarged, stable. Prior CABG. Lungs: No focal consolidation. Mediastinum: Thoracic aortic atherosclerosis. Pleura: No appreciable effusion. No pneumothorax. Bones: Prior median sternotomy. Multilevel spondylosis. Upper abdomen: Unremarkable Other: Interval placement of a right upper extremity PICC. The tip projects over the mid superior francois a cava. IMPRESSION: Right upper extremity PICC tip projects over the mid superior vena cava. Electronically signed by: Gutierrez Monae MD 05/21/2019 12:27 AM CDT Due to temporary technical issues with the PACS/Fluency reporting system, reports are being signed by the in house radiologist as a courtesy to ensure prompt reporting. The interpreting radiologist is f ully responsible for the content of the report.
[2019-05-22 13:00] VITALS: BP 174/77; TEMP 97.5
--- NOTE | 2019-05-22 20:44 | DS ---
Date of Discharge: 05/22/2019 Consultants: Dr. Gracia with Infectious Disease. Admitting Diagnoses: 1. Sepsis. 2. Right lower extremity cellulitis. 3. Hypomagnesemia. 4. Essential hypertension. 5. Diabetes mellitus type 2 with hyperglycemia insulin requiring. 6. Mixed hyperlipidemia, on statin. 7. Coronary artery disease, [place] artery, [place] heart, status post coronary artery bypass graft. 8. Morbid obesity, body mass index greater than 50. 9. Gout. Discharge Diagnoses: 1. Sepsis secondary to cellulitis, resolved. 2. Right lower extremity cellulitis, improving. Secondary to diabetic foot ulcer 3. Hypomagnesemia, replaced. 4. Hypophosphatemia, replaced. 5. Moderate protein-calorie malnutrition, albumin 2.6. 6. Essential hypertension, not well controlled. 7. Diabetes mellitus type 2 insulin requiring with hyperglycemia, not well controlled. 8. Hyperlipidemia. 9. Coronary artery disease [place] artery and [place] heart status post coronary artery bypass graft without angina, stable. 10. Morbid obesity, body mass index of 44. 11. Gout on allopurinol. 12. Diabetic foot ulcer. Hospital Course: Patient is a 64-year-old male with past medical history of hypertension, diabetes, hyperlipidemia, heart disease, gout, morbid obesity, comes in with lower extremity cellulitis. Patient had previous episode several months ago. Patient does have multiple skin excoriations and breakages and dry ulcerations from his diabetes, which is the likely source of his cellulitis. Patient was started on broad-spectrum IV antibiotics, cultures were obtained. Cultures remain negative to date. He did have significant amount of swelling, therefore Doppler was done to rule out DVT, lower extremity. Doppler was negative for the right lower extremity. Patient also had dressings and topical wound care treatment for his diabetic foot ulcer. Infectious Disease, Dr. Gracia was consulted. He recommended IV antibiotics due to recurrent nature of his symptoms as well as severity of symptoms. Patient did have some mild electrolyte abnormalities, which were corrected. Patient preferred to have his IV antibiotics administered at home. His daughter has helped with infusion therapy previously and will be trained again. Patient's sepsis resolved, his blood pressure improved, and it was back to hypertensive range. His blood pressure medications were resumed. His white blood cell count normalized. His blood glucose levels were not well controlled. His home dose of insulin was resumed after he was tolerating p.o. diet. Initially, patient had been nauseated and not eating. His blood sugar levels improved with his home regimen. He takes 65 units twice a day long-acting and 40 units premeal. Patient had a PICC line placed and was then cleared for discharge from absence management consultant's standpoint once IV antibiotics were set up. Medications: As per medication reconciliation list. Diet: Diabetic diet. Followup: Follow up with PCP in 2-3 days, follow up with Infectious Disease, Dr. Gracia in 2 weeks, [facility] 1 [facility]. Return to ER for worsening condition. Medications: As per medication reconciliation list. Patient will be on vancomycin for 2 weeks. He will need weekly CBC, CMP, ESR, and CRP. He will need vanc trough after third dose. Does needs to be adjusted [place]. Primary care physician to follow up on labs and dose adjustment. Time Spent: Total time spent discharging the patient was 30 minutes. Physical Examination: General: Awake, alert, oriented x3. Morbidly obese male. CV: S1, S2. Regular rate and rhythm. Peripheral pulses present. Respiratory: Moving air well bilaterally. Abdomen: Abdomen soft, nontender, nondistended. Positive bowel sounds. Extremities: No clubbing, cyanosis. Right lower extremity mild edema. Neurologic: Nonfocal. Skin: Right lower extremity erythema improved significantly. Dry diabetic foot ulcer on the plantar aspect of the first toe right foot. Chronic venous stasis changes bilateral lower extremities. /PEDRO Voice ID: [id number] Report ID: [id number] WENDY
== END 2019-05-22 15:20 | disposition home or self-care (01) | DRG 637 ==
LOC: ER 15:27 → ERHOLD 18:04 → 2ND 19:49
PROVIDERS: ADMIT Family Medicine; ATTEND Family Medicine
DX: E11.628 Type 2 diabetes mellitus with other skin complications (principal); A41.9 Sepsis, unspecified organism; L03.115 Cellulitis of right lower limb; Z68.41 Body mass index [BMI] 40.0-44.9, adult; E44.0 Moderate protein-calorie malnutrition; E83.42 Hypomagnesemia; I10 Essential (primary) hypertension; E11.65 Type 2 diabetes mellitus with hyperglycemia; E11.621 Type 2 diabetes mellitus with foot ulcer; I25.10 Atherosclerotic heart disease of native coronary artery without angina pectoris; E83.39 Other disorders of phosphorus metabolism; M10.9 Gout, unspecified; E66.01 Morbid (severe) obesity due to excess calories; L97.519 Non-pressure chronic ulcer of other part of right foot with unspecified severity; Z95.1 Presence of aortocoronary bypass graft; Z71.3 Dietary counseling and surveillance
CPT/HCPCS: 36415; 71045; 80048; 80053; 80076; 80202; 81003; 81015; 82962; 83605; 83735; 83880; 84100; 84145; 84484; 85025; 85610; 87040; 93005; 93971; 96365; 96367; 96368; 96375; 99285; J0692; J1650; J1815; J2405; J2550; J3370; J3475; J7030; J7040